=== PATIENT | male | born 1955 | race Caucasian/White ===

== ENCOUNTER 2023-08-29 20:36 | Inpatient (IN) ==
[2023-08-29 22:03] LABS: Basophils # (auto) 0.02 K/uL (0.00-0.20); Basophils % (auto) 0.5 %; Eosinophils # (auto) 0.02 K/uL (0.00-0.50); Eosinophils % (auto) 0.5 %; Hematocrit (blood only) 37.5 % (42.0-52.0); Immature Granulocytes # (auto) 0.01 K/uL (0.01-0.20); Immature Granulocytes % (auto) 0.3 %; Lymphocytes # (auto) 1.07 K/uL (1.20-3.40); Lymphocytes % (auto) 27.8 %; Mean Corpuscular Hgb Conc 34.7 g/dL (32.0-36.0); Mean Corpuscular Volume 89.3 fL (80.0-100.0); Mean Platelet Volume 10.9 fL (9.4-12.4); Monocytes # (auto) 0.56 K/uL (0.11-0.59); Monocytes % (auto) 14.5 %; Neutrophils # (auto) 2.17 K/uL (1.40-6.50); Neutrophils % (auto) 56.4 %; Platelet Count 182 K/uL (130-400); RDW Coefficient of Variation 12.9 % (11.5-14.5); RDW Standard Deviation 42.5 fL (36.4-46.3); White Blood Count 3.85 K/ul (4.8-10.8)
[2023-08-29 22:11] LABS: Acetaminophen < 3 ug/ml (10-30); Salicylate < 3.0 mg/dl (3.0-30)
[2023-08-29 22:12] LABS: Alanine Aminotransferase 15 U/L (7-52); Albumin Globulin Ratio 1.3 (0.9-2); Albumin Level 4.1 gm/dl (3.4-5.0); Alkaline Phosphatase 115 U/L (34-104); Anion Gap 8 (3-11); Aspartate Aminotransferase 31 U/L (13-39); BUN Creatinine Ratio 13.9 (10-20); Bilirubin,Total 1.7 mg/dl (0.2-1.0); Blood Urea Nitrogen 11 mg/dl (6-23); Calcium 9.3 mg/dl (8.6-10.3); Carbon Dioxide 29 mmol/L (21-32); Chloride 101 mmol/L (98-107); Est GFR (African American) 105.4 ml/min; Globulin 3.1 gm/dl (2.5-4.0); Glucose 86 mg/dl (70-99(Fasting)); Potassium 3.5 mmol/L (3.5-5.1); Sodium 138 mmol/L (136-145); Total Protein 7.2 gm/dl (6.0-8.3)
[2023-08-29 22:26] LABS: Thyroid Stimulating Hormone 1.487 uIu/ml (0.300-4.500)
[2023-08-30 00:06] LABS: Appearance Urine Cloudy (Clear); Bacteria Urine Automated None Seen (None Seen); Bilirubin Urine Negative (Negative); Blood Urine Negative (Negative); Color Urine Yellow; Glucose Urine UA Negative (Negative); Ketones Urine Trace (Negative); Leukocyte Esterase Urine Negative (Negative); Nitrite Urine Negative (Negative); Protein Urine 1+ (Negative); Specific Gravity Urine 1.015 (1.000-1.030); Urobilinogen Urine Negative (Negative); WBC Urine Automated 0-5 /hpf (0-5); pH Urine 7.5 (4.5-7.5)
--- NOTE | 2023-08-30 00:23 | Emergency Department Note ---
Impression & Plan Hallucination ED Provider Note Diagnosis: Hallucinations/delusions, failure to take care of himself CHIEF COMPLAINT: HPI: Patient 68-year-old male presenting for crisis evaluation. Patient reportedly has not been able to perform activities of daily living. Patient's been having hallucinations. Patient delusional. Patient has history of mental health illness. Patient had a 302 petition against him due to not acting his normal self and not being able to care for himself with the hallucinations and delusions. Patient reportedly at the home was found to have feces covering the bathroom throughout as well as the patient being covered and soiled in urine and stool. Patient had went to his reported methadone appointment recently and parked erratically in the middle of the parking lot left all of his doors and windows open and was not acting himself which made the staff more concerned about his wellbeing. PAST MEDICAL HISTORY: See Below PAST SURGICAL HISTORY: See Below SOCIAL HISTORY: See Below HOME MEDICATIONS: See Below ALLERGIES: See Below VITALS: See Below PHYSICAL EXAMINATION: GENERAL: Well appearing, well nourished, NAD, non-toxic. EYE EXAM: Normal conjunctiva. OROPHARYNX: Moist mucus membranes. Grossly normal dentition. NECK: Supple, LUNGS: Clear to auscultation. Normal chest wall mechanics. HEART: NSR ABDOMEN: Abdomen soft, non-tender, normo-active bowel sounds, no masses, no rebound or guarding BACK: No CVA TTP. SKIN: No rashes and no bruising. UPPER EXTREMITIES: Upper extremities are grossly normal LOWER EXTREMITIES: Grossly normal, no edema. NEURO EXAM: A&O x3,, normal speech, moves all 4 extremities PSYCH: Hallucinations, delusional MEDICAL DECISION MAKING: Reviewed external documents: History obtained from: Patient, ER Course: Patient 68-year-old male with history of mental health disorders presenting with hallucinations delusions and inability to care for himself at this time. I have held the patient's 302. Patient neurologically intact. Patient's EKG without signs of ischemia. Patient has no electrolyte abnormalities. Patient is pending CT scan of the head before bed search can be performed. Patient's case signed out to to the end of my shift. Labs (independently interpreted) are significant for: No electrolyte abnormalities Imaging results (independently interpreted): Chest x-ray clear EKG interpretation (independently interpreted): Sinus bradycardia no ST segment elevation or depression Medications given: [place] Consultants: Mental health family caseworker Triage Nursing notes reviewed and agree them. Vital Signs: reviewed and remarkable for: no significant abnormalities Past Med/Surg History Problem List (Updated 08/30/23 @ 01:11 by Vazquez Mast DO) Hallucination (Acute) Medical History Edema History of opioid abuse Over 30 years ago per patient. On methadone. Patient on methadone maintenance therapy Surgical History No pertinent past surgical history Social History Smoking Status: Former smoker Tobacco Type: Cigarettes Preferred Language: Amharic Feels Safe at Home: Yes Allergies Allergies Allergy/AdvReac Type Severity Reaction Status Date / Time No Known Allergies Allergy Verified 09/12/22 18:09 Home Meds Home Medications Medication Instructions Recorded Confirmed methadone 10 mg/mL oral concentrate 47 mg PO DAILY 09/12/22 08/29/23 clonazepam 0.5 mg tablet See Rx Instructions .Route .COMPLEX 11/12/22 08/29/23 sennosides 8.6 mg-docusate sodium 1 tab-cap PO AMHS 11/12/22 08/29/23 50 mg tablet Results & Data (ED) Vital Signs Vital Signs - 24 hr 08/29/23 20:56 08/29/23 22:04 08/29/23 23:17 Temperature 37.3 C Temperature Source Oral Pulse Rate 65 61 Pulse Rate [Radial] 60 Respiratory Rate 20 17 Respiratory Effort / Characteristics Non-Labored Spontaneous Respiratory Depth Normal Respiratory Pattern Regular Blood Pressure 141/84 H Blood Pressure [Left Arm] 151/84 H Blood Pressure Mean 103 Blood Pressure Mean [Left Arm] 106 Pulse Oximetry 98 98 Oxygen Delivery Method Room Air Room Air Sepsis Recent Fever Within 48 Hours No Sepsis New/Unexplained Change in Mental Status No Sepsis Action Taken by Nursing No Action Required Laboratory Data 08/29/23 21:04 08/29/23 21:04 Lab Results 08/29/23 08/29/23 Range/Units 21:04 23:45 WBC 3.85 L (4.8-10.8) K/ul RBC 4.20 L (4.70-6.10) M/uL Hgb 13.0 L (14.0-18.0) g/dl Hct 37.5 L (42.0-52.0) % MCV 89.3 (80.0-100.0) fL MCH 31.0 (25.0-34.0) pg MCHC 34.7 (32.0-36.0) g/dL RDW Std Deviation 42.5 (36.4-46.3) fL RDW Coeff of Kim 12.9 (11.5-14.5) % Plt Count 182 (130-400) K/uL MPV 10.9 (9.4-12.4) fL Immature Gran % (Auto) 0.3 % Neut % (Auto) 56.4 % Lymph % (Auto) 27.8 % [place] % (Auto) 14.5 % Eos % (Auto) 0.5 % Baso % (Auto) 0.5 % Neut # (Auto) 2.17 (1.40-6.50) K/uL Lymph # (Auto) 1.07 L (1.20-3.40) K/uL [place] # (Auto) 0.56 (0.11-0.59) K/uL Eos # (Auto) 0.02 (0.00-0.50) K/uL Baso # (Auto) 0.02 (0.00-0.20) K/uL Immature Gran # (Auto) 0.01 (0.01-0.20) K/uL Sodium 138 (136-145) mmol/L Potassium 3.5 (3.5-5.1) mmol/L Chloride 101 (98-107) mmol/L Carbon Dioxide 29 (21-32) mmol/L Anion Gap 8 (3-11) BUN 11 (6-23) mg/dl Creatinine 0.79 (0.6-1.4) mg/dl Est Cr Clr Drug Dosing Not Reportable Est GFR ( Amer) 105.4 ml/min Est GFR (Non-Af Amer) 91.0 ml/min BUN/Creatinine Ratio 13.9 (10-20) Glucose 86 (70-99(Fasting)) mg/dl Calcium 9.3 (8.6-10.3) mg/dl Total Bilirubin 1.7 H (0.2-1.0) mg/dl AST 31 (13-39) U/L ALT 15 (7-52) U/L Alkaline Phosphatase 115 H (34-104) U/L Total Protein 7.2 (6.0-8.3) gm/dl Albumin 4.1 (3.4-5.0) gm/dl Globulin 3.1 (2.5-4.0) gm/dl Albumin/Globulin Ratio 1.3 (0.9-2) TSH 1.487 (0.300-4.500) uIu/ml Urine Color Yellow Urine Appearance Cloudy A (Clear) Urine pH 7.5 (4.5-7.5) Ur Specific [place] 1.015 (1.000-1.030) Urine Protein 1+ H (Negative) Urine Glucose (UA) Negative (Negative) Urine Ketones Trace H (Negative) Urine Blood Negative (Negative) Urine Nitrite Negative (Negative) Urine Bilirubin Negative (Negative) Urine Urobilinogen Negative (Negative) Ur Leukocyte Esterase Negative (Negative) Urine WBC (Auto) 0-5 (0-5) /hpf Urine RBC (Auto) 3-5 H (0-2) /hpf U Hyaline Cast (Auto) 3-5 H (0-2) /lpf U Epithel Cells (Auto) 3-5 H (0-2) /hpf Urine Bacteria (Auto) None Seen (None Seen) Salicylates < 3.0 L (3.0-30) mg/dl Acetaminophen < 3 L (10-30) ug/ml Ethyl Alcohol mg/dL < 10.0 (<10.0) mg/dl Administered Medications Discontinued Medications Clonazepam (Clonazepam 1 Mg Tab) 1 mg PO ONCE ONE Stop: 08/30/23 00:49 Last Admin: 08/30/23 00:57 Dose: 1 mg Documented By: JT Discharge Plan Visit Data Chief Complaint: Back Injury/Pain Stated Complaint: Back Pain, 302 ED Provider: Vazquez Mast Discharge Problem: Hallucination Forms Stand Alone Forms: My [facility] Prescriptions Prescriptions: No Action clonazepam 0.5 mg tablet See Rx Instructions .ROUTE .COMPLEX Rx Instructions: take 1 tablet orally in the morning,noon and take 2 tablets before bedtime sennosides-docusate sodium 8.6-50 mg Tablet 1 tab-cap PO AMHS methadone 10 mg/mL Concentrate 47 mg PO DAILY Referrals Referrals: Elias Ohara MD [Primary Care Provider] -
[2023-08-30] MEDS: clonazePAM 1 MG TAB PO ONE (00:57)
--- NOTE | 2023-08-30 01:13 | CT Scan Report ---
Exam(s): CT HEAD Without Contrast EXAM: CT Head Without Intravenous Contrast CLINICAL HISTORY: Reason for exam: confusion. TECHNIQUE: Axial computed tomography images of the head/brain without intravenous contrast. Automated exposure control was utilized for the study. A dose lowering technique was utilized adhering to the principles of ALARA. COMPARISON: No relevant prior studies available. FINDINGS: No acute intracranial hemorrhage. No midline shift or mass effect. The territorial oneal-white matter differentiation is maintained throughout. Age-related cerebral volume loss. Periventricular and subcortical white matter hypoattenuation, consistent with chronic microangiopathy. The visualized orbits appear grossly unremarkable. The calvarium is intact. Opacified LEFT maxillary sinus. IMPRESSION: No acute intracranial hemorrhage, midline shift, or mass effect. Electronically signed by: Mega Valdivia MD 08/30/23 01:11 AM
[2023-08-30 01:15] LABS: Amphetamines+Metham, Urine Neg (Neg); Barbiturates, Urine Neg (Neg); Benzodiazepine, Urine Neg (Neg); Cocaine, Urine Neg (Neg); Fentanyl, Urine Neg (Neg); MDMA (Ecstacy), Urine Neg (Neg); Marijuana, Urine Neg (Neg); Methadone, Urine Pos (Neg); Opiate, Urine Neg (Neg); Phencyclidine, Urine Neg (Neg)
--- NOTE | 2023-08-30 02:17 | Emergency Department Note ---
ED Visit Note Date and Time: 08/30/2023 0135 Interval History: Sign out received from Dr. Mast who reviewed details of the encounter. Patient was pending bed search. Summary: patient resting comfortably overnight. Vitals remained stable. Blood pressure 133/71. Pulse rate 48. Respiratory rate 16. Temperature 37.3 Disposition: bed search will continue for Patricia psych placement. The case will be signed out to Dr. Ng at change of shift. Patient is on a 302 .
--- NOTE | 2023-08-30 07:24 | XRay Report ---
XR chest 1V portable HISTORY: 68 years-old Male Hallucinations acutely altered mental status COMPARISON: 05/06/2023 TECHNIQUE: AP view of the chest FINDINGS: Cardiomediastinal and hilar silhouettes are within normal limits. Medial lung apices are obscured by the patient's chin. No pneumothorax, pleural effusion, airspace consolidation or pulmonary edema. Spo ndylotic spurring of the spine. IMPRESSION: No acute process. ACT 112: Negative or not required by law. The above report was generated using voice recognition software. It may contain grammatical, syntax o r spelling errors. Electronically signed by: Josafat Coker M.D. 08/30/2023 7:23 AM
[2023-08-30] MEDS ORDERED: METHADONE HCL 5 MG TAB PO STA (07:33)
--- NOTE | 2023-08-30 08:13 | Emergency Department Note ---
ED Visit Note This patient was signed out to me at shift change by Dr. Velasquez. The patient had been previously medically cleared and she did order his daily methadone. The 302 had been previously signed off on him for inability to care for self. I went back and saw the patient is resting comfortably appears in no distress. Denies that he wants to hurt himself. He appears to be alert and orient x 3. I asked him about his confusion he says that that they thought he was confused earlier. Christal our psychiatric protective services case worker did reach out to the sister to get a little more information on him. The patient has remained stable. Placement proved difficult as psych facilities feel that he is most likely medical/dementia. This has been going on for a while he certainly cannot care for himself at present. I do think he needs a medical admission and psych and or neurologic evaluation. I discussed case with Dr. Loza who will see the patient in the ER for these measures. .
[2023-08-30] MEDS ORDERED: METHADONE ORAL SOLN 2 MG/ML PO STA (08:44)
[2023-08-30] MEDS ORDERED: METHADONE ORAL SOLN 2 MG/ML PO ONE (10:30)
[2023-08-30] MEDS: METHADONE ORAL SOLN 2 MG/ML PO ONE (10:48)
--- NOTE | 2023-08-30 12:47 | Electrocardiogram Report ---
Test Reason : Blood Pressure : / mmHG Vent. Rate : 059 BPM Atrial Rate : 059 BPM P-R Int : 138 ms QRS Dur : 096 ms QT Int : 448 ms P-R-T Axes : 051 022 044 degrees QTc Int : 443 ms Sinus bradycardia Otherwise normal ECG When compared with ECG of 06-MAY-2023 16:00, No significant change was found Confirmed by Johann Patino ([id number]) on 08/30/2023 12:47:37 PM Referred By: REFERRED SELF Confirmed By:Rangel Patino
--- OUTSIDE RECORDS SUMMARY | 2023-08-30 15:09 | External Medical Summary | Summary of Care ---
Author Name Unknown Organization [facility] Address [address] [place] [address] Phone [phone] Care Team Providers Care O And M Supervisor Name Role Phone Elias Ohara MD Primary Care Provider + Reason for Visit * Reason Onset Date Comments Medication Refill 07/31/2023 Encounter Details Date Type Department Care Team (Late st Contact Info) Description 07/31/2023 Telephone General Internal Medicine [facility] [address] [place] [address] Elias Ohara MD [address] [place] [address] Medication Refill Allergies Active Allergy Reactions Criticality Noted Date Comments Nystatin Rash 10/25/2022 documented as of this encounter (statuses as of 07/31/2023) Medications Medication Sig Dispensed Refills Start Date End Date Status Methadone HCl 10 MG Oral TabletIndications:Hi story of substance abuse (HCC) Take 1 Tablet by mouth every evening. For pain 60 Tablet 05/14/2022 Active Magnesium Hydroxide 400 MG/5ML Oral Suspension (Milk of Magnesia) Take by mouth daily as needed for Constipation. Active Movantik 12.5 MG Oral Tablet (Naloxegol Oxalate)Indications: Therapeutic opioid-induced constipation (OIC) Take 1 Tablet by mouth in the morning. 30 Tablet 5 01/02/2023 Active Ketoconazole 2 % External Shampoo (Nizoral)Indications :Seborrheic dermatitis of scalp Lather into the scalp three times per week in the shower or bath, then rinse off 120 mL 11 01/31/2023 Active Loratadine 10 MG Oral Tablet (Claritin)Indication s:Vertigo,Chronic frontal sinusitis Take 1 Tablet by mouth in the morning. 30 Tablet 5 02/07/2023 Active Additional Information Patient not taking.Reported on 07/04/2023 Omeprazole 20 MG Oral Capsule Delayed Release (PriLOSEC)Indication s:Gastroesophageal reflux disease without esophagitis Take 1 Capsule by mouth in the morning. 1 hour before the first meal of the day. 30 Capsule 5 03/14/2023 Active Additional Information Patient not taking.Reported on 07/04/2023 Sennosides-Docusate Sodium 8.6-50 MG Oral Tablet (Senokot-S)Indicatio ns:Constipation, unspecified constipation type IN THE MORINING AND AT BEDTIME 05/10/2023 Active Metamucil Smooth Texture 58.6 % Oral Powder (Psyllium)Indication s:Constipation due to opioid therapy One scoop in 8 ounces of water,-pt started 10/15/2022 05/10/2023 Active Triamcinolone Acetonide 0.1 % Mouth/Throat Paste (Kenalog In Orabase)Indications: Aphthous ulcer of mouth Apply a small amount to the mouth sores 2 to 4 times daily until healed; do not rinse afterwards and avoid eating or drinking for 30 minutes after application. Use up to one week only. 5 g 05/21/2023 Active Metoprolol Succinate ER 25 MG Oral Tablet Extended Release 24 Hour (Toprol XL)Indications:Palpi tations,SVT (supraventricular tachycardia) (HCC),New onset atrial flutter (HCC) Take 1 Tablet by mouth in the morning. 30 Tablet 5 06/20/2023 Active Apixaban 5 MG Oral Tablet (Eliquis)Indications :New onset atrial flutter (HCC) Take 1 Tablet by mouth in the morning and 1 Tablet before bedtime. 60 Tablet 11 06/20/2023 Active Fluticasone Propionate 50 MCG/ACT Nasal Suspension (Flonase)Indications :Post-nasal drip Administer 1 [place] into each nostril in the morning and 1 [place] before bedtime. 15.8 mL 4 06/27/2023 Active Linzess 290 MCG Oral Capsule (linaCLOtide) Take 1 Capsule by mouth daily before breakfast. 90 Capsule 3 07/04/2023 Active clonazePAM 0.5 MG Oral Tablet (KlonoPIN)Indication s:IRAIS (generalized anxiety disorder) Take 1 Tablet by mouth 2 times a day as needed for Anxiety. 40 Tablet 07/04/2023 Active DULoxetine HCl 20 MG Oral Capsule Delayed Release Particles (duloxetine)Indicati ons:Pharyngoesophage al dysphagia,Primary osteoarthritis of both knees Take 1 Capsule by mouth in the morning. Do not cut, crush or chew. 30 Capsule 5 07/30/2023 Active documented as of this encounter (statuses as of 07/31/2023) Active Problems Problem Noted Date Diagnosed Date Constipation due to opioid therapy 05/10/2023 Constipation 05/10/2023 Opioid dependence, uncomplicated 03/24/2023 History of substance abuse 03/24/2023 Aortic ectasia, abdominal 01/11/2023 Food insecurity 05/28/2022 Overview: Per [facility] Protocol HTN, goal below 130/80 05/14/2022 IRAIS (generalized anxiety disorder) 05/14/2022 History of hepatitis C 05/14/2022 Moderate depressive disorder 05/14/2022 Hyponatremia 05/14/2022 documented as of this encounter (statuses as of 07/31/2023) Social History Tobacco Use Types Packs/Day Years Used Date Smoking Tobacco: Former Cigarettes 0.3 50 0 07/20/1971 - 07/19/2021 Smokeless Tobacco: Never Alcohol Use Standard Drinks/Week Comments Not Currently 0 (1 standard drink = 0.6 oz pur e alcohol) PHQ-2 Answer Date Recorded PHQ Adult Total Score 5 06/14/2023 Hunger Vital Sign Answer Date Recorded Within the past 12 months, y ou worried that your food would run out before you got the money to buy more. Sometimes true Within the past 12 months, t he food you bought just didn't last and you didn't have money to get more. Sometimes true Sex and Gender Information Value Date Recorded Sex Assigned at Not on file Gender Identity Not on file Sexual Orientation Not on file Job Start Date Occupation Industry Not on file Not on file Not on file documented as of this encounter Miscellaneous Notes * Telephone Encounter - Fe He OSA - 07/31/2023 9:29 AM EDT error documented in this encounter Plan of Treatment Upcoming Encounters Date Type Department Care Team (Latest Contact Info) Description 4 3:00 PM EDT Office Visit General Internal Medicine [facility] [address] [facility] [place] [id number] Elias Ohara MD [address] [facility] [place] [address] 4 3:00 PM EDT Cardiac Studies Cardiac Studies, [facility] [address] [facility] [place] [address] 4 10:30 AM EDT Telemedicine Psychiatry, [facility] [address] [facility] [place] [address] Lisa Castañeda CRNP [address] [facility] [place] [id number] 4 10:30 AM EDT Office Visit Orthopaedics [facility] [address] [facility] [place] [address] Douglas Modi PA-C [address] [place] [address] [place] [address] 4 1:20 PM EDT Office Visit Otolaryngology [facility] [address] [facility] [place] [address] Scott Carney PA-C [address] [place] [address] 4 1:30 PM EDT Office Visit Cardiology, [facility] [address] [facility] [place] [address] Laura Varela CRNP [address] [place] [address] 4 11:15 AM EDT Hospital Encounter ENDO [facility], Endoscopy Room [facility] [address] [place] [address] Sara Sweet MD [address] [place] [address] 4 11:15 AM EDT - 4 11:45 AM EDT Surgery ENDO [facility], Endoscopy Room [facility] [address] [place] [phone] Sara Sweet MD [address] [place] [address] ESOPHAGOGASTRODUODENOSCOPY (EGD), FLEXIBLE, TRANSORAL, DIAGNOSTIC 4 1:15 PM EST Imaging Radiology [facility] [address] [place] [address] Scheduled Procedures Name Priority Associated Diagnoses Date/Ti me ESOPHAGOGASTRODUODENOSCOPY ( EGD), FLEXIBLE, TRANSORAL, DIAGNOSTIC Dysphagia, unspecified type 12/12/2023 11:15 AM EDT Health Maintenance Due Date Last Done Comments Albumin/Creatinine Ratio 05/08/1971 DTaP,Tdap,and Td Vaccines (1 - Tdap) 1972 Cologuard 1998 Colonoscopy 1998 Colorectal Cancer Screening 1998 Fecal Occult Blood Test 1998 Sigmoidoscopy 1998 Zoster Vaccines (1 of 2) 05/08/2003 Pneumococcal Vaccine: 65+ Years (1 of 1 - PCV) 2018 COVID-19 Vaccine ( - 2022-2 4 season) 2022 Influenza Vaccine (FLU shot) (Season Ended) 2023 GFR 12/26/2023 12/25/2022, 12/14/2022, 05/09/2022 Depression Monitoring 06/13/2024 06/14/2023 Lipid Panel 12/15/2027 12/14/2022 AAA Screening Completed 01/09/2023 GARDASIL-HPV IMMUNIZATION SERIES Aged Out No longer eligible b ased on patient's age to complete this topic Hepatitis B Aged Out No longer eligi ble based on patient's age to complete this topic MENINGOCOCCAL (MENACTRA/MENVEO) Aged Out No longer eligible b ased on patient's age to complete this topic documented as of this encounter Medical Devices Not on filedocumented as of this encounter Care Teams O And M Supervisor Relationship Specialty Start Date End Date Elias Ohara MD [address] [facility] [place] [address] PCP - General Internal Medicine 06/18/22 documented as of this encounter
--- OUTSIDE RECORDS SUMMARY | 2023-08-30 15:09 | External Medical Summary | Summary of Care ---
Author Name Unknown Organization [facility] Address [address] [place] [address] Phone [phone] Care Team Providers Care Investment Broker Name Role Phone Elias Ohara MD Primary Care Provider + Reason for Visit * Reason Onset Date Comments Medication Refill 07/31/2023 Encounter Details Date Type Department Care Team (Late st Contact Info) Description 07/31/2023 Refill General Internal Medicine [facility] [address] [place] [address] Perez Frazier, PhD [address] [place] [address] IRAIS (generalized anxiety disorder) Allergies Active Allergy Reactions Criticality Noted Date Comments Nystatin Rash 10/25/2022 documented as of this encounter (statuses as of 07/31/2023) Medications Medication Sig Dispensed Refills Start Date End Date Status Methadone HCl 10 MG Oral TabletIndications:H istory of substance abuse (HCC) Take 1 Tablet by mouth every evening. For pain 60 Tablet 05/14/2022 Active Magnesium Hydroxide 400 MG/5ML Oral Suspension (Milk of Magnesia) Take by mouth daily as needed for Constipation. Active Movantik 12.5 MG Oral Tablet (Naloxegol Oxalate)Indications :Therapeutic opioid-induced constipation (OIC) Take 1 Tablet by mouth in the morning. 30 Tablet 5 01/02/2023 Active Ketoconazole 2 % External Shampoo (Nizoral)Indication s:Seborrheic dermatitis of scalp Lather into the scalp three times per week in the shower or bath, then rinse off 120 mL 11 01/31/2023 Active Loratadine 10 MG Oral Tablet (Claritin)Indicatio ns:Vertigo,Chronic frontal sinusitis Take 1 Tablet by mouth in the morning. 30 Tablet 5 02/07/2023 Active Additional Information Patient not taking.Reported on 07/04/2023 Omeprazole 20 MG Oral Capsule Delayed Release (PriLOSEC)Indicatio ns:Gastroesophageal reflux disease without esophagitis Take 1 Capsule by mouth in the morning. 1 hour before the first meal of the day. 30 Capsule 5 03/14/2023 Active Additional Information Patient not taking.Reported on 07/04/2023 Sennosides-Docusate Sodium 8.6-50 MG Oral Tablet (Senokot-S)Indicati ons:Constipation, unspecified constipation type IN THE MORINING AND AT BEDTIME 05/10/2023 Active Metamucil Smooth Texture 58.6 % Oral Powder (Psyllium)Indicatio ns:Constipation due to opioid therapy One scoop in 8 ounces of water,-pt started 10/15/2022 05/10/2023 Active Triamcinolone Acetonide 0.1 % Mouth/Throat Paste (Kenalog In Orabase)Indications :Aphthous ulcer of mouth Apply a small amount to the mouth sores 2 to 4 times daily until healed; do not rinse afterwards and avoid eating or drinking for 30 minutes after application. Use up to one week only. 5 g 05/21/2023 Active Metoprolol Succinate ER 25 MG Oral Tablet Extended Release 24 Hour (Toprol XL)Indications:Palp itations,SVT (supraventricular tachycardia) (HCC),New onset atrial flutter (HCC) Take 1 Tablet by mouth in the morning. 30 Tablet 5 06/20/2023 Active Apixaban 5 MG Oral Tablet (Eliquis)Indication s:New onset atrial flutter (HCC) Take 1 Tablet by mouth in the morning and 1 Tablet before bedtime. 60 Tablet 11 06/20/2023 Active Fluticasone Propionate 50 MCG/ACT Nasal Suspension (Flonase)Indication s:Post-nasal drip Administer 1 [place] into each nostril in the morning and 1 [place] before bedtime. 15.8 mL 4 06/27/2023 Active Linzess 290 MCG Oral Capsule (linaCLOtide) Take 1 Capsule by mouth daily before breakfast. 90 Capsule 3 07/04/2023 Active DULoxetine HCl 20 MG Oral Capsule Delayed Release Particles (duloxetine)Indicat ions:Pharyngoesopha geal dysphagia,Primary osteoarthritis of both knees Take 1 Capsule by mouth in the morning. Do not cut, crush or chew. 30 Capsule 5 07/30/2023 Active clonazePAM 0.5 MG Oral Tablet (KlonoPIN)Indicatio ns:IRAIS (generalized anxiety disorder) Take 1 Tablet by mouth 2 times a day as needed for Anxiety. 40 Tablet 07/31/2023 Active clonazePAM 0.5 MG Oral Tablet (KlonoPIN)Indicatio ns:IRAIS (generalized anxiety disorder) Take 1 Tablet by mouth 2 times a day as needed for Anxiety. 40 Tablet 07/04/2023 Discontinu ed(Refill) documented as of this encounter (statuses as [...] encounter Miscellaneous Notes * Telephone Encounter - Hien Roth MD - 07/31/2023 1:43 PM EDT Signed Prescriptions: Disp Refills clonazePAM 0.5 MG Oral Tablet (KlonoPIN) 40 Tab*0 Sig: Take 1 Tablet by mouth 2 times a day as needed for Anxiety. Authorizing Provider: HIEN ROTH * Telephone Encounter - Fe He OSA - 07/31/2023 9:35 AM EDT Did you pend patient's preferred pharmacy and medication before forwarding?yes Pharmacy: [id number] Pending Prescriptions: Disp Refills clonazePAM 0.5 MG Oral Tablet (KlonoPIN) 40 Tab*0 Sig: Take 1 Tablet by mouth 2 times a day as needed for Anxiety. Last Visit: 05/10/2023 (in office), Visit date not found (telemedicine) Next Visit: 08/08/2023 If no future appointments scheduled, and last appointment is greater than a year ago, please schedule patient for a follow-up appointment Last date the medication was ordered: [id number] Is this request for a controlled substance?No Urine Drug Screen: Results for orders placed or performed in visit on 12/25/22 TOXICOLOGY, URINE SCREEN W/ CONFIRMATION Result Value Amphetamines Screen, U Negative Benzodiazepines Screen, U Negative Cannabinoids Screen, U Negative Cocaine Metabolite Screen, U Negative Fentanyl Screen, U Negative Hydrocodone Screen, U Negative Methadone Metabolite Screen, U Positive (A) Morphine/Codeine Screen, U Negative Oxycodone Screen, U Negative Narrative Cutoff Concentrations: Drug Level Amphetamines 500 ng/mL Benzodiazepines 100 ng/mL Cannabinoids 50 ng/mL Cocaine Metabolite 150 ng/mL Fentanyl 1 ng/mL Hydrocodone / Hydromorphone 300 ng/mL Methadone Metabolite 100 ng/mL Morphine / Codeine 300 ng/mL Oxycodone / Oxymorphone 100 ng/mL Screening results are presumptive and can only be used for medical purposes. Positive screening results are reflexed to confirmatory testing. Patient Phone Numbers Labs: Lab Results Component Value Date/Time CREAT 0.7 12/25/2022 01:57 PM CREAT 0.82 05/09/2022 12:00 AM POTASSIUM 4.6 12/25/2022 01:57 PM POTASSIUM 4.3 05/09/2022 12:00 AM TSH 2.05 12/25/2022 01:57 PM LDLCALC 90 12/14/2022 12:16 PM ALT 20 12/25/2022 01:57 PM HGBA1C 5.6 10/08/2022 04:36 PM documented in this encounter Plan of Treatment Upcoming Encounters Date Type Department Care Team (Latest Contact Info) Description 4 3:00 PM EDT Office Visit General Internal Medicine [facility] [address] [facility] [place] [address] Elias Ohara MD [address] [facility] [place] [address] 4 3:00 PM EDT Cardiac Studies Card[facility] Studies, [facility] [address] [facility] [place] [address] 4 10:30 AM EDT Telemedicine Psychiatry, [facility] [address] [facility] [place] [address] Lisa Castañeda CRNP [address] [facility] [place] [phone] 4 10:30 AM EDT Office Visit Orthopaedics [facility] [address] [place] [address] Douglas Modi PA-C [address] [place] [address] 4 1:20 PM EDT Office Visit Otolaryngology [facility] [address] [place] [address] Scott Carney PA-C [address] [place] [address] 4 1:30 PM EDT Office Visit Cardiology, [facility] [address] [place] [address] Laura Varela CRNP [address] [place] [address] 4 11:15 AM EDT Hospital Encounter ENDO OSSC, Endoscopy Room [facility] [address] [place] [phone] Sara Sweet MD [address] [place] [address] 4 11:15 AM EDT - 4 11:45 AM EDT Surgery ENDO OSSC, Endoscopy Room [facility] [address] [place] [phone] Sara Sweet MD [address] [place] [address] ESOPHAGOGASTRODUODENOSCOPY (EGD), FLEXIBLE, TRANSORAL, DIAGNOSTIC 4 1:15 PM EST Imaging Radiology [facility] [address] [place] [address] Scheduled Procedures Name Priority Associated Diagnoses Date/Ti [...] Not on filedocumented as of this encounter Visit Diagnoses Diagnosis IRAIS (generalized anxiety disorder) Generalized anxiety disorder Dysphagia, unspecified type documented in this encounter Care Teams Investment Broker Relationship Specialty Start Date End Date Elias Ohara MD [address] [place] [address] PCP - General Internal Medicine 06/18/22 documented as of this encounter
--- OUTSIDE RECORDS SUMMARY | 2023-08-30 15:09 | External Medical Summary | Summary of Care ---
Author Name Unknown Organization [facility] Address [address] [place] [address] Phone [phone] Care Team Providers Care Consultant Dietitian Name Role Phone Elias Ohara MD Primary Care Provider + Reason for Visit * Reason Onset Date Comments Medication Refill 08/20/2023 Encounter Details Date Type Department Care Team (Late st Contact Info) Description 08/20/2023 Refill [facility] [address], [place] [id number] Hien Roth MD [address], [place] [id number] IRAIS (generalized anxiety disorder) Allergies Active Allergy Reactions Criticality Noted Date Comments Nystatin Rash 10/25/2022 documented as of this encounter (statuses as of 08/20/2023) Medications Medication Sig Dispensed Refills Start Date [...] Nasal Suspension (Flonase)Indication s:Post-nasal drip Administer 1 [place] into each nostril in the morning and 1 [place] before bedtime. 15.8 mL 4 06/27/2023 Active [...] times a day as needed for Anxiety. 30 Tablet 08/20/2023 Active clonazePAM 0.5 MG Oral Tablet (KlonoPIN)Indicatio ns:IRAIS (generalized anxiety disorder) Take 1 Tablet by mouth 2 times a day as needed for Anxiety. 40 Tablet 07/31/2023 Discontinu ed(Refill) documented as of this encounter (statuses as of 08/20/2023) Active Problems Problem Noted Date Diagnosed Date Persistent atrial fibrillation 08/08/2023 Constipation due to opioid therapy 05/10/2023 Opioid dependence, uncomplicated 03/24/2023 History of substance abuse 03/24/2023 Aortic ectasia, abdominal 01/11/2023 Food insecurity 05/28/2022 Overview: Per [facility] Protocol HTN, goal below 130/80 05/14/2022 IRAIS (generalized anxiety disorder) 05/14/2022 History of hepatitis C 05/14/2022 Moderate depressive disorder 05/14/2022 Hyponatremia 05/14/2022 documented as of this encounter (statuses as of 08/20/2023) Resolved Problems Problem Noted Date Diagnosed Date Resolved Date Constipation 05/10/2023 08/08/2023 documented as of this encounter (statuses as of 08/20/2023) Social History Tobacco Use Types Packs/Day Years [...] have money to get more. Sometimes true Utilities Answer Date Recorded Do you have trouble paying y our heating, water, or electric bill? (Adult - for ages 18 years and over) Not on file 08/06/2023 Is your family able to pay t he heat, water, or electric bill? (Household - for ages 0-17 years) Not on file 08/06/2023 Does your family have access to good internet? (Household - for ages 0-17 years) Not on file 08/06/2023 Social Connections Answer Date Recorded How often do you feel lonely or isolated from those around you? (Adult - for ages 18 years and over) Not on file 08/06/2023 Sex and Gender Information Value Date Recorded Sex Assigned at Not on file Gender Identity Not on file Sexual Orientation Not on file Job Start Date Occupation Industry Not on file Not on file Not on file documented as of this encounter Miscellaneous Notes * Telephone Encounter - Marti Avery MD - 08/20/2023 5:10 PM EDTSigned Prescriptions: Disp Refills clonazePAM 0.5 MG Oral Tablet (KlonoPIN) 30 Tab*0 Sig: Take 1 Tablet by mouth 2 times a day as needed for Anxiety.Authorizing Provider: MARTI AVERY IE * Telephone Encounter - Marti Avery MD - 08/20/2023 5:09 PM EDT Per chart review, last note states intention to decrease next klonopin fill to #30. Will reduce to #30 and patient has follow-up 09/02 with primary provider to discuss this. * Telephone Encounter - Hien Roth MD - 08/20/2023 4:34 PM EDT Pending Prescriptions: Disp Refills clonazePAM 0.5 MG Oral Tablet (KlonoPIN) 40 Tab*0 Sig: Take 1 Tablet by mouth 2 times a day as needed for Anxiety. * Telephone Encounter - Fe He OSA - 08/20/2023 1:08 PM EDT Did you pend patient's preferred pharmacy and medication before forwarding?yes Pharmacy: [id number] Pending Prescriptions: Disp Refills clonazePAM 0.5 MG Oral Tablet (KlonoPIN) 40 Tab*0 Sig: Take 1 Tablet by mouth 2 times a day as needed for Anxiety. Last Visit: Visit date not found (in office), Visit date not found (telemedicine) Next Visit: Visit date not found If no future appointments scheduled, and last appointment is greater than a year ago, please schedule patient for a follow-up [id number] Last date the medication was ordered: Is this request for a controlled substance?No [...] Care Team (Latest Contact Info) Description 4 12:00 PM EDT Office Visit General Internal Medicine [facility] [address] [facility] [place] [address] Marti Meraz PA-C [address] [place] [address] 4 10:30 AM EDT Telemedicine Psychiatry, [facility] [address] [place] [address] Lisa Castañeda CRNP [address] [facility] [place] [phone] 4 11:00 AM EDT Therapy Psychology, [facility] [address] [place] [address] Perez Frazier, PhD [address] [facility] [place] [address] 4 11:00 AM EDT Office Visit Orthopaedics, [facility] [address] [place] [address] Douglas Modi PA-C [address] [place] [address] 4 1:20 PM EDT Office Visit Otolaryngology [facility] [address] [place] [address] Scott Carney PA-C [address] [place] [address] 4 11:15 AM EDT Hospital Encounter ENDO OSSC, Endoscopy Room [facility] [address] [place] [phone] Sara Sweet MD [address] [place] [address] 4 11:15 AM EDT - 4 11:45 AM EDT Surgery ENDO OSSC, Endoscopy Room [facility] [address] [place] [phone] Sara Sweet MD [address] [place] [address] ESOPHAGOGASTRODUODENOSCOPY (EGD), FLEXIBLE, TRANSORAL, DIAGNOSTIC 4 1:15 PM EST Imaging Radiology [facility] [address] [place] [address] Scheduled Procedures Name Priority Associated Diagnoses Date/Ti [...] 4 season) 2022 Influenza Vaccine (FLU shot) (#1) 2023 GFR 12/26/2023 12/25/2022, 12/14/2022, 05/09/2022 Depression Monitoring 06/13/2024 06/14/2023 Lipid Panel 12/15/2027 12/14/2022 AAA Screening Completed 01/09/2023 HPV (Gardasil) Vaccine Aged Out No lo nger eligible based on patient's age to complete this topic Hepatitis B Vaccine Aged Out No longe r eligible based on patient's age to complete this topic MENINGOCOCCAL (MENACTRA/MENVEO) Aged Out No longer eligible b ased on patient's age to complete this topic documented as of this encounter Medical Devices Not on filedocumented as of this encounter Visit Diagnoses Diagnosis IRAIS (generalized anxiety disorder) Generalized anxiety disorder Dysphagia, unspecified type documented in this encounter Care Teams Consultant Dietitian Relationship Specialty Start Date End Date Elias Ohara MD [address] [place] [facility] [place] [address] PCP - General Internal Medicine 06/18/22 documented as of this encounter
--- OUTSIDE RECORDS SUMMARY | 2023-08-30 15:09 | External Medical Summary | Summary of Care ---
Author Name Unknown Organization [facility] Address [address] [place] [address] Phone [phone] Care Team Providers Care Director Of Mechanical Engineering Name Role Phone Elias Ohara MD Primary Care Provider + Reason for Visit * Reason Onset Date Comments No Show 08/27/2023 [facility] No Show Auto mation Encounter Details Date Type Department Care Team (Late st Contact Info) Description 08/27/2023 Telephone General Internal Medicine [facility] [address] [place] [address] Marti Meraz PA-C [address] [place] [address] No Show ([place] No Show Automation) Allergies Active Allergy Reactions Criticality Noted Date Comments Nystatin Rash 10/25/2022 documented as of this encounter (statuses as of 08/27/2023) Medications Medication Sig Dispensed Refills Start Date [...] Nasal Suspension (Flonase)Indications :Post-nasal drip Administer 1 [place] into each nostril in the morning and 1 [place] before bedtime. 15.8 mL 4 06/27/2023 Active [...] 07/30/2023 Active clonazePAM 0.5 MG Oral Tablet (KlonoPIN)Indication s:IRAIS (generalized anxiety disorder) Take 1 Tablet by mouth 2 times a day as needed for Anxiety. 30 Tablet 08/20/2023 Active documented as of this encounter (statuses as of 08/27/2023) Active Problems Problem Noted Date Diagnosed Date [...] as of this encounter (statuses as of 08/27/2023) Resolved Problems Problem Noted Date Diagnosed Date Resolved Date Constipation 05/10/2023 08/08/2023 documented as of this encounter (statuses as of 08/27/2023) Social History Tobacco Use Types Packs/Day Years [...] encounter Miscellaneous Notes * Telephone Encounter - Wilda Cervantes Show - 08/27/2023 7:21 AM EDT Dear Dann Carlos, Looks like you missed an appointment with MARTI MERAZ on 08/21/2023 at 12:00 PM. If you haven't already rescheduled, you have a couple of options: Reschedule in [email or web address] Call us at [phone] Can't make a future appointment? Cancel and let someone else have your spot! It's easy to do via [facility] or by calling us. Thanks for trusting [facility] with your care. We hope to see you back in our office soon. Sincerely, MARTI MERAZ documented in this encounter Plan of Treatment Upcoming Encounters Date Type Department Care Team (Latest Contact Info) Description 4 10:30 AM EDT Telemedicine Psychiatry, [facility] [address] [address] Lisa Castañeda CRNP [address] [place] [address] [phone] 4 11:00 AM EDT Therapy Psychology, [facility] [address] [place] [address] [address] Perez Frazier, PhD [address] [facility] [place] [address] 4 11:00 AM EDT Office Visit Orthopaedics, [place], [place] [address] [place] [address] Douglas Modi PA-C [address] [place] [phone] 4 1:20 PM EDT Office Visit Otolaryngology [facility] [address] [place] [address] Scott Carney PA-C [address] [place] [address] 4 11:15 AM EDT Hospital Encounter ENDO OSSC, Endoscopy Room [facility] [address] [place] [phone] Sara Sweet MD [address] [place] [address] 4 11:15 AM EDT - 4 11:45 AM EDT Surgery ENDO O[facility], Endoscopy Room [facility] [address] [place] [phone] Sara Sweet MD [address] [place] [address] ESOPHAGOGASTRODUODENOSCOPY (EGD), FLEXIBLE, TRANSORAL, DIAGNOSTIC 4 1:15 PM EST Imaging Radiology [facility] [address] [place] [address] Scheduled Procedures Name Priority Associated Diagnoses Date/Ti [...] of 1 - PCV) 2018 COVID-19 Vaccine (1 - 2022-2 4 season) 2022 Influenza Vaccine [...] filedocumented as of this encounter Care Teams Director Of Mechanical Engineering Relationship Specialty Start Date End Date Elias Ohara MD [address] [place] [address] PCP - General Internal Medicine 06/18/22 documented as of this encounter
--- OUTSIDE RECORDS SUMMARY | 2023-08-30 15:09 | External Medical Summary | Summary of Care ---
Author Name Unknown Organization [facility] Address [address] [place] [address] Phone [phone] Care Team Providers Care Gear Generator Set Up Operator Name Role Phone Elias Ohara MD Primary Care Provider + Reason for Visit * Reason Onset Date Comments Medication Refill 07/29/2023 Encounter Details Date Type Department Care Team (Late st Contact Info) Description 07/29/2023 Refill [facility], [facility] [place] [address] [place] [address] Lisa Castañeda CRNP [address] [place] [address] Pharyngoesophageal dysphagia; Primary osteoarthritis of both knees; IRAIS (generalized anxiety disorder) Allergies Active Allergy Reactions Criticality Noted Date Comments Nystatin Rash 10/25/2022 documented as of this encounter (statuses as of 07/30/2023) Medications Medication Sig Dispensed Refills Start Date [...] Nasal Suspension (Flonase)Indication s:Post-nasal drip Administer 1 [place] into each nostril in the morning and 1 [place] before bedtime. 15.8 mL 4 06/27/2023 Active Linzess 290 MCG Oral Capsule (linaCLOtide) Take 1 Capsule by mouth daily before breakfast. 90 Capsule 3 07/04/2023 Active clonazePAM 0.5 MG Oral Tablet (KlonoPIN)Indicatio [...] or chew. 30 Capsule 5 07/30/2023 Active DULoxetine HCl 20 MG Oral Capsule Delayed Release Particles (duloxetine)Indicat ions:Pharyngoesopha geal dysphagia,Primary osteoarthritis of both knees Take 1 Capsule by mouth in the morning. Do not cut, crush or chew. 30 Capsule 5 03/14/2023 Discontinu ed(Refill) documented as of this encounter (statuses as of 07/30/2023) Active Problems Problem Noted Date Diagnosed Date [...] as of this encounter (statuses as of 07/30/2023) Social History Tobacco Use Types Packs/Day Years [...] encounter Miscellaneous Notes * Telephone Encounter - Elias Ohara MD - 07/30/2023 12:04 PM EDT Signed Prescriptions: Disp Refills DULoxetine HCl 20 MG Oral Capsule Delayed *30 Cap*5 Sig: Take 1 Capsule by mouth in the morning. Do not cut, crush or chew. Authorizing Provider: ELIAS OHARA * Telephone Encounter - Yuliya Moura LPN - 07/30/2023 11:56 AM EDTPending Prescriptions: Disp Refills DULoxetine HCl 20 MG Oral Capsule Delayed *30 Cap*5 Sig: Take 1 Capsule by mouth in the morning. Do not cut, crush or chew. * Telephone Encounter - Yuliya Moura LPN - 07/30/2023 11:56 AM EDT Removed clonazepam from request as it is managed by Psych. * Telephone Encounter - Margaret Clark, BLOSSOM - 07/29/2023 12:26 PM EDT Did you pend patient's preferred pharmacy and medication before forwarding?yes Pharmacy: [facility] [id number] Pending Prescriptions: Disp Refills DULoxetine HCl 20 MG Oral Capsule Delayed*30 Cap*5 Sig: Take 1 Capsule by mouth in the morning. Do not cut, crush or chew. clonazePAM 0.5 MG Oral Tablet (KlonoPIN) 40 Tab*0 Sig: Take 1 Tablet by mouth 2 times a day as needed for Anxiety. Last Visit: 07/09/2023 (in office), Visit date not found (telemedicine) Next Visit: 09/03/2023 If no future appointments scheduled, and last appointment is greater than a year ago, please schedule patient for a follow-up appointment Last date the medication was ordered: 07/04/23, 03/14/23 Is this request for a controlled substance?No [...] PM EDT Office Visit General Internal Medicine [facility] [address] [facility] [place] [address] Elias Ohara MD [address] [facility] [place] [address] 4 3:00 PM EDT Cardiac Studies Cardiac Studies, [facility] [place] [address] [facility] [place] [address] 4 10:30 AM EDT Telemedicine Psychiatry, [facility] [address] [facility] [place] [address] Lisa Castañeda CRNP [address] [facility] [place] [phone] 4 10:30 AM EDT Office Visit Orthopaedics [facility] [place] [address] [facility] [place] [address] Douglas Modi PA-C [address] [place] [address] [place] [address] 4 1:20 PM EDT Office Visit Otolaryngology [facility] [place] [address] [place] [address] Scott Carney PA-C [address] [place] [address] 4 1:30 PM EDT Office Visit Cardiology, [facility] [place] [address] [place], [place] [address] Laura Varela CRNP [address] [place] [address] 4 11:15 AM EDT Hospital Encounter ENDO [facility], Endoscopy Room [facility] [address] [place] [phone] Sara Sweet MD [address] [place] [address] 4 11:15 AM EDT - 4 11:45 AM EDT Surgery ENDO [facility], Endoscopy Room [facility] [address] [place] [phone] Sara Sweet MD [address] [place] [address] ESOPHAGOGASTRODUODENOSCOPY (EGD), FLEXIBLE, TRANSORAL, DIAGNOSTIC 4 1:15 PM EST Imaging Radiology [facility] [place] [address] [place] [address] Scheduled Procedures Name Priority Associated Diagnoses Date/Ti [...] as of this encounter Visit Diagnoses Diagnosis Pharyngoesophageal dysphagia Dysphagia, pharyngoesophageal phase Primary osteoarthritis of both knees Primary localized osteoarthrosis, lower leg IRAIS (generalized anxiety disorder) Generalized anxiety disorder Dysphagia, unspecified type documented in this encounter Care Teams Gear Generator Set Up Operator Relationship Specialty Start Date End Date Elias Ohara MD [address] [place] [address] PCP - General Internal Medicine 06/18/22 documented as of this encounter
--- OUTSIDE RECORDS SUMMARY | 2023-08-30 15:09 | External Medical Summary | Summary of Care ---
Author Name Unknown Organization [facility] Address [address] [place] [address] Phone [phone] Care Team Providers Care Dumpling Machine Operator Name Role Phone Elias Ohara MD Primary Care Provider + Reason for Visit * Reason Onset Date Comments Med Request 07/04/2023 Encounter Details Date Type Department Care Team (Late st Contact Info) Description 07/04/2023 Telephone Psychiatry, [facility] [address] [facility] [place] [address] Lisa Castañeda CRNP [address] [facility] [place] [address] Med Request Allergies Active Allergy Reactions Criticality Noted Date [...] Nasal Suspension (Flonase)Indication s:Post-nasal drip Administer 1 [place] into each nostril in the morning and 1 [place] before bedtime. 15.8 mL 4 06/27/2023 Active [...] crush or chew. 30 Capsule 5 03/14/2023 4 Discontinu ed(Refill) clonazePAM 0.5 MG Oral Tablet (KlonoPIN)Indicatio ns:IRAIS (generalized anxiety disorder) Take 1 Tablet by mouth 2 times a day as needed for Anxiety. 40 Tablet 06/04/2023 4 Discontinu ed(Refill) documented as of this encounter (statuses as of 07/31/2023) Active Problems Problem Noted Date Diagnosed Date Constipation due to opioid therapy 05/10/2023 Constipation 05/10/2023 Opioid dependence, uncomplicated 03/24/2023 History of substance abuse 03/24/2023 Aortic ectasia, abdominal 01/11/2023 Food insecurity 05/28/2022 Overview: Per [facility] Protocol HTN, goal below 130/80 [...] encounter Miscellaneous Notes * Telephone Encounter - Lisa Solis OSA - 07/31/2023 8:33 AM EDT Patient called in regards to checking on medication. He would like this filled mariella. Patient is scheduled for a follow up visit 09/03/23 * Telephone Encounter - Edgar Jaime MD - 07/04/2023 4:36 PM EDT I have reviewed the patients controlled substance dispensing history in the Prescription Drug Monitoring Program in compliance with the [facility] regulations before prescribing a controlled substance. * Telephone Encounter - Karmen Gonzalez LPN - 07/04/2023 3:55 PM EDT Did you pend patient's preferred pharmacy and medication before forwarding?yes Pharmacy: [facility] [id number] Pending Prescriptions: Disp Refills clonazePAM 0.5 MG Oral Tablet (KlonoPIN) 40 Tab*0 Sig: Take 1 Tablet by mouth 2 times a day as needed for Anxiety. Last Visit: 06/04/2023 (in office), Visit date not found (telemedicine) Next Visit: 07/09/2023 If no future appointments scheduled, and last appointment is greater than a year ago, please schedule patient for a follow-up appointment Last date the medication was ordered: 06/04/23 Is this request for a controlled substance?Yes, What was the last refill date 06/04/23 w/ quantity 40 and dosage 0.5 and Urine Drug Screen was completed Urine Drug Screen: Results for orders placed [...] 01:57 PM HGBA1C 5.6 10/08/2022 04:36 PM * Telephone Encounter - Edison Yates OSA - 07/04/2023 3:15 PM EDT Pt came to office and requested refill of his Rx for clonazePAM. Phone number verified with pt. Please contact pt. documented in this encounter Plan of Treatment Upcoming Encounters Date Type Department Care Team (Latest Contact Info) Description 3:00 PM EDT Office Visit [facility] Internal [facility] [place] [address] [facility] [place] [address] Elias Ohara MD [address] [facility] [place] [address] 4 3:00 PM EDT Cardiac Studies Cardiac Studies, [facility] [address] [place] [address] 4 10:30 AM EDT Telemedicine Psychiatry, [facility] [address] [facility] [place] [address] Lisa Castañeda CRNP [address] [facility] [place] [address] 4 10:30 AM EDT Office Visit Orthopaedics [facility] [address] [place] [address] Douglas Modi PA-C [address] [place] [address] [place] [address] 4 1:20 PM EDT Office Visit Otolaryngology [facility] [address] [place] [address] Scott Carney PA-C [address] [place] [address] 4 1:30 PM EDT Office Visit Cardiology, [facility] [address] [place] [address] Laura Varela CRNP [address] [place] [address] 4 11:15 AM EDT Hospital Encounter [facility], Endoscopy Room [facility] [address] [place] [phone] Sara Sweet MD [address] [place] [address] 4 11:15 AM EDT - 4 11:45 AM EDT Surgery [facility], Endoscopy [facility] [address] [place] [phone] Sara Sweet MD [address] [place] [address] ESOPHAGOGASTRODUODENOSCOPY (EGD), FLEXIBLE, TRANSORAL, DIAGNOSTIC 4 1:15 PM EST Imaging Radiology [facility] [address] [place] [address] Scheduled Procedures Name Priority Associated Diagnoses Date/Ti [...] type documented in this encounter Care Teams Dumpling Machine Operator Relationship Specialty Start Date End Date Elias Ohara MD [address] [facility] [place] [address] PCP - General Internal Medicine 06/18/22 documented as of this encounter
--- OUTSIDE RECORDS SUMMARY | 2023-08-30 15:09 | External Medical Summary | Summary of Care ---
Author Name Unknown Organization [facility] Address [address] [place] [address] Phone [phone] Care Team Providers Care Medical Collector Name Role Phone Elias Ohara MD Primary Care Provider + Reason for Visit * Reason Onset Date Comments Medication Refill 07/31/2023 Encounter Details Date Type Department Care Team (Late st Contact Info) Description 07/31/2023 Refill General Internal Medicine [facility] [address] [facility] [place] [address] Perez Frazier, PhD [address] [place] [address] IRAIS (generalized anxiety disorder) Allergies Active Allergy Reactions Criticality Noted Date Comments Nystatin Rash 10/25/2022 documented as of this encounter (statuses as of 08/02/2023) Medications Medication Sig Dispensed Refills Start Date [...] Nasal Suspension (Flonase)Indication s:Post-nasal drip Administer 1 [place] into each nostril in the morning and 1 [place] before bedtime. 15.8 mL 4 06/27/2023 Active [...] as of this encounter (statuses as of 08/02/2023) Active Problems Problem Noted Date Diagnosed Date [...] as of this encounter (statuses as of 08/02/2023) Social History Tobacco Use Types Packs/Day Years [...] encounter Miscellaneous Notes * Telephone Encounter - Naresh Vega, MED ASSIST - 08/02/2023 8:51 AM EDTSigned Prescriptions: Disp Refills clonazePAM 0.5 MG Oral Tablet (KlonoPIN) 40 Tab*0 Sig: Take 1 Tablet by mouth 2 times a day as needed for Anxiety.Authorizing Provider: HIEN ROTH---- * Telephone Encounter - Hien Roth MD [...] medication before forwarding?yes Pharmacy: [facility] [id number] Pending Prescriptions: Disp Refills clonazePAM 0.5 [...] appointment Last date the medication was ordered: [id number] Is this request for a controlled substance?No [...] PM EDT Office Visit General Internal Medicine [place] [address] [place] [address] Elias Ohara MD [address] [facility] [place] [address] 4 3:00 PM EDT Cardiac Studies Cardiac Studies, [facility] [address] [place] [address] 4 10:30 AM EDT Telemedicine Psychiatry, [facility] [address] [facility] [place] [address] Lisa Castañeda CRNP [address] [facility] [place] [address] 4 10:30 AM EDT Office Visit Orthopaedics [facility] [address] [place] [address] Douglas Modi PA-C [address] [place] [address] [place] [address] 4 1:20 PM EDT Office Visit Otolaryngology [facility] [address] [place] [address] Scott Carney PA-C [address] [place] [address] 4 1:30 PM EDT Office Visit Cardiology, [facility] [address] [facility] [place] [address] Laura Varela CRNP [address] [place] [address] 4 11:15 AM EDT Hospital Encounter [facility], Endoscopy [facility] [address] [place] [phone] Sara Sweet MD [address] [place] [address] 4 11:15 AM EDT - 4 11:45 AM EDT Surgery [facility], Endoscopy Room [facility] [address] [place] [phone] Sara Sweet MD [address] [place] [address] ESOPHAGOGASTRODUODENOSCOPY (EGD), FLEXIBLE, TRANSORAL, DIAGNOSTIC 4 1:15 PM EST Imaging Radiology [facility] [address] [place] [address] Scheduled Procedures Name Priority Associated Diagnoses Date/Ti [...] type documented in this encounter Care Teams Medical Collector Relationship Specialty Start Date End Date Elias Ohara MD [address] [place] [address] PCP - General Internal Medicine 06/18/22 documented as of this encounter
--- OUTSIDE RECORDS SUMMARY | 2023-08-30 15:10 | External Medical Summary | Summary of Care ---
Author Name Unknown Organization [facility] Address [address] [place] [address] Phone [phone] Care Team Providers Care Statistical Methods Professor Name Role Phone Elias Ohara MD Primary Care Provider + Reason for Visit * Reason Comments NEW PATIENT * Evaluate & Treat - Unlimited Visits (Within 30 days (routine)) - Authorized Specialty Diagnoses / Procedures Referred By Contralph t Referred To Contact Otolaryngology Diagnoses Oral lesion Elias Ohara MD [address] [place] [address] Referral ID Status Reason Start Date Expiration Date Visits Requested Visits Authorized [id number] Authorized Specialty Services Required 06/03/[phone] Encounter Details Date Type Department Care Team (Late st Contact Info) Description 06/27/2023 7:20 AM EDT Office Visit Otolaryngology [facility] [address] [place] [address] Scott Carney PA-C [address] [place] [phone] Dysphagia, unspecified type*; Post-nasal drip Allergies Active Allergy Reactions Criticality Noted Date Comments Nystatin Rash 10/25/2022 documented as of this encounter (statuses as of 06/27/2023) Medications Medication Sig Dispensed Refills Start Date End Date Status Methadone HCl 10 MG Oral TabletIndications:His tory of substance abuse (HCC) Take 1 Tablet by mouth every evening. For pain 60 Tablet 0 05/14/2022 Active Magnesium Hydroxide 400 MG/5ML Oral Suspension (Milk of Magnesia) Take by mouth daily as needed for Constipation. 0 Active Movantik 12.5 MG Oral Tablet (Naloxegol Oxalate)Indications:T herapeutic opioid-induced constipation (OIC) Take 1 Tablet by mouth in the morning. 30 Tablet 5 01/02/2023 Active Ketoconazole 2 % External Shampoo (Nizoral)Indications: Seborrheic dermatitis of scalp Lather into the scalp three times per week in the shower or bath, then rinse off 120 mL 11 01/31/2023 Active Loratadine 10 MG Oral Tablet (Claritin)Indications :Vertigo,Chronic frontal sinusitis Take 1 Tablet by mouth in the morning. 30 Tablet 5 02/07/2023 Active DULoxetine HCl 20 MG Oral Capsule Delayed Release Particles (duloxetine)Indicatio ns:Pharyngoesophageal dysphagia,Primary osteoarthritis of both knees Take 1 Capsule by mouth in the morning. Do not cut, crush or chew. 30 Capsule 5 03/14/2023 Active Omeprazole 20 MG Oral Capsule Delayed Release (PriLOSEC)Indications :Gastroesophageal reflux disease without esophagitis Take 1 Capsule by mouth in the morning. 1 hour before the first meal of the day. 30 Capsule 5 03/14/2023 Active Sennosides-Docusate Sodium 8.6-50 MG Oral Tablet (Senokot-S)Indication s:Constipation, unspecified constipation type IN THE MORINING AND AT BEDTIME 0 05/10/2023 Active Metamucil Smooth Texture 58.6 % Oral Powder (Psyllium)Indications :Constipation due to opioid therapy One scoop in 8 ounces of water,-pt started 10/15/2022 0 05/10/2023 Active Triamcinolone Acetonide 0.1 % Mouth/Throat Paste (Kenalog In [place])Indications:A phthous ulcer of mouth Apply a small amount to the mouth sores 2 to 4 times daily until healed; do not rinse afterwards and avoid eating or drinking for 30 minutes after application. Use up to one week only. 5 g 0 05/21/2023 Active clonazePAM 0.5 MG Oral Tablet (KlonoPIN)Indications :IRAIS (generalized anxiety disorder) Take 1 Tablet by mouth 2 times a day as needed for Anxiety. 40 Tablet 0 06/04/2023 Active Metoprolol Succinate ER 25 MG Oral Tablet Extended Release 24 Hour (Toprol XL)Indications:Palpit ations,SVT (supraventricular tachycardia) (HCC),New onset atrial flutter (HCC) Take 1 Tablet by mouth in the morning. 30 Tablet 5 06/20/2023 Active Apixaban 5 MG Oral Tablet (Eliquis)Indications: New onset atrial flutter (HCC) Take 1 Tablet by mouth in the morning and 1 Tablet before bedtime. 60 Tablet 11 06/20/2023 Active Fluticasone Propionate 50 MCG/ACT Nasal Suspension (Flonase)Indications: Post-nasal drip Administer 1 Peacham into each nostril in the morning and 1 Peacham before bedtime. 15.8 mL 4 06/27/2023 Active documented as of this encounter (statuses as of 06/27/2023) Active Problems Problem Noted Date Diagnosed Date [...] as of this encounter (statuses as of 06/27/2023) Social History Tobacco Use Types Packs/Day Years [...] on file documented as of this encounter Last Filed Vital Signs Vital Sign Reading Time Taken Comments Blood Pressure - - Pulse - - Temperature 36.4 C (97.6 F) 06/27/2023 7:38 AM ED T Respiratory Rate - - Oxygen Saturation - - Inhaled Oxygen Concentration - - Weight 77.1 kg (170 lb) 06/27/2023 7:38 AM EDT Height 162.6 cm (5' 4.02") 06/27/2023 7:38 AM ED T Body Mass Index 29.17 06/27/2023 7:38 AM EDT documented in this encounter Patient Instructions * Patient Instructions* Scott Carney PA-C - 06/27/2023 8:04 AM EDT Flonase twice a day as directed Continue with saline nasal spray, as well. Talk to GI about getting EGD PCP can also consider video swallow study in the future if you still have issues with swallowing. documented in this encounter Progress Notes * Scott Carney PA-C - 06/27/2023 7:20 AM EDT HISTORY OF PRESENT ILLNESS This 68 year old male is seen at the request of Elias Ohara MD for the initial evaluationof oral lesions. Patient is accompanied by self He had a few sores on his lower gums which have resolved. He used triamcinolone mouth paste-- he felt like this helped with his numbness feeling in his mouth. He reports he never actually had sores just had a white area. Does not bother him at all, no bleeding or drainage. He is working on getting dentist. He thinks numbness and discomfort in his jaw/mouth may have been from wearing his dentures again-- they were broken for years and attempted to glue them back together. At times feels some food gets stuck "behind my tobin's apple"-- mostly with bread products. No choking or aspiration. Does get a lot of post nasal drip. Does not get heartburn symptoms. Denies throat or neck pain, blood tinged mucous, unexplained weight loss or gain. He had CT neck w contrast 12/2022 which showed no acute abnormalities. Former smoker-- quit in 2021. He is on Eliquis for new onset a flutter-- just started last week. Problem List Patient Active Problem List Diagnosis Date Noted Constipation due to opioid therapy [K59.03, T40.2X5A] 05/10/2023 Constipation [K59.00] 05/10/2023 Opioid dependence, uncomplicated (HCC) [F11.20] 03/24/2023 History of substance abuse (HCC) [F19.11] 03/24/2023 Aortic ectasia, abdominal (HCC) [I77.811] 01/11/2023 Food insecurity [Z59.41] 05/28/2022 Per [facility] Protocol HTN, goal below 130/80 [I10] 05/14/2022 IRAIS (generalized anxiety disorder) [F41.1] 05/14/2022 History of hepatitis C [Z86.19] 05/14/2022 Moderate depressive disorder [F32.A] 05/14/2022 Hyponatremia [E87.1] 05/14/2022 Past Medical History: Diagnosis Date Anxiety Depression Hepatitis Hypertension Substance abuse (HCC) Past Surgical History: Procedure Laterality Date KNEE ARTHROSCOPY/SURGERY Left 1979 Current Outpatient Medications Medication Sig Dispense Refill Fluticasone Propionate 50 MCG/ACT Nasal Suspension (Flonase) Administer 1 Peacham into each nostril in the morning and 1 Peacham before bedtime. 15.8 mL 4 Methadone HCl 10 MG Oral Tablet Take 1 Tablet by mouth every evening. For pain 60 Tablet 0 Magnesium Hydroxide 400 MG/5ML Oral Suspension (Milk of Magnesia) Take by mouth daily as needed forConstipation. Movantik 12.5 MG Oral Tablet (Naloxegol Oxalate) Take 1 Tablet by mouth in the morning. 30 Tablet 5 Ketoconazole 2 % External Shampoo (Nizoral) Lather into the scalp three times per week in the shower or bath, then rinse off 120 mL 11 Loratadine 10 MG Oral Tablet (Claritin) Take 1 Tablet by mouth in the morning. 30 Tablet 5 DULoxetine HCl 20 MG Oral Capsule Delayed Release Particles (duloxetine) Take 1 Capsule by mouth inthe morning. Do not cut, crush or chew. 30 Capsule 5 Omeprazole 20 MG Oral Capsule Delayed Release (PriLOSEC) Take 1 Capsule by mouth in the morning. 1 hour before the first meal of the day. 30 Capsule 5 Sennosides-Docusate Sodium 8.6-50 MG Oral Tablet (Senokot-S) IN THE MORINING AND AT BEDTIME Metamucil Smooth Texture 58.6 % Oral Powder (Psyllium) One scoop in 8 ounces of water,-pt started 10/15/2022 Triamcinolone Acetonide 0.1 % Mouth/Throat Paste (Kenalog In [facility]) Apply a small amount to the mouth sores 2 to 4 times daily until healed; do not rinse afterwards and avoid eating or drinking for30 minutes after application. Use up to one week only. 5 g 0 clonazePAM 0.5 MG Oral Tablet (KlonoPIN) Take 1 Tablet by mouth 2 times a day as needed for Anxiety. 40 Tablet 0 Metoprolol Succinate ER 25 MG Oral Tablet Extended Release 24 Hour (Toprol XL) Take 1 Tablet by mouth in the morning. 30 Tablet 5 Apixaban 5 MG Oral Tablet (Eliquis) Take 1 Tablet by mouth in the morning and 1 Tablet before bedtime. 60 Tablet 11 No current facility-administered medications for this visit. Review of patient's allergies indicates: Allergen Reactions Nystatin Rash Family History Problem Relation Age of Onset Stroke Mother Heart attack Mother Heart attack Sister Social History Social History Tobacco Use Smoking status: Former Current packs/day: 0.00 Average packs/day: 0.3 packs/day for 50.0 years (16.5 ttl pk-yrs) Types: Cigarettes Start date: 07/20/1971 Quit date: 07/19/2021 Years since quittin.9 Smokeless tobacco: Never Substance Use Topics Alcohol use: Not Currently Vaping/E-Cigarette Use Vaping/E-Cigarette Use Former User Vaping/E-Cigarette Substances Vaping/E-Cigarette Devices I reviewed the updated past medical history, problem list, past surgical history, social history, family history, allergy and current medication list. Occupational History Work: ROS General: No recent weight loss/gain. No fatigue. Cardio: No palpitations, chest pain, no orthopnea, or dyspnea on exertion. Lung: No cough, wheezing, sputum or shortness of breath. Nerve: No numbness, weakness of extremities, diplopia, vertigo, mental status change Heme: No easy bruising, bleeding. No fever. No chills. No sweats. Neuro: No memory loss, no weakness, no numbness. Skin: No rash, itching or new/changing lesions. Eyes: No change in vision, redness of the eyes, or ocular pain. ROS otherwise negative unless stated in PMH or HPI. Temp 36.4 C (97.6 F) (Tympanic) | Ht 1.626 m (5' 4.02") | Wt 77.1 kg (170 lb) | BMI 29.17 kg/m | BSA 1.87 m PHYSICAL EXAMINATION: Gen: Patient is a chronically ill male and appears his stated age. He is alert, oriented, cooperative and in no acute distress. The patient is neither obese nor dysmorphic.. He is appropriately conversant and His voice is normal in character and quality. Face: No facial asymmetry. There was no erythema or edema noted. Facial movement was symmetric without weakness. No skin lesions were detected. Eyes: The pupils are equal round. No scleral icterus. Ears: The auricles are normally formed without lesions. The external auditory canals are patent andwithout lesion. Both tympanic membranes are intact and freely mobile without perforation, effusion or significant retraction pockets. Nose: The septum is non obstructing and the turbinates are without abnormality. No masses, polyps, mucopus, or other lesion are visualized. Oral Cavity: The mucosa is moist without lesion. The hard palate is intact. The soft palate is intact . The occlusion is stable. Tongue is of normal size with normal mobility. No evidence of lesion of lower gums. Oropharynx: The tonsils are unremarkable. There is no erythema and no exudate on either side. Salivary glands: No visible or palpable abnormalities of the parotid glands or submandibular glandsbilaterally Neck: Thyroid- no thyromegaly. No neck mass to palpation. Lymphatics: No visible or palpable abnormalities of the lymph nodes of the posterior triangle, anterior cervical chain, central neck or submandibular region. Cranial nerves: Cranial nerves II, III, IV, and were noted to be intact via extra-ocular muscle movement testing. Cranial nerve VII noted to be intact and symmetric by facial movement. Cranial nerve VIII was grossly normal (not tested with tuning forks).. Cranial nerves IX and X noted to be intact by gag reflex and palatal movement. Cranial nerve XII noted to be intact by active and symmetric tongue movement. CV/Heart: regular rate Lungs: No audible stridor No increased work of breathing Able to speak in full sentences Procedure: Due to patient's inability to cooperate with mirror exam or concern for structures otherwise not evaluated, fiberoptic examination of the larynx was performed. Nasopharynx was visualized and was without masses or lesions. Fiberoptic examination revealed no mass lesions. Vocal cord mobility was normal without paralysis or paresis. There was no significant edema or erythema of the larynx. No vocal cord masses were visualized. Exam was negative for post cricoid or pyriform sinuses lesions. The patient tolerated the procedure well. I performed the procedure. Findings: left base of tongue with local inflammation, no distinct lesion identified, no bleeding or drainage ASSESSMENT: 1. Dysphagia, unspecified type 2. Post-nasal drip - Fluticasone Propionate 50 MCG/ACT Nasal Suspension (Flonase); Administer 1 Peacham into each nostril in the morning and 1 Peacham before bedtime. Dispense: 15.8 mL; Refill: 4 Plan: -Start flonase in addition to his saline spray -Will recheck scope exam in 3 months to reassess area base of left tongue -Had CT neck in 12/2022 which was normal, will recheck if needed based on next scope exam -Recommend f/u with dentist for ongoing denture concern, I do not see any need for triamcinolone paste today-- pt asked for more paste -Recommend at his appnt with GI he discuss possible EGD to further evaluate his dysphagia -If dysphagia persists recommend PCP orders video swallow study Pt verbalized understanding and agrees with plan. Questions/Concerns addressed. Patient Goals for plan of care discussed in detail. Scott Carney PA-C [facility] Otolaryngology Head [facility] [place] 06/27/2023 9:52 AM documented in this encounter Nursing Notes * Lisa Valero LPN - 06/27/2023 7:32 AM EDT Pt presents today due to being numb under the left side of his jaw. Pt reports it started a few months ago, it went away for awhile and he figured it was from his dentures due to them being broken years ago and glued back together. The pain has since returned. Pt also states he has food get stuck in his throat often. Pt describes it has feeling as if food gets stuck behind his mccullough apples and hemainly has issues with bread. Pt was prescribed an antibiotic gel for his gums which helped but does not stay in his mouth long. documented in this encounter Plan of Treatment Upcoming Encounters Date Type Department Care Team (Late st Contact Info) Description 07/04/2023 10:00 AM EDT Office Visit Gastroenterology, [facility] [address] [facility] [place] [address] Ramiro Downey CRNP [address] [facility] [place] [address] 07/09/2023 1:30 PM EDT Office Visit Psychiatry, [facility] [address] [facility] [place] [address] Lisa Castañeda CRNP [address] [facility] [place] [phone] 08/08/2023 3:00 PM EDT Office Visit General Internal Medicine [facility] [address] [facility] [place] [address] Elias Ohara MD [address] [facility] [place] [address] 08/20/2023 3:00 PM EDT Cardiac Studies Cardiac Studies, [facility] [address] [facility] [place] [address] 09/26/2023 10:30 AM EDT Office Visit Orthopaedics [facility] [address] [facility] [place] [address] Douglas Modi PA-C [address] [place] [address] 09/30/2023 1:20 PM EDT Office Visit Otolaryngology [facility] [address] [facility] [place] [address] Scott Carney [facility]-C [facility] [place] [address] 10/07/2023 1:30 PM EDT Office Visit Cardiology, [facility] [address] [facility] [place] [address] Laura Varela CRNP 132 [place] [address] 01/23/2024 1:15 PM EST Imaging Radiology [facility] [address] [place] [address] Health Maintenance Due Date Last Done Comments [...] Ended) 2023 GFR 12/26/2023 12/25/2022, 12/14/2022, 05/09/2022 Lipid Panel 12/15/2027 12/14/2022 AAA Screening Completed [...] as of this encounter Visit Diagnoses Diagnosis Dysphagia, unspecified type- Primary Post-nasal drip Postnasal drip documented in this encounter Care Teams Statistical Methods Professor Relationship Specialty Start Date End Date Elias Ohara MD [address] [place], [place] [id number] PCP - General Internal Medicine 06/18/22 documented as of this encounter
--- OUTSIDE RECORDS SUMMARY | 2023-08-30 15:10 | External Medical Summary | Summary of Care ---
Author Name Unknown Organization [facility] Address [address] [place] [address] Phone [phone] Care Team Providers Care Director Of Knowledge Management Name Role Phone Elias Ohara MD Primary Care Provider + Reason for Visit * Reason Onset Date Comments Med Request 07/04/2023 Encounter Details Date Type Department Care Team (Late st Contact Info) Description 07/04/2023 Telephone Psychiatry, [place] [address] [place] [address] Lisa Castañeda CRNP [address] [place] [address] Med Request Allergies Active Allergy Reactions Criticality Noted Date Comments Nystatin Rash 10/25/2022 documented as of this encounter (statuses as of 07/04/2023) Medications Medication Sig Dispensed Refills Start Date [...] Additional Information Patient not taking.Reported on 07/04/2023 DULoxetine HCl 20 MG Oral Capsule Delayed Release Particles (duloxetine)Indicat ions:Pharyngoesopha geal dysphagia,Primary osteoarthritis of both knees Take 1 Capsule by mouth in the morning. Do not cut, crush or chew. 30 Capsule 5 03/14/2023 Active Additional Information Patient not taking.Reported on 07/04/2023 Omeprazole 20 MG Oral Capsule Delayed Release (PriLOSEC)Indicatio ns:Gastroesophageal reflux disease without esophagitis Take 1 Capsule by mouth in the morning. 1 hour before the first meal of the day. 30 Capsule 03/14/2023 Active Additional Information Patient not taking.Reported [...] week only. 5 g 0 05/21/2023 Active Metoprolol Succinate ER 25 MG Oral Tablet Extended Release 24 Hour (Toprol XL)Indications:Palp itations,SVT (supraventricular tachycardia) (HCC),New onset atrial flutter (HCC) Take 1 Tablet by mouth in the morning. 30 Tablet 06/20/2023 Active Apixaban 5 MG Oral Tablet (Eliquis)Indication s:New onset atrial flutter (HCC) Take 1 Tablet by mouth in the morning and 1 Tablet before bedtime. 60 Tablet 11 06/20/2023 Active Fluticasone Propionate 50 MCG/ACT Nasal Suspension (Flonase)Indication s:Post-nasal drip Administer 1 [place] into each nostril in the morning and 1 [place] before bedtime. 15.8 mL 4 06/27/2023 Active Linzess 290 MCG Oral Capsule (linaCLOtide) Take 1 Capsule by mouth daily before breakfast. 90 Capsule 3 07/04/2023 Active clonazePAM 0.5 MG Oral Tablet (KlonoPIN)Indicatio ns:IRAIS (generalized anxiety disorder) Take 1 Tablet by mouth 2 times a day as needed for Anxiety. 40 Tablet 0 07/04/2023 Active clonazePAM 0.5 MG Oral Tablet (KlonoPIN)Indicatio ns:IRAIS (generalized anxiety disorder) Take 1 Tablet by mouth 2 times a day as needed for Anxiety. 40 Tablet 0 06/04/2023 Discontinu ed(Refill) documented as of this encounter (statuses as of 07/04/2023) Active Problems Problem Noted Date Diagnosed Date Constipation due to opioid therapy 05/10/2023 Constipation 05/10/2023 Opioid dependence, uncomplicated 03/24/2023 History of substance abuse 03/24/2023 Aortic ectasia, abdominal 01/11/2023 Food insecurity 05/28/2022 Overview: Per [facility] Protocol HTN, goal below 130/80 05/14/2022 IRAIS (generalized anxiety disorder) 05/14/2022 History of hepatitis C 05/14/2022 Moderate depressive disorder 05/14/2022 Hyponatremia 05/14/2022 documented as of this encounter (statuses as of 07/04/2023) Social History Tobacco Use Types Packs/Day Years [...] encounter Miscellaneous Notes * Telephone Encounter - Edgar Jaime MD - 07/04/2023 4:36 PM EDT I have reviewed the patients controlled substance dispensing history in the Prescription Drug Monitoring Program in compliance with the [facility] regulations before prescribing a controlled substance. * Telephone Encounter - Karmen Gonzalez LPN - 07/04/2023 3:55 PM EDT Did you pend patient's preferred pharmacy and medication before forwarding?yes Pharmacy: [facility] [id number] Pending Prescriptions: Disp Refills clonazePAM 0.5 [...] Department Care Team (Latest Contact Info) Description 07/09/2023 1:30 PM EDT Office Visit Psychiatry, [facility] [address] [place] [address] Lisa Castañeda CRNP [address] [place] [phone] 08/08/2023 3:00 PM EDT Office Visit General Internal Medicine [place] [address] [place] [address] Elias Ohara MD [address] [facility] [place] [address] 08/20/2023 3:00 PM EDT Cardiac Studies Cardiac Studies, [facility] [address] [place] [address] 09/26/2023 10:30 AM EDT Office Visit Orthopaedics [facility] [address] [place] [address] Douglas Modi PA-C [address] [address] [place] [address] 09/30/2023 1:20 PM EDT Office Visit Otolaryngology [facility] [address] [place] [address] Scott Carney PA-C [address] [place] [address] 10/07/2023 1:30 PM EDT Office Visit Cardiology, [facility] [address] [place] [address] Laura Varela CRNP [address] [place] [address] 12/12/2023 11:15 AM EDT Hospital Encounter ENDO [facility], Endoscopy Room [facility] [address] [place] [phone] Sara Sweet MD [address] [place] [address] 12/12/2023 11:15 AM EDT - 12/12/2023 11:45 AM EDT Surgery ENDO [facility], Endoscopy Room [facility] [address] [place] [phone] Sara Sweet MD [address] [place] [address] ESOPHAGOGASTRODUODENOSCOPY (EGD), FLEXIBLE, TRANSORAL, DIAGNOSTIC 01/23/2024 1:15 PM EST Imaging Radiology [facility] [address] [place] [address] Scheduled Procedures Name Priority Associated Diagnoses Date/Ti [...] type documented in this encounter Care Teams Director Of Knowledge Management Relationship Specialty Start Date End Date Elias Ohara MD [address] [place] [address] PCP - General Internal Medicine 06/18/22 documented as of this encounter
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
--- OUTSIDE RECORDS SUMMARY | 2023-08-30 15:10 | External Medical Summary | Summary of Care ---
Author Name Unknown Organization [facility] Address [address] [place] [address] Phone [phone] Care Team Providers Care Wellness Trainer Name Role Phone Elias Ohara MD Primary Care Provider + Reason for Visit * Reason Onset Date Comments Med Request 06/03/2023 Encounter Details Date Type Department Care Team (Late st Contact Info) Description 06/03/2023 Telephone General Internal Medicine [facility] [address] [facility] [place] [address] Elias Ohara MD [address] [facility] [place] [address] Med Request Allergies Active Allergy Reactions Criticality [...] Oral Tablet Extended Release 24 Hour (Toprol XL)Indications:SVT (supraventricular tachycardia) (HCC),Palpitations Take 1 Tablet by mouth in the morning. 30 Tablet 5 02/28/2023 4 Discontinu ed(Refill) clonazePAM 0.5 MG Oral Tablet (KlonoPIN)Indicatio ns:IRAIS (generalized anxiety disorder) Take 1 Tablet by mouth 2 times a day as needed for Anxiety. 45 Tablet 05/02/2023 4 Discontinu ed(Refill) documented as of this [...] encounter Miscellaneous Notes * Telephone Encounter - Edison Yates OSA - 07/09/2023 10:19 AM EDT Pt already scheduled * Telephone Encounter - Rosalee Khan - 06/07/2023 1:37 PM EDT Please assist patient with scheduling an appointment. * Telephone Encounter - Vazquez Durbin OSA - 06/07/2023 12:19 PM EDT Patient calling in to check on the status of previous message. Patient Called after 48 hour timeframe and escalation e-mail was sent to clinic leadership. * Telephone Encounter - Elias Ohara MD - 06/03/2023 2:11 PM EDT Was last used 10/2022 for drug rash, should not be used for arthritis, needs ov to discuss * Addendum Note - Roya Ortiz RN - 06/03/2023 2:05 PM EDTAddended by: ROYA ORTIZ on: 06/03/2023 02:05 PM Modules accepted: Orders * Telephone Encounter - Roya Ortiz RN - 06/03/2023 1:58 PM EDT Images from the original note were not included. Called patient for additional information. He is asking for a refill of prednisone for "all over arthritis pain." Stated, "This worked great last time." Last prescribed 10/2022. He is following with Ortho and Psychiatry. Pharmacy is [facility] [employer] [address]. Rx pended, if appropriate. Provider to address: med Reason for Call: Med Request Contact: Telephone Call Contact Type: Follow-up Outcome: See above Face to face time spent with Patient (minutes): 0 Total Time including non face to face (minutes): 10 Roya Ortiz RN BSN REINALDO Primary Care Nurse Coordinator [facility] (Helping out) * Telephone Encounter - Arielle Diaz, sign poster - 06/03/2023 1:38 PM EDT Patient requesting refills for predniSONE 20 MG Oral Tablet (Deltasone). Upon chart review, medication is listed as discontinued, with discontinuation reason as "none". Please advise if you wish to continue this therapy for the patient. Thank you, Stevo Diaz, Heat Treater Family Mediator [facility] (Formerly Tele[facility]) 06/03/2023,1:38 PM documented in this encounter Plan of Treatment Upcoming Encounters Date Type Department Care Team (Latest Contact Info) Description 07/09/2023 1:30 PM EDT Office Visit Psychiatry, [facility] [address] [facility] [place] [address] Lisa Castañeda CRNP [address] [facility] [place] [phone] 08/08/2023 3:00 PM EDT Office Visit General Internal Medicine [facility] [address] [facility] [place] [address] Elias Ohara MD [address] [facility] [place] [address] 08/20/2023 3:00 PM EDT Cardiac Studies Cardiac Studies, [facility] [address] [facility] [place] [address] 09/26/2023 10:30 AM EDT Office Visit Orthopaedics [facility] [address] [place] [address] Douglas Modi PA-C [address] [place] [address] [place] [address] 09/30/2023 1:20 PM EDT Office Visit Otolaryngology [facility] [address] [place] [address] Scott Carney PA-C [address] [place] [address] 10/07/2023 1:30 PM EDT Office Visit Cardiology, [facility] [address] [address] Laura Varela CRNP [address] [place] [address] 12/12/2023 11:15 AM EDT Hospital Encounter ENDO [facility], Endoscopy Room [facility] [address] [place] [phone] Sara Sweet MD [address] [place] [address] 12/12/2023 11:15 AM EDT - 12/12/2023 11:45 AM EDT Surgery ENDO [facility], Endoscopy Room [facility] [address] [place] [phone] Sara Sweet MD [address] [place] [address] ESOPHAGOGASTRODUODENOSCOPY (EGD), FLEXIBLE, TRANSORAL, DIAGNOSTIC 01/23/2024 1:15 PM EST Imaging Radiology [facility] [address] [place] [address] Scheduled Procedures Name Priority Associated Diagnoses Date/Ti [...] filedocumented as of this encounter Care Teams Wellness Trainer Relationship Specialty Start Date End Date Elias Ohara MD [address] [place] [address] PCP - General Internal Medicine 06/18/22 documented as of this encounter
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
--- OUTSIDE RECORDS SUMMARY | 2023-08-30 15:10 | External Medical Summary | Summary of Care ---
Author Name Unknown Organization [facility] Address [address] [place] [address] Phone [phone] Care Team Providers Care Concierge Receptionist Name Role Phone Elias Ohara MD Primary Care Provider + Reason for Visit * Reason Onset Date Comments Health Maintenance 07/18/2023 Encounter Details Date Type Department Care Team (Late st Contact Info) Description 07/18/2023 Telephone General Internal Medicine [facility] [address] [place] [address] Elias Ohara MD [address] [place] [address] Health Maintenance Allergies Active Allergy Reactions Criticality Noted Date Comments Nystatin Rash 10/25/2022 documented as of this encounter (statuses as of 07/18/2023) Medications Medication Sig Dispensed Refills Start Date [...] Nasal Suspension (Flonase)Indications :Post-nasal drip Administer 1 [place] into each nostril in the morning and 1 [place] before bedtime. 15.8 mL 4 06/27/2023 Active Linzess 290 MCG Oral Capsule (linaCLOtide) Take 1 Capsule by mouth daily before breakfast. 90 Capsule 3 07/04/2023 Active clonazePAM 0.5 MG Oral Tablet (KlonoPIN)Indication s:IRAIS (generalized anxiety disorder) Take 1 Tablet by mouth 2 times a day as needed for Anxiety. 40 Tablet 07/04/2023 Active documented as of this encounter (statuses as of 07/18/2023) Active Problems Problem Noted Date Diagnosed Date [...] as of this encounter (statuses as of 07/18/2023) Social History Tobacco Use Types Packs/Day Years [...] encounter Miscellaneous Notes * Telephone Encounter - Carmen Bo LPN - 07/18/2023 3:28 PM EDT Care Gaps Comprehensive Care Outreach Last Office/Telemedicine Visit: 05/10/2023 (in office), Visit date not found (telemedicine) Next Office Visit: 08/08/2023 Hemoglobin AIC Results: Lab Results Component Value Date/Time HEMOGLOBIN A1C - MECHELLEER 5.6 10/08/2022 04:36 PM BP Readings from Last 1 Encounters: 07/04/23 135/68 Reviewed Health Maintenance below: Health Maintenance Topic Date Due Albumin/Creatinine Ratio Never done DTaP,Tdap,and Td Vaccines (1 - Tdap) Never done Colorectal Cancer Screening Never done Zoster Vaccines (1 of 2) Never done Pneumococcal Vaccine: 65+ Years (1 of 1 - PCV) Never done COVID-19 Vaccine (1 - season) Never done Colon 3 years ago in [place] just saw gastro urine Care Gap Outreach Action Taken: Left message documented in this encounter Plan of Treatment Upcoming Encounters Date Type Department Care Team (Latest Contact Info) Description 4 3:00 PM EDT Office Visit General Internal Medicine [facility] [place] [facility] [address] [place] [address] Elias Ohara MD [address] [place] [address] 4 3:00 PM EDT Cardiac Studies Cardiac Studies, [facility] [address] [facility] [place] [address] 4 10:30 AM EDT Telemedicine Psychiatry, [facility] [address] [place] [address] [address] Lisa Castañeda CRNP [address] [place] [phone] 4 10:30 AM EDT Office Visit Orthopaedics [facility] [address] [facility] [place] [address] Douglas Modi PA-C [address] [place] [address] 4 1:20 PM EDT Office Visit Otolaryngology [facility] [address] [place] [address] Scott Carney PA-C [address] [place] [address] 4 1:30 PM EDT Office Visit Cardiology, [facility] [address] [place] [address] Laura Varela CRNP [address] [place] [address] 4 11:15 AM EDT Hospital Encounter ENDO [facility], Endoscopy Room [facility] [address] [place] [phone] Sara Sweet MD [address] [place] [address] 4 11:15 AM EDT - 4 11:45 AM EDT Surgery ENDO [facility], Endoscopy Room [facility] [address] [place] [phone] Sara Sweet MD [address] [place] [address] ESOPHAGOGASTRODUODENOSCOPY (EGD), FLEXIBLE, TRANSORAL, DIAGNOSTIC 4 1:15 PM EST Imaging Radiology [facility] [address] [place] [address] Scheduled Procedures Name Priority Associated Diagnoses Date/Ti [...] filedocumented as of this encounter Care Teams Concierge Receptionist Relationship Specialty Start Date End Date Elias Ohara MD 200 [place] [address] PCP - General Internal Medicine 06/18/22 documented as of this encounter
--- OUTSIDE RECORDS SUMMARY | 2023-08-30 15:10 | External Medical Summary | Summary of Care ---
Author Name Unknown Organization [facility] Address [address] [place] [address] Phone [phone] Care Team Providers Care Glost Kiln Operator Name Role Phone Elias Ohara MD Primary Care Provider + Reason for Visit * Reason Onset Date Comments Advice 06/27/2023 Encounter Details Date Type Department Care Team (Late st Contact Info) Description 06/27/2023 Telephone Family Practice [facility] [address] [employer] [facility] [address] [facility] [address] [employer] [facility] [address] Advice Allergies Active Allergy Reactions Criticality Noted Date [...] Nasal Suspension (Flonase)Indications :Post-nasal drip Administer 1 [place] into each nostril in the morning and 1 [place] before bedtime. 15.8 mL 4 06/27/2023 Active [...] encounter Miscellaneous Notes * Telephone Encounter - Ina Campuzano CRNP - 07/04/2023 9:14 AM EDT ENT did not see a need for additional paste per their note He needs to follow up with a dentist * Telephone Encounter - Rajani Knapp LPN - 06/27/2023 9:52 AM EDT Pt stopped by front worker after ENT appointment today. Patient stated he was seen by Ina abouta month ago and given a prescription for Triamcinolone mouth paste. Patient was to use the paste for a week but states the tube was so small be was only able to get 2 days worth out of it. Patient is requesting a refill of the paste. Please advise if appropriate. No prescriptions requested or ordered in this encounter Last Visit: 05/21/2023 (in office), Visit date not found (telemedicine) Next Visit: Visit date not found Last date the medication was ordered: 05/21/23 Patient Active Problem List Diagnosis Code HTN, goal below 130/80 I10 IRAIS (generalized anxiety disorder) F41.1 History of hepatitis C Z86.19 Moderate depressive disorder F32.A Hyponatremia E87.1 Food insecurity Z59.41 Aortic ectasia, abdominal (HCC) I77.811 Opioid dependence, uncomplicated (HCC) F11.20 History of substance abuse (HCC) F19.11 Constipation due to opioid therapy K59.03, T40.2X5A Constipation K59.00 Labs: Lab Results Component Value Date/Time CREATININE - [facility] 0.7 12/25/2022 01:57 PM CREATININE-OUTSIDE LAB 0.82 05/09/2022 12:00 AM Lab Results Component Value Date/Time POTASSIUM - [facility] 4.6 12/25/2022 01:57 PM POTASSIUM-OUTSIDE LAB 4.3 05/09/2022 12:00 AM Lab Results Component Value Date/Time TSH - [facility] 2.05 12/25/2022 01:57 PM Lab Results Component Value Date/Time LDL CHOLESTEROL (CALCULATED) - [facility] 90 12/14/2022 12:16 PM Lab Results Component Value Date/Time ALT - [facility] 20 12/25/2022 01:57 PM Hemoglobin AIC Results: Lab Results Component Value Date/Time HEMOGLOBIN A1C - [facility] 5.6 10/08/2022 04:36 PM documented in this encounter Plan of Treatment Upcoming Encounters Date Type Department Care Team (Latest Contact Info) Description 07/09/2023 1:30 PM EDT Office Visit Psychiatry, [facility] [address] [facility] [place] [address] Lisa Castañeda CRNP [address] [facility] [place] [phone] 08/08/2023 3:00 PM EDT Office Visit General Internal Medicine [facility] [address] [facility] [place] [address] Elias Ohara MD [address] [facility] [place] [address] 08/20/2023 3:00 PM EDT Cardiac Studies Cardiac Studies, [facility] [address] [facility] [place] [address] 09/26/2023 10:30 AM EDT Office Visit Orthopaedics [facility] [address] [facility] [place] [address] Douglas Modi PA-C [address] [place] [address] 09/30/2023 1:20 PM EDT Office Visit Otolaryngology [facility] [address] [place] [address] Scott Carney PA-C [address] [place] [address] 10/07/2023 1:30 PM EDT Office Visit Cardiology, [facility] [address] [facility] [place] [address] Laura Varela CRNP [address] [place] [address] 12/12/2023 11:15 AM EDT Hospital Encounter [facility], Endoscopy Room [facility] [address] [place] [phone] Sara Sweet MD [address] [place] [address] 12/12/2023 11:15 AM EDT - 12/12/2023 11:45 AM EDT Surgery ENDO [facility], Endoscopy Room [facility] [address] [place] [phone] Sara Sweet MD [address] [place] [address] ESOPHAGOGASTRODUODENOSCOPY (EGD), FLEXIBLE, TRANSORAL, DIAGNOSTIC 01/23/2024 1:15 PM EST Imaging Radiology [facility] [address] [place] [address] Scheduled Procedures Name Priority Associated Diagnoses Date/Ti [...] filedocumented as of this encounter Care Teams Glost Kiln Operator Relationship Specialty Start Date End Date Elias Ohara MD [address] [place] [address] PCP - General Internal Medicine 06/18/22 documented as of this encounter
[2023-08-30] MEDS ORDERED: HALOPERIDOL LACTATE 5 MG/ML 1 ML VIAL IM PRN (18:36)
[2023-08-30] MEDS ORDERED: Patient's HEIGHT &/or WEIGHT Needed SCH (18:45)
--- NOTE | 2023-08-30 19:55 | History & Physical Report ---
Date of Service August 30, 2023 Assessment & Plan (1) Altered mental status: (2) Hypertension: (3) History of atrial fibrillation: (4) Opioid dependence: (5) Generalized anxiety disorder: (6) Depression: Plan: 68-year-old male with history of hypertension, atrial fibrillation on Eliquis, substance abuse, opiate dependence on methadone, hepatitis C, generalized anxiety disorder/depression, constipation Presenting with altered mental status. Altered mental status, likely secondary to Psychosis, with history of depression and generalized anxiety disorder, opioid dependence with methadone use Possible dementia with behavioral disturbance CT head: No acute process No signs of infection at this point Urine drug screen (+) methadone Currently under 302 petition Will consult psychiatry for evaluation Hold duloxetine and clonazepam for now until psych evaluation Haldol as needed ordered Continue methadone for now Will verify with PDMP tomorrow, unable to access PDMP today Will also consult neurology service Will need more history from patient's Sister Maribel [phone], awaiting callback Hypertension Atrial fibrillation Continue metoprolol XL 25 mg daily, Eliquis 5 mg twice daily Opioid dependence Chronic methadone use Hepatitis C history Bilateral knee pain Likely secondary to osteoarthritis Patient declining x-rays of the knees and right lower extremity Doppler study DVT prophylaxis Already on Eliquis Full code for now Disposition Admit to [facility] Will likely need inpatient psych care versus dementia unit Admission and Anticipated Discharge Date Admission Date: August 30, 2023 History of Present Illness Chief Complaint: Altered mental status Primary Care Provider: Elias Ohara MD 68-year-old male with history of hypertension, atrial fibrillation on Eliquis, substance abuse, opiate dependence on methadone, hepatitis C, generalized anxiety disorder/depression, constipation Presenting with altered mental status. History obtained from ER and epic records. Patient is a very poor historian. I called the patient's sisters but no answer, awaiting callback. Epic record shows that patient was seen on follow-up at the [facility] psychiatry clinic last June 2023. At that time, patient appeared oriented, acting appropriately and was diagnosed with generalized anxiety disorder, prescribed duloxetine and clonazepam. Today, patient was brought to the ER as patient was not acting right, unable to care for himself at home, found to be covered with feces, Having hallucinations and delusions. The other day, patient was apparently found outside the methadone clinic not acting appropriately, with his car windows and doors open.He has been placed under 302 petition. ER casework specialist has been working on getting patient to an inpatient psych facility but unsuccessful. Facilities feel that patient's presentation is secondary to a neurocognitive disorder such as dementia, and not a psychiatric disorder per se. Vital signs relatively stable overall, no leukocytosis, no electrolyte derangements, CT head no acute process, chest x-ray no pneumonia, urinalysis not indicative of UTI On my exam, patient is seen standing at the side of the bed, not oriented, but can say that he is in [place] with some prompting. States he has no family, siblings around. Cannot state the date. Patient also talking, Not making any sense, but seems to be easily redirected. He reports chronic bilateral knee pain. Allergies Allergy/AdvReac Type Severity Reaction Status Date / Time nystatin Allergy Intermediate Rash Verified 08/30/23 14:47 Home Medications Medication Instructions Recorded Confirmed Type methadone 10 mg/mL oral concentrate 47 mg PO DAILY 09/12/22 08/30/23 History clonazepam 0.5 mg tablet 0.5 mg PO BID 11/12/22 08/30/23 History sennosides 8.6 mg-docusate sodium 1 tab-cap PO AMHS 11/12/22 08/30/23 History 50 mg tablet apixaban 5 mg tablet (Eliquis) 5 mg PO DAILY 08/30/23 08/30/23 History clonazepam 0.5 mg tablet 0.5 mg PO BID PRN Anxiety 08/30/23 08/30/23 History duloxetine 20 mg capsule,delayed 20 mg PO DAILY 08/30/23 08/30/23 History release fluticasone propionate 50 1 spray intranasal DAILY 08/30/23 08/30/23 History mcg/actuation nasal spray,suspension ketoconazole 2 % shampoo 1 applic topical 3XWK 08/30/23 08/30/23 History linaclotide 290 mcg capsule 290 mcg PO DAILYBB 08/30/23 08/30/23 History (Linzess) metoprolol succinate 25 mg 25 mg PO DAILY 08/30/23 08/30/23 History tablet,extended release 24 hr Past Med/Surg History Problem List (Updated 08/30/23 @ 20:04 by Peter Loza MD) Depression Generalized anxiety disorder Opioid dependence History of atrial fibrillation Hypertension Altered mental status Hallucination (Acute) Medical History Edema History of opioid abuse Over 30 years ago per patient. On methadone. 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 Beliefs That Will Affect Care: None Current Living Situation: Alone Other Information That Helps Us Care for You: No Feels Safe at Home: Yes Safety Concerns: Feels Safe At This Time Assistive Devices: Denture - Upper and Denture - Lower Review of Systems Review of Systems: all noted and negative except for above Physical Exam Physical Exam: General- oriented x 0, not in distress, speaks in sentences with no effort or accessory muscle use calm, cooperative Head- atraumatic Eyes- PERRL, EOMI, anicteric ENT- oropharynx clear Neck- supple, no JVD, no adenopathy, no thyromegaly; carotids +2/2, no bruits appreciated Lungs- clear to auscultation bilaterally, no rales/wheezes Heart- normal rate, regular rhythm; no murmur, no gallop, no rub appreciated Abdomen- normal bowel sounds, nondistended, soft, nontender, no masses or hepatosplenomegaly Extremities- mild swelling BL knees, mild edema R lower leg, no pretibial edema, no calf tenderness; peripheral pulses intact Neuro- alert, oriented x 3; CN 2-12 grossly intact; motor 5/5 bilaterally;sensation 100% on all extremities; no other gross focal neurologic deficits Skin- warm & dry Results & Data Results & Data Vital Signs (Past 12 Hours) Vital Signs Temp Pulse Pulse Pulse Resp BP Pulse Ox 08/30/23 18:37 37.9 C H 94 H 18 132/82 94 08/30/23 17:55 78 16 148/89 H 96 08/30/23 16:49 37.2 C 102 H 18 158/89 H 98 07/12/24 15:00 107 H 18 161/89 H 97 08/30/23 14:10 89 08/30/23 10:31 57 L 08/30/23 09:00 57 L 16 133/74 97 O2 Del Method 08/30/23 18:37 Room Air 08/30/23 17:55 Room Air 08/30/23 16:49 Room Air 08/30/23 15:00 Room Air 08/30/23 14:10 08/30/23 10:31 08/30/23 09:00 Room Air all noted and reviewed including below Code Status & VTE Plan VTE Prophylaxis Plan VTE Prophylaxis will be ordered: Yes
[2023-08-30] MEDS ORDERED: LORazepam 1 MG/1 ML SYR ED Inj Use IV PRN (20:13)
[2023-08-30] MEDS ORDERED: LORazepam 0.5 MG in SYRINGE 0.25 ML IV PRN (20:20)
[2023-08-30] MEDS: DOCUSATE SODIUM/SENNA 50/8.6MG TAB PO SCH (21:42)
[2023-08-30] MEDS: APIXABAN 5 MG TABLET PO SCH (21:42)
[2023-08-31] MEDS: LINACLOTIDE 145 MCG CAPSULE PO SCH (06:04)
[2023-08-31 07:09] LABS: Basophils # (auto) 0.01 K/uL (0.00-0.20); Basophils % (auto) 0.2 %; Eosinophils # (auto) 0.01 K/uL (0.00-0.50); Eosinophils % (auto) 0.2 %; Hematocrit (blood only) 35.3 % (42.0-52.0); Hemoglobin 11.7 g/dl (14.0-18.0); Immature Granulocytes # (auto) 0.01 K/uL (0.01-0.20); Immature Granulocytes % (auto) 0.2 %; Lymphocytes # (auto) 1.03 K/uL (1.20-3.40); Lymphocytes % (auto) 21.1 %; Mean Corpuscular Hemoglobin 29.8 pg (25.0-34.0); Mean Corpuscular Hgb Conc 33.1 g/dL (32.0-36.0); Mean Corpuscular Volume 89.8 fL (80.0-100.0); Mean Platelet Volume 10.6 fL (9.4-12.4); Monocytes # (auto) 0.73 K/uL (0.11-0.59); Neutrophils # (auto) 3.09 K/uL (1.40-6.50); Neutrophils % (auto) 63.3 %; Platelet Count 147 K/uL (130-400); RDW Standard Deviation 43.1 fL (36.4-46.3); Red Blood Count 3.93 M/uL (4.70-6.10); White Blood Count 4.88 K/ul (4.8-10.8)
[2023-08-31 07:31] LABS: Albumin Globulin Ratio 1.2 (0.9-2); Albumin Level 3.6 gm/dl (3.4-5.0); BUN Creatinine Ratio 13.4 (10-20); Bilirubin,Total 1.7 mg/dl (0.2-1.0); Calcium 8.7 mg/dl (8.6-10.3); Creatinine Clr Calc Pharmacy 97.7 ml/min; Est GFR (African American) 112.8 ml/min; Est GFR (Non-African American) 97.4 ml/min; Globulin 2.9 gm/dl (2.5-4.0); Potassium 3.5 mmol/L (3.5-5.1); Total Protein 6.5 gm/dl (6.0-8.3)
[2023-08-31] MEDS: FLUTICASONE PROPIONATE NA SPR 16 GM BTL SCH (08:19)
[2023-08-31] MEDS: METOPROLOL SUCC 25MG EXT REL TAB PO SCH (08:20)
[2023-08-31] MEDS: METHADONE HCL 10 MG TAB PO SCH (10:48)
[2023-08-31] MEDS ORDERED: LORazepam 1 MG TAB PO ONE (11:50)
--- NOTE | 2023-08-31 12:19 | Neurology Consultation ---
Date of Consultation August 31, 2023 Assessment & Plan (1) Altered mental status: Confusion is likely related to dementia likely alcohol related Alzheimer's? with a possible element of medication misuse? Less likely to represent seizures. Plan MRI of the brain is ordered, if cannot be done the patient can have repeated CT of the head. for stroke prevention continue Eliquis. Elevated TSH was within normal. Check B12 and folate. Check thiamine levels. add namenda 5 mg once daily can be increased by 5 mg every week as tolerated to a target of maximum dose of 20 mg/day. Frequent reorientation. Psychiatry is following Telehealth Consultation Telehealth Information Telehealth Information: I performed this visit using a real-time telehealth connection between my location and the patients location ([facility]). After connecting through interactive tele-video, patient was identified by name and date of and/or wristband check.Patient (or authorized healthcare scheduling representative) was informed that this was a telemedicine visit and it was being conducted confidentially over secure lines. My office door was closed and no one else was present in the room with me.Patient (or authorized healthcare scheduling representative) provided consent to proceed with the visit, expressed an understanding of privacy and security of the telemedicine visit, and gave permission to have a hospital scheduling representative in the room in order to assist with the visit and to conduct portions of the visit, as needed. I informed the patient (or authorized healthcare scheduling representative) that I reviewed their record and presented the opportunity for them to ask any questions regarding the visit today. The patient agreed to participate. History of Present Illness Reason for Consultation: confusion Requesting Physician: Amirah Blake Attending Physician: Francis Macario DO History of Present Illness 68-year-old male patient with PMH of HTN, history of A-fib, on Eliquis 5 mg twice daily, history of opioid dependence currently on methadone, hepatitis C, osteoarthritis, anxiety and depression. Who presented to the hospital with al tered mental status. The patient was started on duloxetine and clonazepam in June 2023 noted to be acting inappropriately at the methadone clinic. The patient was brought to the hospital for being confused and unable to care for himself. He could not provide much history with suspected baseline dementia. Per the nursing the patient was agitated and confused yesterday taking his close help. His drug screen was positive for methadone. He appears to confabulate which suggest a chronic cognitive decline. He was able to move all 4 extremities, reported bilateral knee pains. Allergies Allergy/AdvReac Type Severity Reaction Status Date / Time nystatin Allergy Intermediate Rash Verified 08/30/23 14:47 Home Medications Medication Instructions Recorded Confirmed Type methadone 10 mg/mL oral concentrate 47 mg PO DAILY 09/12/22 08/30/23 History clonazepam 0.5 mg tablet 0.5 mg PO BID 11/12/22 08/30/23 History sennosides 8.6 mg-docusate sodium 1 tab-cap PO AMHS 11/12/22 08/30/23 History 50 mg tablet apixaban 5 mg tablet (Eliquis) 5 mg PO DAILY 08/30/23 08/30/23 History clonazepam 0.5 mg tablet 0.5 mg PO BID PRN Anxiety 08/30/23 08/30/23 History duloxetine 20 mg capsule,delayed 20 mg PO DAILY 08/30/23 08/30/23 History release fluticasone propionate 50 1 spray intranasal DAILY 08/30/23 08/30/23 History mcg/actuation nasal spray,suspension ketoconazole 2 % shampoo 1 applic topical 3XWK 08/30/23 08/30/23 History linaclotide 290 mcg capsule 290 mcg PO DAILYBB 08/30/23 08/30/23 History (Linzess) metoprolol succinate 25 mg 25 mg PO DAILY 08/30/23 08/30/23 History tablet,extended release 24 hr Patient History Medical History Edema History of opioid abuse Over 30 years ago per patient. On methadone. 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: No Beliefs That Will Affect Care: None Current Living Situation: Alone Other Information That Helps Us Care for You: No Feels Safe at Home: Yes Safety Concerns: Feels Safe At This Time Assistive Devices: Denture - Upper and Denture - Lower Review of Systems Cannot be obtained due to confusion Physical Exam General Constitutional: Appearance normally developed, thin Head and face: normocephalic and atraumatic Eyes: no ptosis, no anisocoria, and no dysconjugate gaze Respiratory: normal effort Cardiovascular: regular rhythm and regular rate Abdomen: non distended Skin: no rashes, lesions, or ulcers noted Psychiatric: calm normal mood, and normal affect NEUROLOGIC EXAMINATION: Mental Status:alert, oriented to self , with significantly impaired recall, short term memory, has a difficulty with focusing and naming , difficulty with calculations. Cranial Nerves: CN 2 - no visual defect on confrontation and pupils round, equal, reactive to light CN 3, 4, 6 - extra-ocular movements intact and no nystagmus CN 5 - facial sensation intact CN 7 - no facial asymmetry CN 8 - intact hearing CN 9, 10 - palate symmetric, normal gag CN 11 - good shoulder shrug CN 12 - tongue midline MOTOR: Strength was at least antigravity throughout, Pronator drift was absent and There were no abnormal movements SENSATION: intact and symmetric to pinprick, light touch, vibration and joint position GAIT:limited by knee pains COORDINATION: no ataxia with finger to nose testing and heel to roberts testing REFLEXES: cannot assess over telemedicine Results & Data Vital Signs (Past 12 Hours) Vital Signs Temp Pulse Resp BP Pulse Ox O2 Del Method 08/31/23 07:15 37.0 C 67 16 126/55 L 98 Room Air Laboratory Results Laboratory Results - last 24 hr 08/31/23 06:41 WBC 4.88 RBC 3.93 L Hgb 11.7 L Hct 35.3 L MCV 89.8 MCH 29.8 MCHC 33.1 RDW Std Deviation 43.1 RDW Coeff of Kim 13.0 Plt Count 147 MPV 10.6 Immature Gran % (Auto) 0.2 Neut % (Auto) 63.3 Lymph % (Auto) 21.1 Burt % (Auto) 15.0 Eos % (Auto) 0.2 Baso % (Auto) 0.2 Neut # (Auto) 3.09 Lymph # (Auto) 1.03 L Burt # (Auto) 0.73 H Eos # (Auto) 0.01 Baso # (Auto) 0.01 Immature Gran # (Auto) 0.01 Sodium 137 Potassium 3.5 Chloride 103 Carbon Dioxide 27 Anion Gap 7 BUN 9 Creatinine 0.67 Est Cr Clr Drug Dosing 97.7 Est GFR ( Amer) 112.8 Est GFR (Non-Af Amer) 97.4 BUN/Creatinine Ratio 13.4 Glucose 81 Calcium 8.7 Total Bilirubin 1.7 H AST 24 ALT 12 Alkaline Phosphatase 97 Total Protein 6.5 Albumin 3.6 Globulin 2.9 Albumin/Globulin Ratio 1.[address] head 08/29/2023: FINDINGS: No acute intracranial hemorrhage. No midline shift or mass effect. The territorial oneal-white matter differentiation is maintained throughout. Age-related cerebral volume loss. Periventricular and subcortical white matter hypoattenuation, consistent with chronic microangiopathy. The visualized orbits appear grossly unremarkable. The calvarium is intact. Opacified LEFT maxillary sinus. IMPRESSION: No acute intracranial hemorrhage, midline shift, or mass effect. CTA head and neck: April of 2023: IMPRESSION: 1. No occlusion, hemodynamically significant stenosis, or dissection in the major cervical arteries. 2. No occlusion, hemodynamically significant stenosis, aneurysm, dissection, or arteriovenous malformation in the major intracranial arteries.
--- NOTE | 2023-08-31 12:38 | Hospitalist Progress Note ---
Date of Service August 31, 2023 Assessment & Plan (1) Dementia, vascular with delirium: (2) Hypertension: (3) Paroxysmal atrial fibrillation: (4) Opioid dependence: (5) Generalized anxiety disorder: (6) Depression: Plan Patient presents with altered mental status and difficulty with words and forming sentences. Initial head imaging not suggestive of acute stroke or bleed. Patient also had a history of mental health issues, concern for possible acute psychosis versus acute delirium in the setting of dementia MRI of the brain Reviewed neurology consultation, abdoulaye Jones Psychiatry consultation pending Check B12, folate RPR done within the last year is negative/nonreactive Continue other medications as prescribed Admission and Anticipated Discharge Date Admission Date: August 30, 2023 Subjective Patient more cooperative today. Seems to understand he had issues with finding his words. Still somewhat confused Physical Exam Physical Exam: Constitutional: Alert HEENT: Mucous membranes moist. Lungs: Clear to auscultation, decreased, no wheezes rales or rhonchi CV: S1-S2, regular, systolic murmur Abdomen: Soft, nontender, nondistended Extremities: No significant edema Neuro: Seems to have occasional stuttering words, moves all 4 extremities, no focal weakness Psych: Cooperative at this time, behaviors impulsive Results & Data Results & Data Vital Signs (Past 12 Hours) Vital Signs Temp Pulse Resp BP Pulse Ox O2 Del Method 08/31/23 07:15 37.0 C 67 16 126/55 L 98 Room Air Diagnostic Findings Reviewed imaging, laboratory and diagnostic studies. Pertinent findings as below. CBC and BMP stable Reviewed CT head report
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
[2023-08-31 13:54] LABS: Folate (Folic Acid),Ser orPlas 13.76 ng/ml (>5.38)
[2023-08-31] MEDS: MEMANTINE HCL 5 MG TAB PO SCH (14:42)
[2023-08-31] MEDS: ACETAMINOPHEN 325 MG TAB PO PRN (17:41)
[2023-09-01 06:06] LABS: BUN Creatinine Ratio 14.3 (10-20); Calcium 8.8 mg/dl (8.6-10.3); Creatinine Clr Calc Pharmacy 103.9 ml/min; Est GFR (African American) 115.7 ml/min; Est GFR (Non-African American) 99.8 ml/min; Potassium 3.7 mmol/L (3.5-5.1)
--- NOTE | 2023-09-01 10:54 | Hospitalist Progress Note ---
Date of Service September 01, 2023 Assessment & Plan (1) Dementia, vascular with delirium: (2) Hypertension: (3) Paroxysmal atrial fibrillation: (4) Opioid dependence: (5) Generalized anxiety disorder: (6) Depression: Plan Patient with acute delirium suspected may be multifactorial possible with some vascular dementia, possibly due to medications, possibly due to mental health issues. Reviewed psychiatry consultation will follow-up in need to clarify if patient is going to behavioral health unit MRI of the brain ordered and pending for today Reviewed neurology consultation Patient seems to be quite anxious however attempt to avoid benzodiazepines if possible with his methadone chronic use. Will give a trial of BuSpar Continue therapies Admission and Anticipated Discharge Date Admission Date: August 30, 2023 Subjective Patient states he is feeling better today. His leg pain that he reported yesterday seems to be significantly improved. He feels as though he is able to form sentences much easier. States that he slept well overnight. Physical Exam Physical Exam: Constitutional: Alert HEENT: Mucous membranes moist. Lungs: Clear to auscultation, decreased, no wheezes rales or rhonchi CV: S1-S2, regular Abdomen: Soft, nontender, nondistended Extremities: No significant edema Neuro: No focal deficits Psych: Cooperative, normal mood Results & Data Results & Data Vital Signs (Past 12 Hours) Vital Signs Temp Pulse Resp BP Pulse Ox O2 Del Method 09/01/23 06:57 36.7 C 63 18 113/69 97 Room Air Diagnostic Findings Reviewed imaging, laboratory and diagnostic studies. Pertinent findings as below. Sodium 135 Pneumonia 12 B12 441 Folate 13.76 Personally reviewed EKG, normal sinus rhythm no acute ST-T wave changes
[2023-09-01] MEDS: busPIRone 5 MG TAB PO SCH (10:56)
[2023-09-01] MEDS: LORazepam 1 MG TAB PO ONE (12:10)
[2023-09-01] MEDS: SOD PHOSPHATE/SOD BIPHOSPHATE ENEMA 132 ML BTL PR PRN (14:56)
[2023-09-01] MEDS: LACTULOSE SYRUP 20 GM/30 ML UDC PO SCH (14:56)
[2023-09-01 16:27] LABS: Methadone, Ur Metabolite >10000 ng/mL (<100); Methadone, Ur Verification 2890 ng/mL (<100)
[2023-09-01] MEDS: LORazepam 1 MG TAB PO STA (16:43)
[2023-09-02] MEDS: OPTIRAY 320 100ml IV ONE (09:27)
--- NOTE | 2023-09-02 11:20 | CT Scan Report ---
CT head/brain wo/w con CLINICAL HISTORY: Confusion. COMPARISON STUDY: Head CT August 30, 2023. TECHNIQUE: Axial images of the head were obtained before and after intravenous administration of Opti ray 320. Automated exposure control was utilized for the study. A dose lowering technique was utiliz ed adhering to the principles of ALARA. FINDINGS: No acute intracranial hemorrhage, midline shift or mass effect is present. Ventricular syst em is unremarkable. Basal cisterns are patent. There are no extra axial collections. White matter hyp odensity suggests small vessel disease. The appearance of the brain is unchanged. There are no findin gs to suggest acute dural sinus thrombosis or acute territorial infarct. No intracranial mass or path ologic enhancement. Left maxillary sinus mucosal thickening remains unchanged. Left facial internal f ixation is again noted. Postoperative appearance is unchanged. IMPRESSION: 1. No acute intracranial findings. 2. No intracranial mass or pathologic enhancement. ACT 112: Negative or not required by law. Electronically signed by: Neil Samson M.D. 09/02/2023 11:19 AM
--- NOTE | 2023-09-02 12:28 | Electrocardiogram Report ---
Test Reason : Blood Pressure : / mmHG Vent. Rate : 068 BPM Atrial Rate : 068 BPM P-R Int : 140 ms QRS Dur : 088 ms QT Int : 404 ms P-R-T Axes : 039 073 046 degrees QTc Int : 429 ms Normal sinus rhythm Normal ECG When compared with ECG of 29-AUG-2023 21:51, No significant change was found Confirmed by Vinicio Fontenot ([id number]) on 09/02/2023 12:28:02 PM Referred By: REFERRED SELF Confirmed By:Vinicio Fontenot
[2023-09-02] MEDS: clonazePAM 0.5 MG TAB PO PRN (12:40)
--- NOTE | 2023-09-02 13:07 | Hospitalist Progress Note ---
Date of Service September 02, 2023 Assessment & Plan (1) Dementia, vascular with delirium: (2) Hypertension: (3) Paroxysmal atrial fibrillation: (4) Opioid dependence: (5) Generalized anxiety disorder: (6) Depression: (7) 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: Plan With recent history of patient potentially taking gabapentin suspect patient's acute delirium and altered mental status may have been due to combination of these medications with taking nonprescribed as far as I can tell Neurontin Repeat head CT to evaluate for changes since patient cannot tolerate MRI, no acute changes Patient is still extremely weak requiring 2 person assist, may need rehabilitation Case management and PT OT to make evaluations of possible placement Resume Klonopin, patient's anxiety becoming extremely uncontrolled. Continue regular bowel regimen Attempted to contact Sister veda oLvelace answer Admission and Anticipated Discharge Date Admission Date: August 30, 2023 Subjective Patient's mentation seems to be back to baseline. He did mention today that he was taking gabapentin. This is not on any of his med list. Suspect this may have caused the patient's altered mental status. Nursing reports that required 2 person assist to get up to wheelchair for repeat head CT today. Patient did not tolerate attempted MRI of the brain yesterday. Physical Exam Physical Exam: Constitutional: Alert HEENT: Mucous membranes moist. Lungs: Clear to auscultation, decreased, no wheezes rales or rhonchi CV: S1-S2, regular Abdomen: Soft, nontender, nondistended Extremities: No significant edema Neuro: No focal deficits, generalized weakness Psych: Cooperative, normal mood Results & Data Results & Data Vital Signs (Past 12 Hours) Vital Signs Temp Pulse Resp BP Pulse Ox O2 Del Method 09/02/23 06:50 36.5 C 66 16 127/73 96 Room Air Diagnostic Findings Reviewed imaging, laboratory and diagnostic studies. Pertinent findings as below. Repeat head CT shows no acute findings. No changes from initial head CT. Redemonstration of chronic microvascular disease Discontinued MRI due to patient's intolerance
--- NOTE | 2023-09-02 15:10 | Psychiatric Progress Note ---
Date of Service September 02, 2023 Impression / Recommendations Impression 68-year-old male history of opioid dependence on methadone, anxiety/depression, osteoarthritis, hepatitis C, chronic pain who presents to the hospital with altered mental status. Patient was found in the disoriented state at home, soiled self with urine and stool, and had concern for hallucinations and delusions. Admitted as 302 for safety concerns. Psychiatry consulted for evaluation. Patient is not considered to be a safety concern from a psychiatric perspective and does not warrant further involuntary hospitalization. No indication for bedside sitter for suicidal or self-harm concerns. He presents no evidence of a primary psychotic disorder and likely initial presentation was due to delirium. Does not warrant inpatient psychiatric hospitalization at this time. There is concern that excess methadone use is contributing to confusion, speech delays, slowed movement, and gait instability and would recommend dose reduction and explore other options for pain control. He presents constipation side effect likely from methadone and lack of movement and treated with excess MiraLAX use. Would likely benefit from home health care and assistive device. Can continue home Cymbalta; hold home clonazepam. Overall, I spent a total of 45 minutes with this case including review of chart records, nursing report, direct evaluation of the patient at bedside, counseling the patient, discussion with the psychiatric liaison during clinical rounds, and documentation in the electronic health record. (1) 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: (2) Opioid dependence: Interval History Identifying Information 68-year-old male history of opioid dependence on methadone, anxiety/depression, osteoarthritis, hepatitis C, chronic pain who presents to the hospital with altered mental status. Patient was found in the disoriented state at home, soiled self with urine and stool, and had concern for hallucinations and delusions. Admitted as 302 for safety concerns. Psychiatry consulted for evaluation. Chief Complaint "pain" Subjective Subjective Patient is alert and oriented to place, year, month, day, sisters. patient is seen moving slowly and has delayed speech. Reports that he lives alone and that his Sister [place] lives the closest to him. He confirms that he came in and was confused. He reports taking 3 capsules of MiraLAX daily for constipation and was prescribed by his doctor. He complains of difficulty ambulating and could benefit from a walker. He denies suicidal ideation. He denies a history of dementia diagnosis or strokes. Reports Cymbalta was given for "arthritis". Says a psychiatrist prescribed Klonopin; unable to clarify further. When asked about methadone dose he reports taking the current dose because it helps with pain. We briefly discussed reduction and possible contribution to his confusion and gait instability. No further concerns reported. Physical Exam Mental Examination Appearance: Disheveled Eye Contact: Maintains Eye Contact Motor Behavior: Slowed Speech: Soft and Delayed Mood: Calm Affect: Congruent Thought Process: [place] and Slowed Thinking Thought Content: Intact Hallucinations: None Insight: Poor Judgement: Poor Vital Signs (Past 24 Hours) Last Vital Signs Temp 36.6 C 09/02/23 13:54 Pulse 73 09/02/23 13:54 Resp 16 09/02/23 13:54 BP 126/66 09/02/23 13:54 Pulse Ox 94 09/02/23 13:54 O2 Del Method Room Air 09/02/23 13:54 Results & Data ([facility]) Laboratory Results Laboratory Results - last 24 hr 08/29/23 23:45 U Methadone Metabolites >47707 H Ur Methadone Confirm 2890 H Drug Screen Comment SEE NOTE Current Inpatient Medications Current Inpatient Medications: Current Inpatient Medications Acetaminophen (Acetaminophen 325 Mg Tab) 650 mg PO Q6H PRN PRN Reason: Pain & Pre PT Stop: 09/29/23 18:35 Last Admin: 09/01/23 12:55 Dose: 650 mg Apixaban (Apixaban 5 Mg Tablet) 5 mg PO BID [facility] Stop: 09/29/23 20:59 Last Admin: 09/02/23 08:14 Dose: 5 mg Buspirone HCl (Buspirone 5 Mg Tab) 5 mg PO TID [facility] Stop: 10/01/23 10:34 Last Admin: 09/02/23 08:14 Dose: 5 mg Clonazepam (Clonazepam 0.5 Mg Tab) 0.5 mg PO BID PRN PRN Reason: Anxiety/Agitation Stop: 10/02/23 12:24 Last Admin: 09/02/23 12:40 Dose: 0.5 mg Fluticasone Propionate (Fluticasone Propionate Na Spr 16 Gm Btl) 1 sprays NA DAILY [facility] Stop: 09/30/23 08:59 Last Admin: 09/02/23 08:13 Dose: 1 sprays Lactulose (Lactulose Syrup 20 Gm/30 Ml Udc) 20 gm PO DAILY [facility] Stop: 10/03/23 08:59 Linaclotide (Linaclotide 145 Mcg Capsule) 290 mcg PO DAILYBB [facility] Stop: 09/30/23 06:29 Last Admin: 09/02/23 05:31 Dose: 290 mcg Memantine (Memantine Hcl 5 Mg Tab) 5 mg PO QAM [facility] Stop: 09/30/23 12:34 Last Admin: 09/02/23 08:14 Dose: 5 mg Methadone HCl (Methadone Hcl 10 Mg Tab) 45 mg PO DAILY@1030 [facility] Stop: 09/14/23 10:29 Last Admin: 09/02/23 10:49 Dose: 45 mg Metoprolol Succinate (Metoprolol Succ 25mg Ext Rel Tab) 25 mg PO DAILY [facility] Stop: 09/30/23 08:59 Last Admin: 09/02/23 08:14 Dose: 25 mg Senna/Docusate Sodium (Docusate Sodium/Senna 50/8.6mg Tab) 1 tab PO AMHS [facility] Stop: 09/29/23 20:59 Last Admin: 09/02/23 08:13 Dose: 1 tab Sodium Biphosphate/Sodium Phosphate (Sod Phosphate/Sod Biphosphate Enema 132 Ml Btl) 132 ml MD DAILY PRN PRN Reason: Constipation Stop: 10/01/23 13:57 Last Admin: 09/01/23 14:56 Dose: 132 ml
[2023-09-03] MEDS: LACTULOSE SYRUP 20 GM/30 ML UDC PO SCH (08:21)
--- NOTE | 2023-09-03 14:24 | Hospitalist Progress Note ---
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 Now generally weak and requiring assistance. Communication with psychiatry, not a candidate for inpatient behavioral health unit. Reviewed recommendations concerning Cymbalta and Klonopin. Started BuSpar over the weekend which patient appears to be tolerating well may be able to be titrated up in a day or 2. Using Klonopin as needed Patient has been off one-to-one since yesterday Continue bowel regimen Continue therapies Pursue placement Admission and Anticipated Discharge Date Admission Date: August 30, 2023 Subjective patient still needing a fair amount of assistance. Physical Exam Physical Exam: Constitutional: Alert HEENT: Mucous membranes moist. Lungs: Clear to auscultation, decreased, no wheezes rales or rhonchi CV: S1-S2, regular Abdomen: Soft, nontender, nondistended Extremities: No significant edema Neuro: No focal deficits, generalized weakness Psych: Cooperative, slowed thought processes Results & Data Results & Data Vital Signs (Past 12 Hours) Vital Signs Temp Pulse Resp BP Pulse Ox O2 Del Method 09/03/23 07:04 36.5 C 55 L 16 144/73 H 97 Room Air
--- NOTE | 2023-09-04 17:15 | Hospitalist Progress Note ---
Date of Service September 04, 2023 Assessment & Plan (1) Dementia, vascular with delirium: Plan: 68-year-old male with history of hypertension, atrial fibrillation on Eliquis, substance abuse, opiate dependence on methadone, hepatitis C, generalized anxiety disorder/depression, constipation Presenting with altered mental status. 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 Now generally weak and requiring assistance. Communication with psychiatry, not a candidate for inpatient behavioral health unit. Reviewed recommendations concerning Cymbalta and Klonopin. Started BuSpar over the weekend which patient appears to be tolerating well may be able to be titrated up in a day or 2. Using Klonopin as needed Patient has been off one-to-one since yesterday Continue bowel regimen Continue therapies Pursue placement Admission and Anticipated Discharge Date Admission Date: August 30, 2023 Subjective - 09/04/2023 The patient was seen and examined in medical floor he remains pleasantly confused denies any significant symptoms he was strongly advised to ask for help with any activities Review of Systems Review of Systems: all systems reviewed and are unremarkable except as noted below Physical Exam Physical Exam: lying in bed without any acute distress Constitutional: + ill appearing and average body habitus Eyes: PERRL, conjunctivae normal, anicteric sclerae ENMT: external ear and nose normal, oropharynx normal Neck: trachea midline, no thyromegaly Respiratory: no respiratory distress Auscultation: lungs clear to auscultation bilaterally Cardiovascular: Rate/Rhythm: regular rate and regular rhythm Heart Sounds: normal S1 and normal S2; no murmur Extremities: no edema Gastrointestinal (Abdomen): Inspection/Auscultation: normal bowel sounds; abdomen not distended Percussion/Palpation: abdomen soft; abdomen nontender Musculoskeletal: no acute arthritis involving any of the joint Neurologic: normal touch/pain/proprioception and moves all extremities; no focal motor deficits Lymphatic: no cervical or axillary lymphadenopathy Results & Data Results & Data Vital Signs (Past 12 Hours) Vital Signs Temp Pulse Resp BP Pulse Ox O2 Del Method 09/04/23 14:34 36.4 C L 60 16 115/67 92 Room Air 09/04/23 07:22 116/73 Medications Administered Current Inpatient Medications Acetaminophen (Acetaminophen 325 Mg Tab) 650 mg PO Q6H PRN PRN Reason: Pain & Pre PT Stop: 09/29/23 18:35 Last Admin: 09/02/23 22:22 Dose: 650 mg Apixaban (Apixaban 5 Mg Tablet) 5 mg PO BID [facility] Stop: 09/29/23 20:59 Last Admin: 09/04/23 07:23 Dose: 5 mg Buspirone HCl (Buspirone 5 Mg Tab) 5 mg PO TID [facility] Stop: 10/01/23 10:34 Last Admin: 09/04/23 14:02 Dose: 5 mg Clonazepam (Clonazepam 0.5 Mg Tab) 0.5 mg PO BID PRN PRN Reason: Anxiety/Agitation Stop: 10/02/23 12:24 Last Admin: 09/04/23 11:44 Dose: 0.5 mg Fluticasone Propionate (Fluticasone Propionate Na Spr 16 Gm Btl) 1 sprays NA DAILY [facility] Stop: 09/30/23 08:59 Last Admin: 09/04/23 07:24 Dose: 1 sprays Lactulose (Lactulose Syrup 20 Gm/30 Ml Udc) 20 gm PO DAILY [facility] Stop: 10/03/23 08:59 Last Admin: 09/04/23 07:24 Dose: 20 gm Linaclotide (Linaclotide 145 Mcg Capsule) 290 mcg PO DAILYBB [facility] Stop: 09/30/23 06:29 Last Admin: 09/04/23 05:56 Dose: 290 mcg Memantine (Memantine Hcl 5 Mg Tab) 5 mg PO QAM [facility] Stop: 09/30/23 12:34 Last Admin: 09/04/23 07:23 Dose: 5 mg Methadone HCl (Methadone Hcl 10 Mg Tab) 45 mg PO DAILY@1030 [facility] Stop: 09/14/23 10:29 Last Admin: 09/04/23 09:33 Dose: 45 mg Metoprolol Succinate (Metoprolol Succ 25mg Ext Rel Tab) 25 mg PO DAILY [facility] Stop: 09/30/23 08:59 Last Admin: 09/04/23 07:23 Dose: 25 mg Senna/Docusate Sodium (Docusate Sodium/Senna 50/8.6mg Tab) 1 tab PO AMHS [facility] Stop: 09/29/23 20:59 Last Admin: 09/04/23 07:23 Dose: 1 tab Sodium Biphosphate/Sodium Phosphate (Sod Phosphate/Sod Biphosphate Enema 132 Ml Btl) [address] DAILY PRN PRN Reason: Constipation Stop: 10/01/23 13:57 Last Admin: 09/01/23 14:56 Dose: 132 ml
--- NOTE | 2023-09-05 17:27 | Hospitalist Progress Note ---
Date of Service September 05, 2023 Assessment & Plan (1) Dementia, vascular with delirium: Plan: 68-year-old male with history of hypertension, atrial fibrillation on Eliquis, substance abuse, opiate dependence on methadone, hepatitis C, generalized anxiety disorder/depression, constipation Presenting with altered mental status. 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 and is contributed by medication misuse remains stable with dementia but no acute delirium complains to have more anxiety and Klonopin has been restarted 0.5 mg twice daily as needed awaiting placement Will need more history from patient's Sister Maribel [phone], awaiting callback (2) Hypertension: Plan: blood pressure remains stable (3) Paroxysmal atrial fibrillation: Plan: rate is controlled has been on Eliquis (4) Opioid dependence: Plan: Continue Methadone (5) Generalized anxiety disorder: (6) Depression: (7) 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 Now generally weak and requiring assistance. Communication with psychiatry, not a candidate for inpatient behavioral health unit. Reviewed recommendations concerning Cymbalta and Klonopin. Started Bu Spar over the weekend which patient appears to be tolerating well may be able to be titrated up in a day or 2. Using Klonopin as needed Patient has been off one-to-one since yesterday Continue bowel regimen Continue therapies Pursue placement Admission and Anticipated Discharge Date Admission Date: August 30, 2023 Subjective - 09/04/2023 The patient was seen and examined in medical floor he remains pleasantly confused denies any significant symptoms he was strongly advised to ask for help with any activities 09/05/2023 The patient was seen and examined in medical floor He has been using clonazepam at home more than the recommended dose he was prescribed at home has been complaining of anxiety after stopping the clonazepam denies any other symptoms Review of Systems Review of Systems: all systems reviewed and are unremarkable except as noted below Physical Exam Physical Exam: lying in bed without any acute distress Constitutional: + ill appearing and average body habitus Eyes: PERRL, conjunctivae normal, anicteric sclerae ENMT: external ear and nose normal, oropharynx normal Neck: trachea midline, no thyromegaly Respiratory: no respiratory distress Auscultation: lungs clear to auscultation bilaterally Cardiovascular: Rate/Rhythm: regular rate and regular rhythm Heart Sounds: normal S1 and normal S2; no murmur Extremities: no edema Gastrointestinal (Abdomen): Inspection/Auscultation: normal bowel sounds; abdomen not distended Percussion/Palpation: abdomen soft; abdomen nontender Neurologic: normal touch/pain/proprioception and moves all extremities; no focal motor deficits Lymphatic: no cervical or axillary lymphadenopathy Results & Data Results & Data Vital Signs (Past 12 Hours) Vital Signs Temp Pulse Pulse Resp BP Pulse Ox O2 Del Method 09/05/23 15:43 36.4 C L 51 L 16 117/71 94 Room Air 09/05/23 08:23 62 09/05/23 07:34 36.4 C L 56 L 16 119/70 97 Room Air Medications Administered Current Inpatient Medications Acetaminophen (Acetaminophen 325 Mg Tab) 650 mg PO Q6H PRN PRN Reason: Pain & Pre PT Stop: 09/29/23 18:35 Last Admin: 09/05/23 10:22 Dose: 650 mg Apixaban (Apixaban 5 Mg Tablet) 5 mg PO BID [facility] Stop: 09/29/23 20:59 Last Admin: 09/05/23 08:18 Dose: 5 mg Buspirone HCl (Buspirone 5 Mg Tab) 5 mg PO TID [facility] Stop: 10/01/23 10:34 Last Admin: 09/05/23 14:07 Dose: 5 mg Clonazepam (Clonazepam 0.5 Mg Tab) 0.5 mg PO BID PRN PRN Reason: Anxiety/Agitation Stop: 10/02/23 12:24 Last Admin: 09/05/23 12:38 Dose: 0.5 mg Fluticasone Propionate (Fluticasone Propionate Na Spr 16 Gm Btl) 1 sprays NA DAILY [facility] Stop: 09/30/23 08:59 Last Admin: 09/05/23 08:18 Dose: 1 sprays Lactulose (Lactulose Syrup 20 Gm/30 Ml Udc) 20 gm PO DAILY [facility] Stop: 10/03/23 08:59 Last Admin: 09/05/23 08:18 Dose: 20 gm Linaclotide (Linaclotide 145 Mcg Capsule) 290 mcg PO DAILYBB [facility] Stop: 09/30/23 06:29 Last Admin: 09/05/23 04:30 Dose: 290 mcg Memantine (Memantine Hcl 5 Mg Tab) 5 mg PO QAM [facility] Stop: 09/30/23 12:34 Last Admin: 09/05/23 08:19 Dose: 5 mg Methadone HCl (Methadone Hcl 10 Mg Tab) 45 mg PO DAILY@1030 [facility] Stop: 09/14/23 10:29 Last Admin: 09/05/23 10:23 Dose: 45 mg Metoprolol Succinate (Metoprolol Succ 25mg Ext Rel Tab) 25 mg PO DAILY [facility] Stop: 09/30/23 08:59 Last Admin: 09/05/23 08:23 Dose: 25 mg Senna/Docusate Sodium (Docusate Sodium/Senna 50/8.6mg Tab) 1 tab PO AMHS [facility] Stop: 09/29/23 20:59 Last Admin: 09/05/23 08:19 Dose: 1 tab Sodium Biphosphate/Sodium Phosphate (Sod Phosphate/Sod Biphosphate Enema 132 Ml Btl) 132 ml [place] DAILY PRN PRN Reason: Constipation Stop: 10/01/23 13:57 Last Admin: 09/01/23 14:56 Dose: 132 ml
[2023-09-06] MEDS: PSYLLIUM or GUAR GUM FIBER 4GM PACKET PO SCH (15:12)
[2023-09-07] MEDS: DULoxetine HCL 20 MG CAP PO SCH (10:59)
[2023-09-07] MEDS: MAGNESIUM HYDROXIDE SUSP 30 ML UDC PO PRN (18:06)
--- NOTE | 2023-09-08 16:08 | Hospitalist Progress Note ---
Date of Service September 08, 2023 This is a delayed note for 09/07/2023 Assessment & Plan (1) Dementia, vascular with delirium: Plan: 68-year-old male with history of hypertension, atrial fibrillation on Eliquis, substance abuse, opiate dependence on methadone, hepatitis C, generalized anxiety disorder/depression, constipation Presenting with altered mental status. 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 and is contributed by medication misuse remains stable with dementia but no acute delirium complains to have more anxiety and Klonopin has been restarted 0.5 mg twice daily as needed awaiting placement No acute symptoms (2) Hypertension: Plan: blood pressure remains stable (3) Paroxysmal atrial fibrillation: Plan: rate is controlled has been on Eliquis (4) Opioid dependence: Plan: Continue Methadone (5) Generalized anxiety disorder: (6) Depression: Plan: Remains anxious (7) 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 Now generally weak and requiring assistance. Communication with psychiatry, not a candidate for inpatient behavioral health unit. Reviewed recommendations concerning Cymbalta and Klonopin. Started BuSpar over the weekend which patient appears to be tolerating well may be able to be titrated up in a day or 2. Using Klonopin as needed Patient has been off one-to-one since yesterday Continue bowel regimen Continue therapies Pursue placement Admission and Anticipated Discharge Date Admission Date: August 30, 2023 Subjective - 09/04/2023 The patient was seen and examined in medical floor he remains pleasantly confused denies any significant symptoms he was strongly advised to ask for help with any activities 09/05/2023 The patient was seen and examined in medical floor He has been using clonazepam at home more than the recommended dose he was prescribed at home has been complaining of anxiety after stopping the clonazepam denies any other symptoms 09/07/2023 The patient was seen and examined in medical floor He remains stable Complains to more anxiety and wants to have Klonopin as before as he was taking at home Review of Systems Review of Systems: all systems reviewed and are unremarkable except as noted below Physical Exam Physical Exam: lying in bed without any acute distress Constitutional: + ill appearing and average body habitus Eyes: PERRL, conjunctivae normal, anicteric sclerae ENMT: external ear and nose normal, oropharynx normal Neck: trachea midline, no thyromegaly Respiratory: no respiratory distress Auscultation: lungs clear to auscultation bilaterally Cardiovascular: Rate/Rhythm: regular rate and regular rhythm Heart Sounds: normal S1 and normal S2; no murmur Extremities: no edema Gastrointestinal (Abdomen): Inspection/Auscultation: normal bowel sounds; abdomen not distended Percussion/Palpation: abdomen soft; abdomen nontender Neurologic: normal touch/pain/proprioception and moves all extremities; no focal motor deficits Lymphatic: no cervical or axillary lymphadenopathy Results & Data Results & Data Vital Signs (Past 12 Hours) Vital Signs Temp Pulse Pulse Resp BP BP Pulse Ox 09/08/23 09:30 59 L 18 128/67 97 09/08/23 06:50 36.5 C 48 L 50 L 18 114/70 98 O2 Del Method 09/08/23 09:30 Room Air 09/08/23 06:50 Room Air Medications Administered Current Inpatient Medications Acetaminophen (Acetaminophen 325 Mg Tab) 650 mg PO Q6H PRN PRN Reason: Pain & Pre PT Stop: 09/29/23 18:35 Last Admin: 09/07/23 21:07 Dose: 650 mg Apixaban (Apixaban 5 Mg Tablet) 5 mg PO BID [facility] Stop: 09/29/23 20:59 Last Admin: 09/08/23 09:33 Dose: 5 mg Buspirone HCl (Buspirone 5 Mg Tab) 5 mg PO TID [facility] Stop: 10/01/23 10:34 Last Admin: 09/08/23 13:00 Dose: 5 mg Clonazepam (Clonazepam 0.5 Mg Tab) 0.5 mg PO BID PRN PRN Reason: Anxiety/Agitation Stop: 10/02/23 12:24 Last Admin: 09/08/23 13:13 Dose: 0.5 mg Duloxetine HCl (Duloxetine Hcl 20 Mg Cap) 20 mg PO DAILY [facility] Stop: 10/07/23 10:29 Last Admin: 09/08/23 09:33 Dose: 20 mg Fluticasone Propionate (Fluticasone Propionate Na Spr 16 Gm Btl) 1 sprays NA DAILY [facility] Stop: 09/30/23 08:59 Last Admin: 09/08/23 09:33 Dose: 1 sprays Lactulose (Lactulose Syrup 20 Gm/30 Ml Udc) 20 gm PO DAILY [facility] Stop: 10/03/23 08:59 Last Admin: 09/08/23 09:34 Dose: 20 gm Linaclotide (Linaclotide 145 Mcg Capsule) 290 mcg PO DAILYBB [facility] Stop: 09/30/23 06:29 Last Admin: 09/08/23 05:48 Dose: 290 mcg Magnesium Hydroxide (Magnesium Hydroxide Susp 30 Ml Udc) 30 ml PO Q12H PRN PRN Reason: Constipation Stop: 10/07/23 17:51 Last Admin: 09/08/23 13:12 Dose: 30 ml Memantine (Memantine Hcl 5 Mg Tab) 5 mg PO QAM [facility] Stop: 09/30/23 12:34 Last Admin: 09/08/23 09:33 Dose: 5 mg Methadone HCl (Methadone Hcl 10 Mg Tab) 45 mg PO DAILY@1030 [facility] Stop: 09/14/23 10:29 Last Admin: 09/08/23 10:30 Dose: 45 mg Metoprolol Succinate (Metoprolol Succ 25mg Ext Rel Tab) 25 mg PO DAILY [facility] Stop: 09/30/23 08:59 Last Admin: 09/08/23 09:34 Dose: Not Given Psyllium Hydrophilic Mucilloid (Psyllium Or Guar Gum Fiber 4gm Packet) 4 gm PO QAM [facility] Stop: 10/06/23 08:59 Last Admin: 09/08/23 09:34 Dose: 4 gm Senna/Docusate Sodium (Docusate Sodium/Senna 50/8.6mg Tab) 1 tab PO AMHS [facility] Stop: 09/29/23 20:59 Last Admin: 09/08/23 09:33 Dose: 1 tab Sodium Biphosphate/Sodium Phosphate (Sod Phosphate/Sod Biphosphate Enema 132 Ml Btl) 132 ml [place] DAILY PRN PRN Reason: Constipation Stop: 10/01/23 13:57 Last Admin: 09/01/23 14:56 Dose: 132 ml
--- NOTE | 2023-09-08 16:43 | Hospitalist Progress Note ---
Date of Service September 08, 2023 Assessment & Plan (1) Dementia, vascular with delirium: Plan: 68-year-old male with history of hypertension, atrial fibrillation on Eliquis, substance abuse, opiate dependence on methadone, hepatitis C, generalized anxiety disorder/depression, constipation Presenting with altered mental status. 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 and is contributed by medication misuse remains stable with dementia but no acute delirium complains to have more anxiety and Klonopin has been restarted 0.5 mg twice daily as needed awaiting placement No acute symptoms Was very anxious last night and required one-to-one sitter As well as having suicidal ideation Has been stable this morning and denies to have any suicidal ideation Wanted to have his Klonopin as before He will get a psychiatric evaluation tomorrow For now Klonopin will be ordered as 0.5 mg in the morning and 1 mg at night (2) Hypertension: Plan: blood pressure remains stable (3) Paroxysmal atrial fibrillation: Plan: rate is controlled has been on Eliquis (4) Opioid dependence: Plan: Continue Methadone (5) Generalized anxiety disorder: (6) Depression: Plan: Remains anxious (7) 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 Now generally weak and requiring assistance. Communication with psychiatry, not a candidate for inpatient behavioral health unit. Reviewed recommendations concerning Cymbalta and Klonopin. Started BuSpar over the weekend which patient appears to be tolerating well may be able to be titrated up in a day or 2. Using Klonopin as needed Patient has been off one-to-one since yesterday Continue bowel regimen Continue therapies Pursue placement Admission and Anticipated Discharge Date Admission Date: August 30, 2023 Subjective - 09/04/2023 The patient was seen and examined in medical floor he remains pleasantly confused denies any significant symptoms he was strongly advised to ask for help with any activities 09/05/2023 The patient was seen and examined in medical floor He has been using clonazepam at home more than the recommended dose he was prescribed at home has been complaining of anxiety after stopping the clonazepam denies any other symptoms 09/07/2023 The patient was seen and examined in medical floor He remains stable Complains to more anxiety and wants to have Klonopin as before as he was taking at home 09/08/2023 The patient was seen and examined in medical floor He has been very anxious and met remarks about suicidal ideation Later on it was confirmed that he was anxious and wanted to have his Klonopin as he was taking at home He made those comments in order to get the Klonopin Denies any other significant symptoms Review of Systems Review of Systems: all systems reviewed and are unremarkable except as noted below Physical Exam Physical Exam: lying in bed without any acute distress Constitutional: + ill appearing and average body habitus Eyes: PERRL, conjunctivae normal, anicteric sclerae ENMT: external ear and nose normal, oropharynx normal Neck: trachea midline, no thyromegaly Respiratory: no respiratory distress Auscultation: lungs clear to auscultation bilaterally Cardiovascular: Rate/Rhythm: regular rate and regular rhythm Heart Sounds: normal S1 and normal S2; no murmur Extremities: no edema Gastrointestinal (Abdomen): Inspection/Auscultation: normal bowel sounds; abdomen not distended Percussion/Palpation: abdomen soft; abdomen nontender Neurologic: normal touch/pain/proprioception and moves all extremities; no focal motor deficits Lymphatic: no cervical or axillary lymphadenopathy Results & Data Results & Data Vital Signs (Past 12 Hours) Vital Signs Temp Pulse Pulse Resp BP BP Pulse Ox 09/08/23 09:30 59 L 18 128/67 97 09/08/23 06:50 36.5 C 48 L 50 L 18 114/70 98 O2 Del Method 09/08/23 09:30 Room Air 09/08/23 06:50 Room Air Medications Administered Current Inpatient Medications Acetaminophen (Acetaminophen 325 Mg Tab) 650 mg PO Q6H PRN PRN Reason: Pain & Pre PT Stop: 09/29/23 18:35 Last Admin: 09/07/23 21:07 Dose: 650 mg Apixaban (Apixaban 5 Mg Tablet) 5 mg PO BID [facility] Stop: 09/29/23 20:59 Last Admin: 09/08/23 09:33 Dose: 5 mg Buspirone HCl (Buspirone 5 Mg Tab) 5 mg PO TID [facility] Stop: 10/01/23 10:34 Last Admin: 09/08/23 13:00 Dose: 5 mg Clonazepam (Clonazepam 0.5 Mg Tab) 0.5 mg PO DAILY [facility] Stop: 10/09/23 08:59 Clonazepam (Clonazepam 1 Mg Tab) 1 mg PO HS [facility] Stop: 10/08/23 20:59 Duloxetine HCl (Duloxetine Hcl 20 Mg Cap) 20 mg PO DAILY [facility] Stop: 10/07/23 10:29 Last Admin: 09/08/23 09:33 Dose: 20 mg Fluticasone Propionate (Fluticasone Propionate Na Spr 16 Gm Btl) 1 sprays NA DAILY [facility] Stop: 09/30/23 08:59 Last Admin: 09/08/23 09:33 Dose: 1 sprays Lactulose (Lactulose Syrup 20 Gm/30 Ml Udc) 20 gm PO DAILY [facility] Stop: 10/03/23 08:59 Last Admin: 09/08/23 09:34 Dose: 20 gm Linaclotide (Linaclotide 145 Mcg Capsule) 290 mcg PO DAILYBB [facility] Stop: 09/30/23 06:29 Last Admin: 09/08/23 05:48 Dose: 290 mcg Magnesium Hydroxide (Magnesium Hydroxide Susp 30 Ml Udc) 30 ml PO Q12H PRN PRN Reason: Constipation Stop: 10/07/23 17:51 Last Admin: 09/08/23 13:12 Dose: 30 ml Memantine (Memantine Hcl 5 Mg Tab) 5 mg PO QAM [facility] Stop: 09/30/23 12:34 Last Admin: 09/08/23 09:33 Dose: 5 mg Methadone HCl (Methadone Hcl 10 Mg Tab) 45 mg PO DAILY@1030 [facility] Stop: 09/14/23 10:29 Last Admin: 09/08/23 10:30 Dose: 45 mg Metoprolol Succinate (Metoprolol Succ 25mg Ext Rel Tab) 25 mg PO DAILY [facility] Stop: 09/30/23 08:59 Last Admin: 09/08/23 09:34 Dose: Not Given Psyllium Hydrophilic Mucilloid (Psyllium Or Guar Gum Fiber 4gm Packet) 4 gm PO QAM [facility] Stop: 10/06/23 08:59 Last Admin: 09/08/23 09:34 Dose: 4 gm Senna/Docusate Sodium (Docusate Sodium/Senna 50/8.6mg Tab) 1 tab PO AMHS [facility] Stop: 09/29/23 20:59 Last Admin: 09/08/23 09:33 Dose: 1 tab Sodium Biphosphate/Sodium Phosphate (Sod Phosphate/Sod Biphosphate Enema 132 Ml Btl) 132 ml [place] DAILY PRN PRN Reason: Constipation Stop: 10/01/23 13:57 Last Admin: 09/01/23 14:56 Dose: 132 ml
[2023-09-08] MEDS: clonazePAM 1 MG TAB PO SCH (20:54)
[2023-09-09] MEDS: clonazePAM 0.5 MG TAB PO SCH (09:36)
--- NOTE | 2023-09-09 12:11 | Electrocardiogram Report ---
Test Reason : Blood Pressure : / mmHG Vent. Rate : 060 BPM Atrial Rate : 060 BPM P-R Int : 152 ms QRS Dur : 082 ms QT Int : 416 ms P-R-T Axes : -02 042 011 degrees QTc Int : 416 ms Poor data quality, interpretation may be adversely affected Normal sinus rhythm Normal ECG When compared with ECG of 01-SEP-2023 10:36, Nonspecific T wave abnormality now evident in Inferior leads Confirmed by Ezio Alan ([id number]) on 09/09/2023 12:10:56 PM Referred By: REFERRED SELF Confirmed By:Ezio Alan
--- NOTE | 2023-09-09 16:56 | Hospitalist Progress Note ---
Date of Service September 09, 2023 Assessment & Plan (1) Dementia, vascular with delirium: Plan: 68-year-old male with history of hypertension, atrial fibrillation on Eliquis, substance abuse, opiate dependence on methadone, hepatitis C, generalized anxiety disorder/depression, constipation Presenting with altered mental status. 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 and is contributed by medication misuse remains stable with dementia but no acute delirium complains to have more anxiety and Klonopin has been restarted 0.5 mg twice daily as needed awaiting placement No acute symptoms Was very anxious last night and required one-to-one sitter As well as having suicidal ideation Has been stable this morning and denies to have any suicidal ideation Wanted to have his Klonopin as before He will get a psychiatric evaluation tomorrow For now Klonopin will be ordered as 0.5 mg in the morning and 1 mg at night Remains stable and denies any symptoms as of today Discussed with the psychiatrist and was advised to continue with his current home doses of Klonopin Awaiting placement (2) Hypertension: Plan: blood pressure remains stable (3) Paroxysmal atrial fibrillation: Plan: rate is controlled has been on Eliquis (4) Opioid dependence: Plan: Continue Methadone (5) Generalized anxiety disorder: (6) Depression: Plan: Remains anxious (7) 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 Now generally weak and requiring assistance. Communication with psychiatry, not a candidate for inpatient behavioral health unit. Reviewed recommendations concerning Cymbalta and Klonopin. Started BuSpar over the weekend which patient appears to be tolerating well may be able to be titrated up in a day or 2. Using Klonopin as needed Patient has been off one-to-one since yesterday Continue bowel regimen Continue therapies Pursue placement Admission and Anticipated Discharge Date Admission Date: August 30, 2023 Subjective - 09/04/2023 The patient was seen and examined in medical floor he remains pleasantly confused denies any significant symptoms he was strongly advised to ask for help with any activities 09/05/2023 The patient was seen and examined in medical floor He has been using clonazepam at home more than the recommended dose he was prescribed at home has been complaining of anxiety after stopping the clonazepam denies any other symptoms 09/07/2023 The patient was seen and examined in medical floor He remains stable Complains to more anxiety and wants to have Klonopin as before as he was taking at home 09/08/2023 The patient was seen and examined in medical floor He has been very anxious and met remarks about suicidal ideation Later on it was confirmed that he was anxious and wanted to have his Klonopin as he was taking at home He made those comments in order to get the Klonopin Denies any other significant symptoms 09/09/2023 The patient was seen and examined in medical floor He has been much better following administration of his home dose of Klonopin Denies any significant symptoms Bowels not moving even with current doses of laxatives Review of Systems Review of Systems: all systems reviewed and are unremarkable except as noted below Physical Exam Physical Exam: lying in bed without any acute distress Constitutional: + ill appearing and average body habitus Eyes: PERRL, conjunctivae normal, anicteric sclerae ENMT: external ear and nose normal, oropharynx normal Neck: trachea midline, no thyromegaly Respiratory: no respiratory distress Auscultation: lungs clear to auscultation bilaterally Cardiovascular: Rate/Rhythm: regular rate and regular rhythm Heart Sounds: normal S1 and normal S2; no murmur Extremities: no edema Gastrointestinal (Abdomen): Inspection/Auscultation: normal bowel sounds; abdomen not distended Percussion/Palpation: abdomen soft; abdomen nontender Neurologic: normal touch/pain/proprioception and moves all extremities; no focal motor deficits Lymphatic: no cervical or axillary lymphadenopathy Results & Data Results & Data Vital Signs (Past 12 Hours) Vital Signs Temp Pulse Resp BP Pulse Ox O2 Del Method 09/09/23 14:46 36.6 C 58 L 16 106/70 95 Room Air 09/09/23 07:12 36.8 C 48 L 16 128/70 98 Room Air Medications Administered Current Inpatient Medications Acetaminophen (Acetaminophen 325 Mg Tab) 650 mg PO Q6H PRN PRN Reason: Pain & Pre PT Stop: 09/29/23 18:35 Last Admin: 09/08/23 20:54 Dose: 650 mg Apixaban (Apixaban 5 Mg Tablet) 5 mg PO BID [facility] Stop: 09/29/23 20:59 Last Admin: 09/09/23 09:32 Dose: 5 mg Buspirone HCl (Buspirone 5 Mg Tab) 5 mg PO TID [facility] Stop: 10/01/23 10:34 Last Admin: 09/09/23 15:33 Dose: 5 mg Clonazepam (Clonazepam 0.5 Mg Tab) 0.5 mg PO DAILY [facility] Stop: 10/09/23 08:59 Last Admin: 09/09/23 09:36 Dose: 0.5 mg Clonazepam (Clonazepam 1 Mg Tab) 1 mg PO HS [facility] Stop: 10/08/23 20:59 Last Admin: 09/08/23 20:54 Dose: 1 mg Duloxetine HCl (Duloxetine Hcl 20 Mg Cap) 20 mg PO DAILY [facility] Stop: 10/07/23 10:29 Last Admin: 09/09/23 09:32 Dose: 20 mg Fluticasone Propionate (Fluticasone Propionate Na Spr 16 Gm Btl) 1 sprays NA DAILY [facility] Stop: 09/30/23 08:59 Last Admin: 09/09/23 09:33 Dose: 1 sprays Lactulose (Lactulose Syrup 20 Gm/30 Ml Udc) 20 gm PO DAILY [facility] Stop: 10/03/23 08:59 Last Admin: 09/09/23 09:31 Dose: 20 gm Linaclotide (Linaclotide 145 Mcg Capsule) 290 mcg PO DAILYBB [facility] Stop: 09/30/23 06:29 Last Admin: 09/09/23 05:57 Dose: 290 mcg Magnesium Hydroxide (Magnesium Hydroxide Susp 30 Ml Udc) 30 ml PO Q12H PRN PRN Reason: Constipation Stop: 10/07/23 17:51 Last Admin: 09/09/23 15:34 Dose: 30 ml Memantine (Memantine Hcl 5 Mg Tab) 5 mg PO QAM [facility] Stop: 09/30/23 12:34 Last Admin: 09/09/23 09:33 Dose: 5 mg Methadone HCl (Methadone Hcl 10 Mg Tab) 45 mg PO DAILY@1030 [facility] Stop: 09/14/23 10:29 Last Admin: 09/09/23 11:05 Dose: 45 mg Metoprolol Succinate (Metoprolol Succ 25mg Ext Rel Tab) 25 mg PO DAILY [facility] Stop: 09/30/23 08:59 Last Admin: 09/09/23 09:33 Dose: Not Given Psyllium Hydrophilic Mucilloid (Psyllium Or Guar Gum Fiber 4gm Packet) 4 gm PO QAM [facility] Stop: 10/06/23 08:59 Last Admin: 09/09/23 09:32 Dose: 4 gm Senna/Docusate Sodium (Docusate Sodium/Senna 50/8.6mg Tab) 1 tab PO AMHS [facility] Stop: 09/29/23 20:59 Last Admin: 09/09/23 09:32 Dose: 1 tab Sodium Biphosphate/Sodium Phosphate (Sod Phosphate/Sod Biphosphate Enema 132 Ml Btl) 132 ml [place] DAILY PRN PRN Reason: Constipation Stop: 10/01/23 13:57 Last Admin: 09/01/23 14:56 Dose: 132 ml
[2023-09-10] MEDS: SOD PHOSPHATE/SOD BIPHOSPHATE ENEMA 132 ML BTL PR ONE (12:40)
--- NOTE | 2023-09-10 14:46 | Hospitalist Progress Note ---
Date of Service September 10, 2023 Assessment & Plan (1) Dementia, vascular with delirium: Plan: 68-year-old male with history of hypertension, atrial fibrillation on Eliquis, substance abuse, opiate dependence on methadone, hepatitis C, generalized anxiety disorder/depression, constipation Presenting with altered mental status. 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 and is contributed by medication misuse remains stable with dementia but no acute delirium complains to have more anxiety and Klonopin has been restarted 0.5 mg twice daily as needed awaiting placement No acute symptoms Was very anxious last night and required one-to-one sitter As well as having suicidal ideation Has been stable this morning and denies to have any suicidal ideation Wanted to have his Klonopin as before He will get a psychiatric evaluation tomorrow For now Klonopin will be ordered as 0.5 mg in the morning and 1 mg at night Remains stable and denies any symptoms as of today Discussed with the psychiatrist and was advised to continue with his current home doses of Klonopin He has been stable medically and has had physical therapy with recommendation to go home Discussed with the patient and the sister, both are agreeable with the decision He will be discharged home this afternoon. 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 Now generally weak and requiring assistance. Communication with psychiatry, not a candidate for inpatient behavioral health unit. Reviewed recommendations concerning Cymbalta and Klonopin. Started BuSpar over the weekend which patient appears to be tolerating well may be able to be titrated up in a day or 2. Using Klonopin as needed Patient has been off one-to-one since yesterday Continue bowel regimen Continue therapies Pursue placement Admission and Anticipated Discharge Date Admission Date: August 30, 2023 Subjective - 09/04/2023 The patient was seen and examined in medical floor he remains pleasantly confused denies any significant symptoms he was strongly advised to ask for help with any activities 09/05/2023 The patient was seen and examined in medical floor He has been using clonazepam at home more than the recommended dose he was prescribed at home has been complaining of anxiety after stopping the clonazepam denies any other symptoms 09/07/2023 The patient was seen and examined in medical floor He remains stable Complains to more anxiety and wants to have Klonopin as before as he was taking at home 09/08/2023 The patient was seen and examined in medical floor He has been very anxious and met remarks about suicidal ideation Later on it was confirmed that he was anxious and wanted to have his Klonopin as he was taking at home He made those comments in order to get the Klonopin Denies any other significant symptoms 09/09/2023 The patient was seen and examined in medical floor He has been much better following administration of his home dose of Klonopin Denies any significant symptoms Bowels not moving even with current doses of laxatives 09/10/2023 The patient was seen and examined in medical floor He has been stable without any significant symptoms Has been complaining of constipation and wanted to have an enema He did very well with physical therapy and was advised that he could go home Review of Systems Review of Systems: all systems reviewed and are unremarkable except as noted below Physical Exam Physical Exam: lying in bed without any acute distress Constitutional: + ill appearing and average body habitus Eyes: PERRL, conjunctivae normal, anicteric sclerae ENMT: external ear and nose normal, oropharynx normal Neck: trachea midline, no thyromegaly Respiratory: no respiratory distress Auscultation: lungs clear to auscultation bilaterally Cardiovascular: Rate/Rhythm: regular rate and regular rhythm Heart Sounds: normal S1 and normal S2; no murmur Extremities: no edema Gastrointestinal (Abdomen): Inspection/Auscultation: normal bowel sounds; abdomen not distended Percussion/Palpation: abdomen soft; abdomen nontender Neurologic: normal touch/pain/proprioception and moves all extremities; no focal motor deficits Lymphatic: no cervical or axillary lymphadenopathy Results & Data Results & Data Vital Signs (Past 12 Hours) Vital Signs Temp Pulse Resp BP Pulse Ox O2 Del Method 09/10/23 07:28 36.4 C L 64 16 105/60 96 Room Air Medications Administered Current Inpatient Medications Acetaminophen (Acetaminophen 325 Mg Tab) 650 mg PO Q6H PRN PRN Reason: Pain & Pre PT Stop: 09/29/23 18:35 Last Admin: 09/10/23 05:48 Dose: 650 mg Apixaban (Apixaban 5 Mg Tablet) 5 mg PO BID [facility] Stop: 09/29/23 20:59 Last Admin: 09/10/23 08:34 Dose: 5 mg Buspirone HCl (Buspirone 5 Mg Tab) 5 mg PO TID [facility] Stop: 10/01/23 10:34 Last Admin: 09/10/23 08:34 Dose: 5 mg Clonazepam (Clonazepam 0.5 Mg Tab) 0.5 mg PO DAILY [facility] Stop: 10/09/23 08:59 Last Admin: 09/10/23 08:40 Dose: 0.5 mg Clonazepam (Clonazepam 1 Mg Tab) 1 mg PO HS [facility] Stop: 10/08/23 20:59 Last Admin: 09/09/23 21:06 Dose: 1 mg Duloxetine HCl (Duloxetine Hcl 20 Mg Cap) 20 mg PO DAILY [facility] Stop: 10/07/23 10:29 Last Admin: 09/10/23 08:34 Dose: 20 mg Fluticasone Propionate (Fluticasone Propionate Na Spr 16 Gm Btl) 1 sprays NA DAILY [facility] Stop: 09/30/23 08:59 Last Admin: 09/10/23 08:35 Dose: 1 sprays Lactulose (Lactulose Syrup 20 Gm/30 Ml Udc) 20 gm PO DAILY [facility] Stop: 10/03/23 08:59 Last Admin: 09/10/23 08:35 Dose: 20 gm Linaclotide (Linaclotide 145 Mcg Capsule) 290 mcg PO DAILYBB [facility] Stop: 09/30/23 06:29 Last Admin: 09/10/23 05:48 Dose: 290 mcg Magnesium Hydroxide (Magnesium Hydroxide Susp 30 Ml Udc) 30 ml PO Q12H PRN PRN Reason: Constipation Stop: 10/07/23 17:51 Last Admin: 09/09/23 15:34 Dose: 30 ml Memantine (Memantine Hcl 5 Mg Tab) 5 mg PO QAM [facility] Stop: 09/30/23 12:34 Last Admin: 09/10/23 08:34 Dose: 5 mg Methadone HCl (Methadone Hcl 10 Mg Tab) 45 mg PO DAILY@1030 [facility] Stop: 09/14/23 10:29 Last Admin: 09/10/23 11:02 Dose: 45 mg Metoprolol Succinate (Metoprolol Succ 25mg Ext Rel Tab) 25 mg PO DAILY [facility] Stop: 09/30/23 08:59 Last Admin: 09/10/23 08:34 Dose: 25 mg Psyllium Hydrophilic Mucilloid (Psyllium Or Guar Gum Fiber 4gm Packet) 4 gm PO QAM [facility] Stop: 10/06/23 08:59 Last Admin: 09/10/23 08:35 Dose: 4 gm Senna/Docusate Sodium (Docusate Sodium/Senna 50/8.6mg Tab) 1 tab PO AMHS [facility] Stop: 09/29/23 20:59 Last Admin: 09/10/23 08:34 Dose: 1 tab Sodium Biphosphate/Sodium Phosphate (Sod Phosphate/Sod Biphosphate Enema 132 Ml Btl) 132 ml [place] DAILY PRN PRN Reason: Constipation Stop: 10/01/23 13:57 Last Admin: 09/01/23 14:56 Dose: 132 ml
[2023-09-11] MEDS: SODIUM CHLORIDE 0.9% 1,000 ML IV ONE (16:09)
--- NOTE | 2023-09-11 18:00 | Hospitalist Progress Note ---
Date of Service September 11, 2023 Assessment & Plan (1) Dementia, vascular with delirium: Plan: 68-year-old male with history of hypertension, atrial fibrillation on Eliquis, substance abuse, opiate dependence on methadone, hepatitis C, generalized anxiety disorder/depression, constipation presented with altered mental status. Altered mental status, likely secondary to polypharmacy As per prior hospitalist Psychosis, with history of depression and generalized anxiety disorder, opioid dependence with methadone use Possible dementia with behavioral disturbance --CT Head: No acute intracranial findings. 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 and is contributed by medication misuse as per prior hospitalist Reorient frequently Continue current medications Case management to help with discharge planning (2) Hypertension: Plan: Blood pressure low Monitor Constipation Bowel regimen Enema as needed (3) Paroxysmal atrial fibrillation: Plan: Continue metoprolol, Eliquis Monitor (4) Opioid dependence: Plan: Continue Methadone (5) Generalized anxiety disorder: (6) Depression: Plan: Continue current medications (7) 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: Plan: No more delirium Plan DVT Px: Eliquis CODE STATUS Full code Admission and Anticipated Discharge Date Admission Date: August 30, 2023 Subjective Patient is seen and examined at bedside Reports constipation No other complaints today Review of Systems Review of Systems: All systems reviewed & are unremarkable except as noted in Subjective Physical Exam Physical Exam: Physical Exam: Vitals signs as noted above General Appearance: Thin, frail, no apparent distress Head: normocephalic, Atraumatic Eyes: normal inspection, EOMI Neck: supple, Trachea midline Respiratory/Chest: Normal breath sounds, CTA, No accessory muscle use Cardiovascular: S1, S2, No murmur Abdomen/GI:Soft, Non tender, Bowel sounds present Extremities/Musculoskeletal:normal inspection, no edema Neurologic/Psych:AAOX1, grossly no focal neurological deficits,+ dementia Skin: normal color, warm Results & Data Results & Data Vital Signs (Past 12 Hours) Vital Signs Temp Pulse Resp BP BP Pulse Ox O2 Del Method 09/11/23 16:04 100/65 09/11/23 15:22 36.7 C 62 16 93/61 L 92 Room Air 09/11/23 08:17 36.5 C 108 H 15 113/72 98 Room Air
[2023-09-11] MEDS: clonazePAM 0.5 MG TAB PO PRN (21:58)
[2023-09-12 06:59] LABS: Hematocrit (blood only) 33.8 % (42.0-52.0); Hemoglobin 11.1 g/dl (14.0-18.0); Mean Corpuscular Hemoglobin 29.8 pg (25.0-34.0); Mean Corpuscular Hgb Conc 32.8 g/dL (32.0-36.0); Mean Corpuscular Volume 90.6 fL (80.0-100.0); Mean Platelet Volume 10.3 fL (9.4-12.4); Platelet Count 198 K/uL (130-400); RDW Coefficient of Variation 13.2 % (11.5-14.5); RDW Standard Deviation 43.3 fL (36.4-46.3); Red Blood Count 3.73 M/uL (4.70-6.10); White Blood Count 4.06 K/ul (4.8-10.8)
[2023-09-12 07:33] LABS: BUN Creatinine Ratio 21.7 (10-20); Calcium 8.8 mg/dl (8.6-10.3); Creatinine Clr Calc Pharmacy 94.8 ml/min; Est GFR (African American) 111.5 ml/min; Est GFR (Non-African American) 96.2 ml/min; Potassium 4.1 mmol/L (3.5-5.1)
--- NOTE | 2023-09-12 18:07 | Hospitalist Progress Note ---
Date of Service September 12, 2023 Assessment & Plan (1) Dementia, vascular with delirium: Plan: 68-year-old male with history of hypertension, atrial fibrillation on Eliquis, substance abuse, opiate dependence on methadone, hepatitis C, generalized anxiety disorder/depression, constipation presented with altered mental status. Altered mental status, likely secondary to polypharmacy As per prior hospitalist Psychosis, with history of depression and generalized anxiety disorder, opioid dependence with methadone use Possible dementia with behavioral disturbance --CT Head: No acute intracranial findings. 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 and is contributed by medication misuse as per prior hospitalist Reorient frequently Continue current medications Case management to help with discharge planning Continue current management (2) Hypertension: Plan: Blood pressure low Monitor Constipation Bowel regimen Enema as needed Had BM after enema today (3) Paroxysmal atrial fibrillation: Plan: Continue metoprolol, Eliquis Monitor (4) Opioid dependence: Plan: Continue Methadone (5) Generalized anxiety disorder: (6) Depression: Plan: Continue current medications (7) 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: Plan: No more delirium Plan DVT Px: Eliquis CODE STATUS Full code Admission and Anticipated Discharge Date Admission Date: August 30, 2023 Subjective Patient is seen and examined at bedside Continues to report feeling constipated No other complaints Denies any nausea, vomiting, abdominal pain Review of Systems Review of Systems: All systems reviewed & are unremarkable except as noted in Subjective Physical Exam Physical Exam: Physical Exam: Vitals signs as noted above General Appearance: Thin, frail, no apparent distress Head: normocephalic, Atraumatic Eyes: normal inspection, EOMI Neck: supple, Trachea midline Respiratory/Chest: Normal breath sounds, CTA, No accessory muscle use Cardiovascular: S1, S2, No murmur Abdomen/GI:Soft, Non tender, Bowel sounds present Extremities/Musculoskeletal:normal inspection, no edema Neurologic/Psych:AAOX1, grossly no focal neurological deficits,+ dementia Skin: normal color, warm Results & Data Results & Data Vital Signs (Past 12 Hours) Vital Signs Temp Pulse Resp BP Pulse Ox O2 Del Method 09/12/23 15:18 36.6 C 90 16 120/74 99 Room Air 09/12/23 12:10 36.7 C 53 L 14 113/67 95 Room Air 09/12/23 08:57 54 L 09/12/23 08:00 Room Air 09/12/23 07:20 36.7 C 47 L 16 111/64 99 Room Air Laboratory Results Short CBC 09/12/23 Range/Units 06:37 WBC 4.06 L (4.8-10.8) K/ul Hgb 11.1 L (14.0-18.0) g/dl Hct 33.8 L (42.0-52.0) % Plt Count 198 (130-400) K/uL BMP 09/12/23 06:37 Sodium 140 Potassium 4.1 Chloride 103 Carbon Dioxide 34 H BUN 15 Creatinine 0.69 Glucose 85 Calcium 8.8
--- NOTE | 2023-09-13 12:01 | Hospitalist Progress Note ---
Date of Service September 13, 2023 Assessment & Plan (1) Dementia, vascular with delirium: Plan: 68-year-old male with history of hypertension, atrial fibrillation on Eliquis, substance abuse, opiate dependence on methadone, hepatitis C, generalized anxiety disorder/depression, constipation presented with altered mental status. Altered mental status, likely secondary to polypharmacy As per prior hospitalist Psychosis, with history of depression and generalized anxiety disorder, opioid dependence with methadone use Possible dementia with behavioral disturbance --CT Head: No acute intracranial findings. 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 and is contributed by medication misuse as per prior hospitalist Reorient frequently Mental status seem to be back to baseline Advised to follow-up with psychiatry on discharge Plan to be discharged home today (2) Hypertension: Plan: Blood pressure low Monitor Constipation Bowel regimen Enema as needed (3) Paroxysmal atrial fibrillation: Plan: Continue metoprolol, Eliquis Monitor (4) Opioid dependence: Plan: Continue Methadone (5) Generalized anxiety disorder: (6) Depression: Plan: Continue current medications (7) 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: Plan: No more delirium Plan DVT Px: Eliquis CODE STATUS Full code Disposition Home with home health Admission and Anticipated Discharge Date Admission Date: August 30, 2023 Subjective Patient is seen and examined at bedside States feeling well today No new complaints Constipation resolved Denies any nausea, vomiting, abdominal pain, chest pain, dyspnea Plan to be discharged home today Review of Systems Review of Systems: All systems reviewed & are unremarkable except as noted in Subjective Physical Exam Physical Exam: Physical Exam: Vitals signs as noted above General Appearance: Thin, frail, no apparent distress Head: normocephalic, Atraumatic Eyes: normal inspection, EOMI Neck: supple, Trachea midline Respiratory/Chest: Normal breath sounds, CTA, No accessory muscle use Cardiovascular: S1, S2, No murmur Abdomen/GI:Soft, Non tender, Bowel sounds present Extremities/Musculoskeletal:normal inspection, no edema Neurologic/Psych:AAOX1, grossly no focal neurological deficits,+ dementia Skin: normal color, warm Results & Data Results & Data Vital Signs (Past 12 Hours) Vital Signs Temp Pulse Pulse Resp BP Pulse Ox O2 Del Method 09/13/23 07:20 60 09/13/23 07:04 36.5 C 47 L 16 105/60 96 Room Air
--- NOTE | 2023-09-13 12:05 | Discharge Summary ---
Date of Service September 13, 2023 Admission HPI Per Admitting Provider 68-year-old male with history of hypertension, atrial fibrillation on Eliquis, substance abuse, opiate dependence on methadone, hepatitis C, generalized anxiety disorder/depression, constipation Presenting with altered mental status. History obtained from ER and epic records. Patient is a very poor historian. I called the patient's sisters but no answer, awaiting callback. Epic record shows that patient was seen on follow-up at the [facility] psychiatry clinic last June 2023. At that time, patient appeared oriented, acting appropriately and was diagnosed with generalized anxiety disorder, prescribed duloxetine and clonazepam. Today, patient was brought to the ER as patient was not acting right, unable to care for himself at home, found to be covered with feces, Having hallucinations and delusions. The other day, patient was apparently found outside the methadone clinic not acting appropriately, with his car windows and doors open.He has been placed under [id number] petition. ER case folder has been working on getting patient to an inpatient psych facility but unsuccessful. Facilities feel that patient's presentation is secondary to a neurocognitive disorder such as dementia, and not a psychiatric disorder per se. Vital signs relatively stable overall, no leukocytosis, no electrolyte derangements, CT head no acute process, chest x-ray no pneumonia, urinalysis not indicative of UTI On my exam, patient is seen standing at the side of the bed, not oriented, but can say that he is in [place] with some prompting. States he has no family, siblings around. Cannot state the date. Patient also talking, Not making any sense, but seems to be easily redirected. He reports chronic bilateral knee pain. Admission Exam Per Admitting Provider General- oriented x 0, not in distress, speaks in sentences with no effort or accessory muscle use calm, cooperative Head- atraumatic Eyes- PERRL, EOMI, anicteric ENT- oropharynx clear Neck- supple, no JVD, no adenopathy, no thyromegaly; carotids +2/2, no bruits appreciated Lungs- clear to auscultation bilaterally, no rales/wheezes Heart- normal rate, regular rhythm; no murmur, no gallop, no rub appreciated Abdomen- normal bowel sounds, nondistended, soft, nontender, no masses or hepatosplenomegaly Extremities- mild swelling BL knees, mild edema R lower leg, no pretibial edema, no calf tenderness; peripheral pulses intact Neuro- alert, oriented x 3; CN 2-12 grossly intact; motor 5/5 bilaterally;sensation 100% on all extremities; no other gross focal neurologic deficits Skin- warm & dry Principal Diagnosis Vascular dementia with delirium Possible polypharmacy Discharge Data Allergies Allergy/AdvReac Type Severity Reaction Status Date / Time nystatin Allergy Intermediate Rash Verified 08/30/23 14:47 Consultations 08/30/23 14:03 ED Decision to Admit Stat 08/30/23 14:58 Consult Neurology Routine Consult Psychiatry Routine Procedures Performed Laboratory Results WBC 4.06 K/ul (4.8-10.8) L 09/12/23 06:37 RBC 3.73 M/uL (4.70-6.10) L 09/12/23 06:37 Hgb 11.1 g/dl (14.0-18.0) L 09/12/23 06:37 Hct 33.8 % (42.0-52.0) L 09/12/23 06:37 MCV 90.6 fL (80.0-100.0) 09/12/23 06:37 MCH 29.8 pg (25.0-34.0) 09/12/23 06:37 MCHC 32.8 g/dL (32.0-36.0) 09/12/23 06:37 RDW Std Deviation 43.3 fL (36.4-46.3) 09/12/23 06:37 RDW Coeff of Kim 13.2 % (11.5-14.5) 09/12/23 06:37 Plt Count 198 K/uL (130-400) 09/12/23 06:37 MPV 10.3 fL (9.4-12.4) 09/12/23 06:37 Immature Gran % (Auto) 0.2 % 08/31/23 06:41 Neut % (Auto) 63.3 % 08/31/23 06:41 Lymph % (Auto) 21.1 % 08/31/23 06:41 Mills % (Auto) 15.0 % 08/31/23 06:41 Eos % (Auto) 0.2 % 08/31/23 06:41 Baso % (Auto) 0.2 % 08/31/23 06:41 Neut # (Auto) 3.09 K/uL (1.40-6.50) 08/31/23 06:41 Lymph # (Auto) 1.03 K/uL (1.20-3.40) L 08/31/23 06:41 Mills # (Auto) 0.73 K/uL (0.11-0.59) H 08/31/23 06:41 Eos # (Auto) 0.01 K/uL (0.00-0.50) 08/31/23 06:41 Baso # (Auto) 0.01 K/uL (0.00-0.20) 08/31/23 06:41 Immature Gran # (Auto) 0.01 K/uL (0.01-0.20) 08/31/23 06:41 Sodium 140 mmol/L (136-145) 09/12/23 06:37 Potassium 4.1 mmol/L (3.5-5.1) 09/12/23 06:37 Chloride 103 mmol/L (98-107) 09/12/23 06:37 Carbon Dioxide 34 mmol/L (21-32) H 09/12/23 06:37 Anion Gap 3 (3-11) 09/12/23 06:37 BUN 15 mg/dl (6-23) 09/12/23 06:37 Creatinine 0.69 mg/dl (0.6-1.4) 09/12/23 06:37 Est Cr Clr Drug Dosing 94.8 ml/min 09/12/23 06:37 Est GFR ( Amer) 111.5 ml/min 09/12/23 06:37 Est GFR (Non-Af Amer) 96.2 ml/min 09/12/23 06:37 BUN/Creatinine Ratio 21.7 (10-20) H 09/12/23 06:37 Glucose 85 mg/dl (70-99(Fasting)) 09/12/23 06:37 Calcium 8.8 mg/dl (8.6-10.3) 09/12/23 06:37 Total Bilirubin 1.7 mg/dl (0.2-1.0) H 08/31/23 06:41 AST 24 U/L (13-39) 08/31/23 06:41 ALT 12 U/L (7-52) 08/31/23 06:41 Alkaline Phosphatase 97 U/L (34-104) 08/31/23 06:41 Ammonia 12.0 umol/L (18-72) L 08/31/23 12:43 Troponin I High Sens 5.7 pg/ml (0-20) 09/01/23 10:49 Total Protein 6.5 gm/dl (6.0-8.3) 08/31/23 06:41 Albumin 3.6 gm/dl (3.4-5.0) 08/31/23 06:41 Globulin 2.9 gm/dl (2.5-4.0) 08/31/23 06:41 Albumin/Globulin Ratio 1.2 (0.9-2) 08/31/23 06:41 Vitamin B12 441 pg/ml (180-914) 08/31/23 12:43 Folate 13.76 ng/ml (>5.38) 08/31/23 12:43 TSH 1.487 uIu/ml (0.300-4.500) 08/29/23 21:04 Urine Color Yellow 08/29/23 23:45 Urine Appearance Cloudy (Clear) A 08/29/23 23:45 Urine pH 7.5 (4.5-7.5) 08/29/23 23:45 Ur Specific Oil Trough 1.015 (1.000-1.030) 08/29/23 23:45 Urine Protein 1+ (Negative) H 08/29/23 23:45 Urine Glucose (UA) Negative (Negative) 08/29/23 23:45 Urine Ketones Trace (Negative) H 08/29/23 23:45 Urine Blood Negative (Negative) 08/29/23 23:45 Urine Nitrite Negative (Negative) 08/29/23 23:45 Urine Bilirubin Negative (Negative) 08/29/23 23:45 Urine Urobilinogen Negative (Negative) 08/29/23 23:45 Ur Leukocyte Esterase Negative (Negative) 08/29/23 23:45 Urine WBC (Auto) 0-5 /hpf (0-5) 08/29/23 23:45 Urine RBC (Auto) 3-5 /hpf (0-2) H 08/29/23 23:45 U Hyaline Cast (Auto) 3-5 /lpf (0-2) H 08/29/23 23:45 U Epithel Cells (Auto) 3-5 /hpf (0-2) H 08/29/23 23:45 Urine Bacteria (Auto) None Seen (None Seen) 08/29/23 23:45 Salicylates < 3.0 mg/dl (3.0-30) L 08/29/23 21:04 Urine Opiates Screen Neg (Neg) 08/29/23 23:45 Ur Methadone, Qual Pos (Neg) H 08/29/23 23:45 U Methadone Metabolites >27247 ng/mL (<100) H 08/29/23 23:45 Ur Methadone Confirm 2890 ng/mL (<100) H 08/29/23 23:45 Urine Fentanyl Screen Neg (Neg) 08/29/23 23:45 Acetaminophen < 3 ug/ml (10-30) L 08/29/23 21:04 Urine Barbiturates Neg (Neg) 08/29/23 23:45 Ur Phencyclidine (PCP) Neg (Neg) 08/29/23 23:45 U Amphetamin/Meth Scrn Neg (Neg) 08/29/23 23:45 MDMA (Ecstasy) Screen Neg (Neg) 08/29/23 23:45 U Benzodiazepines Scrn Neg (Neg) 08/29/23 23:45 Ur Cocaine Metabolite Neg (Neg) 08/29/23 23:45 U Marijuana (THC) Screen Neg (Neg) 08/29/23 23:45 Drug Screen Comment SEE NOTE 08/29/23 23:45 Ethyl Alcohol mg/dL < 10.0 mg/dl (<10.0) 08/29/23 21:04 SARS-CoV-2, RNA, NAAT NEGATIVE (NEGATIVE) 08/30/23 01:00 Impressions Chest X-Ray 08/29/23 21:43 XR chest 1V portable HISTORY: 68 years-old Male Hallucinations acutely altered mental status COMPARISON: 05/06/2023 TECHNIQUE: AP view of the chest FINDINGS: Cardiomediastinal and hilar silhouettes are within normal limits. Medial lung apices are obscured by the patient's chin. No pneumothorax, pleural effusion, airspace consolidation or pulmonary edema. Spondylotic spurring of the spine. IMPRESSION: No acute process. ACT 112: Negative or not required by law. The above report was generated using voice recognition software. It may contain grammatical, syntax or spelling errors. Electronically signed by: Josafat Coker M.D. 08/30/2023 7:[address] 09/02/23 07:42 CT head/brain wo/w con CLINICAL HISTORY: Confusion. COMPARISON STUDY: Head CT August 30, 2023. TECHNIQUE: Axial images of the head were obtained before and after intravenous administration of Optiray 320. Automated exposure control was utilized for the study. A dose lowering technique was utilized adhering to the principles of ALARA. FINDINGS: No acute intracranial hemorrhage, midline shift or mass effect is present. Ventricular system is unremarkable. Basal cisterns are patent. There are no extra axial collections. White matter hypodensity suggests small vessel disease. The appearance of the brain is unchanged. There are no findings to suggest acute dural sinus thrombosis or acute territorial infarct. No intracranial mass or pathologic enhancement. Left maxillary sinus mucosal thickening remains unchanged. Left facial internal fixation is again noted. Postoperative appearance is unchanged. IMPRESSION: 1. No acute intracranial findings. 2. No intracranial mass or pathologic enhancement. ACT 112: Negative or not required by law. Electronically signed by: Neil Samson M.D. 09/02/2023 11:19 AM Ordered Studies 08/29/23 21:43 CT head/brain wo con Stat 09/02/23 07:42 CT head/brain wo/w con Routine Hospital Course (1) Dementia, vascular with delirium: 68-year-old male with history of hypertension, atrial fibrillation on Eliquis, substance abuse, opiate dependence on methadone, hepatitis C, generalized anxiet y disorder/depression, constipation presented with altered mental status. Altered mental status, likely secondary to polypharmacy As per prior hospitalist Psychosis, with history of depression and generalized anxiety disorder, opioid dependence with methadone use Possible dementia with behavioral disturbance --CT Head: No acute intracranial findings. 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 and is contributed by medication misuse as per prior hospitalist Reorient frequently Mental status seem to be back to baseline Advised to follow-up with psychiatry on discharge Plan to be discharged home today (2) Hypertension: Blood pressure low Monitor Constipation Bowel regimen Enema as needed (3) Paroxysmal atrial fibrillation: Continue metoprolol, Eliquis Monitor (4) Opioid dependence: Continue Methadone (5) Generalized anxiety disorder: (6) Depression: Continue current medications (7) 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: No more delirium Plan DVT Px: Eliquis CODE STATUS Full code Disposition Home with home health Total Time Total Time Spent Total Time Spent (In Minutes): 54 minutes Discharge Plan Discharge Items Patient Disposition: Home - Self-Care Reason For Visit: ALTERED MENTAL STATUS Discharge Diagnosis: Vascular dementia with delirium Possible polypharmacy Condition on Discharge: Fair Activity: Resume your previous activity Exercise/Sports: Gradually increase as tolerated Non-emergency contact: Primary Care Provider and Psychiatrist Call non-emergency contact if: you have any medication questions and your symptoms worsen Follow-up/Referrals: Elias Ohara MD [Primary Care Provider] - (Date & Time 09/16/2023 10:00 AM Provider Shakeel Fuentes DO [facility] General Internal Medicine [facility] ) Diet: Regular Diet Texture: Easy to Chew Addtl Attending Provider Instructions: Follow-up with your primary care physician Dr. Ohara on 09/16/2023 10:00 AM Follow-up with your psychiatrist in 1 to 2 weeks as advised Please take precautions to avoid falls Seek immediate medical attention if your symptoms reoccur or worsen Please take all medications as instructed on discharge list below. Please call if you have any questions or problems. You can reach a [facility] hospitalist on duty at [facility] 24 hours a day by calling [phone] Pending Studies at Discharge: No Stand-Alone Forms: My [facility], Smoking Cessation Medications and DC Order Prescriptions: New magnesium hydroxide [Milk of Magnesia] 400 mg/5 mL Suspension 30 ml PO Q12H PRN (Reason: constipation) Qty: 355 0RF buspirone 5 mg Tablet 5 mg PO TID Qty: 45 0RF clonazepam 0.5 mg Tablet 0.5 mg PO DAILY Qty: 15 0RF clonazepam 1 mg Tablet 1 mg PO HS Qty: 15 0RF Continued sennosides-docusate sodium 8.6-50 mg Tablet 1 tab-cap PO [facility] methadone 10 mg/mL Concentrate 47 mg PO DAILY metoprolol succinate 25 mg tablet extended release 24 hr 25 mg PO DAILY fluticasone propionate 50 mcg/actuation spray,suspension 1 spray INTRANASAL DAILY duloxetine 20 mg capsule,delayed release(DR/EC) 20 mg PO DAILY Linzess 290 mcg capsule 290 mcg PO DAILYBB Eliquis 5 mg tablet 5 mg PO DAILY ketoconazole 2 % shampoo 1 applic TOPICAL [id number] Discontinued clonazepam 0.5 mg tablet 0.5 mg PO BID Rx Instructions: PER ELVIA LARA HX. clonazepam 0.5 mg tablet 0.5 mg PO BID PRN (Reason: Anxiety) Discharge Orders: Discharge Order (Routine); Ordered 09/13/23 Ordered By: Vince Betancourt Admission Data Admit Date/Time: 08/30/23 14:58 Attending Provider: Vince Betancourt Admit Provider: Peter Loza Primary Care Provider: Elias Ohara Other Providers: Mary Osborn; Justin Bowman; Mary Mcmanus; Dustin Mackenzie; Janes Paez; Juan Pablo Tristan; Huey Lucio; Ursula Horowitz; Kiran De Souza; Domingo Perez; Gurpreet Calderon; Mason Grace; Kady dEwards; Jose CarrollSan [place]; Huey Chacon; Sowmya Sabillon; Dustin Reyes; Dann Carlton Jr; Dolores Rivas; Radha Romero; Manny Gilliam; Peter Loza; [place],[facility]; Uma Kaur at [place]; Francis Macario; [place]
== END 2023-09-13 16:13 | disposition home or self-care (01) | DRG 918 ==
LOC: ED 20:36 → 3W 08-30 14:58 → SUATTDRO 08-30 14:58 → 3W 08-30 18:19

== ENCOUNTER 2024-12-30 15:37 | Observation (INO) ==
[2024-12-30] MEDS: HYDROmorphone INJ 0.5 MG/0.5 ML SYR IV STA (16:39)
[2024-12-30 17:02] LABS: Hematocrit (blood only) 35.8 % (42.0-52.0); Hemoglobin 12.3 g/dL (14.0-18.0); Immature Granulocytes # (auto) 0.02 K/uL (0.01-0.20); Immature Granulocytes % (auto) 0.2 %; Mean Corpuscular Hemoglobin 28.7 pg (25.0-34.0); Mean Corpuscular Volume 83.4 fL (80.0-100.0); Platelet Count 353 K/uL (130-400); RDW Standard Deviation 42.9 fL (36.4-46.3); Red Blood Count 4.29 M/uL (4.70-6.10); White Blood Count 10.23 K/ul (4.8-10.8)
[2024-12-30 17:17] LABS: Anion Gap 8.0 (3-11); Blood Urea Nitrogen 17.0 mg/dl (6-23); Calcium 9.4 mg/dl (8.6-10.3); Carbon Dioxide 29.0 mmol/L (21-32); Chloride 102.0 mmol/L (98-107); Creatinine Clr Calc Pharmacy 105.8 ml/min; Glucose 121.0 mg/dl (70-99(Fasting)); Potassium 3.8 mmol/L (3.5-5.1); Sodium 139.0 mmol/L (136-145)
[2024-12-30 17:28] LABS: INR 1.1 (0.9-1.1); Partial Thromboplastin Time 39 Seconds (21-31); Prothrombin Time 11.9 Seconds (9.0-12.0)
--- NOTE | 2024-12-30 19:12 | History & Physical Report ---
Date of Service December 30, 2024 Assessment & Plan (1) Intractable pain: Plan 69-year-old male PMHx HTN, A-fib on Eliquis, IRAIS, depression, dementia, Parkinson's disease presenting for R hip pain after leaving AMA from [facility] rehab the day of arrival. His workup reveals mild anemia 12.3/35.8, and increased BUN/creatinine ratio 27.4. Pelvis x-ray reveals R hip replacement. Admission for intractable pain. #Intractable R hip pain Recent R hip surgery secondary to fracture, was at [facility] rehab left AMA the day of arrival. Was unable to walk independently once at home, now complaining of severe and intractable pain. - CBC no leukocytosis/leukopenia, H&H 12.3/35.8; CMP BUN/creatinine ratio 27.4, glucose 121 - Pelvis x-ray R hip replacement - Fall precautions - Lidocaine patch - Zofran prn N/V - Acetaminophen IV prn fever/mild-moderate pain, Ketorolac prn more severe pain, deferred opioids at time of admission given prior opioid dependence history - adjust if medically necessary - PT/OT consulted - appreciate assistance #Indigestion Ongoing x 10 days per patient, belching often. No chest discomfort at present. Do not suspect cardiac in nature. - Troponin 8.0 - EKG sinus bradycardia @ 58 bpm, otherwise WNL - Protonix BID - Zofran prn N/V #PD- Carbidopa levodopa - continue #PAF- EKG pending; Metoprolol, Eliquis (was on hold for surgery, has not restarted per patient, patient unsure if he was told when it was okay to restart) - continue metoprolol, Eliquis scheduled for restart on 12/31 #Opioid dependence- Requesting methadone, Klonopin, and oxycodone in multiple occasions. Was on methadone, last dose ~ 10 days [facility] per patient, has been unable to obtain - Spoke with pharmacist who was able to reach the patient's methadone clinic to confirm that the patient's last dose was given 12/15 and he was on an every 2 day schedule for the medication. However, since he has been without this medication for ~ 10 days, would require decreased dose to titrate back to his usual dosing. Not used to treat acute pain. Clinic and provider to be available ~ 0545 to discuss dosing schedule for the patient, not concern for withdrawal at this time of admission. Discussed with the patient that on will not be provided evening of admission including dosing schedule needing to be adjusted. Patient made aware of this on multiple occasions. - [facility], @ [phone] #Psych- Hydroxyzine - continue Dispo: Obs, med/sx VTE Prophylaxis: On Eliquis This document was dictated utilizing Connecture. Please excuse any grammatical errors that may be secondary to use of this software. Admission and Anticipated Discharge Date Admission Date: 12/30/2024 History of Present Illness Chief Complaint: Hip pain Primary Care Provider: Ursula Nunez DO 69-year-old male PMHx HTN, A-fib on Eliquis, IRAIS, depression, dementia, Parkinson's disease presenting for R hip pain after leaving AMA from [facility] rehab the day of arrival. Approximately 10 days [facility], patient was admitted to [facility] for R hip surgery after a fall with subsequent fracture. States that he was then discharged and sent to [facility] rehab, stating that "they are animals that will not let me go near the door" and that is why he is at the hospital today. Patient states he has been unsatisfied with his care at the rehab so he decided to leave on day of arrival. He got to his apartment and the automobile and property underwriter thought that the patient was having a difficult time ambulating by himself, encouraging him to be seen at the hospital. He states that his pain is manageable when he is not ambulating, but whenever he has to walk it shoots up to a 9 out of 10 on the pain scale. He is not have any numbness or tingling. States that he has not been eating well, specifically saying that he has not ate in 7 to 10 days. States that his ingestion is "so bad" and that it started 10 days ago. Also not sleeping. States that he has been without his methadone for approximately 10 days because the hospital that he was that told him "no hospital was going to give him methadone." He was then sent to rehab facility and again was not provided with the medication. He is without chest pain, SOB, palpitations, N/V, diarrhea/constipation, LUTS, URI symptoms, fever chills, syncope, or falls. ED evaluation reveals CBC without leukocytosis or leukopenia, H&H 12.3/35.8; PT/INR WNL, APTT 39, CMP BUN/creatinine ratio 27.4, glucose 121; pelvis XR s/p replacement.; Provided with hydromorphone 0.5 mg IV in ED. Please see Dr. Alvarez's attestation for adjustments/additions to treatment plan. Allergies Allergy/AdvReac Type Severity Reaction Status Date / Time nystatin Allergy Intermediate Rash Verified 12/30/24 19:20 Home Medications Medication Instructions Recorded Confirmed Type apixaban 5 mg tablet (Eliquis) 5 mg PO BID 08/30/23 12/30/24 History metoprolol succinate 25 mg 25 mg PO DAILY #2 tabs 06/21/24 12/30/24 Rx tablet,extended release 24 hr hydroxyzine HCl 25 mg tablet 25 mg PO HS 08/05/24 12/30/24 History methadone 10 mg/mL oral concentrate 81 mg PO DAILY 08/05/24 12/30/24 History carbidopa 25 mg-levodopa 100 mg 2 tab PO QID 12/30/24 12/30/24 History tablet Past Med/Surg History Problem List (Updated 01/02/25 @ 10:55 by Johann Gray MD) Intractable pain (Acute) Chronic venous insufficiency (Chronic) Venous stasis ulcer of right lower extremity (Acute) Parkinsons disease 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 On methadone. Patient on methadone maintenance therapy Edema Surgical History No pertinent past surgical history Social History Smoking Status: Current every day smoker Tobacco Type: Cigarettes Cigarettes Per Day: 2 cigarettes a week; Second Hand Exposure: No; Do You Dip or Chew Tobacco: No; Tobacco Cessation Education Requested by Patient: No Hx Alcohol Use: No Hx Substance Use: No Preferred Language: Maltese Communication Ability: Effective Porcelain Technician Required: No Beliefs That Will Affect Care: None Current Living Situation: Alone Other Information That Helps Us Care for You: No Feels Safe at Home: Yes Safety Concerns: Feels Safe At This Time Diet: regular caffeine: Yes Assistive Devices: Lift Chair and Walker Review of Systems Review of Systems: All systems reviewed & are unremarkable except as noted in Subjective Physical Exam Physical Exam: General: No acute distress Skin: Warm and dry; dry skin throughout face Head: Normocephalic, atraumatic Eyes: PERRL, conjunctivae clear, sclera non-icteric ENT: External ear and ear canal without swelling; nose atraumatic; dentures removed, tongue normal appearance, pharynx normal Neck: Supple, no LAD Cardio: RRR, no M/G/R, S1 and S2 normal Resp: No respiratory distress, Lungs CTA in all lobes bilaterally, no wheezes, rales, or rhonchi Abdomen: Soft, symmetric, nontender; No masses or hepatosplenomegaly; Bowel sounds normoactive MSK: No deformities; pulses palpable and equal; no edema; ROM WNL specifically to RLE, surgical area healing well. Neuro: Awake, alert; Sensation intact bilaterally; CN grossly intact Psych: Appropriate mood and affect; good judgement and insight. Results & Data Results & Data Vital Signs (Past 12 Hours) Vital Signs Pulse Pulse Resp BP BP Pulse Ox O2 Del Method 12/30/24 16:40 76 12/30/24 16:00 73 20 135/79 97 Room Air 12/30/24 15:57 85 20 135/79 Laboratory Results 12/30/24 16:40 WBC 10.23 RBC 4.29 L Hgb 12.3 L Hct 35.8 L MCV 83.4 MCH 28.7 MCHC 34.4 RDW Std Deviation 42.9 RDW Coeff of Kim 14.2 Plt Count 353 MPV 10.1 Immature Gran % (Auto) 0.2 Neut % (Auto) 73.3 Lymph % (Auto) 15.6 [place] % (Auto) 10.3 Eos % (Auto) 0.2 Baso % (Auto) 0.4 Neut # (Auto) 7.50 H Lymph # (Auto) 1.60 [place] # (Auto) 1.05 H Eos # (Auto) 0.02 Baso # (Auto) 0.04 Immature Gran # (Auto) 0.02 PT 11.9 INR 1.1 APTT 39 H PTT Ratio 1.4 Sodium 139 Potassium 3.8 Chloride 102 Carbon Dioxide 29 Anion Gap 8 BUN 17 Creatinine 0.62 Est Cr Clr Drug Dosing 105.8 eGFR 102.19 BUN/Creatinine Ratio 27.4 H Glucose 121 H Calcium 9.4 Diagnostic Findings Pelvis X-Ray 12/30/24 17:07 One view of the pelvis is submitted for review. Findings: No fracture is seen. There is a right hip bipolar hemiarthroplasty. There is mild left hip osteoarthritis. There is degenerative disc disease and osteoarthritis of the visualized lumbar spine. No other osseous abnormality is identified. There are surgical skin edin laterally Impression: Right hip replacement Electronically signed by Brayden Viveros 12-30-2024 7:16 PM Medications Administered Hydromorphone 0.5 mg IV ECG Additional Comments: Sinus bradycardia 58 bpm, W[place] 142, QRS 80, QT/QTc 436/428, PRT 34/47/44 Code Status & VTE Plan Code Status Full Supervising Physician Co-Signing Physician Notes Attending addendum: I have physically seen this patient, have supervised the CHANDA's activities, and agree with the H&P unless as otherwise noted. Assessment and Plan: The patient is a 69-year-old male with past medical history including hypertension, atrial fibrillation on Eliquis, CAD, depression, dementia, and Parkinson's disease. Who presents to the emergency department with complaint of right hip pain after leaving AMA from [facility] earlier in the day. Pelvis x- ray reveals right hip replacement in alignment. Laboratory workup was normal. Patient is being admitted to the [facility] with intractable hip pain. Intractable right hip pain/history of right hip replacement secondary to fracture- Left [facility] rehab AMA earlier in the day today. He was unable to walk independently at home. He presents to the ED for assessment due to intractable pain and ambulatory dysfunction. Pelvis x-ray and case right hip replacement in alignment Fall precautions Lidoderm patch Zofran 4 mg IV every 6 hours as needed Acetaminophen 1 g IV every 8 hours as needed for mild pain or fever Toradol 15 mg IV every 6 hours as needed for moderate pain Avoiding opioids due to history of prior opioid dependency Consult PT/OT Indigestion/GERD- Patient complained of belching ongoing over the past 10 days Not cardiac Pantoprazole 40 mg IV twice daily Zofran 4 mg IV every 6 hours as needed Simethicone as needed May be secondary to Parkinson's Parkinson's- Continue carbidopa/levodopa Paroxysmal atrial fibrillation- Continue metoprolol Eliquis scheduled for restart 12/31 postsurgery Opioid dependence- As discussed, avoidance of narcotics while in hospital. PG Care Time/CCT Total # of Minutes Spent Total Time Spent with Patient: Total time spent is greater than 50% in coordination of care (as documented) at patient's floor/unit and/or counseling patient: Coding Level of Care Code 44968 INT INP/OBS CARE 75MIN Diagnoses Intractable pain R52
--- NOTE | 2024-12-30 19:17 | XRay Report ---
One view of the pelvis is submitted for review. Findings: No fracture is seen. There is a right hip bipolar hemiarthroplasty. There is mild left hip osteoarthritis. There is degenerative disc disease and osteoarthritis of the visualized lumbar spine. No other osseous abnormality is identified. There are surgical skin edin laterally Impression: Right hip replacement Electronically signed by Brayden Viveros 12-30-2024 7:16 PM
[2024-12-30] MEDS ORDERED: HYDROmorphone INJ 0.5 MG/0.5 ML SYR IV PRN (19:45)
[2024-12-30] MEDS ORDERED: IBUPROFEN 600 MG TAB PO PRN (19:45)
[2024-12-30] MEDS ORDERED: ACETAMINOPHEN 500 MG TAB PO PRN (19:45)
[2024-12-30] MEDS ORDERED: KETOROLAC TROMETHAMINE 15 MG/ML VIAL IV PRN (19:55)
[2024-12-30] MEDS: LIDOCAINE 5% 1 PATCH TD STA (21:30)
[2024-12-30] MEDS: ACETAMINOPHEN 1,000 MG/100 ML VIAL IV PRN (21:34)
[2024-12-30] MEDS: ONDANSETRON INJ 2 MG/ML 2 ML VIAL IV PRN (23:21)
[2024-12-30] MEDS: CARBIDOPA/LEVODOPA 25/100MG TAB PO SCH (23:21)
[2024-12-30] MEDS: MELATONIN 3 MG TAB PO PRN (23:47)
--- NOTE | 2024-12-31 01:09 | Emergency Department Note ---
History of Present Illness General Chief complaint: Hip Pain Stated complaint: Pain Time Seen by Provider: 12/30/24 16:14 History of Present Illness Provider complaint: Pain Maximum Pain Intensity: 9 69-year-old male presents emergency department for pain. Patient reporting right hip pain. Patient reports that he fell on Saturday and was taken to [facility] against his will. He states he had surgery for a broken hip there and states he was sent to [facility]. Patient states [facility] is a "terrible place". He states he got to many arguments with people there and left AMA today. He took a bus to this facility. He reports pain in his hip where the surgery was done and is demanding methadone. Home Medications Medication Instructions Recorded Confirmed Type apixaban 5 mg tablet (Eliquis) 5 mg PO BID 08/30/23 12/30/24 History metoprolol succinate 25 mg 25 mg PO DAILY #2 tabs 06/21/24 12/30/24 Rx tablet,extended release 24 hr hydroxyzine HCl 25 mg tablet 25 mg PO HS 08/05/24 12/30/24 History methadone 10 mg/mL oral concentrate 81 mg PO DAILY 08/05/24 12/30/24 History carbidopa 25 mg-levodopa 100 mg 2 tab PO QID 12/30/24 12/30/24 History tablet Allergies Allergy/AdvReac Type Severity Reaction Status Date / Time nystatin Allergy Intermediate Rash Verified 12/30/24 19:20 Past Med/Surg History Problem List (Updated 12/31/24 @ 01:12 by Gurpreet Vargas MD) Intractable pain (Acute) Chronic venous insufficiency (Chronic) Venous stasis ulcer of right lower extremity (Acute) Parkinsons disease 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 On methadone. Patient on methadone maintenance therapy Edema Surgical History No pertinent past surgical history Social History Smoking Status: Unknown if ever smoked Tobacco Type: Cigarettes Cigarettes Per Day: 2 cigarettes a week; Hx Alcohol Use: No Hx Substance Use: Yes Last Used Substance Other:: 30 years ago Substance Use Type Other:: Unable to answer Preferred Language: Faroese Communication Ability: Effective Unit Controller Required: No Beliefs That Will Affect Care: None Current Living Situation: Alone Feels Safe at Home: Yes Diet: regular caffeine: Yes Assistive Devices: None Physical Exam Vital Signs Vital Signs - 24 hr 12/30/24 15:57 12/30/24 16:00 12/30/24 16:40 Pulse Rate 85 76 Pulse Rate [Apical] 73 Respiratory Rate 20 20 Blood Pressure 135/79 Blood Pressure [Right Arm] 135/79 Blood Pressure Mean 97 Blood Pressure Mean [Right Arm] 97 Pulse Oximetry 97 Oxygen Delivery Method Room Air Sepsis Recent Fever Within 48 Hours No Sepsis New/Unexplained Change in Mental Status No Sepsis Action Taken by Nursing No Action Required 12/30/24 18:00 Pulse Rate Pulse Rate [Apical] 69 Respiratory Rate 20 Blood Pressure Blood Pressure [Right Arm] 163/78 H Blood Pressure Mean Blood Pressure Mean [Right Arm] 106 Pulse Oximetry 97 Oxygen Delivery Method Room Air Sepsis Recent Fever Within 48 Hours Sepsis New/Unexplained Change in Mental Status Sepsis Action Taken by Nursing Physical Exam HENT: Exam performed. - Head: Normocephalic and atraumatic. EYES: Conjunctivae and EOM are normal. Right eye exhibits no discharge. Left eye exhibits no discharge. No scleral icterus. NECK: Normal range of motion. Neck supple. No JVD present. CV: Normal rate, regular rhythm, normal heart sounds and intact distal pulses. There is no peripheral edema. Palpable radial pulses bue. PULM/CHEST: Effort normal and breath sounds normal. No respiratory distress. No stridor. no wheezes. no rales. ABD: The abdomen is soft. There is no tenderness. MUSC: Pelvis stable. Wound VAC over the patient's right hip. Course Course 161: The patient was evaluated in room B6. A complete history and physical exam was performed Cardiac monitoring: An order was placed for continuous cardiac monitoring. The monitor shows a rate of 90 with sinus rhythm interpreted by me 1820: Vital signs stable. Labs are unremarkable. Hardware is intact. Patient will be admitted for placement as he left AMA from heart side today. Administered Medications Carbidopa/Levodopa (Carbidopa/Levodopa 25/100mg Tab) 2 tab PO QID COLEMAN Stop: 01/29/25 22:23 Last Admin: 12/30/24 23:21 Dose: 2 tab Documented By: psc Hydroxyzine HCl (Hydroxyzine Hcl 25 Mg Tab) 25 mg PO HS COLEMAN Stop: 01/29/25 22:23 Last Admin: 12/30/24 23:22 Dose: 25 mg Documented By: psc Acetaminophen (Ofirmev) 1,000 mg in 100 mls @ 400 mls/hr IV Q8H PRN PRN Reason: fever/pain Stop: 01/02/25 19:54 Last Infusion: 12/30/24 22:40 Dose: Infused Documented By: psc Admin: 12/30/24 21:34 Dose: 400 mls/hr Documented By: amg Melatonin (Melatonin 3 Mg Tab) 3 mg PO HS PRN PRN Reason: Insomnia Stop: 01/29/25 22:23 Last Admin: 12/30/24 23:47 Dose: 3 mg Documented By: psc Ondansetron HCl (Ondansetron Inj 2 Mg/Ml 2 Ml Vial) 4 mg IV Q6H PRN PRN Reason: Nausea Stop: 01/29/25 22:23 Last Admin: 12/30/24 23:21 Dose: 4 mg Documented By: psc Discontinued Medications Hydromorphone HCl (Hydromorphone Inj 0.5 Mg/0.5 Ml Syr) 0.5 mg IV NOW STA Stop: 12/30/24 16:19 Last Admin: 12/30/24 16:39 Dose: 0.5 mg Documented By: amg Lidocaine (Lidocaine 5% 1 Patch) 1 patch TD NOW STA Stop: 12/30/24 19:45 Last Admin: 12/30/24 21:30 Dose: Not Given Documented By: amg Oxycodone HCl (Oxycodone Hcl Ir 5 Mg Tab (Immediate Release)) 5 mg PO ONE PRN PRN Reason: Severe 9-10/10 pain Last Admin: 12/30/24 23:21 Dose: 5 mg Documented By: psc Pantoprazole Sodium (Pantoprazole 40 Mg Tab) 40 mg PO ONE STA Stop: 12/30/24 22:05 Last Admin: 12/30/24 23:22 Dose: 40 mg Documented By: psc Medical Decision Making Laboratory Data Attestation: I reviewed the patient's lab results. 12/30/24 16:40 12/30/24 16:40 Lab Results 12/30/24 Range/Units 16:40 WBC 10.23 (4.8-10.8) K/ul RBC 4.29 L (4.70-6.10) M/uL Hgb 12.3 L (14.0-18.0) g/dL Hct 35.8 L (42.0-52.0) % MCV 83.4 (80.0-100.0) fL MCH 28.7 (25.0-34.0) pg MCHC 34.4 (32.0-36.0) g/dL RDW Std Deviation 42.9 (36.4-46.3) fL RDW Coeff of Kim 14.2 (11.5-14.5) % Plt Count 353 (130-400) K/uL MPV 10.1 (9.4-12.4) fL Immature Gran % (Auto) 0.2 % Neut % (Auto) 73.3 % Lymph % (Auto) 15.6 % [place] % (Auto) 10.3 % Eos % (Auto) 0.2 % Baso % (Auto) 0.4 % Neut # (Auto) 7.50 H (1.40-6.50) K/uL Lymph # (Auto) 1.60 (1.20-3.40) K/uL [place] # (Auto) 1.05 H (0.11-0.59) K/uL Eos # (Auto) 0.02 (0.00-0.50) K/uL Baso # (Auto) 0.04 (0.00-0.20) K/uL Immature Gran # (Auto) 0.02 (0.01-0.20) K/uL PT 11.9 (9.0-12.0) Seconds INR 1.1 (0.9-1.1) APTT 39 H (21-31) Seconds PTT Ratio 1.4 Sodium 139 (136-145) mmol/L Potassium 3.8 (3.5-5.1) mmol/L Chloride 102 (98-107) mmol/L Carbon Dioxide 29 (21-32) mmol/L Anion Gap 8 (3-11) BUN 17 (6-23) mg/dl Creatinine 0.62 (0.6-1.4) mg/dl Est Cr Clr Drug Dosing 105.8 ml/min eGFR 102.19 BUN/Creatinine Ratio 27.4 H (10-20) Glucose 121 H (70-99(Fasting)) mg/dl Calcium 9.4 (8.6-10.3) mg/dl Troponin I High Sens 8.0 (0-20) pg/ml Imaging Data Attestation: I personally reviewed and interpreted this imaging study as follows: My Impression: Pelvis x-ray: Orthopedic hardware is intact no acute fracture or dislocation Radiologist's Impression: Pelvis X-Ray 12/30/24 17:07 One view of the pelvis is submitted for review. Findings: No fracture is seen. There is a right hip bipolar hemiarthroplasty. There is mild left hip osteoarthritis. There is degenerative disc disease and osteoarthritis of the visualized lumbar spine. No other osseous abnormality is identified. There are surgical skin edin laterally Impression: Right hip replacement Electronically signed by Brayden Viveros 12-30-2024 7:16 PM [facility] Narrative 1614: The patient was evaluated in room B6. A complete history and physical exam was performed Cardiac monitoring: An order was placed for continuous cardiac monitoring. The monitor shows a rate of 90 with sinus rhythm interpreted by me 1820: Vital signs stable. Labs are unremarkable. Hardware is intact. Patient will be admitted for placement as he left AMA from heart side today. Impression & Plan Intractable pain Discharge Plan Visit Data Chief Complaint: Hip Pain Stated Complaint: Pain ED Provider: Gurpreet Vargas Discharge Problem: Intractable pain Patient Disposition: Admitted As Inpatient Condition: Fair
[2024-12-31] MEDS: APIXABAN 5 MG TABLET PO SCH (08:42)
[2024-12-31] MEDS: METOPROLOL SUCC 25MG EXT REL TAB PO SCH (08:43)
[2024-12-31] MEDS: METHADONE HCL 10 MG TAB PO SCH (08:45)
[2024-12-31] MEDS: ACETAMINOPHEN 1,000 MG/100 ML VIAL IV SCH (08:46)
[2024-12-31] MEDS: REMOVE LIDODERM PATCH SCH (09:59)
[2024-12-31 10:28] LABS: Anion Gap 7.0 (3-11); Blood Urea Nitrogen 18.0 mg/dl (6-23); Calcium 8.7 mg/dl (8.6-10.3); Carbon Dioxide 26.0 mmol/L (21-32); Chloride 104.0 mmol/L (98-107); Creatinine Clr Calc Pharmacy 96.6 ml/min; Glucose 120.0 mg/dl (70-99(Fasting)); Potassium 4.1 mmol/L (3.5-5.1); Sodium 137.0 mmol/L (136-145)
--- NOTE | 2024-12-31 13:49 | Hospitalist Progress Note ---
Date of Service December 31, 2024 Assessment & Plan (1) Intractable pain: (2) Opioid dependence: (3) Patient on methadone maintenance therapy: Plan 69-year-old male PMHx HTN, A-fib on Eliquis, IRAIS, depression, dementia, Parkinson's disease presenting for R hip pain after leaving AMA from [facility] rehab the day of arrival. His workup reveals mild anemia 12.3/35.8, and increased BUN/creatinine ratio 27.4. Pelvis x-ray reveals R hip replacement. Admission for intractable pain. #Intractable R hip pain Recent R hip surgery secondary to fracture, was at [facility] rehab left AMA the day of arrival. Was unable to walk independently once at home, now complaining of severe and intractable pain. - admission labs: CBC no leukocytosis/leukopenia, H&H 12.3/35.8; CMP BUN/creatinine ratio 27.4, glucose 121. Pelvis x-ray R hip replacement. - electrolytes wnl this morning. - reports pain is 7/10, however does have history of chronic pain - Fall precautions - Lidocaine patch - Zofran prn N/V - Acetaminophen IV prn fever/mild-moderate pain, Ketorolac prn more severe pain. - PT/OT consulted - appreciate assistance #Indigestion - on admission, troponin 8.0. EKG sinus bradycardia @ 58 bpm, otherwise WNL - Protonix 40mg po BID - Zofran prn N/V #PD- Carbidopa levodopa - continue #PAF -continue Metoprolol - eliquis resumed at 5mg po bid (was previously on hold for surgery) #Opioid dependence - Requesting methadone, Klonopin, and oxycodone in multiple occasions. Was on methadone, last dose ~ 10 days [facility] per patient, has been unable to obtain. Discussed with Dr. Whitt from [facility] this morning regarding patient's methadone dosing. Reports last dose patient received from the clinic was on 12/17. Since methadone was stopped while at outside hospital without taper, he recommends reinducing patient on methadone 10mg tid. If needed, can increase to 5-10mg every 1-2 days. Recommends holding other pain medication at this point, however not used to treat acute pain. - [facility], @ [phone] #Psych- Hydroxyzine - continue Dispo: Obs, med/sx VTE Prophylaxis: On Eliquis Admission and Anticipated Discharge Date Admission Date: December 30, 2024 Supervising Physician Co-Signing Physician Notes ATTESTATION I also saw the patient and confirmed yusuf portions of the history and exam. I agree with the impression and plan in the resident documentation, and as summarized below. Discussion with patient's outpatient methadone clinic and records confirmed and recommendations implemented. IMPRESSION & PLAN Right hip pain S/P replacement Opioid dependence PAF Methadone resumed PT consult for potential placement Resume Eliquis Monitor CBC Additional per resident documentation Subjective Patient seen and examined at bedside this morning. Received report from nurse this AM saying patient was making jokes about hurting himself, however on my exam this morning, patient denies SI/HI, therefore should not be need for 1:1 at this time. Patient alert and awake, states his pain is about a 7/10. Denies numbness/tingling/weakness. Review of Systems Review of Systems: as per hpi Physical Exam Constitutional: WD/WN, vitals as above Respiratory: normal respiratory effort, lungs clear to auscultation Cardiovascular: RRR, no murmur, no edema Gastrointestinal (Abdomen): normal bowel sounds, soft, nontender, no hepatosplenomegaly Musculoskeletal: Extremities: extremities normal to inspection Neurologic: no focal neurologic deficits Psychiatric: A+Ox3, euthymic affect Results & Data Results & Data Vital Signs (Past 12 Hours) Vital Signs Temp Pulse Resp BP Pulse Ox O2 Del Method 12/31/24 08:53 37 C 81 18 124/75 98 Room Air 12/31/24 07:34 36.9 C 73 16 107/68 99 Room Air Resident Activity Tracking Resident Involvement: Resident Care Provided Care Provided: Adult Hospital Medicine
[2024-12-31] MEDS: ACETAMINOPHEN 500 MG TAB PO SCH (15:02)
--- NOTE | 2025-01-01 09:30 | Electrocardiogram Report ---
Test Reason : Blood Pressure : */* mmHG Vent. Rate : 76 BPM Atrial Rate : 76 BPM P-R Int : 138 ms QRS Dur : 82 ms QT Int : 384 ms P-R-T Axes : 35 44 30 degrees QTcB Int : 432 ms Sinus rhythm with Premature atrial complexes with Aberrant conduction Otherwise normal ECG When compared with ECG of 17-Jan-2024 19:24, Aberrant conduction is now Present Confirmed by Ezio Alan ([id number]) on 01/01/2025 9:30:01 AM Referred By: REFERRED SELF Confirmed By: Ezio Alan
--- NOTE | 2025-01-01 09:38 | Electrocardiogram Report ---
Test Reason : Blood Pressure : */* mmHG Vent. Rate : 58 BPM Atrial Rate : 58 BPM P-R Int : 142 ms QRS Dur : 80 ms QT Int : 436 ms P-R-T Axes : 34 47 44 degrees QTcB Int : 428 ms Sinus bradycardia Otherwise normal ECG When compared with ECG of 30-Dec-2024 15:49, (unconfirmed) Aberrant conduction is no longer Present Confirmed by Ezio lAan ([id number]) on 01/01/2025 9:38:23 AM Referred By: REFERRED SELF Confirmed By: Ezio Alan
[2025-01-01] MEDS: ALUMINUM/MAGNESIUM SUSP 30 ML UDC PO STA (11:21)
--- NOTE | 2025-01-01 13:49 | Hospitalist Progress Note ---
Date of Service January 01, 2025 Assessment & Plan (1) Intractable pain: (2) Opioid dependence: (3) Patient on methadone maintenance therapy: Plan 69-year-old male PMHx HTN, A-fib on Eliquis, IRAIS, depression, dementia, Parkinson's disease presenting for R hip pain after leaving AMA from [facility] rehab the day of arrival. His workup reveals mild anemia 12.3/35.8, and increased BUN/creatinine ratio 27.4. Pelvis x-ray reveals R hip replacement. Admission for intractable pain. #Intractable R hip pain Recent R hip surgery secondary to fracture, was at [facility] rehab left AMA the day of arrival. Was unable to walk independently once at home, now complaining of severe and intractable pain. - admission labs: CBC no leukocytosis/leukopenia, H&H 12.3/35.8; CMP BUN/creatinine ratio 27.4, glucose 121. Pelvis x-ray R hip replacement. - continues to report generalized pain, both in the setting of recent hip replacement and hx of chronic pain. Pain control regimen limited at this time as we are reinitiating patient's methadone, per instruction from methadone clinic provider. - PT/OT evaluating patient, recommend outpatient rehab to make for safe home discharge after. - Fall precautions - Lidocaine patch - Zofran prn N/V - Acetaminophen IV prn fever/mild-moderate pain, Ketorolac prn more severe pain #Indigestion - on admission, troponin 8.0. EKG sinus bradycardia @ 58 bpm, otherwise WNL. - did have episode of chest heaviness this morning that occurred after eating breakfast. EKG at bedside showing atrial flutter, however rate was controlled. Patient experiencing no other symptoms. Repeat troponin 5.0. On exam pain is reproducible on palpation of the chest wall. - Protonix 40mg po BID - Zofran prn N/V #PD- Carbidopa levodopa - continue #PAF -continue Metoprolol - eliquis resumed at 5mg po bid (was previously on hold for surgery) #Opioid dependence - Requesting methadone, Klonopin, and oxycodone in multiple occasions on day of admission. Was on methadone, last dose ~ 10 days [employer]OL [employer]US[employer] per patient, has been unable to obtain. Discussed with Dr. Whitt from [facility] this morning regarding patient's methadone dosing. Reports last dose patient received from the clinic was on 12/17. Since methadone was stopped while at outside hospital without taper, he recommends reinitiating patient on methadone 10mg tid. If needed, can increase to 5-10mg every 1-2 days. Recommends holding other pain medication at this point, however not used to treat acute pain. - currently on methadone 10mg tid, however repeatedly asking for increased dose. Per patient, he is on 80mg at home. Increased methadone to 15mg po tid. Will continue to consult methadone clinic for further dosing recommendations - [facility], @ [phone] #Psych- Hydroxyzine - continue Dispo: med/sx VTE Prophylaxis: On Eliquis Admission and Anticipated Discharge Date Admission Date: January 01, 2025 Supervising Physician Co-Signing Physician Notes ATTESTATION I also saw the patient and confirmed yusuf portions of the history and exam. I agree with the impression and plan in the resident documentation, and as summarized below. Patient with episode of chest pain this morning. EKG without changes; rate controlled atrial flutter. Upon exam, pain seem to be reproducible with palpation of the left upper sternal border. Also has a history of esophageal reflux and pain initially started shortly after eating breakfast and laying down. IMPRESSION & PLAN Right hip pain S/P replacement Opioid dependence PAF Parkinsons GERD Methadone increased per recommendations of outpatient pain management PT consult for potential placement; will need insurance authorization GI cocktail; continue Protonix twice daily Continue Eliquis Monitor CBC Additional per resident documentation Subjective Patient seen and examined at bedside this morning. Reports having chest heaviness and "like someone kicked me in the chest." Symptoms started about 10 minutes after eating his breakfast. Denies SOB, headache, dizziness. EKG performed at bedside showing atrial flutter, however rate was controlled in 70s. Trop repeated at 5.0. Denies N/V/D, abdominal pain. Alert, awake, no acute distress. Review of Systems Review of Systems: as per hpi Physical Exam Constitutional: WD/WN, vitals as above Respiratory: normal respiratory effort, lungs clear to auscultation Cardiovascular: regular rate, irregular rhythm. Reproducible pain on palpation of the chest wall. No murmur, gallop, or rub. S1 and S2 normal Gastrointestinal (Abdomen): normal bowel sounds, soft, nontender, no hepatosplenomegaly Musculoskeletal: Extremities: extremities normal to inspection Psychiatric: A+Ox3, euthymic affect Results & Data Results & Data Vital Signs (Past 12 Hours) Vital Signs Temp Pulse Resp BP Pulse Ox O2 Del Method 01/01/25 09:05 36.6 C 70 16 130/71 99 Room Air 01/01/25 07:20 36.6 C 68 15 131/69 99 Room Air
[2025-01-01] MEDS: METHADONE HCL 5 MG TAB PO STA (14:33)
[2025-01-01] MEDS: METHADONE HCL 5 MG TAB PO ONE (14:57)
[2025-01-01] MEDS: METHADONE HCL 5 MG TAB PO SCH (20:05)
--- NOTE | 2025-01-02 08:20 | Electrocardiogram Report ---
Test Reason : Blood Pressure : */* mmHG Vent. Rate : 71 BPM Atrial Rate : 277 BPM P-R Int : * ms QRS Dur : 82 ms QT Int : 366 ms P-R-T Axes : 60 69 15 degrees QTcB Int : 397 ms Poor data quality, interpretation may be adversely affected Sinus rhythm T-wave inversion in Inferior leads Abnormal ECG When compared with ECG of 30-Dec-2024 20:15, Nonspecific T wave abnormality now evident in Inferior leads Confirmed by Ezio Alan ([id number]) on 01/02/2025 8:20:26 AM Referred By: REFERRED SELF Confirmed By: Ezio Alan
[2025-01-02 08:22] LABS: Anion Gap 4.0 (3-11); Blood Urea Nitrogen 17.0 mg/dl (6-23); Calcium 9.1 mg/dl (8.6-10.3); Carbon Dioxide 31.0 mmol/L (21-32); Chloride 103.0 mmol/L (98-107); Creatinine Clr Calc Pharmacy 105.2 ml/min; Glucose 105.0 mg/dl (70-99(Fasting)); Magnesium 2.0 mg/dl (1.7-2.4); Potassium 4.3 mmol/L (3.5-5.1); Sodium 138.0 mmol/L (136-145)
--- NOTE | 2025-01-02 11:26 | Hospitalist Progress Note ---
Date of Service January 02, 2025 Assessment & Plan (1) Intractable pain: (2) Opioid dependence: (3) Patient on methadone maintenance therapy: Plan 69-year-old male PMHx HTN, A-fib on Eliquis, IRAIS, depression, dementia, Parkinson's disease presenting for R hip pain after leaving AMA from [facility] rehab the day of arrival. His workup reveals mild anemia 12.3/35.8, and increased BUN/creatinine ratio 27.4. Pelvis x-ray reveals R hip replacement. Admission for intractable pain. #Intractable R hip pain Recent R hip surgery secondary to fracture, was at [facility] rehab left AMA the day of arrival. Was unable to walk independently once at home, now complaining of severe and intractable pain. - admission labs: CBC no leukocytosis/leukopenia, H&H 12.3/35.8; CMP BUN/creatinine ratio 27.4, glucose 121. Pelvis x-ray R hip replacement. - continues to report generalized pain, both in the setting of recent hip replacement and hx of chronic pain. - pain regimen - tylenol 1000 mg po q8h - toradol 15mg IV q6h prn - methadone 15mg po tid - can increase dose by 5-10mg every 1-2 days if requiring increased doses - per methadone clinic provider - PT/OT following, appreciate recommendations. Likely d/c to inpatient rehab for right hip replacement rehab. Working with case management on discharge planning due to difficult discharge bc of concerns of elopement and methadone dosing. - Fall precautions - Lidocaine patch - Zofran prn N/V #Indigestion - on admission, troponin 8.0. EKG sinus bradycardia @ 58 bpm, otherwise WNL. Repeat troponin 5.0 yesterday due to chest heaviness. Suspected sx due to indigestion and GI cocktail was given w/ symptom improvement - electrolytes this AM wnl. Patient still having some chest discomfort, however still reproducible and nonradiating. There is less concern for cardiac etiology at this time as he remains hemodynamically stable. - Protonix 40mg po BID - Zofran prn N/V #PD - continue carbidopa/levodopa 25/100mg po qid #PAF - continue metoprolol succinate 25 po daily - eliquis 5mg po bid #Opioid dependence - Has history of opioid dependence and currently under management at [facility]. Was requesting methadone, Klonopin, and oxycodone in multiple occasions on day of admission. I spoke with his provider at the methadone clinic regarding patient's methadone dosing. Reports last dose patient received from the clinic was on 12/17. 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 Since methadone was stopped while at outside hospital without taper, he recommends reinitiating patient on methadone 10mg tid. If needed, can increase to 5-10mg every 1-2 days. Recommends holding other pain medication at this point, however not used to treat acute pain. - currently on methadone 10mg tid, however repeatedly asking for increased dose. Per patient, he is on 80mg at home. Increased methadone to 15mg po tid. Will continue to consult methadone clinic for further dosing recommendations - current regimen: - methadone 15mg po tid - can increase dose by 5-10mg every 1-2 days if requiring higher dose for maintenance therapy - [facility], @ [phone] #Psych- Hydroxyzine - continue Dispo: med/sx VTE Prophylaxis: On Eliquis Admission and Anticipated Discharge Date Admission Date: January 01, 2025 Supervising Physician Co-Signing Physician Notes Attending attestation Pt seen and examined in concert with Dr. Arnett. In agreement with the documented findings as noted in the resident documentation with any exceptions or additions as noted here. Pain adequately controlled on present regimen and resting in chair at bedside. VS as noted. On examination, S1/S2 nl RRR no MCG. CTAB. Abd NT/ND BS+ve Right hip pain s/p replacement in the setting of opioid dependence - continue methodone with gradual induction to previous dose. Paroxysmal atrial fibrillation - continue apixaban Else see resident documentation as noted. Subjective Patient seen and examined at bedside this morning. Alert, awake, no acute distress. Feeling well this morning. Denies chest pain, N/V/D, shortness of breath. Review of Systems Review of Systems: as per hpi Physical Exam Physical Exam: General: No acute distress Skin: warm and dry Head: Normocephalic, atraumatic Cardio: regular rate, irregular rhythm. Reproducible pain on palpation of the chest wall. No murmur, gallop, or rub. S1 and S2 normal Resp: No respiratory distress, Lungs CTA in all lobes bilaterally, no wheezes, rales, or rhonchi Abdomen: Soft, symmetric, nontender; No masses or hepatosplenomegaly; Bowel sounds normoactive MSK: No deformities; pulses palpable and equal; no edema; ROM WNL specifically to RLE, surgical area healing well. There is a venous stasis ulcer on the posterior R lower extremity. RLE neurovascularly intact. No pain or tenderness to palpation. Neuro: Awake, alert; no focal neurologic deficits Psych: Appropriate mood and affect Results & Data Results & Data Vital Signs (Past 12 Hours) Vital Signs Temp Pulse Resp BP Pulse Ox O2 Del Method 01/02/25 07:42 36.7 C 80 20 106/67 93 Room Air
[2025-01-03] MEDS: SOD PHOSPHATE/SOD BIPHOSPHATE ENEMA 132 ML BTL PR STA (00:31)
--- NOTE | 2025-01-03 09:36 | Hospitalist Progress Note ---
Date of Service January 03, 2025 Assessment & Plan (1) Intractable pain: (2) Opioid dependence: (3) Patient on methadone maintenance therapy: Plan 69-year-old male PMHx HTN, A-fib on Eliquis, IRAIS, depression, dementia, Parkinson's disease presenting for R hip pain after leaving AMA from [facility] rehab the day of arrival. His workup reveals mild anemia 12.3/35.8, and increased BUN/creatinine ratio 27.4. Pelvis x-ray reveals R hip replacement. Admission for intractable pain. #Intractable R hip pain Recent R hip surgery secondary to fracture, was at [facility] rehab left AMA the day of arrival. Was unable to walk independently once at home, now complaining of severe and intractable pain. - admission labs: CBC no leukocytosis/leukopenia, H&H 12.3/35.8; CMP BUN/creatinine ratio 27.4, glucose 121. Pelvis x-ray R hip replacement. - continues to report generalized pain, both in the setting of recent hip replacement and hx of chronic pain. - pain regimen - tylenol 1000 mg po q8h - toradol 15mg IV q6h prn - methadone 20mg po tid - increased from 15mg po tid, as patient seems to be having increased dose requirements. Was previously on methadone 80mg daily outpatient; Dose titrated per clinic provider instructions of increasing dose by 5-10mg every 1-2 days if requiring increased doses - PT/OT following, appreciate recommendations. Likely d/c to inpatient rehab for right hip replacement rehab. Working with case management on discharge planning due to difficult discharge bc of concerns of elopement and methadone dosing. - Fall precautions - Lidocaine patch - Zofran prn N/V #Indigestion - on admission, troponin 8.0. EKG sinus bradycardia @ 58 bpm, otherwise WNL. Did have episode of chest heaviness 01/01, repeat troponin 5.0 at that time. Suspected sx due to indigestion and GI cocktail was given w/ symptom improvement. Patient is w/o chest pain, SOB, headache/dizziness on exam this morning. Patient remains hemodynamically stable. - electrolytes this AM wnl - Protonix 40mg po BID - Zofran prn N/V #PD - continue carbidopa/levodopa 25/100mg po qid #PAF - continue metoprolol succinate 25 po daily - eliquis 5mg po bid #Opioid dependence - Has history of opioid dependence and currently under management at [facility]. Was requesting methadone, Klonopin, and oxycodone in multiple occasions on day of admission. I spoke with his provider at the methadone clinic regarding patient's methadone dosing. Reports last dose patient received from the clinic was on 12/17. 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 Since methadone was stopped while at outside hospital without taper, he recommends reinitiating patient on methadone 10mg tid. If needed, can increase to 5-10mg every 1-2 days. Recommends holding other pain medication at this point, however not used to treat acute pain. - currently on methadone 10mg tid, however repeatedly asking for increased dose. Per patient, he is on 80mg at home. Increased methadone to 15mg po tid. Will continue to consult methadone clinic for further dosing recommendations - current regimen: - methadone 20mg po tid (increased from 15mg po tid as above) - can increase dose by 5-10mg every 1-2 days if requiring higher dose for maintenance therapy - patient seemingly requiring increased dose of methadone due to - [facility], @ [phone] #Psych- Hydroxyzine - continue Dispo: med/sx ; pending discharge to short-term rehab, requiring P2P due to barriers regarding discharge including concern of elopement and methadone monitoring VTE Prophylaxis: On Eliquis Admission and Anticipated Discharge Date Admission Date: January 01, 2025 Supervising Physician Co-Signing Physician Notes Attending attestation Pt seen and examined in concert with Dr. Arnett. In agreement with the documented findings as noted in the resident documentation with any exceptions or additions as noted here. Pain adequately controlled on present regimen and resting in chair at bedside but with difficulty with activity. VS as noted. On examination, S1/S2 nl RRR no MCG. CTAB. Abd NT/ND BS+ve Right hip pain s/p replacement in the setting of opioid dependence - increase methadone to 20mg TID and monitor, with gradual re-induction ongoing q1-2 days. Paroxysmal atrial fibrillation - continue apixaban Else see resident documentation as noted. Subjective Patient seen and examined at bedside this morning. Alert, awake, no acute distress. Reports having "arthritis pain" this morning which has been making it difficult for him to ambulate. Did work with PT yesterday which causes some discomfort and felt winded after. Also states feeling like he did not get his methadone yesterday. Per APR, patient received all 3 doses. Denies chest pain, N/V/D, shortness of breath. Review of Systems Review of Systems: as per hpi Physical Exam Physical Exam: General: No acute distress Skin: warm and dry, chronic venous insufficiency of LE which dry, crackled skin ; well-demarcated venous stasis ulcer on the posterior R lower extremity. RLE neurovascularly intact otherwise. No pain or tenderness to palpation Head: Normocephalic, atraumatic Cardio: regular rate rhythm. No murmur, gallop, or rub. S1 and S2 normal Resp: No respiratory distress, speaking full complete sentences, no increased work of breath. Abdomen: non-distended, normal to appearance MSK: No deformities; pulses palpable and equal; no edema; ROM WNL specifically to RLE, surgical area healing well. . Neuro: Awake, alert; no focal neurologic deficits Psych: Appropriate mood and affect Results & Data Results & Data Vital Signs (Past 12 Hours) Vital Signs Temp Pulse Resp BP BP Pulse Ox O2 Del Method 01/03/25 07:13 36.7 C 69 16 96/63 L 96 Room Air 01/02/25 23:00 36.6 C 79 18 100/71 94 Room Air (2) Opioid dependence Substance use status: uncomplicated Qualified Code(s): F11.20 - Opioid dependence, uncomplicated
[2025-01-03] MEDS: METHADONE HCL 10 MG TAB PO SCH (13:56)
[2025-01-03] MEDS: SOD PHOSPHATE/SOD BIPHOSPHATE ENEMA 132 ML BTL PR ONE (14:35)
[2025-01-03 16:04] LABS: Anion Gap 8.0 (3-11); Blood Urea Nitrogen 30.0 mg/dl (6-23); Calcium 8.6 mg/dl (8.6-10.3); Carbon Dioxide 26.0 mmol/L (21-32); Chloride 103.0 mmol/L (98-107); Creatinine Clr Calc Pharmacy 68.5 ml/min; Glucose 125.0 mg/dl (70-99(Fasting)); Magnesium 1.8 mg/dl (1.7-2.4); Potassium 3.9 mmol/L (3.5-5.1); Sodium 137.0 mmol/L (136-145)
[2025-01-03] MEDS: COUGH DROP (SUGAR FREE) LOZ 24 LOZ/1 BOX BUCCAL ONE (21:08)
[2025-01-04 07:07] VITALS: RESP 16; TEMP 97.9; O2SAT 96
[2025-01-04] MEDS ORDERED: METHADONE HCL 10 MG TAB PO ONE (13:17)
--- NOTE | 2025-01-04 13:48 | Discharge Summary ---
Date of Service January 04, 2025 Admission HPI Per Admitting Provider 69-year-old male PMHx HTN, A-fib on Eliquis, IRAIS, depression, dementia, Parkinson's disease presenting for R hip pain after leaving AMA from [facility] rehab the day of arrival. 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 States that he was then discharged and sent to [facility] rehab, stating that "they are animals that will not let me go near the door" and that is why he is at the hospital today. Patient states he has been unsatisfied with his care at the rehab so he decided to leave on day of arrival. He got to his apartment and the property management assistant thought that the patient was having a difficult time ambulating by himself, encouraging him to be seen at the hospital. He states that his pain is manageable when he is not ambulating, but whenever he has to walk it shoots up to a 9 out of 10 on the pain scale. He is not have any numbness or tingling. States that he has not been eating well, specifically saying that he has not ate in 7 to 10 days. States that his ingestion is "so bad" and that it started 10 days ago. Also not sleeping. States that he has been without his methadone for approximately 10 days because the hospital that he was that told him "no hospital was going to give him methadone." He was then sent to rehab facility and again was not provided with the medication. He is without chest pain, SOB, palpitations, N/V, diarrhea/constipation, LUTS, URI symptoms, fever chills, syncope, or falls. ED evaluation reveals CBC without leukocytosis or leukopenia, H&H 12.3/35.8; PT/INR WNL, APTT 39, CMP BUN/creatinine ratio 27.4, glucose 121; pelvis XR s/p replacement.; Provided with hydromorphone 0.5 mg IV in ED. Please see Dr. Alvarez's attestation for adjustments/additions to treatment plan. Admission Exam Per Admitting Provider General: No acute distress Skin: warm and dry, chronic venous insufficiency of LE which dry, crackled skin ; well-demarcated venous stasis ulcer on the posterior R lower extremity. RLE neurovascularly intact otherwise. No pain or tenderness to palpation Head: Normocephalic, atraumatic Cardio: regular rate rhythm. No murmur, gallop, or rub. S1 and S2 normal Resp: No respiratory distress, speaking full complete sentences, no increased work of breath. Abdomen: non-distended, normal to appearance MSK: No deformities; pulses palpable and equal; no edema; ROM WNL specifically to RLE, surgical area healing well. . Neuro: Awake, alert; no focal neurologic deficits Psych: Appropriate mood and affect Principal Diagnosis intractable pain Discharge Exam General: No acute distress Skin: warm and dry, chronic venous insufficiency of LE which dry, crackled skin ; well-demarcated venous stasis ulcer on the posterior R lower extremity. RLE neurovascularly intact otherwise. No pain or tenderness to palpation Head: Normocephalic, atraumatic Cardio: regular rate rhythm. No murmur, gallop, or rub. S1 and S2 normal Resp: No respiratory distress, speaking full complete sentences, no increased work of breathing Abdomen: non-distended, normal to appearance MSK: No deformities; pulses palpable and equal; no edema; ROM WNL specifically to RLE, surgical area healing well, incision C/D/I Neuro: Awake, alert; no focal neurologic deficits Psych: Appropriate mood and affect Constitutional WD/WN, vitals as above Respiratory normal respiratory effort, lungs clear to auscultation Cardiovascular RRR, no murmur, no edema Gastrointestinal (Abdomen) normal bowel sounds, soft, nontender, no hepatosplenomegaly Musculoskeletal Extremities: extremities normal to inspection Psychiatric A+Ox3, euthymic affect Discharge Data Allergies Allergy/AdvReac Type Severity Reaction Status Date / Time nystatin Allergy Intermediate Rash Verified 12/30/24 19:20 Consultations 12/30/24 18:22 ED Decision to Admit Stat Hospital Course (1) Intractable pain: (2) Opioid dependence: (3) Patient on methadone maintenance therapy: Plan 69-year-old male PMHx HTN, A-fib on Eliquis, IRAIS, depression, dementia, Parkinson's disease presenting for R hip pain after leaving AMA from [facility] rehab the day of arrival. His workup reveals mild anemia 12.3/35.8, and increased BUN/creatinine ratio 27.4. Pelvis x-ray reveals R hip replacement. Admission for intractable pain. #Intractable R hip pain Recent R hip surgery secondary to fracture, was at [facility] rehab left AMA the day of arrival. Was unable to walk independently once at home, now complaining of severe and intractable pain. - admission labs: CBC no leukocytosis/leukopenia, H&H 12.3/35.8; CMP BUN/creatinine ratio 27.4, glucose 121. Pelvis x-ray R hip replacement. - feeling well this morning on exam. Did work w/ PT who recommends short-term rehab, however after discussion with patient, he refuses short-term rehab. Patient states he would - pain regimen - tylenol 1000 mg po q8h - toradol 15mg IV q6h prn - methadone 20mg po tid - increased from 15mg po tid, as patient seems to be having increased dose requirements. Was previously on methadone 80mg daily outpatient; Dose titrated per clinic provider instructions of increasing dose by 5-10mg every 1-2 days if requiring increased doses - PT/OT following, appreciate recommendations. Patient would like to go home and is refusing short-term rehab. Risks discussed with patient and he expresses understanding. Working with case management on discharge, approved by his apartment CM to return home. #Indigestion - on admission, troponin 8.0. EKG sinus bradycardia @ 58 bpm, otherwise WNL. Did have episode of chest heaviness 01/01, repeat troponin 5.0 at that time. Suspected sx due to indigestion and GI cocktail was given w/ symptom improvement. Patient is w/o chest pain, SOB, headache/dizziness on exam this morning. Patient remains hemodynamically stable. - electrolytes this AM wnl #PD - continue carbidopa/levodopa 25/100mg po qid #PAF - continue metoprolol succinate 25 po daily - eliquis 5mg po bid #Opioid dependence - Has history of opioid dependence and currently under management at [facility]. Was requesting methadone, Klonopin, and oxycodone in multiple occasions on day of admission. I spoke with his provider at the methadone clinic regarding patient's methadone dosing. Reports last dose patient received from the clinic was on 12/17. 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 Since methadone was stopped while at outside hospital without taper, he recommends reinitiating patient on methadone 10mg tid. If needed, can increase to 5-10mg every 1-2 days. Recommends holding other pain medication at this point, however not used to treat acute pain. - currently on methadone 10mg tid, however repeatedly asking for increased dose. Per patient, he is on 80mg at home. - current regimen: - methadone 20mg po tid (increased from 15mg po tid as above) - can increase dose by 5-10mg every 1-2 days if requiring higher dose for maintenance therapy - patient to have close follow-up with methadone clinic on discharge. - [facility], @ [phone] #Psych- Hydroxyzine - continue Dispo: med/sx ; pending discharge to short-term rehab, requiring P2P due to barriers regarding discharge including concern of elopement and methadone monitoring VTE Prophylaxis: On Eliquis Total Time Total Time Spent Total Time Spent (In Minutes): <30 Discharge Plan Discharge Items Patient Disposition: Home - Self-Care Reason For Visit: INTRACTABLE R HIP PAIN Discharge Diagnosis: intractable pain s/p right hip replacement after fracture Condition on Discharge: Fair Activity: Resume your previous activity Non-emergency contact: Primary Care Provider and Surgeon Call non-emergency contact if: you have any medication questions, your symptoms worsen and you have a fever Follow-up/Referrals: Ursula Nunez DO [Primary Care Provider] - Diet: Regular Addtl Attending Provider Instructions: You were admitted to [facility] for treatment of intractable pain after your right hip replacement that was completed at outside hospital. You were evaluated by physical therapy during admission. Your pain was managed with Tylenol and Toradol. Your methadone was initiated during this admission at a total of 60mg daily. Please follow-up with your PCP within 1-2 weeks from discharge. Please also follow-up with Dr. Whitt with [facility] for management of your methadone dosing within 1-2 days from discharge. No other medication changes were made during your admission. Please return to care if you develop severe or worsening pain, high fever, shortness of breath/chest pain. Pending Studies at Discharge: No Stand-Alone Forms: My [facility], Smoking Cessation Medications and DC Order Prescriptions: Continued metoprolol succinate 25 mg tablet extended release 24 hr 25 mg PO DAILY Qty: 2 0RF Rx Instructions: PREFERS IMMEDIATE RELEASE DUE TO CO-PAY AMOUNT hydroxyzine HCl 25 mg tablet 25 mg PO HS methadone 10 mg/mL concentrate 81 mg PO DAILY Rx Instructions: PATIENT HAS BEEN WITHOUT METHADONE FOR 10 DAYS OF 12/30/2024 Eliquis 5 mg tablet 5 mg PO BID carbidopa-levodopa 25-100 mg tablet 2 tab PO QID Discharge Orders: Discharge Order (Routine); Ordered 01/04/25 Ordered By: Indy Braga Admission Data Admit Date/Time: 01/01/25 11:14 Attending Provider: Jose Long Admit Provider: Keenan Alvarez Primary Care Provider: Ursula Nunez Other Providers: Keenan Alvarez; [facility]; Gage,Gage Other Interventions: Discharge Summary Assessment (RN) Last Done: 01/04/25 16:50 Supervising Physician Co-Signing Physician Notes I personally examined the patient and verified all yusuf points of history and exam, discussed case, and agree with decision making with Dr Arnett feeling better and would like to go home. Feels like he is walking around well enough that this is realistic. We also discussed safety, and given that he fell and had of hip fracture at home, he is quite keenly aware of the risks, and still feels that he will be okay at home. I also had an extensively long phone call with his methadone clinic coordinating his care after discharge. Right hip pain s/p fracture and surgery in the setting of opioid dependence - was on 60 mg of methadone here the last few days, after having been completely cut off for about 10 days between his outside hospital stay and brief stop at SNF. His methadone clinic will see him tomorrow for his dosing tomorrow, he is aware of this, and expresses no concern about his ability to get to the clinic. Paroxysmal atrial fibrillation - Rate controlled, anticoagulated Else see resident documentation as noted.
[2025-01-04] MEDS: METHADONE HCL 10 MG TAB PO ONE (16:36)
[2025-01-04 16:52] VITALS: BP 131/83; PULSE 66
== END 2025-01-04 17:44 | disposition home or self-care (01) | DRG 556 ==
LOC: ED 15:37 → 3N 15:37 → SUATTDRO 19:28 → 3N 22:30 → SUATTDRO 01-01 11:14 → 3N 01-02 20:37

== ENCOUNTER 2025-01-06 11:20 | Inpatient (IN) ==
--- NOTE | 2025-01-06 12:37 | XRay Report ---
XR chest 1V portable CLINICAL HISTORY: weakness COMPARISON STUDY: 01/17/2024 FINDINGS: Heart size and pulmonary vasculature are normal. No effusion or consolidation. No pneumotho rax. There are severe degenerative changes at the shoulders. IMPRESSION: No acute findings. ACT 112: Negative or not required by law. Electronically signed by: Dustin Sol M.D. 01/06/2025 12:36 PM
[2025-01-06 13:00] LABS: Hematocrit (blood only) 25.2 % (42.0-52.0); Hemoglobin 8.5 g/dL (14.0-18.0); Immature Granulocytes # (auto) 0.02 K/uL (0.01-0.20); Immature Granulocytes % (auto) 0.3 %; Mean Corpuscular Hemoglobin 28.9 pg (25.0-34.0); Mean Corpuscular Volume 85.7 fL (80.0-100.0); Platelet Count 286 K/uL (130-400); RDW Standard Deviation 44.7 fL (36.4-46.3); Red Blood Count 2.94 M/uL (4.70-6.10); White Blood Count 5.96 K/ul (4.8-10.8)
[2025-01-06 13:21] LABS: Alanine Aminotransferase 16.0 U/L (7-52); Albumin Globulin Ratio 1.2 (0.9-2); Albumin Level 3.8 gm/dl (3.4-5.0); Alkaline Phosphatase 86.0 U/L (34-104); Anion Gap 9.0 (3-11); Bilirubin,Total 0.8 mg/dl (0.2-1.0); Blood Urea Nitrogen 22.0 mg/dl (6-23); Calcium 9.1 mg/dl (8.6-10.3); Carbon Dioxide 28.0 mmol/L (21-32); Chloride 102.0 mmol/L (98-107); Creatinine Clr Calc Pharmacy 109.9 ml/min; Globulin 3.1 gm/dl (2.5-4.0); Glucose 119.0 mg/dl (70-99(Fasting)); Magnesium 1.9 mg/dl (1.7-2.4); Potassium 3.6 mmol/L (3.5-5.1); Sodium 139.0 mmol/L (136-145); Total Protein 6.9 gm/dl (6.0-8.3)
[2025-01-06 13:32] LABS: Thyroid Stimulating Hormone 1.432 uIu/ml (0.300-4.500)
[2025-01-06 13:57] LABS: Appearance Urine Clear (Clear); Bacteria Urine Automated None Seen (None Seen); Cast Urine Automated 0-2 /lpf (0-2); Epithelial Cell Urine Auto 0-2 /hpf (0-2); Glucose Urine UA Negative (Negative); RBC Urine Automated 0-2 /hpf (0-2); WBC Urine Automated 0-5 /hpf (0-5)
[2025-01-06] MEDS: OPTIRAY 320 125ml IV ONE (14:01)
--- NOTE | 2025-01-06 14:27 | Emergency Department Note ---
History of Present Illness General Chief complaint: Weakness Stated complaint: Weakness Time Seen by Provider: 01/06/25 11:57 Source: patient Mode of arrival: EMS Limitations: physical limitation History of Present Illness Patient is a 69-year-old male with history of hypertension, A-fib on Eliquis, IRAIS, depression, dementia, Parkinson's disease who presents from his methadone clinic clinic after he was having trouble ambulating. It was also reported that he was seeing things that were not there.. Patient is not clear why he is here at the hospital today. He states he has been doing well on his walker. Recently he was admitted for a fracture to his right hip and refused rehab at that time. He denies any new fall or injury today. Denies any fevers, chills, headache, nausea, vomiting, chest pain, shortness of breath or abdominal pain. Home Medications Medication Instructions Recorded Confirmed Type apixaban 5 mg tablet (Eliquis) 5 mg PO BID 08/30/23 01/06/25 History metoprolol succinate 25 mg 25 mg PO DAILY #2 tabs 06/21/24 01/06/25 Rx tablet,extended release 24 hr hydroxyzine HCl 25 mg tablet 25 mg PO HS 08/05/24 01/06/25 History methadone 10 mg/mL oral concentrate 81 mg PO DAILY 08/05/24 01/06/25 History carbidopa 25 mg-levodopa 100 mg 2 tab PO QID 12/30/24 01/06/25 History tablet Allergies Allergy/AdvReac Type Severity Reaction Status Date / Time nystatin Allergy Intermediate Rash Verified 12/30/24 19:20 Past Med/Surg History Problem List (Updated 01/06/25 @ 15:25 by Perez Lu MD) Acute on chronic anemia (Acute) Closed hip fracture requiring operative repair (Acute) Patient on methadone maintenance therapy Physical debility Normocytic normochromic anemia Chronic venous insufficiency (Chronic) Venous stasis ulcer of right lower extremity (Acute) Parkinsons disease Paroxysmal atrial fibrillation (Chronic) Depression Generalized anxiety disorder Hypertension Medical History (Updated 01/06/25 @ 15:25 by Perez Lu MD) Hallucination History of opioid abuse Over 30 years ago per patient. On methadone. Edema Surgical History No pertinent past surgical history Social History Smoking Status: Former smoker Tobacco Type: Cigarettes Cigarettes Per Day: 2 cigarettes a week; Second Hand Exposure: No; Do You Dip or Chew Tobacco: No; Hx Alcohol Use: No Hx Substance Use: No Preferred Language: Latvian Communication Ability: Effective Cell Repairer Required: No Beliefs That Will Affect Care: None Current Living Situation: Alone Feels Safe at Home: Yes Diet: regular caffeine: Yes Assistive Devices: Lift Chair and Walker Review of Systems Review of systems negative outside of positive findings mentioned in HPI. Physical Exam Vital Signs Vital Signs - 24 hr 01/06/25 11:33 01/06/25 11:34 01/06/25 14:15 Temperature 36.6 C Temperature Source Oral Pulse Rate 96 H 100 H 98 H Pulse Rate from SpO2 Sensor 98 H Respiratory Rate 21 18 12 Blood Pressure 172/111 H 160/108 H 141/78 H Blood Pressure Mean 131 125 99 Pulse Oximetry 97 95 96 Oxygen Delivery Method Room Air Room Air Room Air Sepsis Recent Fever Within 48 Hours No Sepsis New/Unexplained Change in Mental Status N/A Sepsis Action Taken by Nursing No Action Required 01/06/25 14:46 Temperature Temperature Source Pulse Rate 87 Pulse Rate from SpO2 Sensor Respiratory Rate Blood Pressure Blood Pressure Mean Pulse Oximetry Oxygen Delivery Method Sepsis Recent Fever Within 48 Hours Sepsis New/Unexplained Change in Mental Status Sepsis Action Taken by Nursing See below. Constitutional WD/WN, vitals as above Eyes PERRL, conjunctivae normal, anicteric sclerae Neck trachea midline, no thyromegaly Respiratory normal respiratory effort, lungs clear to auscultation Cardiovascular RRR, no murmur, no edema Gastrointestinal (Abdomen) normal bowel sounds, soft, nontender, no hepatosplenomegaly Neurologic CN's II-XI intact bilaterally Speech / Cognition: normal speech Motor/Sensory: + tremor Gait: + shuffling gait and + wide-based gait Course Administered Medications Discontinued Medications Famotidine (Famotidine 40 Mg Tablet) 40 mg PO NOW ONE Stop: 01/06/25 14:38 Last Admin: 01/06/25 14:54 Dose: 40 mg Documented By: JOSE Hydroxyzine HCl (Hydroxyzine Hcl 25 Mg Tab) 25 mg PO NOW STA Stop: 01/06/25 14:38 Last Admin: 01/06/25 14:54 Dose: 25 mg Documented By: JOSE Ioversol (Optiray 320 125ml) 112 ml IV ONCE ONE Stop: 01/06/25 14:02 Last Admin: 01/06/25 14:01 Dose: 112 ml Documented By: ESDRAS Medical Decision Making Differential Diagnosis DDx includes but is not limited to: subacute hip fx, acute on chronic anemia Medical Records Attestation: I reviewed the patient's medical records. Home Medications Current Medication List: was personally reviewed by me Laboratory Data Attestation: I reviewed the patient's lab results. 01/06/25 12:45 01/06/25 12:45 Lab Results 01/06/25 01/06/25 01/06/25 Range/Units 12:42 12:45 13:40 WBC 5.96 (4.8-10.8) K/ul RBC 2.94 L (4.70-6.10) M/uL Hgb 8.5 L (14.0-18.0) g/dL Hct 25.2 L (42.0-52.0) % MCV 85.7 (80.0-100.0) fL MCH 28.9 (25.0-34.0) pg MCHC 33.7 (32.0-36.0) g/dL RDW Std Deviation 44.7 (36.4-46.3) fL RDW Coeff of Kim 14.5 (11.5-14.5) % Plt Count 286 (130-400) K/uL MPV 10.1 (9.4-12.4) fL Immature Gran % (Auto) 0.3 % Neut % (Auto) 71.1 % Lymph % (Auto) 16.9 % [place] % (Auto) 11.2 % Eos % (Auto) 0.2 % Baso % (Auto) 0.3 % Neut # (Auto) 4.23 (1.40-6.50) K/uL Lymph # (Auto) 1.01 L (1.20-3.40) K/uL [place] # (Auto) 0.67 H (0.11-0.59) K/uL Eos # (Auto) 0.01 (0.00-0.50) K/uL Baso # (Auto) 0.02 (0.00-0.20) K/uL Immature Gran # (Auto) 0.02 (0.01-0.20) K/uL Sodium 139 (136-145) mmol/L Potassium 3.6 (3.5-5.1) mmol/L Chloride 102 (98-107) mmol/L Carbon Dioxide 28 (21-32) mmol/L Anion Gap 9 (3-11) BUN 22 (6-23) mg/dl Creatinine 0.63 (0.6-1.4) mg/dl Est Cr Clr Drug Dosing 109.9 ml/min eGFR 101.69 BUN/Creatinine Ratio 34.9 H (10-20) Glucose 119 H (70-99(Fasting)) mg/dl POC Glucose 125 H (70-99) mg/dl Lactate 1.2 (0.4-2.0) mmol/L Calcium 9.1 (8.6-10.3) mg/dl Magnesium 1.9 (1.7-2.4) mg/dl Total Bilirubin 0.8 (0.2-1.0) mg/dl AST 25 (13-39) U/L ALT 16 (7-52) U/L Alkaline Phosphatase 86 (34-104) U/L Troponin I High Sens 8.6 (0-20) pg/ml Total Protein 6.9 (6.0-8.3) gm/dl Albumin 3.8 (3.4-5.0) gm/dl Globulin 3.1 (2.5-4.0) gm/dl Albumin/Globulin Ratio 1.2 (0.9-2) TSH 1.432 (0.300-4.500) uIu/ml Urine Color Yellow Urine Appearance Clear (Clear) Urine pH 6.0 (4.5-7.5) Ur Specific [place] 1.028 (1.000-1.030) Urine Protein Trace H (Negative) Urine Glucose (UA) Negative (Negative) Urine Ketones Trace H (Negative) Urine Blood Negative (Negative) Urine Nitrite Negative (Negative) Urine Bilirubin Negative (Negative) Urine Urobilinogen Negative (Negative) Ur Leukocyte Esterase Negative (Negative) Urine WBC (Auto) 0-5 (0-5) /hpf Urine RBC (Auto) 0-2 (0-2) /hpf U Hyaline Cast (Auto) 0-2 (0-2) /lpf U Epithel Cells (Auto) 0-2 (0-2) /hpf Urine Bacteria (Auto) None Seen (None Seen) Urine Comment Urine Opiates Screen Neg (Neg) Ur Methadone, Qual Pos H (Neg) Urine Fentanyl Screen Neg (Neg) Urine Barbiturates Neg (Neg) Ur Phencyclidine (PCP) Neg (Neg) U Amphetamin/Meth Scrn Neg (Neg) MDMA (Ecstasy) Screen Neg (Neg) U Benzodiazepines Scrn Neg (Neg) Ur Cocaine Metabolite Neg (Neg) U Marijuana (THC) Screen Neg (Neg) Ethyl Alcohol mg/dL < 10.0 (<10.0) mg/dl Imaging Data Radiologist's Impression: Chest X-Ray 01/06/25 12:28 XR chest 1V portable CLINICAL HISTORY: weakness COMPARISON STUDY: 01/17/2024 FINDINGS: Heart size and pulmonary vasculature are normal. No effusion or consolidation. No pneumothorax. There are severe degenerative changes at the shoulders. IMPRESSION: No acute findings. ACT 112: Negative or not required by law. Electronically signed by: Dustin Sol M.D. 01/06/2025 12:[address] 01/06/25 12:28 CT head/brain wo con CLINICAL HISTORY: 69 years-old Male with AMS. Acutely altered mental status TECHNIQUE: Multiple axial CT images of the head were obtained without contrast. A dose lowering technique was utilized adhering to the principles of ALARA. COMPARISON: Head CT 01/01/2024 FINDINGS: Motion degraded exam. No acute intracranial hemorrhage, midline shift, intracranial mass, hydrocephalus, territorial ischemia or abnormal extra-axial collection. Involutional changes with chronic microvascular ischemic disease. The calvarium is intact. Postoperative changes of the left maxilla with stable chronic appearance of the left maxillary sinus. Mastoid air cells are clear. IMPRESSION: No acute intracranial abnormality. ACT 112: Negative or not required by law. The above report was generated using voice recognition software. It may contain grammatical, syntax or spelling errors. Electronically signed by: Josafat Coker M.D. 01/06/2025 2:29 PM Abdomen/Pelvis CTA 01/06/25 13:22 CT ANGIOGRAPHY OF THE ABDOMEN AND PELVIS CLINICAL HISTORY: GI bleed. COMPARISON STUDY: CT of the abdomen and pelvis January 17, 2024. Pelvis radiograph December 30, 2024. TECHNIQUE: Helical axial images of the abdomen and pelvis were obtained during arterial phase following intravenous injection of 112 cc of Optiray 320 IV. Sagittal and coronal reformats were viewed as well as maximal intensity projections on an independent 3-D workstation. A dose lowering technique was utilized adhering to the principles of ALARA. FINDINGS: This exam is mildly compromised by motion artifact. The caliber of the abdominal aorta is normal. There is moderate aortoiliac atherosclerotic plaque. No significant stenosis within the branch vessels is identified. The celiac axis, superior mesenteric artery, inferior mesenteric artery and renal arteries are patent. There is no aneurysm or dissection within the abdomen or pelvis. No intraluminal contrast within the bowel is identified to suggest active GI bleed by CT. There is a moderate amount of stool within the colon. No evidence for a bowel obstruction. No pneumatosis, free air or portal venous gas is present. Arterial phase images of the liver, spleen, adrenal glands, kidneys and pancreas are unremarkable. There is no biliary or pancreatic ductal dilatation. No hydronephrosis. Images of the pelvis are degraded by streak artifact from a right hip arthroplasty. Extensive multilevel degenerative changes within the lumbar spine are noted with disc space narrowing, endplate osteophytosis, facet arthrosis and vacuum disc phenomenon. Skin edin from right hip arthroplasty is incidentally noted. IMPRESSION: 1. No CT evidence for active GI bleed. Exam mildly compromised by artifact, as described above. 2. No bowel obstruction. No bowel wall thickening. Moderate amount of stool within the colon. 3. Moderate aortoiliac atherosclerotic plaque. Patent vessels. No aneurysm or dissection. ACT 112: Negative or not required by law. Electronically signed by: Neil Samson M.D. 01/06/2025 2:26 PM [facility] Narrative Patient is a 69-year-old male who presents here today for acute on chronic right sided hip pain. Recently had a surgical repair of a right hip fracture and left rehab facility AMA. He was having difficulty ambulating both at home and his methadone clinic today. He is able to ambulate here with a walker however he is very unsteady on his feet and needs frequent assistance. No new trauma or injury reported. Patient denies to me any visual hallucinations as were reported by EMS. He is AO x 3 here today. Lab work was ordered and reviewed. Hemoglobin noted to be 8.5 down from 12.3. No reported GI bleeding. Hemoccult negative. CTA abdomen pelvis negative for acute bleed. CT head was ordered as well and reviewed. Nonconcerning. Will admit for PT evaluation and rehab placement as well as further workup of acute on chronic anemia. Patient accepted to hospitalist service today. Impression & Plan Closed hip fracture requiring operative repair, Acute on chronic anemia Discharge Plan Visit Data Chief Complaint: Weakness Stated Complaint: Weakness ED Provider: Perez Lu Discharge Problem: Closed hip fracture requiring operative repair, Acute on chronic anemia Patient Disposition: Admitted As Inpatient Condition: Good Forms Stand Alone Forms: My [facility] [employer] Prescriptions Prescriptions: No Action metoprolol succinate 25 mg tablet extended release 24 hr 25 mg PO DAILY Qty: 2 0RF Rx Instructions: PREFERS IMMEDIATE RELEASE DUE TO CO-PAY AMOUNT hydroxyzine HCl 25 mg tablet 25 mg PO HS methadone 10 mg/mL concentrate 81 mg PO DAILY Patient Comments: 01/06- unable to verify. Rx Instructions: PATIENT HAS BEEN WITHOUT METHADONE FOR 10 DAYS OF 12/30/2024 Eliquis 5 mg tablet 5 mg PO BID carbidopa-levodopa 25-100 mg tablet 2 tab PO QID Referrals Referrals: Ursula Nunez DO [Primary Care Provider] -
--- NOTE | 2025-01-06 14:27 | CT Scan Report ---
CT ANGIOGRAPHY OF THE ABDOMEN AND PELVIS CLINICAL HISTORY: GI bleed. COMPARISON STUDY: CT of the abdomen and pelvis January 17, 2024. Pelvis radiograph December 30. TECHNIQUE: Helical axial images of the abdomen and pelvis were obtained during arterial phase followi ng intravenous injection of 112 cc of Optiray 320 IV. Sagittal and coronal reformats were viewed as w ell as maximal intensity projections on an independent 3-D workstation. A dose lowering technique was utilized adhering to the principles of ALARA. FINDINGS: This exam is mildly compromised by motion artifact. The caliber of the abdominal aorta is n ormal. There is moderate aortoiliac atherosclerotic plaque. No significant stenosis within the branch vessels is identified. The celiac axis, superior mesenteric artery, inferior mesenteric artery and r enal arteries are patent. There is no aneurysm or dissection within the abdomen or pelvis. No intralu florencio contrast within the bowel is identified to suggest active GI bleed by CT. There is a moderate a mount of stool within the colon. No evidence for a bowel obstruction. No pneumatosis, free air or por temi venous gas is present. Arterial phase images of the liver, spleen, adrenal glands, kidneys and pa ncreas are unremarkable. There is no biliary or pancreatic ductal dilatation. No hydronephrosis. Imag es of the pelvis are degraded by streak artifact from a right hip arthroplasty. Extensive multilevel degenerative changes within the lumbar spine are noted with disc space narrowing, endplate osteophyto sis, facet arthrosis and vacuum disc phenomenon. Skin edin from right hip arthroplasty is incident ally noted. IMPRESSION: 1. No CT evidence for active GI bleed. Exam mildly compromised by artifact, as described above. 2. No bowel obstruction. No bowel wall thickening. Moderate amount of stool within the colon. 3. Moderate aortoiliac atherosclerotic plaque. Patent vessels. No aneurysm or dissection. ACT 112: Negative or not required by law. Electronically signed by: Neil Samson M.D. 01/06/2025 2:26 PM
--- NOTE | 2025-01-06 14:30 | CT Scan Report ---
CT head/brain wo con CLINICAL HISTORY: 69 years-old Male with AMS. Acutely altered mental status TECHNIQUE: Multiple axial CT images of the head were obtained without contrast. A dose lowering tech nique was utilized adhering to the principles of ALARA. COMPARISON: Head CT 01/01/2024 FINDINGS: Motion degraded exam. No acute intracranial hemorrhage, midline shift, intracranial mass, hydrocephal us, territorial ischemia or abnormal extra-axial collection. Involutional changes with chronic microv ascular ischemic disease. The calvarium is intact. Postoperative changes of the left maxilla with stable chronic appearance of the left maxillary sinus. Mastoid air cells are clear. IMPRESSION: No acute intracranial abnormality. ACT 112: Negative or not required by law. The above report was generated using voice recognition software. It may contain grammatical, syntax o r spelling errors. Electronically signed by: Josafat Coker M.D. 01/06/2025 2:29 PM
[2025-01-06 14:32] LABS: Amphetamines+Metham, Urine Neg (Neg); MDMA (Ecstacy), Urine Neg (Neg); Marijuana, Urine Neg (Neg)
[2025-01-06] MEDS: FAMOTIDINE 40 MG TABLET PO ONE (14:54)
--- NOTE | 2025-01-06 14:54 | History & Physical Report ---
Date of Service January 06, 2025 Assessment & Plan (1) Normocytic normochromic anemia: (2) Physical debility: (3) Paroxysmal atrial fibrillation: (4) Patient on methadone maintenance therapy: (5) History of opioid abuse: Plan In summary this is a 69-year-old male who presents with progressive weakness and fatigue from recent hospitalizations, unable to care for himself at home #Physical debility / Recent right hip fracture s/p operative fixation Recurrent emergency department presentations due to inability to care for themselves at home; Agreeable at this time for placement if PT/OT recommends -PT/OT consulted #Normocytic normochromic anemia Hemoglobin of 8.5 with normocytic MCV, MCHC, and RDW; baseline values are normal; only pertinent positive finding on review of system is the patient's relative fatigue, there is no evidence of a source of blood loss; assessment thus far is most consistent with potentially an iron deficiency anemia, though further assessment is ordered for below to guide additional assessment; may also be fictitious given the large decrease compared to his most recent prior assessment and lack of evidence for source of blood loss Pending reticulocyte count and repeat CBC without differential on 01/07 #Established on methadone maintenance therapy // opioid use disorder in sustained remission on methadone therapy Seen at their methadone clinic on the day of presentation; continue during current hospitalization - Continue established methadone therapy 80 mg p.o. daily History of Present Illness Chief Complaint: Progressive weakness Primary Care Provider: Ursula Nunez DO Mr. Carlos is a 69-year-old male whose active medical conditions include essential hypertension, paroxysmal atrial fibrillation, Parkinson's disease, opioid use disorder in sustained remission with methadone assisted therapy among other chronic medical conditions who presented to the [facility] on 01/06 due to progressive fatigue and weakness. The patient was recently hospitalized at this facility for similar complaints in association with right leg pain after a recent right hip fracture repair performed at an outside hospital. The patient had a ground-level fall sustained at home resulting in a right f emoral fracture requiring surgical intervention at outside hospital; at that time he was discharged to a alf facility. On the same day of arrival he left that facility against medical advice. The patient subsequently presented to this hospital facility for progressive pain and difficulty with ambulation; at the time of discharge he was again recommended to be discharged to a alf facility which he declined and returned home. The patient now returns, 48 hours later, with similar complaints and no new findings in review of systems. [facility], understanding his progressive physical debility and inability to safely care for himself at home. The patient denies any new or progressive pain related to his recent surgery. They deny any alteration in bowel movements, hematochezia, melanotic stool, abdominal pain, chest pain, palpitations. They were last at their methadone clinic on the day of presentation, 01/06. Allergies Allergy/AdvReac Type Severity Reaction Status Date / Time nystatin Allergy Intermediate Rash Verified 12/30/24 19:20 Home Medications Medication Instructions Recorded Confirmed Type apixaban 5 mg tablet (Eliquis) 5 mg PO BID 08/30/23 01/06/25 History metoprolol succinate 25 mg 25 mg PO DAILY #2 tabs 06/21/24 01/06/25 Rx tablet,extended release 24 hr hydroxyzine HCl 25 mg tablet 25 mg PO HS 08/05/24 01/06/25 History methadone 10 mg/mL oral concentrate 81 mg PO DAILY 08/05/24 01/06/25 History carbidopa 25 mg-levodopa 100 mg 2 tab PO QID 12/30/24 01/06/25 History tablet Past Med/Surg History Problem List Patient on methadone maintenance therapy Physical debility Normocytic normochromic anemia Chronic venous insufficiency (Chronic) Venous stasis ulcer of right lower extremity (Acute) Parkinsons disease Paroxysmal atrial fibrillation (Chronic) Depression Generalized anxiety disorder Hypertension Medical History Closed hip fracture requiring operative repair Hallucination History of opioid abuse Over 30 years ago per patient. On methadone. Edema Social History (Updated 01/06/25 @ 16:41 by Klaus Mckinley DO) Smoking Status: Former smoker Tobacco Type: Cigarettes Cigarettes Per Day: 2 cigarettes a week; Second Hand Exposure: No; Do You Dip or Chew Tobacco: No; Hx Alcohol Use: No Hx Substance Use: Yes Prescribed Medications: Former Misuse of Rx Meds and Opiates Last Used Substance Other:: 30 years ago Substance Use Type Other:: Unable to answer Preferred Language: [place] Leonean Communication Ability: Effective Lottery Sales Clerk Required: No Beliefs That Will Affect Care: None Current Living Situation: Alone Feels Safe at Home: Yes Diet: regular caffeine: Yes Assistive Devices: Lift Chair and Walker Review of Systems Review of Systems: Review of constitutional, cardiovascular, pulmonary, gastrointestinal, genitourinary, musculoskeletal, neurologic systems was unremarkable except for pertinent positive and negative findings discussed above Physical Exam Physical Exam: General: Adult male in no acute distress Vital Signs: Reviewed HEENT: Moist mucous membranes Pulmonary: Symmetric chest wall excursion without restriction; clear to auscultation bilaterally Cardiovascular: Regular rate and rhythm with occasional ectopic beats without murmurs, rubs, or gallops; S1 and S2 normal; right radial pulse 2+; no notable lower extremity edema Gastrointestinal: Soft, nontender; normal frequency and pitch bowel sounds throughout Neurologic: Cranial nerves II through XII grossly intact; no discernible focal weakness no paresthesia Skin: Right femoral fracture surgical site appears well Results & Data Results & Data Vital Signs (Past 12 Hours) Vital Signs Temp Pulse Resp BP Pulse Ox O2 Del Method 01/06/25 14:46 87 01/06/25 14:15 98 H 12 141/78 H 96 Room Air 01/06/25 11:34 36.6 C 100 H 18 160/108 H 95 Room Air 01/06/25 11:33 96 H 21 172/111 H 97 Room Air PG Care Time/CCT Total # of Minutes Spent Total Time Spent with Patient: Total time spent is greater than 50% in coordination of care (as documented) at patient's floor/unit and/or counseling patient: Coding Level of Care Code 59213 INT INP/OBS CARE 2/55MIN Diagnoses Normocytic normochromic anemia D64.9 Physical debility R53.81 Paroxysmal atrial fibrillation I48.0 Patient on methadone maintenance therapy F11.20 History of opioid abuse F11.11
[2025-01-06] MEDS: CARBIDOPA/LEVODOPA 25/100MG TAB PO SCH (18:46)
[2025-01-06] MEDS: APIXABAN 5 MG TABLET PO SCH (21:18)
--- NOTE | 2025-01-06 21:54 | Electrocardiogram Report ---
Test Reason : Blood Pressure : */* mmHG Vent. Rate : 87 BPM Atrial Rate : 87 BPM P-R Int : 152 ms QRS Dur : 88 ms QT Int : 344 ms P-R-T Axes : 16 23 22 degrees QTcB Int : 413 ms Normal sinus rhythm Normal ECG When compared with ECG of 01-Jan-2025 09:02, No significant change Confirmed by Chapin Stone ([id number]) on 01/06/2025 9:54:21 PM Referred By: Confirmed By: Chapin Stone
[2025-01-07 07:21] LABS: Hematocrit (blood only) 22.5 % (42.0-52.0); Hemoglobin 7.6 g/dL (14.0-18.0); Mean Corpuscular Hemoglobin 29.7 pg (25.0-34.0); Mean Corpuscular Volume 87.9 fL (80.0-100.0); Platelet Count 220 K/uL (130-400); RDW Standard Deviation 47.9 fL (36.4-46.3); Red Blood Count 2.56 M/uL (4.70-6.10); Reticulocytes # 0.060 10^6/uL (0.020-0.100); White Blood Count 3.76 K/ul (4.8-10.8)
--- NOTE | 2025-01-07 07:51 | Hospitalist Progress Note ---
Date of Service January 07, 2025 Assessment & Plan (1) Normocytic normochromic anemia: (2) Physical debility: (3) Paroxysmal atrial fibrillation: (4) Patient on methadone maintenance therapy: (5) History of opioid abuse: Plan In summary this is a 69-year-old male who presents with progressive weakness and fatigue from recent hospitalizations, unable to care for himself at home #Physical debility / Recent right hip fracture s/p operative fixation Recurrent emergency department presentations due to inability to care for themselves at home; Agreeable at this time for placement if PT/OT recommends -PT/OT consulted #Normocytic normochromic anemia At admission hemoglobin measure of 8.5 with normocytic MCV, MCHC, and RDW; baseline values are normal; hemoglobin down trend to 7.6; only pertinent positive finding on review of system is the patient's relative fatigue, there is no evidence of a source of blood loss; reticulocyte count elevated with absolute measure of 0.06 Peripheral smear ordered, concerning for substrate deficiency - Iron panel, Vitamin B12 pending #Established on methadone maintenance therapy // opioid use disorder in sustained remission on methadone therapy Seen at their methadone clinic on the day of presentation; continue during current hospitalization - Continue established methadone therapy 80 mg p.o. daily Admission and Anticipated Discharge Date Admission Date: January 06, 2025 Subjective Mr. Carlos is a 69-year-old male whose active medical conditions include essential hypertension, paroxysmal atrial fibrillation, Parkinson's disease, opioid use disorder in sustained remission with methadone assisted therapy among other chronic medical conditions who presented to the [facility] on 01/06 due to progressive fatigue and weakness. The patient was recently hospitalized at this facility for similar complaints in association with right leg pain after a recent right hip fracture repair performed at an outside hospital. No acute overnight events Review of Systems Review of Systems: Review of constitutional, cardiovascular, pulmonary, gastrointestinal, genitourinary, musculoskeletal, neurologic systems was unremarkable except for pertinent positive and negative findings discussed above Physical Exam Physical Exam: General: Adult male in no acute distress Vital Signs: Reviewed HEENT: Moist mucous membranes Pulmonary: Symmetric chest wall excursion without restriction; clear to auscultation bilaterally Cardiovascular: Regular rate and rhythm with occasional ectopic beats without murmurs, rubs, or gallops; S1 and S2 normal; right radial pulse 2+; no notable lower extremity edema Gastrointestinal: Soft, nontender; normal frequency and pitch bowel sounds throughout Neurologic: Cranial nerves II through XII grossly intact; no discernible focal weakness no paresthesia; occasional low frequency, low amplitude tremor of the upper extremities Skin: Right femoral fracture surgical site appears well Results & Data Results & Data Vital Signs (Past 12 Hours) Vital Signs Temp Pulse Pulse Pulse Resp BP BP 01/07/25 07:17 36.8 C 69 18 117/68 01/06/25 22:30 36.4 C L 77 20 130/70 01/06/25 22:05 36.4 C L 77 20 130/70 01/06/25 20:00 79 18 129/66 Pulse Ox O2 Del Method 01/07/25 07:17 96 Room Air 01/06/25 22:30 97 Room Air 01/06/25 22:05 97 Room Air 01/06/25 20:00 Laboratory Results Hemoglobin downtrend to 7.6; remains normocytic and normochromic; Reticulocyte index 0.06; peripheral smear concerning for substrate deficiency PG Care Time/CCT Total # of Minutes Spent Total Time Spent with Patient: Total time spent is greater than 50% in coordination of care (as documented) at patient's floor/unit and/or counseling patient: Coding Level of Care Code 58272 SUB INP/OBS CARE 235MIN Diagnoses Normocytic normochromic anemia D64.9 Physical debility R53.81 Paroxysmal atrial fibrillation I48.0 Patient on methadone maintenance therapy F11.20 History of opioid abuse F11.11
[2025-01-07] MEDS: METOPROLOL SUCC 25MG EXT REL TAB PO SCH (07:53)
[2025-01-07 08:43] LABS: Immature Granulocytes # (auto) 0.01 K/uL (0.01-0.20); Immature Granulocytes % (auto) 0.3 %
[2025-01-07] MEDS: METHADONE ORAL SOLN 2 MG/ML PO SCH (08:49)
[2025-01-07] MEDS: PATIENT'S OWN CONTROLLED MED 1 PO SCH (08:50)
[2025-01-07] MEDS ORDERED: METHADONE ORAL SOLN 2 MG/ML PO SCH ×2 (09:00)
[2025-01-07 09:05] LABS: Polychromasia 1+
[2025-01-07 11:39] LABS: Iron 23 mcg/dl (35-175); Total Iron Binding Cap Calc 248 mcg/dl (250-450); Transferrin 177 mg/dl (200-360); Transferrin (FE) Percent Satur 9 % (20-50)
[2025-01-07 12:17] LABS: Folate (Folic Acid),Ser orPlas 14.61 ng/ml (>5.38); Vitamin B12 460.0 pg/ml (180-914)
[2025-01-07] MEDS: IRON SUCROSE 200 MG in SODIUM CHLORIDE 0.9% 100 ML IV SCH (13:08)
[2025-01-07] MEDS: HALOPERIDOL LACTATE 5 MG/ML 1 ML VIAL IM STA (15:51)
--- NOTE | 2025-01-07 15:57 | Communication Note ---
Date of Service: January 07, 2025 Contacted by nursing staff due to patient agitation and aggressive behavior. Upon arrival to the room the patient was surrounded by security guards with nursing staff in the periphery, with the patient standing at bedside appearing agitated and upset. Compared to earlier evaluation on 01/07, the patient appears acutely confused and disoriented. He was unable to answer any direct questions, including place. He was oriented to self, but otherwise was not oriented or was unwilling to participate in assessment. He was able to stand independently out of bed, but unable to ambulate any significant distance. At this time, the patient is unable to make independent medical decisions given his acute confusion likely consequential of acute hospital acquired hyperactive delirium. Unfortunately, the patient was unable to be reoriented without pharmacologic intervention as he posed a threat to further self injury due to his confusion. Haloperidol 5 mg IM one time was administered. The patient will be transferred to a private room when available; hopefully with fewer disturbances, maintenance of day and night wake cycles, and a sense of more independence, additional pharmacologic measures can be avoided.
[2025-01-08 05:53] LABS: Hematocrit (blood only) 27.0 % (42.0-52.0); Hemoglobin 8.9 g/dL (14.0-18.0)
--- NOTE | 2025-01-08 07:42 | Hospitalist Progress Note ---
Date of Service January 08, 2025 Assessment & Plan (1) Normocytic normochromic anemia: (2) Physical debility: (3) Paroxysmal atrial fibrillation: (4) Patient on methadone maintenance therapy: (5) History of opioid abuse: Plan In summary this is a 69-year-old male who presents with progressive weakness and fatigue from recent hospitalizations, unable to care for himself at home #Physical debility / Recent right hip fracture s/p operative fixation Recurrent emergency department presentations due to inability to care for themselves at home; pending referrals and insurance authorization -PT/OT consulted #Normocytic normochromic anemia At admission hemoglobin measure of 8.5 with normocytic MCV, MCHC, and RDW; baseline values are normal; trend 7.6, 8.4; likely consequence of iron deficiency given assessment thus far - Continue Venofer 200 mg IV daily for 2 doses #Hospital acquired hyperactive delirium // Sundowning In the late afternoon on 01/07 the patient was acutely confused, unable to answ er orientation questions appropriately, and aggressive with staff; suspect this was consequence of recent recurrent hospitalizations, adjustements to methadone and psychiatric medication doses, and shared room resulting in acute hyperactive delirium; the patient has been much improved after transfer to a private room; continue with minimizing patient disturbances, keeping lights on, window blind o pen, and door open during daylight hours and drawing curtains, closing door, and turning off monitors at night time to facilitate normal circadian rhythm #Established on methadone maintenance therapy // opioid use disorder in sustained remission on methadone therapy Seen at their methadone clinic on the day of presentation; continue during current hospitalization; discussed patient's care with Samantha, his protective services case worker, to confirm dosing and adherence; there should not be additional titration of the patient's methadone during their acute hospitalization unless absolutely medically necessary; they have remained stable on their maintenance therapy for quite some time, and at this time weaning or adjustment of MAT Therapy is not advisable given their acute status - Continue established methadone therapy 60 mg p.o. daily The remainder the patient's chronic medical conditions are stable and do not require adjustment to their outpatient regimen at this time The patient is medically stable for discharge once placement is determined Admission and Anticipated Discharge Date Admission Date: January 07, 2025 Subjective Mr. Carlos is a 69-year-old male whose active medical conditions include essential hypertension, paroxysmal atrial fibrillation, Parkinson's disease, opioid use disorder in sustained remission with methadone assisted therapy among other chronic medical conditions who presented to the [facility] on 01/06 due to progressive fatigue and weakness. The patient was recently hospitalized at this facility for similar complaints in association with right leg pain after a recent right hip fracture repair performed at an outside hospital. No acute overnight events; patient is more relaxed and conversational this morning compared to the events in the afternoon of 01/07 Review of Systems Review of Systems: Review of constitutional, cardiovascular, pulmonary, gastrointestinal, genitourinary, musculoskeletal, neurologic systems was unremarkable except for pertinent positive and negative findings discussed above Physical Exam Physical Exam: General: Adult male in no acute distress Vital Signs: Reviewed HEENT: Moist mucous membranes Pulmonary: Symmetric chest wall excursion without restriction; clear to au scultation bilaterally Cardiovascular: Regular rate and rhythm with occasional ectopic beats without murmurs, rubs, or gallops; S1 and S2 normal; right radial pulse 2+; no notable lower extremity edema Gastrointestinal: Soft, nontender Neurologic: Cranial nerves II through XII grossly intact; no discernible focal weakness no paresthesia; occasional low frequency, low amplitude tremor of the upper extremities Psychiatric: Alert, oriented to self, place, but not time Skin: Right femoral fracture surgical site appears well Results & Data Results & Data Vital Signs (Past 12 Hours) Vital Signs Temp Pulse Resp BP BP Pulse Ox O2 Del Method 01/08/25 07:02 36.6 C 67 16 120/66 95 Room Air 01/07/25 23:40 36.7 C 71 18 110/56 L 93 Room Air 01/07/25 20:30 Room Air PG Care Time/CCT Total # of Minutes Spent Total Time Spent with Patient: Total time spent is greater than 50% in coordination of care (as documented) at patient's floor/unit and/or counseling patient: Coding Level of Care Code 71488 SUB INP/OBS CARE 2/35MIN Diagnoses Normocytic normochromic anemia D64.9 Physical debility R53.81 Paroxysmal atrial fibrillation I48.0 Patient on methadone maintenance therapy F11.20 History of opioid abuse F11.11
--- NOTE | 2025-01-09 07:39 | Hospitalist Progress Note ---
Date of Service January 09, 2025 Assessment & Plan (1) Normocytic normochromic anemia: (2) Physical debility: (3) Paroxysmal atrial fibrillation: (4) Patient on methadone maintenance therapy: (5) History of opioid abuse: Plan In summary this is a 69-year-old male who presents with progressive weakness and fatigue from recent hospitalizations, unable to care for himself at home #Physical debility / Recent right hip fracture s/p operative fixation Recurrent emergency department presentations due to inability to care for themselves at home; pending referrals and insurance authorization -PT/OT consulted #Normocytic normochromic anemia At admission hemoglobin measure of 8.5 with normocytic MCV, MCHC, and RDW; baseline values are normal; trend 7.6, 8.4; likely consequence of iron deficiency given assessment thus far - Completed Venofer 200 mg IV daily for 2 doses - Start FeSO4 325 mg p.o. on // - Start Miralax 17 g p.o. daily to prevent iatrogenic constipation #Hospital acquired hyperactive delirium // Sundowning In the late afternoon on 01/07 the patient was acutely confused, unable to answer orientation questions appropriately, and aggressive with staff; suspect this was consequence of recent recurrent hospitalizations, adjustements to methadone and psychiatric medication doses, and shared room resulting in acute hyperactive delirium; the patient has been much improved after transfer to a private room; continue with minimizing patient disturbances, keeping lights on, window blind open, and door open during daylight hours and drawing curtains, closing door, and turning off monitors at night time to facilitate normal circadian rhythm - Much improved with private room and reduced disturbance, no need for pharmacologic intervention since late afternoon 01/07 #Established on methadone maintenance therapy // opioid use disorder in sustained remission on methadone therapy Seen at their methadone clinic on the day of presentation; continue during curr ent hospitalization; discussed patient's care with Samantha, his onsite case manager, to confirm dosing and adherence; there should not be additional titration of the patient's methadone during their acute hospitalization unless absolutely medically necessary; they have remained stable on their maintenance therapy for quite some time, and at this time weaning or adjustment of MAT Therapy is not advisable given their acute status - Continue established methadone therapy 60 mg p.o. daily The remainder the patient's chronic medical conditions are stable and do not require adjustment to their outpatient regimen at this time The patient is medically stable for discharge once placement is determined Admission and Anticipated Discharge Date Admission Date: January 07, 2025 Subjective Mr. Carlos is a 69-year-old male whose active medical conditions include essential hypertension, paroxysmal atrial fibrillation, Parkinson's disease, opioid use disorder in sustained remission with methadone assisted therapy among other chronic medical conditions who presented to the [facility] on 01/06 due to progressive fatigue and weakness. The patient was recently hospitalized at this facility for similar complaints in association with right leg pain after a recent right hip fracture repair performed at an outside hospital. No acute overnight events Review of Systems Review of Systems: Review of constitutional, cardiovascular, pulmonary, gastrointestinal, genitourinary, musculoskeletal, neurologic systems was unremarkable except for pertinent positive and negative findings discussed above Physical Exam Physical Exam: General: Adult male in no acute distress Vital Signs: Reviewed HEENT: Moist mucous membranes Pulmonary: Symmetric chest wall excursion without restriction; clear to auscultation bilaterally Cardiovascular: Regular rate and rhythm with occasional ectopic beats without murmurs, rubs, or gallops; S1 and S2 normal; right radial pulse 2+; no notable lower extremity edema Gastrointestinal: Soft, nontender Neurologic: Cranial nerves II through XII grossly intact; no discernible focal weakness no paresthesia; occasional low frequency, low amplitude tremor of the upper extremities Psychiatric: Alert, oriented to self, place, but not time Skin: Right femoral fracture surgical site appears well Results & Data Results & Data Vital Signs (Past 12 Hours) Vital Signs Temp Pulse Resp BP BP Pulse Ox O2 Del Method 01/09/25 07:00 36.7 C 63 20 110/67 98 Room Air 01/08/25 23:27 36.5 C 62 16 105/65 93 Room Air 01/08/25 21:05 Room Air PG Care Time/CCT Total # of Minutes Spent Total Time Spent with Patient: Total time spent is greater than 50% in coordination of care (as documented) at patient's floor/unit and/or counseling patient: Coding Level of Care Code 07014 SUB INP/OBS CARE 2/35MIN Diagnoses Normocytic normochromic anemia D64.9 Physical debility R53.81 Paroxysmal atrial fibrillation I48.0 Patient on methadone maintenance therapy F11.20 History of opioid abuse F11.11
[2025-01-09] MEDS: POLYETHYLENE (MIRALAX) 17 GM PACK PO SCH (08:31)
--- NOTE | 2025-01-10 07:27 | Hospitalist Progress Note ---
Date of Service January 10, 2025 Assessment & Plan (1) Normocytic normochromic anemia: (2) Physical debility: (3) Paroxysmal atrial fibrillation: (4) Patient on methadone maintenance therapy: (5) History of opioid abuse: Plan In summary this is a 69-year-old male who presents with progressive weakness and fatigue from recent hospitalizations, unable to care for himself at home #Physical debility / Recent right hip fracture s/p operative fixation Recurrent emergency department presentations due to inability to care for themselves at home; pending referrals and insurance authorization -PT/OT consulted #Normocytic normochromic anemia At admission hemoglobin measure of 8.5 with normocytic MCV, MCHC, and RDW; baseline values are normal; trend 7.6, 8.4; likely consequence of iron deficiency given assessment thus far - Completed Venofer 200 mg IV daily for 2 doses - Continue FeSO4 325 mg p.o. on // - Continue Miralax 17 g p.o. daily to prevent iatrogenic constipation - Administer Fleets enema once #Hospital acquired hyperactive delirium // Sundown[employer] In the late afternoon on 01/07 the patient was acutely confused, unable to answer orientation questions appropriately, and aggressive with staff; suspect this was consequence of recent recurrent hospitalizations, adjustements to methadone and psychiatric medication doses, and shared room resulting in acute hyperactive delirium; the patient has been much improved after transfer to a private room; continue with minimizing patient disturbances, keeping lights on, window blind open, and door open during daylight hours and drawing curtains, closing door, and turning off monitors at night time to facilitate normal circadian rhythm - Much improved with private room and reduced disturbance, no need for pharmacologic intervention since late afternoon 01/07 #Established on methadone maintenance therapy // opioid use disorder in sustained remission on methadone therapy Seen at their methadone clinic on the day of presentation; continue during current hospitalization; discussed patient's care with Samantha, his case finishing machine adjuster, to confirm dosing and adherence; there should not be additional titration of the patient's methadone during their acute hospitalization unless absolutely medically necessary; they have remained stable on their maintenance therapy for quite some time, and at this time weaning or adjustment of MAT Therapy is not advisable given their acute status - Continue established methadone therapy 60 mg p.o. daily The remainder the patient's chronic medical conditions are stable and do not re quire adjustment to their outpatient regimen at this time The patient is medically stable for discharge once placement is determined Admission and Anticipated Discharge Date Admission Date: January 07, 2025 Subjective Mr. Carlos is a 69-year-old male whose active medical conditions include essential hypertension, paroxysmal atrial fibrillation, Parkinson's disease, opioid use disorder in sustained remission with methadone assisted therapy among other chronic medical conditions who presented to the [facility] on 01/06 due to progressive fatigue and weakness. The patient was recently hospitalized at this facility for similar complaints in association with right leg pain after a recent right hip fracture repair performed at an outside hospital. No acute overnight events; notes difficulty with bowel movement for past 48 hours, requesting an enema; begrudgingly understands the need for SNF placement, remains agreeable Review of Systems Review of Systems: Review of constitutional, cardiovascular, pulmonary, gastrointestinal, genitourinary, musculoskeletal, neurologic systems was unremarkable except for pertinent positive and negative findings discussed above Physical Exam Physical Exam: General: Adult male in no acute distress Vital Signs: Reviewed HEENT: Moist mucous membranes Pulmonary: Symmetric chest wall excursion without restriction; clear to auscultation bilaterally Cardiovascular: Regular rate and rhythm with occasional ectopic beats without murmurs, rubs, or gallops; S1 and S2 normal; right radial pulse 2+; no notable lower extremity edema Gastrointestinal: Soft, nontender Neurologic: Cranial nerves II through XII grossly intact; no discernible focal weakness no paresthesia; occasional low frequency, low amplitude tremor of the upper extremities Psychiatric: Alert, oriented to self, place, but not time Skin: Right femoral fracture surgical site appears well Results & Data Results & Data Vital Signs (Past 12 Hours) Vital Signs Temp Pulse Resp BP BP Pulse Ox O2 Del Method 01/10/25 07:00 36.7 C 61 16 116/68 95 Room Air 01/09/25 22:19 36.7 C 57 L 16 138/84 97 Room Air 01/09/25 20:40 Room Air PG Care Time/CCT Total # of Minutes Spent Total Time Spent with Patient: Total time spent is greater than 50% in coordination of care (as documented) at patient's floor/unit and/or counseling patient: Coding Level of Care Code 86739 SUB INP/OBS CARE 2/35MIN Diagnoses Normocytic normochromic anemia D64.9 Physical debility R53.81 Paroxysmal atrial fibrillation I48.0 Patient on methadone maintenance therapy F11.20 History of opioid abuse F11.11
[2025-01-10] MEDS: LORazepam 0.5 MG TAB PO PRN (08:25)
[2025-01-10 08:37] LABS: Hematocrit (blood only) 28.7 % (42.0-52.0); Hemoglobin 9.4 g/dL (14.0-18.0)
[2025-01-10 08:53] LABS: Albumin Level 3.7 gm/dl (3.4-5.0); Anion Gap 5.0 (3-11); Blood Urea Nitrogen 6.0 mg/dl (6-23); Calcium 8.9 mg/dl (8.6-10.3); Carbon Dioxide 33.0 mmol/L (21-32); Chloride 101.0 mmol/L (98-107); Creatinine Clr Calc Pharmacy 117.3 ml/min; Glucose 85.0 mg/dl (70-99(Fasting)); Potassium 3.9 mmol/L (3.5-5.1); Sodium 139.0 mmol/L (136-145)
[2025-01-10] MEDS: SOD PHOSPHATE/SOD BIPHOSPHATE ENEMA 132 ML BTL PR STA (09:24)
--- NOTE | 2025-01-11 08:09 | Hospitalist Progress Note ---
Date of Service January 11, 2025 Assessment & Plan (1) Normocytic normochromic anemia: (2) Physical debility: (3) Paroxysmal atrial fibrillation: (4) Patient on methadone maintenance therapy: (5) History of opioid abuse: Plan In summary this is a 69-year-old male who presents with progressive weakness and fatigue from recent hospitalizations, unable to care for himself at home #Physical debility / Recent right hip fracture s/p operative fixation Recurrent emergency department presentations due to inability to care for themselves at home; pending referrals and insurance authorization -PT/OT consulted #Normocytic normochromic anemia At admission hemoglobin measure of 8.5 with normocytic MCV, MCHC, and RDW; baseline values are normal; trend 7.6, 8.4; likely consequence of iron deficiency given assessment thus far - Completed Venofer 200 mg IV daily for 2 doses - Continue FeSO4 325 mg p.o. on // - Continue Miralax 17 g p.o. daily to prevent iatrogenic constipation #Hospital acquired hyperactive delirium // [place]owning In the late afternoon on 01/07 the patient was acutely confused, unable to answer orientation questions appropriately, and aggressive with staff; suspect this was consequence of recent recurrent hospitalizations, adjustements to methadone and psychiatric medication doses, and shared room resulting in acute hyperactive delirium; the patient has been much improved after transfer to a private room; continue with minimizing patient disturbances, keeping lights on, window blind open, and door open during daylight hours and drawing curtains, closing door, and turning off monitors at night time to facilitate normal circadian rhythm - Much improved with private room and reduced disturbance, no need for pharmacologic intervention since late afternoon 01/07 #Established on methadone maintenance therapy // opioid use disorder in sustained remission on methadone therapy Seen at their methadone clinic on the day of presentation; continue during current hospitalization; discussed patient's care with Samantha, his showcase maker, to confirm dosing and adherence; there should not be additional titration of the patient's methadone during their acute hospitalization unless absolutely medically necessary; they have remained stable on their maintenance therapy for quite some time, and at this time weaning or adjustment of MAT Therapy is not advisable given their acute status - Continue established methadone therapy 60 mg p.o. daily The remainder the patient's chronic medical conditions are stable and do not require adjustment to their outpatient regimen at this time The patient is medically stable for discharge once placement is determined Admission and Anticipated Discharge Date Admission Date: January 07, 2025 Subjective Mr. Carlos is a 69-year-old male whose active medical conditions include essential hypertension, paroxysmal atrial fibrillation, Parkinson's disease, opioid use disorder in sustained remission with methadone assisted therapy among other chronic medical conditions who presented to the [facility] on 01/06 due to progressive fatigue and weakness. The patient was recently hospitalized at this facility for similar complaints in association with right leg pain after a recent right hip fracture repair performed at an outside hospital. No acute overnight events; begrudgingly understands the need for SNF placement, remains agreeable Review of Systems Review of Systems: Review of constitutional, cardiovascular, pulmonary, gastrointestinal, genitourinary, musculoskeletal, neurologic systems was unremarkable except for pertinent positive and negative findings discussed above Physical Exam Physical Exam: General: Adult male in no acute distress Vital Signs: Reviewed HEENT: Moist mucous membranes Pulmonary: Symmetric chest wall excursion without restriction; clear to au scultation bilaterally Cardiovascular: Regular rate and rhythm with occasional ectopic beats without murmurs, rubs, or gallops; S1 and S2 normal; right radial pulse 2+; no notable lower extremity edema Gastrointestinal: Soft, nontender Neurologic: Cranial nerves II through XII grossly intact; no discernible focal weakness no paresthesia; occasional low frequency, low amplitude tremor of the upper extremities Psychiatric: Alert, oriented to self, place, but not time Skin: Right femoral fracture surgical site appears well Results & Data Results & Data Vital Signs (Past 12 Hours) Vital Signs Temp Pulse Resp BP BP Pulse Ox O2 Del Method 01/11/25 07:28 36.6 C 68 18 121/78 93 Room Air 01/10/25 21:11 36.5 C 65 18 130/66 96 Room Air 01/10/25 20:35 Room Air PG Care Time/CCT Total # of Minutes Spent Total Time Spent with Patient: Total time spent is greater than 50% in coordination of care (as documented) at patient's floor/unit and/or counseling patient: Coding Level of Care Code 77772 SUB INP/OBS CARE 2/35MIN Diagnoses Normocytic normochromic anemia D64.9 Physical debility R53.81 Paroxysmal atrial fibrillation I48.0 Patient on methadone maintenance therapy F11.20 History of opioid abuse F11.11
[2025-01-11] MEDS: FERROUS SULFATE 325 MG TAB PO SCH (09:17)
[2025-01-11] MEDS: ACETAMINOPHEN 325 MG TAB PO PRN (20:13)
[2025-01-12 06:10] LABS: Hematocrit (blood only) 28.1 % (42.0-52.0); Hemoglobin 9.1 g/dL (14.0-18.0)
[2025-01-12 06:28] LABS: Albumin Level 3.2 gm/dl (3.4-5.0); Anion Gap 5.0 (3-11); Blood Urea Nitrogen 8.0 mg/dl (6-23); Calcium 8.6 mg/dl (8.6-10.3); Carbon Dioxide 32.0 mmol/L (21-32); Chloride 102.0 mmol/L (98-107); Creatinine Clr Calc Pharmacy 140.8 ml/min; Glucose 85.0 mg/dl (70-99(Fasting)); Potassium 4.0 mmol/L (3.5-5.1); Sodium 139.0 mmol/L (136-145)
--- NOTE | 2025-01-12 11:53 | Hospitalist Progress Note ---
Date of Service January 12, 2025 Assessment & Plan (1) Normocytic normochromic anemia: (2) Physical debility: (3) Paroxysmal atrial fibrillation: (4) Patient on methadone maintenance therapy: (5) History of opioid abuse: Plan 69-year-old male who presents with progressive weakness and fatigue from recent hospitalizations, unable to care for himself at home. He is s/p right hip replacement with approximation of 12/26/[address] Hemphill. #Physical debility / Recent right hip fracture s/p operative fixation Recurrent emergency department presentations due to inability to care for themselves at home; pending referrals and insurance authorization -PT/OT consulted with rec not to return home -confirm date of right hip replacement and secure records in anticipation of removal of right hip edin, sister Maribel states ##Constipation -has received IV Venofer and is on oral Fe supplementation -Dulcolax suppository AR now -increase Miralax 17gm daily dosing to BID X3d, then decrease to daily dosing #Normocytic normochromic anemia At admission hemoglobin measure of 8.5 with normocytic MCV, MCHC, and RDW; baseline values are normal; trends 7.6, 8.9, 9.4, 9.1 -Completed Venofer 200 mg IV daily for 2 doses -Continue FeSO4 325 mg p.o. on -trend H/H every other day until d/c #Hospital acquired hyperactive delirium // Sundowning In the late afternoon on 01/07 the patient was acutely confused, unable to answer orientation questions appropriately, and aggressive with staff; suspect this was consequence of recent recurrent hospitalizations, adjustements to methadone and psychiatric medication doses, and shared room resulting in acute hyperactive delirium; the patient has been much improved after transfer to a private room; continue with minimizing patient disturbances, keeping lights on, window blind open, and door open during daylight hours and drawing curtains, closing door, and turning off monitors at night time to facilitate normal circadian rhythm -patient has no re-occurrence of hyperactive delirium symptoms or agitation/combative behavior with nighttime hours -verbally expressing anxiety to nursing this am and received prn oral Ativan with therapeutic response #Established on methadone maintenance therapy // opioid use disorder in sustained remission on methadone therapy Seen at their methadone clinic on the day of presentation; continue during current hospitalization; discussed patient's care with Samantha, his behavioral health case manager, to confirm dosing and adherence; there should not be additional titration of the patient's methadone during their acute hospitalization unless absolutely medically necessary; they have remained stable on their maintenance therapy for quite some time, and at this time weaning or adjustment of MAT therapy is not advisable given their acute status -Continue established methadone therapy 60 mg p.o. daily DVT prophylaxis: On Eliquis Diet: Low fat, easy to chew Disposition: Medically stable for discharge pending acceptance at [facility] in [place] or [facility] in [place] Admission and Anticipated Discharge Date Admission Date: January 07, 2025 Subjective Patient reports having difficulty with moving bowels. Passing gas. Reports hasn't had BM in 4 days and consistency of stool is hard. No abdominal pain. Eating and drinking well. Inquiring about right hip surgery edin present. Had right hip surgery with Dr. Hemphill with his approximation of 12/26/24. Reports he went to rehab and left AMA on his day of arrival. States he feels slightly anxious this am. Medicated with oral Ativan per nursing. Review of Systems Gastrointestinal: +constipation Physical Exam Physical Exam: GENERAL APPEARANCE: A&O. Sitting comfortably in chair. NAD. SKIN: Normal color without rashes or lesions. Normal turgor. HEENT: Head AT/NC. Buccal mucosa is moist and pink. NECK: No jugular venous distention. No thyroid enlargement. There is no lymphadenopathy. HEART: RRR without m/g/r LUNGS: Normal inspiratory effort. CTA without w/r/r ABDOMEN: No guarding or rigidity. Normoactive BS in all four quadrants. Abdomen soft and NT. MSK: No bony gross/deformities throughout. ROM intact. EXTREMITIES: No edema, No peripheral cyanosis. Right anterior hip with edin present and well approximated, well healed surgical incision present. Neuro: CN 2-12 grossly intact. No focal neuro deficits PSYCHIATRIC: Normal affect. Eye contact is good. Speech is normal rate and content. Responses are appropriate. Results & Data Results & Data Vital Signs (Past 12 Hours) Vital Signs Temp Pulse Resp BP Pulse Ox O2 Del Method 01/12/25 09:01 80 105/64 01/12/25 08:21 36.9 C 70 14 123/75 95 Room Air Laboratory Results Labs reviewed: H/H, BMP, Phos PG Care Time/CCT Total # of Minutes Spent Total Time Spent with Patient: Total time spent is greater than 50% in coordination of care (as documented) at patient's floor/unit and/or counseling patient: Coding Level of Care Code 26294 SUB INP/OBS CARE 2/35MIN Diagnoses Normocytic normochromic anemia D64.9 Physical debility R53.81 Paroxysmal atrial fibrillation I48.0 Patient on methadone maintenance therapy F11.20 History of opioid abuse F11.11
[2025-01-12] MEDS ORDERED: Nursing to Pharmacy Communication SCH (14:00)
[2025-01-12] MEDS: POLYETHYLENE (MIRALAX) 17 GM PACK PO SCH (20:07)
--- NOTE | 2025-01-13 09:08 | Hospitalist Progress Note ---
Date of Service January 13, 2025 Assessment & Plan (1) Normocytic normochromic anemia: (2) Physical debility: (3) Paroxysmal atrial fibrillation: (4) Patient on methadone maintenance therapy: (5) History of opioid abuse: Plan 69-year-old male who presents with progressive weakness and fatigue from recent hospitalizations, unable to care for himself at home. He is s/p right hip replacement with approximation of 12/26/[address] Hemphill. #Physical debility / Recent right hip fracture s/p operative fixation Recurrent emergency department presentations due to inability to care for themselves at home; pending referrals and insurance authorization -PT/OT consulted with rec not to return home -still need to secure records from [facility] to confirm date of surgery in anticipation of staple removal, right anterior hip incision well-approximated an d well healed ##Constipation -has received IV Venofer and is on oral Fe supplementation -last BM 01/10/25, Dulcolax suppository ND without elimination -Miralax BID, education provided to patient regarding mechanism of Miralax and agreeable to dosing as he previously refused this am #Normocytic normochromic anemia At admission hemoglobin measure of 8.5 with normocytic MCV, MCHC, and RDW; baseline values are normal; trends 7.6, 8.9, 9.4, 9.1 -Completed Venofer 200 mg IV daily for 2 doses -Continue FeSO4 325 mg p.o. on / -trend H/H every other day until d/c #Hospital acquired hyperactive delirium // Sundowning In the late afternoon on 01/07 the patient was acutely confused, unable to answer orientation questions appropriately, and aggressive with staff; suspect this was consequence of recent recurrent hospitalizations, adjustements to methadone and psychiatric medication doses, and shared room resulting in acute hyperactive delirium; the patient has been much improved after transfer to a private room; continue with minimizing patient disturbances, keeping lights on, window blind open, and door open during daylight hours and drawing curtains, closing door, and turning off monitors at night time to facilitate normal circadian rhythm -patient has no re-occurrence of hyperactive delirium symptoms or agit ation/combative behavior with nighttime hours -verbally expressing anxiety to nursing this am and received prn oral Ativan with therapeutic response #Established on methadone maintenance therapy // opioid use disorder in sustained remission on methadone therapy Seen at their methadone clinic on the day of presentation; continue during current hospitalization; patient's care discussed with Samantha, his mattress spring encaser, to confirm dosing and adherence; there should not be additional titration of the patient's methadone during his acute hospitalization unless absolutely medically necessary; they have remained stable on their maintenance therapy for quite some time, and at this time weaning or adjustment of MAT therapy is not advisable given his acute status -Continue established methadone therapy 60 mg p.o. daily DVT prophylaxis: On Eliquis Diet: Low fat, easy to chew Disposition: Medically stable for discharge pending acceptance at [facility] in [place] or [facility] in [place] due to patient being on Methadone maintenance Admission and Anticipated Discharge Date Admission Date: January 07, 2025 Subjective Patient sitting up eating lunch. Reports he hasn't moved bowels in a few days. States he doesn't want to take Miralax because of the petroleum in it. No acute complaints. Review of Systems Review of Systems: All systems reviewed & are unremarkable except as noted in Subjective Physical Exam Physical Exam: GENERAL APPEARANCE: A&O. Sitting comfortably in chair. NAD. SKIN: Normal color without rashes or lesions. Normal turgor. HEENT: Head AT/NC. Buccal mucosa is moist and pink. NECK: No jugular venous distention. No thyroid enlargement. There is no lymphadenopathy. HEART: RRR without m/g/r LUNGS: Normal inspiratory effort. CTA without w/r/r ABDOMEN: No guarding or rigidity. Normoactive BS in all four quadrants. Abdomen soft and NT. MSK: No bony gross/deformities throughout. ROM intact. EXTREMITIES: No edema, No peripheral cyanosis. Right anterior hip with edin present and well approximated, well healed surgical incision present. Neuro: CN 2-12 grossly intact. No focal neuro deficits. PSYCHIATRIC: Normal affect. Eye contact is good. Speech is normal rate and content. Responses are appropriate. Results & Data Results & Data Vital Signs (Past 12 Hours) Vital Signs Temp Pulse Resp BP BP Pulse Ox O2 Del Method 01/13/25 09:05 71 102/67 01/13/25 07:25 36.6 C 59 L 16 95/59 L 94 Room Air 01/12/25 23:38 36.6 C 56 L 16 123/64 93 Room Air Laboratory Results No labs reviewed PG Care Time/CCT Total # of Minutes Spent Total Time Spent with Patient: Total time spent is greater than 50% in coordination of care (as documented) at patient's floor/unit and/or counseling patient: Coding Level of Care Code 62151 SUB INP/OBS CARE 2/35MIN Diagnoses Normocytic normochromic anemia D64.9 Physical debility R53.81 Paroxysmal atrial fibrillation I48.0 Patient on methadone maintenance therapy F11.20 History of opioid abuse F11.11
[2025-01-14 06:53] LABS: Hematocrit (blood only) 30.7 % (42.0-52.0); Hemoglobin 10.0 g/dL (14.0-18.0)
[2025-01-14 07:13] LABS: Anion Gap 6.0 (3-11); Blood Urea Nitrogen 9.0 mg/dl (6-23); Calcium 8.9 mg/dl (8.6-10.3); Carbon Dioxide 32.0 mmol/L (21-32); Chloride 101.0 mmol/L (98-107); Creatinine Clr Calc Pharmacy 105.6 ml/min; Glucose 81.0 mg/dl (70-99(Fasting)); Potassium 4.3 mmol/L (3.5-5.1); Sodium 139.0 mmol/L (136-145)
--- NOTE | 2025-01-14 13:57 | Hospitalist Progress Note ---
Date of Service January 14, 2025 Assessment & Plan (1) Normocytic normochromic anemia: (2) Physical debility: (3) Paroxysmal atrial fibrillation: (4) Patient on methadone maintenance therapy: (5) History of opioid abuse: Plan 69-year-old male who presents with progressive weakness and fatigue from recent hospitalizations, unable to care for himself at home. He is s/p right hip replacement with approximation of 12/26/[address] Hemphill. #Physical debility / Recent right hip fracture s/p operative fixation Recurrent emergency department presentations due to inability to care for themselves at home; pending referrals and insurance authorization -PT/OT consulted with rec not to return home -confirmation of right PINO on 12/[address] Hemphill at [facility], 18 edin removed per nursing on 01/14, right anterior hip incision with slight erythema, no drainage, dehiscence-->well healed ##Constipation -has received IV Venofer and is on oral Fe supplementation -last BM 01/10/25, Dulcolax suppository LA without elimination -Miralax BID, education provided to patient regarding mechanism of Miralax and agreeable to dosing as he previously refused this am #Normocytic normochromic anemia At admission hemoglobin measure of 8.5 with normocytic MCV, MCHC, and RDW; baseline values are normal; trends 7.6, 8.9, 9.4, 9.1 -Completed Venofer 200 mg IV daily for 2 doses -Continue FeSO4 325 mg p.o. on // -H/H 10.0/30.7 #Hospital acquired hyperactive delirium // Sundowning In the late afternoon on 01/07 the patient was acutely confused, unable to answer orientation questions appropriately, and aggressive with staff; suspect this was consequence of recent recurrent hospitalizations, adjustements to methadone and psychiatric medication doses, and shared room resulting in acute hyperactive delirium; the patient has been much improved after transfer to a private room; continue with minimizing patient disturbances, keeping lights on, window blind open, and door open during daylight hours and drawing curtains, closing door, and turning off monitors at night time to facilitate normal circadian rhythm -patient has no re-occurrence of hyperactive delirium symptoms or agitation/combative behavior with nighttime hours -verbally expressing anxiety to nursing this am and received prn oral Ativan with therapeutic response #Established on methadone maintenance therapy // opioid use disorder in sustained remission on methadone therapy Seen at their methadone clinic on the day of presentation; continue during current hospitalization; patient's care discussed with Samantha, his gearcase assembler, to confirm dosing and adherence; there should not be additional titration of the patient's methadone during his acute hospitalization unless absolutely medically necessary; they have remained stable on their maintenance therapy for quite some time, and at this time weaning or adjustment of MAT therapy is not advisable given his acute status -Continue established methadone therapy 60 mg p.o. daily DVT prophylaxis: On Eliquis Diet: Low fat, easy to chew Disposition: Medically stable for discharge with recommendation for STR, patient verbalizing he would like to be discharged with HH, unable to arrange with holiday, will re-evaluate on 01/15 Admission and Anticipated Discharge Date Admission Date: January 07, 2025 Supervising Physician Co-Signing Physician Notes Attending Attestation - Chart reviewed, care plan d/w MAX Engle. I agree w/ the yusuf components of her documentation. Jayesh Whipple MD Subjective Sitting up this am. Has no acute complaints. Has been agreeable to taking Miralax BID-last moved bowels 01/10. Passing gas. Appetite good. Aware plan of care for transfer to acute rehab. Patient believes he can be tra nsferred home with home health. He has not had formal rehabilitation from his right hip replacement surgery with Dr. Hemphill at [facility] on 12/18/24. Cove removed from right hip on 01/13/25 per nursing as confirmation of surgery was on 12/18/24. Review of Systems Review of Systems: All systems reviewed & are unremarkable except as noted in Subjective Physical Exam Physical Exam: GENERAL APPEARANCE: A&O. Sitting comfortably in chair. NAD. SKIN: Normal color without rashes or lesions. Normal turgor. HEENT: Head AT/NC. Buccal mucosa is moist and pink. NECK: No jugular venous distention. No thyroid enlargement. There is no lymphadenopathy. HEART: RRR without m/g/r LUNGS: Normal inspiratory effort. CTA without w/r/r ABDOMEN: No guarding or rigidity. Normoactive BS in all four quadrants. Abdomen soft and NT. MSK: No bony gross/deformities throughout. ROM intact. EXTREMITIES: No edema, No peripheral cyanosis. Right anterior hip with well- approximated, well-healed incision Neuro: CN 2-12 grossly intact. No focal neuro deficits. PSYCHIATRIC: Normal affect. Eye contact is good. Speech is normal rate and content. Responses are appropriate. Results & Data Results & Data Vital Signs (Past 12 Hours) Vital Signs Temp Pulse Resp BP Pulse Ox O2 Del Method 01/14/25 07:07 36.6 C 61 18 128/69 94 Room Air Laboratory Results Labs reviewed: H/H, BMP PG Care Time/CCT Total # of Minutes Spent Total Time Spent with Patient: Total time spent is greater than 50% in coordination of care (as documented) at patient's floor/unit and/or counseling patient: Coding Level of Care Code 69596 SUB INP/OBS CARE 2/35MIN Diagnoses Normocytic normochromic anemia D64.9 Physical debility R53.81 Paroxysmal atrial fibrillation I48.0 Patient on methadone maintenance therapy F11.20 History of opioid abuse F11.11
[2025-01-14 22:53] LABS: Appearance Urine Clear (Clear); Bacteria Urine Automated None Seen (None Seen); Cast Urine Automated 0-2 /lpf (0-2); Epithelial Cell Urine Auto 0-2 /hpf (0-2); Glucose Urine UA Negative (Negative); RBC Urine Automated 0-2 /hpf (0-2); WBC Urine Automated 0-5 /hpf (0-5)
--- NOTE | 2025-01-14 22:53 | Communication Note ---
Date of Service: January 14, 2025 Notified by RN of patient becoming confused and agitated, and getting slightly combative leading to use of 2-point restraints. Shortly after, RN messaged again to notify me patient possibly having a seizure that lasted a few seconds and was not associated to other symptoms such as loss of sphincter control and no tongue biting , after which he was staring up to the ceiling and not responding when called, but did respond to nociceptive stimuli. Arrived at bedside to assess further. Patient staring up to ceiling and not responding when called, did pull away and vocalized with sternal rub. VS at the time showing BP of 143/72, HR of 74, O2 of 96% at room air, and no fever. Patient not able to follow commands to conduct a good neurologic assessment. Around 5-10 minutes after my initial assessment, patient became more aware and began to yell at RN and say that "these students are trying to kill me". Suspect initial confusion and aggression is related to delirium, and pupillary dilation with slow response may be related to recent use of Ativan. However, given report of possible seizure after "full body shakes" noted by nurse and appearing obtunded afterwards, did order a head to CT as well as CBC, CMP, Magnesium, Lactate, and a VBG. Head CT negative and labs only remarkable for lactate of 2.5. Started LR at maintenance rate, after which patient's agitation decreased and he was more calm. Repeat lactate after fluid initiation improved to 1.2. Continue to monitor. Resident Activity Tracking Resident Involvement: Resident Care Provided Care Provided: Adult [facility]
[2025-01-14 23:09] LABS: Base Excess VBG 9.0 mEq/L; HCO3 VBG 36 mmol/L; Oxygen Saturation VBG < 60.0 %; PCO2 VBG 58 mmHg (38-50); PO2 VBG 21 mmHg; pH VBG 7.40 (7.36-7.41)
[2025-01-14 23:09] LABS: Hematocrit (blood only) 32.5 % (42.0-52.0); Hemoglobin 10.5 g/dL (14.0-18.0); Immature Granulocytes # (auto) 0.01 K/uL (0.01-0.20); Immature Granulocytes % (auto) 0.2 %; Mean Corpuscular Hemoglobin 29.2 pg (25.0-34.0); Mean Corpuscular Volume 90.5 fL (80.0-100.0); Platelet Count 268 K/uL (130-400); RDW Standard Deviation 55.0 fL (36.4-46.3); Red Blood Count 3.59 M/uL (4.70-6.10); White Blood Count 5.38 K/ul (4.8-10.8)
[2025-01-14 23:36] LABS: Alanine Aminotransferase < 3 U/L (7-52); Albumin Globulin Ratio 1.0 (0.9-2); Albumin Level 3.6 gm/dl (3.4-5.0); Alkaline Phosphatase 107 U/L (34-104); Anion Gap 8 (3-11); Bilirubin,Total 0.5 mg/dl (0.2-1.0); Blood Urea Nitrogen 15 mg/dl (6-23); Calcium 9.3 mg/dl (8.6-10.3); Carbon Dioxide 30 mmol/L (21-32); Chloride 101 mmol/L (98-107); Creatinine Clr Calc Pharmacy 65.3 ml/min; Globulin 3.5 gm/dl (2.5-4.0); Glucose 115 mg/dl (70-99(Fasting)); Magnesium 1.9 mg/dl (1.7-2.4); Potassium 4.5 mmol/L (3.5-5.1); Sodium 139 mmol/L (136-145); Total Protein 7.1 gm/dl (6.0-8.3)
[2025-01-14] MEDS: LACTATED RINGER'S 1,000 ML IV SCH (23:42)
--- NOTE | 2025-01-15 03:32 | CT Scan Report ---
Exam(s): CT HEAD Without Contrast EXAM: CT Head Without Intravenous Contrast CLINICAL HISTORY: Reason for exam: AMS, ?seizure. TECHNIQUE: Axial computed tomography images of the head/brain without intravenous contrast. CTDI is 38 mGy and DLP is 702 mGy-cm. Automated exposure control was utilized for the study. A dose lowering technique was utilized adhering to the principles of ALARA. COMPARISON: Prior head CT from January 06, 2025. FINDINGS: This study is limited secondary to motion artifact. Brain: Unremarkable. No hemorrhage. Mild nonspecific white matter changes. No edema. Ventricles: Mild ventriculomegaly. Bones/joints: Unremarkable. No acute fracture. Soft tissues: Unremarkable. Sinuses: Chronic left maxillary sinusitis with mucoperiosteal thickening. No acute sinusitis. Mastoid air cells: Unremarkable as visualized. No mastoid effusion. IMPRESSION: No evidence of acute intracranial pathology. Electronically signed by: Lisa Edwards MD 01/15/25 03:31 AM
--- NOTE | 2025-01-15 08:38 | Hospitalist Progress Note ---
Date of Service January 15, 2025 Assessment & Plan (1) Normocytic normochromic anemia: (2) Physical debility: (3) Paroxysmal atrial fibrillation: (4) Patient on methadone maintenance therapy: (5) History of opioid abuse: (6) Toxic encephalopathy: Plan 69-year-old male who presents with progressive weakness and fatigue from recent hospitalizations, unable to care for himself at home. He is s/p right hip replacement with approximation of 12/26/[address] Hemphill. #Physical debility / Recent right hip fracture s/p operative fixation Recurrent emergency department presentations due to inability to care for themselves at home; pending referrals and insurance authorization -PT/OT consulted with rec not to return home -confirmation of right PINO on 12/[address]ph[address] at [facility], 18 edin removed per nursing on 01/14, right anterior hip incision with slight erythema, no drainage, dehiscence-->well healed #Normocytic normochromic anemia At admission hemoglobin measure of 8.5 with normocytic MCV, MCHC, and RDW; baseline values are normal; trends 7.6, 8.9, 9.4, 9.1 -Completed Venofer 200 mg IV daily for 2 doses -Continue FeSO4 325 mg p.o. on / -H/H baseline #Hospital acquired hyperactive delirium // Sundowning In the late afternoon on 01/07 the patient was acutely confused, unable to answer orientation questions appropriately, and aggressive with staff; suspect this was consequence of recent recurrent hospitalizations, adjustements to methadone and psychiatric medication doses, and shared room resulting in acute hyperactive delirium; the patient has been much improved after transfer to a private room; continue with minimizing patient disturbances, keeping lights on, window blind open, and door open during daylight hours and drawing curtains, closing door, and turning off monitors at night time to facilitate normal circadian rhythm -with agitation last evening requiring soft limb restraints -CT head with no acute findings, labs with elevated lactate and corrected with IV hydration -suspect hypoactive delirium and recent Ativan use-->Ativan discontinued, correspondence with Dr. Gilliam regarding antipsychotic with less dopamine blockade in setting of patient on Sinemet with Parkinsons with suggestion of quetiapine -low dose Seroquel at for agitation #Established on methadone maintenance therapy // opioid use disorder in sustained remission on methadone therapy Seen at their methadone clinic on the day of presentation; continue during current hospitalization; patient's care discussed with Samantha, his case resolution specialist, to confirm dosing and adherence; there should not be additional titration of the patient's methadone during his acute hospitalization unless absolutely medically necessary; they have remained stable on their maintenance therapy for quite some time, and at this time weaning or adjustment of MAT therapy is not advisable given his acute status -Continue established methadone therapy 60 mg p.o. daily DVT prophylaxis: On Eliquis Diet: Low fat, easy to chew Disposition: Medically stable for discharge with recommendation for STR, awaiting bed placement for rehab-->challenges with acceptance d/t Methadone prescription Admission and Anticipated Discharge Date Admission Date: January 07, 2025 Supervising Physician Co-Signing Physician Notes Attending Attestation - Chart reviewed, care plan d/w MAX Engle. I agree w/ the yusuf components of her documentation with the following addition -- toxic encephalopathy - 2nd to ativan dc ativan would make low dose seroquel available to him at for severe agitation previous EKG with normal QTc Jayesh Whipple MD Subjective Patient with agitation/confusion/combativeness last evening around 2200. Had soft limb restraints placed. Was c/o dysuria to nursing staff with request for UA. Reportedly had fixed gaze with pupil dilation/sluggish pupil response. Had head CT, labs with noted elevated lactate, UA with no concerns for infection. Received IV hydration. Patient regrouped and became calm/cooperative post CT imaging of head. Per nursing patient slower to respond this am with sluggish pupillary response. He is following commands with no focal neuro deficits. He is without agitation this am. Insightful to episode that occurred last evening. Review of Systems Review of Systems: All systems reviewed & are unremarkable except as noted in Subjective Physical Exam 2 Physical Exam: GENERAL APPEARANCE: A&O. Sitting comfortably in chair. NAD. SKIN: Normal color without rashes or lesions. Normal turgor. HEENT: Head AT/NC. Buccal mucosa is moist and pink. NECK: No jugular venous distention. No thyroid enlargement. There is no lymphadenopathy. HEART: RRR without m/g/r LUNGS: Normal inspiratory effort. CTA without w/r/r ABDOMEN: No guarding or rigidity. Normoactive BS in all four quadrants. Abdomen soft and NT. MSK: No bony gross/deformities throughout. ROM intact. EXTREMITIES: No edema, No peripheral cyanosis. Right anterior hip with well- approximated, well-healed incision Neuro: CN 2-12 grossly intact. No focal neuro deficits. PSYCHIATRIC: Normal affect. Eye contact is good. Speech is normal rate and content. Responses are appropriate. Results & Data Results & Data Vital Signs (Past 12 Hours) Vital Signs Temp Pulse Resp BP BP Pulse Ox O2 Del Method 01/15/25 07:00 36.2 C L 67 16 121/69 95 Room Air 01/14/25 22:42 36.8 C 74 20 143/72 H 96 Room Air 01/14/25 22:33 77 18 137/67 98 Room Air Laboratory Results Labs reviewed: CBC, lactate, BMP, VBGs PG Care Time/CCT Total # of Minutes Spent Total Time Spent with Patient: Total time spent is greater than 50% in coordination of care (as documented) at patient's floor/unit and/or counseling patient: Coding Level of Care Code 54515 SUB INP/OBS CARE 2/35MIN Diagnoses Normocytic normochromic anemia D64.9 Physical debility R53.81 Paroxysmal atrial fibrillation I48.0 Patient on methadone maintenance therapy F11.20 History of opioid abuse F11.11 Toxic encephalopathy G92.9
[2025-01-15] MEDS ORDERED: EUCERIN CR 120 GM JAR EXT PRN (09:10)
[2025-01-15] MEDS: MELATONIN 3 MG TAB PO PRN (20:09)
[2025-01-15] MEDS: DOCUSATE SODIUM/SENNA 50/8.6MG TAB PO SCH (23:10)
--- NOTE | 2025-01-16 14:36 | Hospitalist Progress Note ---
Date of Service January 16, 2025 Assessment & Plan (1) Normocytic normochromic anemia: (2) Physical debility: (3) Paroxysmal atrial fibrillation: (4) Patient on methadone maintenance therapy: (5) History of opioid abuse: Plan 69-year-old male who presents with progressive weakness and fatigue from recent hospitalizations, unable to care for himself at home. He is s/p right hip replacement with approximation of 12/26/[address] Hemphill. #Physical debility / Recent right hip fracture s/p operative fixation Recurrent emergency department presentations due to inability to care for themselves at home; pending referrals and insurance authorization -PT/OT consulted with rec not to return home -confirmation of right PINO on 12/[address] Hemphill at [facility], 18 edin removed per nursing on 01/14, right anterior hip incision with slight erythema, no drainage, dehiscence-->well healed #Normocytic normochromic anemia At admission hemoglobin measure of 8.5 with normocytic MCV, MCHC, and RDW; baseline values are normal; trends 7.6, 8.9, 9.4, 9.1 -Completed Venofer 200 mg IV daily for 2 doses -Continue FeSO4 325 mg p.o. on // -H/H baseline #Hospital acquired hyperactive delirium // Sundowning In the late afternoon on 01/07 the patient was acutely confused, unable to answer orientation questions appropriately, and aggressive with staff; suspect this was consequence of recent recurrent hospitalizations, adjustements to methadone and psychiatric medication doses, and shared room resulting in acute hyperactive delirium; the patient has been much improved after transfer to a private room; continue with minimizing patient disturbances, keeping lights on, window blind open, and door open during daylight hours and drawing curtains, closing door, and turning off monitors at night time to facilitate normal circadian rhythm -with agitation evening of 01/14 requiring soft limb restraints -CT head with no acute findings, labs with elevated lactate and corrected with IV hydration -suspect hypoactive delirium and recent Ativan use-->Ativan discontinued, correspondence with Dr. Gilliam regarding antipsychotic with less dopamine blockade in setting of patient on Sinemet with Parkinsons with suggestion of quetiapine -low dose Seroquel at for agitation #Established on methadone maintenance therapy // opioid use disorder in sustained remission on methadone therapy Seen at their methadone clinic on the day of presentation; continue during current hospitalization; patient's care discussed with Samantha, his community case manager, to confirm dosing and adherence; there should not be additional titration of the patient's methadone during his acute hospitalization unless absolutely medically necessary; they have remained stable on their maintenance therapy for quite some time, and at this time weaning or adjustment of MAT therapy is not advisable given his acute status -Continue established methadone therapy 60 mg p.o. daily DVT prophylaxis: On Eliquis Diet: Low fat, easy to chew Disposition: Medically stable for discharge with recommendation for STR, awaiting bed placement for rehab-->challenges with acceptance d/t Methadone pre scription Admission and Anticipated Discharge Date Admission Date: January 07, 2025 Subjective Patient calm and cooperative this am. He is eating and drinking well. He has no complaints today. Took Seroquel last night and tolerated. Review of Systems Review of Systems: All systems reviewed & are unremarkable except as noted in Subjective Physical Exam Physical Exam: GENERAL APPEARANCE: A&O. Sitting comfortably in chair. NAD. SKIN: Normal color without rashes or lesions. Normal turgor. HEENT: Head AT/NC. Buccal mucosa is moist and pink. NECK: No jugular venous distention. No thyroid enlargement. There is no lymphadenopathy. HEART: RRR without m/g/r LUNGS: Normal inspiratory effort. CTA without w/r/r ABDOMEN: No guarding or rigidity. Normoactive BS in all four quadrants. Abdomen soft and NT. MSK: No bony gross/deformities throughout. ROM intact. EXTREMITIES: No edema, No peripheral cyanosis. Right anterior hip with well- approximated, well-healed incision. Neuro: CN 2-12 grossly intact. No focal neuro deficits. PSYCHIATRIC: Normal affect. Eye contact is good. Speech is normal rate and content. Responses are appropriate. Results & Data Results & Data Vital Signs (Past 12 Hours) Vital Signs Temp Pulse Resp BP BP Pulse Ox O2 Del Method 01/16/25 14:31 36.7 C 60 16 105/65 97 Room Air 01/16/25 08:33 59 L 96/60 L 01/16/25 06:55 36.4 C L 53 L 16 112/65 97 Room Air Laboratory Results No labs reviewed PG Care Time/CCT Total # of Minutes Spent Total Time Spent with Patient: Total time spent is greater than 50% in coordination of care (as documented) at patient's floor/unit and/or counseling patient: Coding Level of Care Code 72929 SUB INP/OBS CARE MIN Diagnoses Normocytic normochromic anemia D64.9 Physical debility R53.81 Paroxysmal atrial fibrillation I48.0 Patient on methadone maintenance therapy F11.20 History of opioid abuse F11.11
[2025-01-17 08:59] LABS: Hematocrit (blood only) 33.8 % (42.0-52.0); Hemoglobin 10.9 g/dL (14.0-18.0); Mean Corpuscular Hemoglobin 29.5 pg (25.0-34.0); Mean Corpuscular Volume 91.4 fL (80.0-100.0); Platelet Count 225 K/uL (130-400); RDW Standard Deviation 56.7 fL (36.4-46.3); Red Blood Count 3.70 M/uL (4.70-6.10); White Blood Count 3.49 K/ul (4.8-10.8)
[2025-01-17] MEDS: SOD PHOSPHATE/SOD BIPHOSPHATE ENEMA 132 ML BTL PR PRN (09:15)
[2025-01-17 09:16] LABS: Anion Gap 6.0 (3-11); Blood Urea Nitrogen 10.0 mg/dl (6-23); Calcium 8.9 mg/dl (8.6-10.3); Carbon Dioxide 32.0 mmol/L (21-32); Chloride 100.0 mmol/L (98-107); Creatinine Clr Calc Pharmacy 96.0 ml/min; Glucose 107.0 mg/dl (70-99(Fasting)); Potassium 4.1 mmol/L (3.5-5.1); Sodium 138.0 mmol/L (136-145)
--- NOTE | 2025-01-17 13:44 | Hospitalist Progress Note ---
Date of Service January 17, 2025 Assessment & Plan (1) Normocytic normochromic anemia: (2) Physical debility: (3) Paroxysmal atrial fibrillation: (4) Patient on methadone maintenance therapy: (5) History of opioid abuse: (6) Toxic encephalopathy: Plan 69-year-old male who presents with progressive weakness and fatigue from recent hospitalizations, unable to care for himself at home. He is s/p right hip replacement with approximation of 12/26/[address] Hemphill. ##Reported blood in stool -hemodynamically stable -NORA without hemorrhoids, fissure or signs of mercedes bleeding -H/H WNL -collect FOBT stool -CT angio of abd/pelvis in emergency department on 01/06/25 with no evidence for active GI bleed -case discussed with Dr. Grey with recommendation for outpatient elective colonoscopy on d/c if stable #Physical debility / Recent right hip fracture s/p operative fixation Recurrent emergency department presentations due to inability to care for themselves at home; pending referrals and insurance authorization -PT/OT consulted with rec not to return home -confirmation of right IPNO on 12/[address] Hemphill at [facility], 18 edin removed per nursing on 01/14, right anterior hip incision with slight erythema, no drainage, dehiscence-->well healed #Normocytic normochromic anemia At admission hemoglobin measure of 8.5 with normocytic MCV, MCHC, and RDW; baseline values are normal; trends 7.6, 8.9, 9.4, 9.1 -Completed Venofer 200 mg IV daily for 2 doses -Continue FeSO4 325 mg p.o. on / -H/H baseline #Hospital acquired hyperactive delirium // Sundowning In the late afternoon on 01/07 the patient was acutely confused, unable to answer orientation questions appropriately, and aggressive with staff; suspect this was consequence of recent recurrent hospitalizations, adjustments to methadone and psychiatric medication doses, and shared room resulting in acute hyperactive delirium; the patient has been much improved after transfer to a private room; continue with minimizing patient disturbances, keeping lights on, window blind open, and door open during daylight hours and drawing curtains, closing door, and turning off monitors at night time to facilitate normal circadian rhythm -with agitation last evening requiring soft limb restraints -CT head with no acute findings, labs with elevated lactate and corrected with IV hydration -suspect hypoactive delirium and recent Ativan use-->Ativan discontinued, correspondence with Dr. Gilliam regarding antipsychotic with less dopamine blockade in setting of patient on Sinemet with Parkinsons with suggestion of quetiapine -low dose Seroquel at hs for agitation #Established on methadone maintenance therapy // opioid use disorder in sust ained remission on methadone therapy Seen at their methadone clinic on the day of presentation; continue during current hospitalization; patient's care discussed with Samantha, his case man ager, to confirm dosing and adherence; there should not be additional titration of the patient's methadone during his acute hospitalization unless absolutely medically necessary; they have remained stable on their maintenance therapy for quite some time, and at this time weaning or adjustment of MAT therapy is not advisable given his acute status -Continue established methadone therapy 60 mg p.o. daily DVT prophylaxis: On Eliquis Diet: Low fat, easy to chew Disposition: Medically stable for discharge with recommendation for STR, awaiting bed placement for rehab-->challenges with acceptance d/t Methadone prescription Admission and Anticipated Discharge Date Admission Date: January 07, 2025 Subjective Awake, alert and oriented this am. Per nursing, patient strained to have large BM this am and there was noted small amount of bright, red blood in stool when visualized. Reports he has had blood in his stool in the past and was unable to have a colonoscopy as his prep was not adequate. He denies dizziness, lightheadedness, hematemesis. Denies abdominal pain. Nursing denies melena appearance of stool. No clots, stool not coated in blood. Eating and drinking well. Slept well with Seroquel last evening. Still inquiring about taking Ativan. Review of Systems Review of Systems: All systems reviewed & are unremarkable except as noted in Subjective Physical Exam Physical Exam: GENERAL APPEARANCE: A&O. NAD. SKIN: Normal color without rashes or lesions. Normal turgor. HEENT: Head AT/NC. Buccal mucosa is moist and pink. NECK: No jugular venous distention. No thyroid enlargement. There is no lymphadenopathy. HEART: RRR without m/g/r. LUNGS: Normal inspiratory effort. CTA without w/r/r ABDOMEN: No guarding or rigidity. Normoactive BS in all four quadrants. Abdomen soft and NT. Rectal: NORA performed with patient consent in left lateral decubitis position. No external hemorrhoids, fissures or skin tags. Anal tone normal. No masses, tenderness or nodularity in rectal vault. No blood or stool obtained for Hemoccult. MSK: No bony gross/deformities throughout. ROM intact. EXTREMITIES: No edema, No peripheral cyanosis. Right anterior hip with well- approximated, well-healed incision. Neuro: CN 2-12 grossly intact. No focal neuro deficits. PSYCHIATRIC: Normal affect. Eye contact is good. Speech is normal rate and content. Responses are appropriate. Results & Data Results & Data Vital Signs (Past 12 Hours) Vital Signs Temp Pulse Resp BP Pulse Ox O2 Del Method 01/17/25 08:57 69 111/67 01/17/25 07:09 36.5 C 53 L 16 111/67 98 Room Air 01/17/25 02:00 36.4 C L 54 L 18 98/60 L 93 Room Air Laboratory Results Lab reviewed: CBC, BMP PG Care Time/CCT Total # of Minutes Spent Total Time Spent with Patient: Total time spent is greater than 50% in coordination of care (as documented) at patient's floor/unit and/or counseling patient: Coding Level of Care Code 55507 SUB INP/OBS CARE 2/35MIN Diagnoses Normocytic normochromic anemia D64.9 Physical debility R53.81 Paroxysmal atrial fibrillation I48.0 Patient on methadone maintenance therapy F11.20 History of opioid abuse F11.11 Toxic encephalopathy G92.9
--- NOTE | 2025-01-18 10:26 | Hospitalist Progress Note ---
Date of Service January 18, 2025 Assessment & Plan (1) Normocytic normochromic anemia: (2) Physical debility: (3) Paroxysmal atrial fibrillation: (4) Patient on methadone maintenance therapy: (5) History of opioid abuse: (6) Toxic encephalopathy: Plan 69-year-old male who presents with progressive weakness and fatigue from recent hospitalizations, unable to care for himself at home. He is s/p right hip replacement with approximation of 12/26/[address] Hemphill. ##Reported blood in stool -hemodynamically stable -NORA without hemorrhoids, fissure or signs of mercedes bleeding -H/H WNL -collect FOBT stool -CT angio of abd/pelvis in emergency department on 01/06/25 with no evidence for active GI bleed -case discussed with Dr. Grey with recommendation for outpatient elective colonoscopy on d/c if stable #Physical debility / Recent right hip fracture s/p operative fixation Recurrent emergency department presentations due to inability to care for themselves at home; pending referrals and insurance authorization -PT/OT consulted with rec not to return home -confirmation of right PINO on 12/[address] Hemphill at [facility], 18 edin removed per nursing on 01/14, right anterior hip incision with slight erythema, no drainage, dehiscence-->well healed #Normocytic normochromic anemia At admission hemoglobin measure of 8.5 with normocytic MCV, MCHC, and RDW; baseline values are normal; trends 7.6, 8.9, 9.4, 9.1 -Completed Venofer 200 mg IV daily for 2 doses -Continue FeSO4 325 mg p.o. on / -H/H baseline #Hospital acquired hyperactive delirium // Sundowning In the late afternoon on 01/07 the patient was acutely confused, unable to answer orientation questions appropriately, and aggressive with staff; suspect this was consequence of recent recurrent hospitalizations, adjustments to methadone and psychiatric medication doses, and shared room resulting in acute hyperactive delirium; the patient has been much improved after transfer to a private room; continue with minimizing patient disturbances, keeping lights on, window blind open, and door open during daylight hours and drawing curtains, closing door, and turning off monitors at night time to facilitate normal circadian rhythm -with agitation last evening requiring soft limb restraints -CT head with no acute findings, labs with elevated lactate and corrected with IV hydration -suspect hypoactive delirium and recent Ativan use-->Ativan discontinued, correspondence with Dr. Gilliam regarding antipsychotic with less dopamine bloc sergey in setting of patient on Sinemet with Parkinsons with suggestion of quetiapine -low dose Seroquel at hs for agitation. #Established on methadone maintenance therapy // opioid use disorder in sustained remission on methadone therapy Seen at their methadone clinic on the day of presentation; continue during current hospitalization; patient's care discussed with Samantha, his field nurse case manager, to confirm dosing and adherence; there should not be additional titration of the patient's methadone during his acute hospitalization unless absolutely medically necessary; they have remained stable on their maintenance therapy for quite some time, and at this time weaning or adjustment of MAT therapy is not advisable given his acute status -Continue established methadone therapy 60 mg p.o. daily DVT prophylaxis: On Eliquis Diet: Low fat, easy to chew Disposition: Medically stable for discharge with recommendation for STR, awaiting bed placement for rehab-->challenges with acceptance d/t Methadone prescription Admission and Anticipated Discharge Date Admission Date: January 07, 2025 Subjective Sitting up in a chair comfortable in good spirits. Overall feels a little "cloudy" otherwise no symptoms or complaints. Has been having anxiety for past few weeks requesting hydroxyzine be resumed Denies any further blood in the stool Review of Systems Review of Systems: Negative except as in HPI Gastrointestinal: +constipation Physical Exam Physical Exam: GENERAL APPEARANCE: A&O. NAD. SKIN: Normal color without rashes or lesions. Normal turgor. HEENT: Head AT/NC. Buccal mucosa is moist and pink. NECK: No jugular venous distention. No thyroid enlargement. There is no lymphadenopathy. HEART: RRR without m/g/r. LUNGS: Normal inspiratory effort. CTA without w/r/r ABDOMEN: No guarding or rigidity. Normoactive BS in all four quadrants. Abdomen soft and NT. Rectal: NORA performed with patient consent in left lateral decubitis position. No external hemorrhoids, fissures or skin tags. Anal tone normal. No masses, tenderness or nodularity in rectal vault. No blood or stool obtained for Hemoccult. MSK: No bony gross/deformities throughout. ROM intact. EXTREMITIES: No edema, No peripheral cyanosis. Right anterior hip with well- approximated, well-healed incision. Neuro: CN 2-12 grossly intact. No focal neuro deficits. PSYCHIATRIC: Normal affect. Eye contact is good. Speech is normal rate and content. Responses are appropriate. Results & Data Results & Data Vital Signs (Past 12 Hours) Vital Signs Temp Pulse Resp BP BP Pulse Ox O2 Del Method 01/18/25 08:00 59 L 14 97 Room Air 01/18/25 07:11 36.5 C 53 L 16 123/72 94 Room Air 01/18/25 00:10 51 L 105/64 01/17/25 22:58 36.4 C L 54 L 18 91/57 L 100 Room Air PG Care Time/CCT Total # of Minutes Spent Total Time Spent with Patient: Total time spent is greater than 50% in coordination of care (as documented) at patient's floor/unit and/or counseling patient: Coding Level of Care Code 48023 SUB INP/OBS CARE 2/35MIN Diagnoses Normocytic normochromic anemia D64.9 Physical debility R53.81 Paroxysmal atrial fibrillation I48.0 Patient on methadone maintenance therapy F11.20 History of opioid abuse F11.11 Toxic encephalopathy G92.9
[2025-01-18 12:13] LABS: Hematocrit (blood only) 34.0 % (42.0-52.0); Hemoglobin 10.9 g/dL (14.0-18.0); Immature Granulocytes # (auto) 0.01 K/uL (0.01-0.20); Immature Granulocytes % (auto) 0.2 %; Mean Corpuscular Hemoglobin 29.3 pg (25.0-34.0); Mean Corpuscular Volume 91.4 fL (80.0-100.0); Platelet Count 216 K/uL (130-400); RDW Standard Deviation 56.8 fL (36.4-46.3); Red Blood Count 3.72 M/uL (4.70-6.10); White Blood Count 4.54 K/ul (4.8-10.8)
[2025-01-18 12:29] LABS: Anion Gap 4.0 (3-11); Blood Urea Nitrogen 12.0 mg/dl (6-23); Calcium 9.0 mg/dl (8.6-10.3); Carbon Dioxide 34.0 mmol/L (21-32); Chloride 100.0 mmol/L (98-107); Creatinine Clr Calc Pharmacy 94.5 ml/min; Glucose 95.0 mg/dl (70-99(Fasting)); Potassium 4.3 mmol/L (3.5-5.1); Sodium 138.0 mmol/L (136-145)
[2025-01-19] MEDS: ONDANSETRON INJ 2 MG/ML 2 ML VIAL IV PRN (06:58)
--- NOTE | 2025-01-19 10:25 | Hospitalist Progress Note ---
Date of Service January 19, 2025 Assessment & Plan (1) Normocytic normochromic anemia: (2) Physical debility: (3) Paroxysmal atrial fibrillation: (4) Patient on methadone maintenance therapy: (5) History of opioid abuse: (6) Toxic encephalopathy: Plan 69-year-old male who presents with progressive weakness and fatigue from recent hospitalizations, unable to care for himself at home. He is s/p right hip replacement with approximation of 12/26/[address] Hemphill. ##Reported blood in stool -hemodynamically stable -NORA without hemorrhoids, fissure or signs of mercedes bleeding -H/H WNL -collect FOBT stool -CT angio of abd/pelvis in emergency department on 01/06/25 with no evidence for active GI bleed -case discussed with Dr. Grey with recommendation for outpatient elective colonoscopy on d/c if stable #Physical debility / Recent right hip fracture s/p operative fixation Recurrent emergency department presentations due to inability to care for themselves at home; pending referrals and insurance authorization -PT/OT consulted with rec not to return home -confirmation of right PINO on 12/[address] Hemphill at [facility], 18 edin removed per nursing on 01/14, right anterior hip incision with slight erythema, no drainage, dehiscence-->well healed #Normocytic normochromic anemia At admission hemoglobin measure of 8.5 with normocytic MCV, MCHC, and RDW; baseline values are normal; trends 7.6, 8.9, 9.4, 9.1 -Completed Venofer 200 mg IV daily for 2 doses -Continue FeSO4 325 mg p.o. on / -H/H baseline #Hospital acquired hyperactive delirium // Sundowning In the late afternoon on 01/07 the patient was acutely confused, unable to answer orientation questions appropriately, and aggressive with staff; suspect this was consequence of recent recurrent hospitalizations, adjustments to methadone and psychiatric medication doses, and shared room resulting in acute hyperactive delirium; the patient has been much improved after transfer to a private room; continue with minimizing patient disturbances, keeping lights on, window blind open, and door open during daylight hours and drawing curtains, closing door, and turning off monitors at night time to facilitate normal circadian rhythm -with agitation last evening requiring soft limb restraints -CT head with no acute findings, labs with elevated lactate and corrected with IV hydration -suspect hypoactive delirium and recent Ativan use-->Ativan discontinued, correspondence with Dr. Gilliam regarding antipsychotic with less dopamine bloc sergey in setting of patient on Sinemet with Parkinsons with suggestion of quetiapine -low dose Seroquel at hs for agitation. #Established on methadone maintenance therapy // opioid use disorder in sustained remission on methadone therapy Seen at their methadone clinic on the day of presentation; continue during current hospitalization; patient's care discussed with Samantha, his manager of case management, to confirm dosing and adherence; there should not be additional titration of the patient's methadone during his acute hospitalization unless absolutely medically necessary; they have remained stable on their maintenance therapy for quite some time, and at this time weaning or adjustment of MAT therapy is not advisable given his acute status -Continue established methadone therapy 60 mg p.o. daily DVT prophylaxis: On Eliquis Diet: Low fat, easy to chew Disposition: Medically stable for discharge with recommendation for STR, awaiting bed placement for rehab-->challenges with acceptance d/t Methadone prescription Admission and Anticipated Discharge Date Admission Date: January 07, 2025 Subjective Doing well less anxiety today. No other symptoms sitting up in a chair in good spirits. Discussed with rug measurer of Systems Review of Systems: Negative except as in HPI Physical Exam Physical Exam: GENERAL APPEARANCE: A&O. NAD. SKIN: Normal color without rashes or lesions. Normal turgor. HEENT: Head AT/NC. Buccal mucosa is moist and pink. NECK: No jugular venous distention. No thyroid enlargement. There is no lymphadenopathy. HEART: RRR without m/g/r. LUNGS: Normal inspiratory effort. CTA without w/r/r ABDOMEN: No guarding or rigidity. Normoactive BS in all four quadrants. Abdomen soft and NT. Rectal: NORA performed with patient consent in left lateral decubitis position. No external hemorrhoids, fissures or skin tags. Anal tone normal. No masses, tenderness or nodularity in rectal vault. No blood or stool obtained for Hemoccult. MSK: No bony gross/deformities throughout. ROM intact. EXTREMITIES: No edema, No peripheral cyanosis. Right anterior hip with well- approximated, well-healed incision. Neuro: CN 2-12 grossly intact. No focal neuro deficits. PSYCHIATRIC: Normal affect. Eye contact is good. Speech is normal rate and content. Responses are appropriate. Results & Data Results & Data Vital Signs (Past 12 Hours) Vital Signs Temp Pulse Resp BP Pulse Ox O2 Del Method 01/19/25 08:00 Room Air 01/19/25 07:16 36.6 C 64 16 113/73 94 Room Air 01/18/25 23:43 36.7 C 92 H 16 130/61 97 Room Air PG Care Time/CCT Total # of Minutes Spent Total Time Spent with Patient: Total time spent is greater than 50% in coordination of care (as documented) at patient's floor/unit and/or counseling patient: Coding Level of Care Code 63857 SUB INP/OBS CARE 2/35MIN Diagnoses Normocytic normochromic anemia D64.9 Physical debility R53.81 Paroxysmal atrial fibrillation I48.0 Patient on methadone maintenance therapy F11.20 History of opioid abuse F11.11 Toxic encephalopathy G92.9
[2025-01-19 16:56] LABS: Methadone, Ur Metabolite >20000 ng/mL (<100); Methadone, Ur Verification >20000 ng/mL (<100)
--- NOTE | 2025-01-20 11:54 | Hospitalist Progress Note ---
Date of Service January 20, 2025 Assessment & Plan (1) Normocytic normochromic anemia: (2) Physical debility: (3) Paroxysmal atrial fibrillation: (4) Patient on methadone maintenance therapy: (5) History of opioid abuse: (6) Toxic encephalopathy: Plan 69-year-old male who presents with progressive weakness and fatigue from recent hospitalizations, unable to care for himself at home. He is s/p right hip replacement with approximation of 12/26/[address] Hemphill. ##Reported blood in stool -hemodynamically stable -NROA without hemorrhoids, fissure or signs of mercedes bleeding -H/H WNL -collect FOBT stool -CT angio of abd/pelvis in emergency department on 01/06/25 with no evidence for active GI bleed -case discussed with Dr. Grey with recommendation for outpatient elective colonoscopy on d/c if stable #Physical debility / Recent right hip fracture s/p operative fixation Recurrent emergency department presentations due to inability to care for themselves at home; pending referrals and insurance authorization -PT/OT consulted with rec not to return home -confirmation of right PINO on 12/[address] Hemphill at [facility], 18 edin removed per nursing on 01/14, right anterior hip incision with slight erythema, no drainage, dehiscence-->well healed #Normocytic normochromic anemia At admission hemoglobin measure of 8.5 with normocytic MCV, MCHC, and RDW; baseline values are normal; trends 7.6, 8.9, 9.4, 9.1 -Completed Venofer 200 mg IV daily for 2 doses -Continue FeSO4 325 mg p.o. on / -H/H baseline #Hospital acquired hyperactive delirium // Sundowning In the late afternoon on 01/07 the patient was acutely confused, unable to answer orientation questions appropriately, and aggressive with staff; suspect this was consequence of recent recurrent hospitalizations, adjustments to methadone and psychiatric medication doses, and shared room resulting in acute hyperactive delirium; the patient has been much improved after transfer to a private room; continue with minimizing patient disturbances, keeping lights on, window blind open, and door open during daylight hours and drawing curtains, closing door, and turning off monitors at night time to facilitate normal circadian rhythm -with agitation last evening requiring soft limb restraints -CT head with no acute findings, labs with elevated lactate and corrected with IV hydration -suspect hypoactive delirium and recent Ativan use-->Ativan discontinued, correspondence with Dr. Gilliam regarding antipsychotic with less dopamine bloc sergey in setting of patient on Sinemet with Parkinsons with suggestion of quetiapine -low dose Seroquel at hs for agitation. #Established on methadone maintenance therapy // opioid use disorder in sustained remission on methadone therapy Seen at their methadone clinic on the day of presentation; continue during current hospitalization; patient's care discussed with Samantha, his case consultant, to confirm dosing and adherence; there should not be additional titration of the patient's methadone during his acute hospitalization unless absolutely medically necessary; they have remained stable on their maintenance therapy for quite some time, and at this time weaning or adjustment of MAT therapy is not advisable given his acute status -Continue established methadone therapy 60 mg p.o. daily DVT prophylaxis: On Eliquis Diet: Low fat, easy to chew Disposition: Medically stable for discharge with recommendation for STR, awaiting bed placement for rehab-->challenges with acceptance d/t Methadone prescription Admission and Anticipated Discharge Date Admission Date: January 07, 2025 Subjective unchanged no symptoms Review of Systems Review of Systems: Negative except as in HPI Gastrointestinal: +constipation Physical Exam Physical Exam: GENERAL APPEARANCE: A&O. NAD. SKIN: Normal color without rashes or lesions. Normal turgor. HEENT: Head AT/NC. Buccal mucosa is moist and pink. NECK: No jugular venous distention. No thyroid enlargement. There is no lymphadenopathy. HEART: RRR without m/g/r. LUNGS: Normal inspiratory effort. CTA without w/r/r ABDOMEN: No guarding or rigidity. Normoactive BS in all four quadrants. Abdomen soft and NT. Rectal: NORA performed with patient consent in left lateral decubitis position. No external hemorrhoids, fissures or skin tags. Anal tone normal. No masses, tenderness or nodularity in rectal vault. No blood or stool obtained for Hemoccult. MSK: No bony gross/deformities throughout. ROM intact. EXTREMITIES: No edema, No peripheral cyanosis. Right anterior hip with well- approximated, well-healed incision. Neuro: CN 2-12 grossly intact. No focal neuro deficits. PSYCHIATRIC: Normal affect. Eye contact is good. Speech is normal rate and content. Responses are appropriate. Results & Data Results & Data Vital Signs (Past 12 Hours) Vital Signs Temp Pulse Resp BP Pulse Ox O2 Del Method 01/20/25 07:18 36.8 C 52 L 16 114/73 94 Room Air PG Care Time/CCT Total # of Minutes Spent Total Time Spent with Patient: Total time spent is greater than 50% in coordination of care (as documented) at patient's floor/unit and/or counseling patient: Coding Level of Care Code 17538 SUB INP/OBS CARE 2/35MIN Diagnoses Normocytic normochromic anemia D64.9 Physical debility R53.81 Paroxysmal atrial fibrillation I48.0 Patient on methadone maintenance therapy F11.20 History of opioid abuse F11.11 Toxic encephalopathy G92.9
--- NOTE | 2025-01-21 11:05 | Hospitalist Progress Note ---
Date of Service January 21, 2025 Assessment & Plan (1) Normocytic normochromic anemia: (2) Physical debility: (3) Paroxysmal atrial fibrillation: (4) Patient on methadone maintenance therapy: (5) History of opioid abuse: (6) Toxic encephalopathy: Plan 69-year-old male who presents with progressive weakness and fatigue from recent hospitalizations, unable to care for himself at home. He is s/p right hip replacement with approximation of 12/26/[address] Hemphill. ##Reported blood in stool -hemodynamically stable -NORA without hemorrhoids, fissure or signs of mercedes bleeding -H/H WNL -collect FOBT stool -CT angio of abd/pelvis in emergency department on 01/06/25 with no evidence for active GI bleed -case discussed with Dr. Grey with recommendation for outpatient elective colonoscopy on d/c if stable #Physical debility / Recent right hip fracture s/p operative fixation Recurrent emergency department presentations due to inability to care for themselves at home; pending referrals and insurance authorization -PT/OT consulted with rec not to return home -confirmation of right PINO on 12/[address] Hemphill at [facility], 18 edin removed per nursing on 01/14, right anterior hip incision with slight erythema, no drainage, dehiscence-->well healed #Normocytic normochromic anemia At admission hemoglobin measure of 8.5 with normocytic MCV, MCHC, and RDW; baseline values are normal; trends 7.6, 8.9, 9.4, 9.1 -Completed Venofer 200 mg IV daily for 2 doses -Continue FeSO4 325 mg p.o. on / -H/H baseline #Hospital acquired hyperactive delirium // [place]owning In the late afternoon on 01/07 the patient was acutely confused, unable to answer orientation questions appropriately, and aggressive with staff; suspect this was consequence of recent recurrent hospitalizations, adjustments to methadone and psychiatric medication doses, and shared room resulting in acute hyperactive delirium; the patient has been much improved after transfer to a private room; continue with minimizing patient disturbances, keeping lights on, window blind open, and door open during daylight hours and drawing curtains, closing door, and turning off monitors at night time to facilitate normal circadian rhythm -with agitation last evening requiring soft limb restraints -CT head with no acute findings, labs with elevated lactate and corrected with IV hydration -suspect hypoactive delirium and recent Ativan use-->Ativan discontinued, correspondence with Dr. Gilliam regarding antipsychotic with less dopamine bloc sergey in setting of patient on Sinemet with Parkinsons with suggestion of quetiapine -low dose Seroquel at hs for agitation. #Established on methadone maintenance therapy // opioid use disorder in sustained remission on methadone therapy Seen at their methadone clinic on the day of presentation; continue during current hospitalization; patient's care discussed with Samantha, his registered nurse hh case manager, to confirm dosing and adherence; there should not be additional titration of the patient's methadone during his acute hospitalization unless absolutely medically necessary; they have remained stable on their maintenance therapy for quite some time, and at this time weaning or adjustment of MAT therapy is not advisable given his acute status -Continue established methadone therapy 60 mg p.o. daily DVT prophylaxis: On Eliquis Diet: Low fat, easy to chew Disposition: Medically stable for discharge with recommendation for STR, awaiting bed placement for rehab-->challenges with acceptance d/t Methadone prescription Admission and Anticipated Discharge Date Admission Date: January 07, 2025 Subjective Sitting up in chair seems to be doing well comfortable no pain or other symptoms. Discussed with RN methadone needs to be reinstated as fell off Review of Systems Review of Systems: Negative except as in HPI Gastrointestinal: +constipation Physical Exam Physical Exam: GENERAL APPEARANCE: A&O. NAD. SKIN: Normal color without rashes or lesions. Normal turgor. HEENT: Head AT/NC. Buccal mucosa is moist and pink. NECK: No jugular venous distention. No thyroid enlargement. There is no lymphadenopathy. HEART: RRR without m/g/r. LUNGS: Normal inspiratory effort. CTA without w/r/r ABDOMEN: No guarding or rigidity. Normoactive BS in all four quadrants. Abdomen soft and NT. Rectal: NORA performed with patient consent in left lateral decubitis position. No external hemorrhoids, fissures or skin tags. Anal tone normal. No masses, tenderness or nodularity in rectal vault. No blood or stool obtained for Hemoccult. MSK: No bony gross/deformities throughout. ROM intact. EXTREMITIES: No edema, No peripheral cyanosis. Right anterior hip with well- approximated, well-healed incision. Neuro: CN 2-12 grossly intact. No focal neuro deficits. PSYCHIATRIC: Normal affect. Eye contact is good. Speech is normal rate and content. Responses are appropriate. Results & Data Results & Data Vital Signs (Past 12 Hours) Vital Signs Temp Pulse BP Pulse Ox O2 Del Method 01/21/25 08:50 Room Air 01/21/25 07:44 36.7 C 53 L 113/69 93 Room Air PG Care Time/CCT Total # of Minutes Spent Total Time Spent with Patient: Total time spent is greater than 50% in coordination of care (as documented) at patient's floor/unit and/or counseling patient: Coding Level of Care Code 20733 SUB INP/OBS CARE 2/35MIN Diagnoses Normocytic normochromic anemia D64.9 Physical debility R53.81 Paroxysmal atrial fibrillation I48.0 Patient on methadone maintenance therapy F11.20 History of opioid abuse F11.11 Toxic encephalopathy G92.9
[2025-01-22] MEDS ORDERED: METHADONE ORAL SOLN 2 MG/ML PO SCH (09:00)
--- NOTE | 2025-01-22 11:35 | Hospitalist Progress Note ---
Date of Service January 22, 2025 Assessment & Plan (1) Normocytic normochromic anemia: (2) Physical debility: (3) Paroxysmal atrial fibrillation: (4) Patient on methadone maintenance therapy: (5) History of opioid abuse: (6) Toxic encephalopathy: Plan 69-year-old male who presents with progressive weakness and fatigue from recent hospitalizations, unable to care for himself at home. He is s/p right hip replacement with approximation of 12/26/[address] Hemphill. ##Reported blood in stool -hemodynamically stable -NORA without hemorrhoids, fissure or signs of mercedes bleeding -H/H WNL -collect FOBT stool -CT angio of abd/pelvis in emergency department on 01/06/25 with no evidence for active GI bleed -case discussed with Dr. Grey with recommendation for outpatient elective colonoscopy on d/c if stable #Physical debility / Recent right hip fracture s/p operative fixation Recurrent emergency department presentations due to inability to care for themselves at home; pending referrals and insurance authorization -PT/OT consulted with rec not to return home -confirmation of right PINO on 12/[address] Hemphill at [facility], 18 edin removed per nursing on 01/14, right anterior hip incision with slight erythema, no drainage, dehiscence-->well healed #Normocytic normochromic anemia At admission hemoglobin measure of 8.5 with normocytic MCV, MCHC, and RDW; baseline values are normal; trends 7.6, 8.9, 9.4, 9.1 -Completed Venofer 200 mg IV daily for 2 doses -Continue FeSO4 325 mg p.o. on / -H/H baseline #Hospital acquired hyperactive delirium // [place]owning In the late afternoon on 01/07 the patient was acutely confused, unable to answer orientation questions appropriately, and aggressive with staff; suspect this was consequence of recent recurrent hospitalizations, adjustments to methadone and psychiatric medication doses, and shared room resulting in acute hyperactive delirium; the patient has been much improved after transfer to a private room; continue with minimizing patient disturbances, keeping lights on, window blind open, and door open during daylight hours and drawing curtains, closing door, and turning off monitors at night time to facilitate normal circadian rhythm -with agitation last evening requiring soft limb restraints -CT head with no acute findings, labs with elevated lactate and corrected with IV hydration -suspect hypoactive delirium and recent Ativan use-->Ativan discontinued, correspondence with Dr. Gilliam regarding antipsychotic with less dopamine bloc sergey in setting of patient on Sinemet with Parkinsons with suggestion of quetiapine -low dose Seroquel at hs for agitation. #Established on methadone maintenance therapy // opioid use disorder in sustained remission on methadone therapy Seen at their methadone clinic on the day of presentation; continue during current hospitalization; patient's care discussed with Samantha, his caseworker intake, to confirm dosing and adherence; there should not be additional titration of the patient's methadone during his acute hospitalization unless absolutely medically necessary; they have remained stable on their maintenance therapy for quite some time, and at this time weaning or adjustment of MAT therapy is not advisable given his acute status -Continue established methadone therapy 60 mg p.o. daily DVT prophylaxis: On Eliquis Diet: Low fat, easy to chew Disposition: Medically stable for discharge with recommendation for STR, awaiting bed placement for rehab-->challenges with acceptance d/t Methadone prescription Admission and Anticipated Discharge Date Admission Date: January 07, 2025 Subjective Unchanged no symptoms sitting up in chair. RN at bedside Review of Systems Review of Systems: Negative except as in HPI Gastrointestinal: +constipation Physical Exam Physical Exam: GENERAL APPEARANCE: A&O. NAD. SKIN: Normal color without rashes or lesions. Normal turgor. HEENT: Head AT/NC. Buccal mucosa is moist and pink. NECK: No jugular venous distention. No thyroid enlargement. There is no lymphadenopathy. HEART: RRR without m/g/r. LUNGS: Normal inspiratory effort. CTA without w/r/r ABDOMEN: No guarding or rigidity. Normoactive BS in all four quadrants. Abdomen soft and NT. Rectal: NORA performed with patient consent in left lateral decubitis position. No external hemorrhoids, fissures or skin tags. Anal tone normal. No masses, tenderness or nodularity in rectal vault. No blood or stool obtained for Hemoccult. MSK: No bony gross/deformities throughout. ROM intact. EXTREMITIES: No edema, No peripheral cyanosis. Right anterior hip with well- approximated, well-healed incision. Neuro: CN 2-12 grossly intact. No focal neuro deficits. PSYCHIATRIC: Normal affect. Eye contact is good. Speech is normal rate and content. Responses are appropriate. Results & Data Results & Data Vital Signs (Past 12 Hours) Vital Signs Temp Pulse Resp BP Pulse Ox O2 Del Method 01/22/25 07:12 36.2 C L 59 L 16 116/66 96 Room Air 01/22/25 01:10 36.4 C L 55 L 16 127/73 97 Room Air PG Care Time/CCT Total # of Minutes Spent Total Time Spent with Patient: Total time spent is greater than 50% in coordination of care (as documented) at patient's floor/unit and/or counseling patient: Coding Level of Care Code 18056 SUB INP/OBS CARE 2/35MIN Diagnoses Normocytic normochromic anemia D64.9 Physical debility R53.81 Paroxysmal atrial fibrillation I48.0 Patient on methadone maintenance therapy F11.20 History of opioid abuse F11.11 Toxic encephalopathy G92.9
--- NOTE | 2025-01-23 11:10 | Hospitalist Progress Note ---
Date of Service January 23, 2025 Assessment & Plan (1) Normocytic normochromic anemia: (2) Physical debility: (3) Paroxysmal atrial fibrillation: (4) Patient on methadone maintenance therapy: (5) History of opioid abuse: (6) Toxic encephalopathy: Plan 69-year-old male who presents with progressive weakness and fatigue from recent hospitalizations, unable to care for himself at home. He is s/p right hip replacement with approximation of 12/26/[address] Hemphill. ##Reported blood in stool -hemodynamically stable -NORA without hemorrhoids, fissure or signs of mercedes bleeding -H/H WNL -collect FOBT stool -CT angio of abd/pelvis in emergency department on 01/06/25 with no evidence for active GI bleed -case discussed with Dr. Grey with recommendation for outpatient elective colonoscopy on d/c if stable #Physical debility / Recent right hip fracture s/p operative fixation Recurrent emergency department presentations due to inability to care for themselves at home; pending referrals and insurance authorization -PT/OT consulted with rec not to return home -confirmation of right PINO on 12/[address] Hemphill at [facility], 18 edin removed per nursing on 01/14, right anterior hip incision with slight erythema, no drainage, dehiscence-->well healed #Normocytic normochromic anemia At admission hemoglobin measure of 8.5 with normocytic MCV, MCHC, and RDW; baseline values are normal; trends 7.6, 8.9, 9.4, 9.1 -Completed Venofer 200 mg IV daily for 2 doses -Continue FeSO4 325 mg p.o. on / -H/H baseline #Hospital acquired hyperactive delirium // [place]ing In the late afternoon on 01/07 the patient was acutely confused, unable to answer orientation questions appropriately, and aggressive with staff; suspect this was consequence of recent recurrent hospitalizations, adjustments to methadone and psychiatric medication doses, and shared room resulting in acute hyperactive delirium; the patient has been much improved after transfer to a private room; continue with minimizing patient disturbances, keeping lights on, window blind open, and door open during daylight hours and drawing curtains, closing door, and turning off monitors at night time to facilitate normal circadian rhythm -with agitation last evening requiring soft limb restraints -CT head with no acute findings, labs with elevated lactate and corrected with IV hydration -suspect hypoactive delirium and recent Ativan use-->Ativan discontinued, correspondence with Dr. Gilliam regarding antipsychotic with less dopamine bloc sergey in setting of patient on Sinemet with Parkinsons with suggestion of quetiapine -low dose Seroquel at hs for agitation. #Established on methadone maintenance therapy // opioid use disorder in sustained remission on methadone therapy Seen at their methadone clinic on the day of presentation; continue during current hospitalization; patient's care discussed with Samantha, his case checker, to confirm dosing and adherence; there should not be additional titration of the patient's methadone during his acute hospitalization unless absolutely medically necessary; they have remained stable on their maintenance therapy for quite some time, and at this time weaning or adjustment of MAT therapy is not advisable given his acute status -Continue established methadone therapy 60 mg p.o. daily DVT prophylaxis: On Eliquis Diet: Low fat, easy to chew Disposition: Medically stable for discharge with recommendation for STR, awaiting bed placement for rehab-->challenges with acceptance d/t Methadone prescription Admission and Anticipated Discharge Date Admission Date: January 07, 2025 Subjective Unchanged no symptoms sitting up in Care on the phone Review of Systems Review of Systems: Negative except as in HPI Gastrointestinal: +constipation Physical Exam Physical Exam: GENERAL APPEARANCE: A&O. NAD. SKIN: Normal color without rashes or lesions. Normal turgor. HEENT: Head AT/NC. Buccal mucosa is moist and pink. NECK: No jugular venous distention. No thyroid enlargement. There is no lymphadenopathy. HEART: RRR without m/g/r. LUNGS: Normal inspiratory effort. CTA without w/r/r ABDOMEN: No guarding or rigidity. Normoactive BS in all four quadrants. Abdomen soft and NT. Rectal: NORA performed with patient consent in left lateral decubitis position. No external hemorrhoids, fissures or skin tags. Anal tone normal. No masses, tenderness or nodularity in rectal vault. No blood or stool obtained for Hemoccult. MSK: No bony gross/deformities throughout. ROM intact. EXTREMITIES: No edema, No peripheral cyanosis. Right anterior hip with well- approximated, well-healed incision. Neuro: CN 2-12 grossly intact. No focal neuro deficits. PSYCHIATRIC: Normal affect. Eye contact is good. Speech is normal rate and content. Responses are appropriate. Results & Data Results & Data Vital Signs (Past 12 Hours) Vital Signs Temp Pulse Resp BP Pulse Ox O2 Del Method 01/23/25 07:15 36.5 C 63 18 120/70 96 Room Air PG Care Time/CCT Total # of Minutes Spent Total Time Spent with Patient: Total time spent is greater than 50% in coordination of care (as documented) at patient's floor/unit and/or counseling patient: Coding Level of Care Code 00242 SUB INP/OBS CARE 2/35MIN Diagnoses Normocytic normochromic anemia D64.9 Physical debility R53.81 Paroxysmal atrial fibrillation I48.0 Patient on methadone maintenance therapy F11.20 History of opioid abuse F11.11 Toxic encephalopathy G92.9
--- NOTE | 2025-01-24 11:10 | Hospitalist Progress Note ---
Date of Service January 24, 2025 Assessment & Plan (1) Normocytic normochromic anemia: (2) Physical debility: (3) Paroxysmal atrial fibrillation: (4) Patient on methadone maintenance therapy: (5) History of opioid abuse: (6) Toxic encephalopathy: Plan 69-year-old male who presents with progressive weakness and fatigue from recent hospitalizations, unable to care for himself at home. He is s/p right hip replacement with approximation of 12/26/[address] Hemphill. ##Reported blood in stool -hemodynamically stable -NORA without hemorrhoids, fissure or signs of mercedes bleeding -H/H WNL -collect FOBT stool -CT angio of abd/pelvis in emergency department on 01/06/25 with no evidence for active GI bleed -case discussed with Dr. Grey with recommendation for outpatient elective colonoscopy on d/c if stable #Physical debility / Recent right hip fracture s/p operative fixation Recurrent emergency department presentations due to inability to care for themselves at home; pending referrals and insurance authorization -PT/OT consulted with rec not to return home -confirmation of right PINO on 12/[address] Hemphill at [facility], 18 edin removed per nursing on 01/14, right anterior hip incision with slight erythema, no drainage, dehiscence-->well healed #Normocytic normochromic anemia At admission hemoglobin measure of 8.5 with normocytic MCV, MCHC, and RDW; baseline values are normal; trends 7.6, 8.9, 9.4, 9.1 -Completed Venofer 200 mg IV daily for 2 doses -Continue FeSO4 325 mg p.o. on / -H/H baseline #Hospital acquired hyperactive delirium // Sundowning In the late afternoon on 01/07 the patient was acutely confused, unable to answer orientation questions appropriately, and aggressive with staff; suspect this was consequence of recent recurrent hospitalizations, adjustments to methadone and psychiatric medication doses, and shared room resulting in acute hyperactive delirium; the patient has been much improved after transfer to a private room; continue with minimizing patient disturbances, keeping lights on, window blind open, and door open during daylight hours and drawing curtains, closing door, and turning off monitors at night time to facilitate normal circadian rhythm -with agitation last evening requiring soft limb restraints -CT head with no acute findings, labs with elevated lactate and corrected with IV hydration -suspect hypoactive delirium and recent Ativan use-->Ativan discontinued, correspondence with Dr. Gilliam regarding antipsychotic with less dopamine bloc sergey in setting of patient on Sinemet with Parkinsons with suggestion of quetiapine -low dose Seroquel at hs for agitation. #Established on methadone maintenance therapy // opioid use disorder in sustained remission on methadone therapy Seen at their methadone clinic on the day of presentation; continue during current hospitalization; patient's care discussed with Samantha, his rn case manager, to confirm dosing and adherence; there should not be additional titration of the patient's methadone during his acute hospitalization unless absolutely medically necessary; they have remained stable on their maintenance therapy for quite some time, and at this time weaning or adjustment of MAT therapy is not advisable given his acute status -Continue established methadone therapy 60 mg p.o. daily DVT prophylaxis: On Eliquis Diet: Low fat, easy to chew Disposition: Medically stable for discharge with recommendation for STR, awaiting bed placement for rehab-->challenges with acceptance d/t Methadone prescription Admission and Anticipated Discharge Date Admission Date: January 07, 2025 Subjective Sitting up in chair eating breakfast denies any pain or other symptoms. Asking every day when he will be discharged we Discussed the challenges for case management to find a facility considering he is on methadone Review of Systems Review of Systems: Negative except as in HPI Gastrointestinal: +constipation Physical Exam Physical Exam: GENERAL APPEARANCE: A&O. NAD. SKIN: Normal color without rashes or lesions. Normal turgor. HEENT: Head AT/NC. Buccal mucosa is moist and pink. NECK: No jugular venous distention. No thyroid enlargement. There is no lymphadenopathy. HEART: RRR without m/g/r. LUNGS: Normal inspiratory effort. CTA without w/r/r ABDOMEN: No guarding or rigidity. Normoactive BS in all four quadrants. Abdomen soft and NT. Rectal: NORA performed with patient consent in left lateral decubitis position. No external hemorrhoids, fissures or skin tags. Anal tone normal. No masses, tenderness or nodularity in rectal vault. No blood or stool obtained for Hemoccult. MSK: No bony gross/deformities throughout. ROM intact. EXTREMITIES: No edema, No peripheral cyanosis. Right anterior hip with well- approximated, well-healed incision. Neuro: CN 2-12 grossly intact. No focal neuro deficits. PSYCHIATRIC: Normal affect. Eye contact is good. Speech is normal rate and content. Responses are appropriate. Results & Data Results & Data Vital Signs (Past 12 Hours) Vital Signs Temp Pulse Resp BP Pulse Ox O2 Del Method 01/24/25 07:28 36.7 C 55 L 16 112/65 96 Room Air 01/23/25 22:35 36.9 C 51 L 16 111/61 100 Room Air PG Care Time/CCT Total # of Minutes Spent Total Time Spent with Patient: Total time spent is greater than 50% in coordination of care (as documented) at patient's floor/unit and/or counseling patient: Coding Level of Care Code 24715 SUB INP/OBS CARE 2/35MIN Diagnoses Normocytic normochromic anemia D64.9 Physical debility R53.81 Paroxysmal atrial fibrillation I48.0 Patient on methadone maintenance therapy F11.20 History of opioid abuse F11.11 Toxic encephalopathy G92.9
--- NOTE | 2025-01-25 09:05 | Hospitalist Progress Note ---
Date of Service January 25, 2025 Assessment & Plan (1) Normocytic normochromic anemia: (2) Physical debility: (3) Paroxysmal atrial fibrillation: (4) Patient on methadone maintenance therapy: (5) History of opioid abuse: (6) Toxic encephalopathy: Plan 69-year-old male who presents with progressive weakness and fatigue from recent hospitalizations, unable to care for himself at home. He is s/p right hip replacement with approximation of 12/26/[address] Hemphill. #Physical debility / Recent right hip fracture s/p operative fixation Recurrent emergency department presentations due to inability to care for themselves at home; pending referrals and insurance authorization -PT/OT consulted with rec not to return home -confirmation of right PINO on 12/[address] Hemphill at [facility], 18 edin removed per nursing on 01/14, right anterior hip incision with slight erythema, no drainage, dehiscence-->well healed #Normocytic normochromic anemia At admission hemoglobin measure of 8.5 with normocytic MCV, MCHC, and RDW; b aseline values are normal; trends 7.6, 8.9, 9.4, 9.1 -Completed Venofer 200 mg IV daily for 2 doses -Continue FeSO4 325 mg p.o. on // -H/H baseline #Hospital acquired hyperactive delirium // Sundowning In the late afternoon on 01/07 the patient was acutely confused, unable to answer orientation questions appropriately, and aggressive with staff; suspect this was consequence of recent recurrent hospitalizations, adjustments to methadone and psychiatric medication doses, and shared room resulting in acute hyperactive delirium; the patient has been much improved after transfer to a private room; continue with minimizing patient disturbances, keeping lights on, window blind open, and door open during daylight hours and drawing curtains, closing door, and turning off monitors at night time to facilitate normal circadian rhythm -suspect hypoactive delirium and with Ativan use-->Ativan discontinued, correspondence with Dr. Gilliam regarding antipsychotic with less dopamine blockade in setting of patient on Sinemet with Parkinsons with suggestion of quetiapine -low dose Seroquel at hs prn for agitation. -hydroxyzine prn for anxiety #Established on methadone maintenance therapy // opioid use disorder in sustained remission on methadone therapy Seen at their methadone clinic on the day of presentation; continue during current hospitalization; patient's care discussed with Samantha, his family caseworker, to confirm dosing and adherence; there should not be additional titration of the patient's methadone during his acute hospitalization unless absolutely medically necessary; he has remained stable on his maintenance therapy for quite some time, and at this time weaning or adjustment of MAT ther apy is not advisable given his acute status -Continue established methadone therapy 60 mg p.o. daily DVT prophylaxis: On Eliquis Diet: Low fat, easy to chew Disposition: Medically stable for discharge with recommendation for STR, awaiting bed placement for rehab-->challenges with acceptance d/t Methadone prescription Admission and Anticipated Discharge Date Admission Date: January 07, 2025 Subjective Sitting up in chair this am. Has no acute complaints. Discussed with patient challenges of being discharged on Methadone maintenance to a prison facility/rehab. States he has attempted weaning off Methadone before and did not tolerate the process. Wanting to stay on Methadone at this time. Moving bowels/no issues with appetite. Review of Systems Review of Systems: All systems reviewed & are unremarkable except as noted in Subjective Physical Exam Physical Exam: GENERAL APPEARANCE: A&O. NAD. SKIN: Normal color without rashes or lesions. Normal turgor. HEENT: Head AT/NC. Buccal mucosa is moist and pink. NECK: No jugular venous distention. No thyroid enlargement. There is no lymphadenopathy. HEART: RRR without m/g/r. LUNGS: Normal inspiratory effort. CTA without w/r/r ABDOMEN: No guarding or rigidity. Normoactive BS in all four quadrants. Abdomen soft and NT. MSK: No bony gross/deformities throughout. ROM intact. EXTREMITIES: No edema, No peripheral cyanosis. Right anterior hip with well- approximated, well-healed incision. Neuro: CN 2-12 grossly intact. No focal neuro deficits. PSYCHIATRIC: Normal affect. Eye contact is good. Speech is normal rate and content. Responses are appropriate. Results & Data Results & Data Vital Signs (Past 12 Hours) Vital Signs Temp Pulse Pulse Resp BP BP Pulse Ox 01/25/25 08:01 36.6 C 61 17 116/62 99 01/24/25 21:26 113/76 01/24/25 21:20 01/24/25 21:18 36.5 C 52 L 16 98 O2 Del Method 01/25/25 08:01 Room Air 01/24/25 21:26 01/24/25 21:20 Room Air 01/24/25 21:18 Room Air Laboratory Results No labs reviewed PG Care Time/CCT Total # of Minutes Spent Total Time Spent with Patient: Total time spent is greater than 50% in coordination of care (as documented) at patient's floor/unit and/or counseling patient: Coding Level of Care Code 63126 SUB INP/OBS CARE 2/35MIN Diagnoses Normocytic normochromic anemia D64.9 Physical debility R53.81 Paroxysmal atrial fibrillation I48.0 Patient on methadone maintenance therapy F11.20 History of opioid abuse F11.11 Toxic encephalopathy G92.9
--- NOTE | 2025-01-26 12:38 | Hospitalist Progress Note ---
Date of Service January 26, 2025 Assessment & Plan (1) Normocytic normochromic anemia: (2) Physical debility: (3) Paroxysmal atrial fibrillation: (4) Patient on methadone maintenance therapy: (5) History of opioid abuse: (6) Toxic encephalopathy: Plan 69-year-old male who presents with progressive weakness and fatigue from recent hospitalizations, unable to care for himself at home. He is s/p right hip replacement with approximation of 12/26/[address] Hemphill. #Physical debility / Recent right hip fracture s/p operative fixation Recurrent emergency department presentations due to inability to care for themselves at home; pending referrals and insurance authorization -PT/OT consulted with rec not to return home -confirmation of right PINO on 12/[address] Hemphill at [facility], 18 edin removed per nursing on 01/14, right anterior hip incision with slight erythema, no drainage, dehiscence-->well healed #Normocytic normochromic anemia At admission hemoglobin measure of 8.5 with normocytic MCV, MCHC, and RDW; b aseline values are normal; trends 7.6, 8.9, 9.4, 9.1 -Completed Venofer 200 mg IV daily for 2 doses -Continue FeSO4 325 mg p.o. on // -H/H baseline -CBC in am #Hospital acquired hyperactive delirium // Sundowning//toxic encephalopathy In the late afternoon on 01/07 the patient was acutely confused, unable to answer orientation questions appropriately, and aggressive with staff; suspect this was consequence of recent recurrent hospitalizations, adjustments to methadone and psychiatric medication doses, and shared room resulting in acute hyperactive delirium; the patient has been much improved after transfer to a private room; continue with minimizing patient disturbances, keeping lights on, window blind open, and door open during daylight hours and drawing curtains, closing door, and turning off monitors at night time to facilitate normal circadian rhythm -suspect hypoactive delirium and with Ativan use-->Ativan discontinued, correspondence with Dr. Gilliam regarding antipsychotic with less dopamine blockade in setting of patient on Sinemet with Parkinsons with suggestion of quetiapine -low dose Seroquel at hs prn for agitation. -hydroxyzine prn for anxiety #Established on methadone maintenance therapy // opioid use disorder in sustained remission on methadone therapy Seen at their methadone clinic on the day of presentation; continue during current hospitalization; patient's care discussed with Samantha, his correctional case manager, to confirm dosing and adherence; there should not be additional titration of the patient's methadone during his acute hospitalization unless absolutely medically necessary; he has remained stable on his maintenance therapy for quite some time, and at this time weaning or adjustment of MAT therapy is not advisable given his acute status -Continue established methadone therapy 60 mg p.o. daily DVT prophylaxis: On Eliquis for hx of atrial fibrillation Diet: Regular diet Disposition: Medically stable for discharge with recommendation for STR, awaiting bed placement for rehab-->challenges with acceptance d/t Methadone prescription, spoke with VALORIE and there has been new correspondence with [facility] with possibility for patient acceptance Admission and Anticipated Discharge Date Admission Date: January 07, 2025 Subjective No complaints this am. Walked 250 feet with PT yesterday. Appetite good-changed diet to regular diet at request of patient. Review of Systems Review of Systems: All systems reviewed & are unremarkable except as noted in Subjective Physical Exam Physical Exam: GENERAL APPEARANCE: A&O. NAD. SKIN: Normal color without rashes or lesions. Normal turgor. HEENT: Head AT/NC. Buccal mucosa is moist and pink. NECK: No jugular venous distention. No thyroid enlargement. There is no lymphadenopathy. HEART: RRR without m/g/r. LUNGS: Normal inspiratory effort. CTA without w/r/r ABDOMEN: No guarding or rigidity. Normoactive BS in all four quadrants. Abdomen soft and NT. MSK: No bony gross/deformities throughout. ROM intact. EXTREMITIES: No edema, No peripheral cyanosis. Right anterior hip with well- approximated, well-healed incision. Neuro: CN 2-12 grossly intact. No focal neuro deficits. PSYCHIATRIC: Normal affect. Eye contact is good. Speech is normal rate and content. Responses are appropriate. Results & Data Results & Data Vital Signs (Past 12 Hours) Vital Signs Temp Pulse Resp BP Pulse Ox O2 Del Method 01/26/25 07:23 36.5 C 46 L 16 109/58 L 96 Room Air Laboratory Results No labs reviewed PG Care Time/CCT Total # of Minutes Spent Total Time Spent with Patient: Total time spent is greater than 50% in coordination of care (as documented) at patient's floor/unit and/or counseling patient: Coding Level of Care Code 19888 SUB INP/OBS CARE 35MIN Diagnoses Normocytic normochromic anemia D64.9 Physical debility R53.81 Paroxysmal atrial fibrillation I48.0 Patient on methadone maintenance therapy F11.20 History of opioid abuse F11.11 Toxic encephalopathy G92.9
[2025-01-27 11:58] LABS: Hematocrit (blood only) 32.8 % (42.0-52.0); Hemoglobin 11.0 g/dL (14.0-18.0); Mean Corpuscular Hemoglobin 30.3 pg (25.0-34.0); Mean Corpuscular Volume 90.4 fL (80.0-100.0); Platelet Count 193 K/uL (130-400); RDW Standard Deviation 53.4 fL (36.4-46.3); Red Blood Count 3.63 M/uL (4.70-6.10); White Blood Count 4.54 K/ul (4.8-10.8)
[2025-01-27 12:12] LABS: Anion Gap 7.0 (3-11); Blood Urea Nitrogen 17.0 mg/dl (6-23); Calcium 9.1 mg/dl (8.6-10.3); Carbon Dioxide 27.0 mmol/L (21-32); Chloride 101.0 mmol/L (98-107); Creatinine Clr Calc Pharmacy 100.5 ml/min; Glucose 108.0 mg/dl (70-99(Fasting)); Potassium 4.3 mmol/L (3.5-5.1); Sodium 135.0 mmol/L (136-145)
--- NOTE | 2025-01-27 12:37 | Psychiatric Consultation ---
Date of Consultation January 27, 2025 Impression / Recommendations Impression Diagnostically mini-cog and categorical fluency results are consistent with cognitive impairment and his recent decisions show impaired judgement vs poor insight into his limitations with new hip fracture and resultant weakness. However, despite this he is fully oriented at time of assessment and based on the aid to capacity evaluation does seem to have decision making capacity to accept or decline physical therapy/skilled rehab. With that said, the primary hospital team is typically best suited to determine this given they better know what the risks/benefits are, what are feasible alternatives and they can follow a patient over time in case cognitive impairments or confusion change. Therefore ultimately would defer to hospitalist. Assessment of Decision-Making Capacity Criterion (X=present) Patient Task YES Communicates a choice Patient is able to clearly indicate preferred treatment option in a clear and consistent manner YES Understands information provided Patient understands their condition and treatment options Somewhat Appreciates consequences Patient shows appropriately nuanced appreciation for the risks & benefits associated with available treatment options, including no treatment Yes Manipulates relevant information Patient able to rationally weigh risks & benefits, as well as offer reasons for their decision It is important to note that a patient's decision can be unwise as long as a rational process was used to arrive at it. Decision making capacity determinations are decision and time specific. This patient has capacity with respect to this particular decision-making task at this time. They are able to articulate reasons for their decision but he does show signs of cognitive impairment that may interfere with his ability to meaningfully understand information and appreciate the risks of refusing treatment if confusion worsens in the future. The patient's decision making capacity could change in the future given that their mental status and various other factors can certainly fluctuate over time. Overall, I spent a total of 60 minutes with this case including review of chart records, review of labwork, direct evaluation of the patient at bedside, counseling the patient, discussion of the patient with the hospitalist provider, discussion with the psychiatric liason during clinical rounds and documentation in the electronic health record. (1) Encounter for assessment of decision-making capacity: (2) Parkinsons disease: (3) Physical debility: Plan -Consider suboxone trial if methadone becomes major barrier to skilled rehab facility placement -His [facility] addiction medicine provider could likely give input about appropriate suboxone target dose and would encouragement involvement of their practice since he has been with them consistently over recent years for his methadone Psych History Identifying Data Dann Carlos is a 69 yo man whose active medical conditions include essential hypertension, paroxysmal atrial fibrillation, Parkinson's disease, opioid use disorder in sustained remission with methadone assisted therapy among other chronic medical conditions who presented to the [facility] on 01/[facility] due to progressive fatigue and weakness. Psychiatry consulted for medical decision making capacity. Chief Complaint "I fell and broke my hip". History of Present Illness Enoc was admitted after discharging home after he declined subacute rehab and could not function independently. This was following a recent admission from 12/30/2024 - 01/04/2025 when he presented after leaving [facility] for skilled rehab following a hip fracture in early December 2024. Today he is fully oriented. he could not complete MOCA due to not having his glasses, scored 1/5 on the mini-cog and named only 5 animals on categorical fluency. Using the Aid to Capacite Evaluation he was able to discuss his current medical condition, proposed treatment of "physical therapy", he did not known of any alternative treatments, states he could refuse treatment but "they might not pay the bill if I go against medical advice", states benefits of having the proposed treatment of physical therapy "not losing more weight", can state consequences of refusing the treatment "it could get worse but I'm working out as much as I can", and no evidence his decisions are impacted by depression nor psychosis. States hopefulness noting "yeah-I want to live a few more years". 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 He reports not using opioids for more than 30 years and currently receives 80 milligrams of methadone daily from [facility], requiring daily visits without take-home privileges. He denies alcohol use, stating he never drinks and doesn't like it, and denies marijuana use. He reports having DUIs but states these were not related to substance use. A significant barrier to inpatient physical rehabilitation is that facilities reportedly cannot provide methadone. He has never tried Suboxone but expresses willingness to consider it if it would allow him to access inpatient physical rehabilitation, though he states this would be dependent on him finding that the suboxone gives similar effect to methadone. Allergies Allergy/AdvReac Type Severity Reaction Status Date / Time nystatin Allergy Intermediate Rash Verified 12/30/24 19:20 Home Medications Medication Instructions Recorded Confirmed Type apixaban 5 mg tablet (Eliquis) 5 mg PO BID 08/30/23 01/06/25 History metoprolol succinate 25 mg 25 mg PO DAILY #2 tabs 06/21/24 01/06/25 Rx tablet,extended release 24 hr hydroxyzine HCl 25 mg tablet 25 mg PO HS 08/05/24 01/06/25 History methadone 10 mg/mL oral concentrate 81 mg PO DAILY 08/05/24 01/06/25 History carbidopa 25 mg-levodopa 100 mg 2 tab PO QID 12/30/24 01/06/25 History tablet melatonin 3 mg tablet 3 mg PO HS PRN sleep 30 days #30 01/19/25 Rx tabs quetiapine 25 mg tablet 12.5 mg (1/2 x 25 mg) PO HS PRN 01/19/25 Rx withdrawal symptoms/agitation/anxiety 30 days #30 tabs sennosides 8.6 mg-docusate sodium 1 tab PO BID 30 days #60 tabs 01/19/25 Rx 50 mg tablet (Senokot-S) Patient History Medical History Closed hip fracture requiring operative repair Hallucination History of opioid abuse Over 30 years ago per patient. On methadone. Edema Social History (Updated 01/06/25 @ 16:41 by Klaus Mckinley DO) Smoking Status: Never smoker Tobacco Type: Cigarettes Cigarettes Per Day: 2 cigarettes a week; Second Hand Exposure: No; Do You Dip or Chew Tobacco: No; Hx Alcohol Use: No Hx Substance Use: No Preferred Language: Spanish Communication Ability: Effective Manager Medical Required: No Beliefs That Will Affect Care: None Current Living Situation: Family Other Information That Helps Us Care for You: No Feels Safe at Home: Yes Safety Concerns: Feels Safe At This Time Diet: regular caffeine: Yes Assistive Devices: Walker Physical Exam Vital Signs (Past 24 Hours): Last Vital Signs Temp 36.6 C 01/27/25 11:51 Pulse 59 L 01/27/25 11:51 Resp 16 01/27/25 11:51 BP 122/68 01/27/25 11:51 Pulse Ox 96 01/27/25 11:51 O2 Del Method Room Air 01/27/25 11:51 Results & Data (PSY) Medications Administered Acetaminophen (Acetaminophen 325 Mg Tab) 650 mg PO Q4H PRN PRN Reason: Pain or Fever Stop: 02/09/25 20:50 Last Admin: 01/27/25 09:43 Dose: 650 mg Documented By: bowen Admin: 01/25/25 13:26 Dose: 650 mg Documented By: Admin: 01/22/25 14:32 Dose: 650 mg Documented By: Admin: 01/22/25 04:57 Dose: 650 mg Documented By: Admin: 01/18/25 11:18 Dose: 650 mg Documented By: Admin: 01/17/25 15:22 Dose: 650 mg Documented By: KOSTAS(2) Admin: 01/16/25 20:58 Dose: 650 mg Documented By: Admin: 01/15/25 20:09 Dose: 650 mg Documented By: Admin: 01/11/25 20:13 Dose: 650 mg Documented By: LESLIE Apixaban (Apixaban 5 Mg Tablet) 5 mg PO BID COLEMAN Stop: 02/05/25 20:59 Last Admin: 01/27/25 09:41 Dose: 5 mg Documented By: bowen Admin: 01/26/25 23:33 Dose: 5 mg Documented By: Admin: 01/26/25 11:32 Dose: 5 mg Documented By: katie Admin: 01/25/25 20:19 Dose: 5 mg Documented By: Admin: 01/25/25 07:54 Dose: 5 mg Documented By: Admin: 01/24/25 21:17 Dose: 5 mg Documented By: Admin: 01/24/25 07:53 Dose: 5 mg Documented By: Admin: 01/23/25 19:52 Dose: 5 mg Documented By: Admin: 01/23/25 07:54 Dose: 5 mg Documented By: Admin: 01/22/25 22:22 Dose: 5 mg Documented By: Admin: 01/22/25 08:49 Dose: 5 mg Documented By: Admin: 01/21/25 20:00 Dose: 5 mg Documented By: aris Admin: 01/21/25 08:48 Dose: 5 mg Documented By: Admin: 01/20/25 20:51 Dose: 5 mg Documented By: Admin: 01/20/25 07:32 Dose: 5 mg Documented By: Admin: 01/19/25 20:15 Dose: 5 mg Documented By: Admin: 01/19/25 07:57 Dose: 5 mg Documented By: Admin: 01/18/25 23:06 Dose: 5 mg Documented By: [id number] Admin: 01/18/25 08:01 Dose: 5 mg Documented By: Admin: 01/17/25 19:55 Dose: 5 mg Documented By: Admin: 01/17/25 09:22 Dose: 5 mg Documented By: KOSTAS(2) Admin: 01/16/25 20:52 Dose: 5 mg Documented By: Admin: 01/16/25 08:35 Dose: 5 mg Documented By: KOSTAS(2) Admin: 01/15/25 20:09 Dose: 5 mg Documented By: Admin: 01/15/25 08:40 Dose: 5 mg Documented By: Admin: 01/14/25 19:47 Dose: 5 mg Documented By: Admin: 01/14/25 09:03 Dose: 5 mg Documented By: Admin: 01/13/25 20:28 Dose: 5 mg Documented By: Admin: 01/13/25 09:09 Dose: 5 mg Documented By: Admin: 01/12/25 20:06 Dose: 5 mg Documented By: Admin: 01/12/25 09:07 Dose: 5 mg Documented By: KOSTAS(2) Admin: 01/11/25 20:09 Dose: 5 mg Documented By: Admin: 01/11/25 08:48 Dose: 5 mg Documented By: KOSTAS(2) Admin: 01/10/25 20:34 Dose: 5 mg Documented By: bna Admin: 01/10/25 08:23 Dose: 5 mg Documented By: Admin: 01/09/25 22:04 Dose: 5 mg Documented By: psc Admin: 01/07/25 07:53 Dose: 5 mg Documented By: cak Admin: 01/06/25 21:18 Dose: 5 mg Documented By: LCD Carbidopa/Levodopa (Carbidopa/Levodopa 25/100mg Tab) 2 tab PO QID COLEMAN Stop: 02/05/25 17:43 Last Admin: 01/27/25 09:40 Dose: 1 tab Documented By: bowen Admin: 01/26/25 23:33 Dose: 2 tab Documented By: Admin: 01/26/25 18:36 Dose: 2 tab Documented By: katie Admin: 01/26/25 14:25 Dose: 2 tab Documented By: katie Admin: 01/26/25 11:32 Dose: 2 tab Documented By: katie Admin: 01/25/25 20:19 Dose: 2 tab Documented By: Admin: 01/25/25 16:31 Dose: 2 tab Documented By: Admin: 01/25/25 12:39 Dose: 2 tab Documented By: Admin: 01/25/25 07:54 Dose: 2 tab Documented By: Admin: 01/24/25 21:17 Dose: 2 tab Documented By: Admin: 01/24/25 16:11 Dose: 2 tab Documented By: Admin: 01/24/25 12:57 Dose: 2 tab Documented By: Admin: 01/24/25 07:53 Dose: 2 tab Documented By: Admin: 01/23/25 19:52 Dose: 2 tab Documented By: Admin: 01/23/25 16:33 Dose: 2 tab Documented By: Admin: 01/23/25 12:18 Dose: 2 tab Documented By: Admin: 01/23/25 07:54 Dose: 2 tab Documented By: Admin: 01/22/25 20:59 Dose: 2 tab Documented By: Admin: 01/22/25 17:36 Dose: 2 tab Documented By: Admin: 01/22/25 12:15 Dose: 2 tab Documented By: Admin: 01/22/25 08:49 Dose: 2 tab Documented By: Admin: 01/21/25 20:00 Dose: 2 tab Documented By: aris Admin: 01/21/25 17:18 Dose: 2 tab Documented By: Admin: 01/21/25 13:16 Dose: 2 tab Documented By: Admin: 01/21/25 08:48 Dose: 2 tab Documented By: Admin: 01/20/25 20:51 Dose: 2 tab Documented By: Admin: 01/20/25 17:37 Dose: 2 tab Documented By: Admin: 01/20/25 13:39 Dose: 2 tab Documented By: Admin: 01/20/25 07:32 Dose: 2 tab Documented By: Admin: 01/19/25 20:15 Dose: 2 tab Documented By: Admin: 01/19/25 17:33 Dose: 2 tab Documented By: Admin: 01/19/25 13:09 Dose: 2 tab Documented By: Admin: 01/19/25 07:57 Dose: 2 tab Documented By: Admin: 01/18/25 23:06 Dose: 2 tab Documented By: [id number] Admin: 01/18/25 16:58 Dose: 2 tab Documented By: Admin: 01/18/25 13:19 Dose: 2 tab Documented By: Admin: 01/18/25 08:01 Dose: 2 tab Documented By: Admin: 01/17/25 19:56 Dose: 2 tab Documented By: Admin: 01/17/25 17:23 Dose: 2 tab Documented By: KOSTAS(2) Admin: 01/17/25 12:10 Dose: 2 tab Documented By: KOSTAS(2) Admin: 01/17/25 09:22 Dose: 2 tab Documented By: KOSTAS(2) Admin: 01/16/25 20:52 Dose: 2 tab Documented By: Admin: 01/16/25 16:35 Dose: 2 tab Documented By: KOSTAS(2) Admin: 01/16/25 12:21 Dose: 2 tab Documented By: CSC(2) Admin: 01/16/25 08:36 Dose: 2 tab Documented By: KOSTAS(2) Admin: 01/15/25 20:09 Dose: 2 tab Documented By: Admin: 01/15/25 17:02 Dose: 2 tab Documented By: Admin: 01/15/25 13:33 Dose: 2 tab Documented By: keanu Co-signed By: MARGARET Admin: 01/15/25 08:41 Dose: 2 tab Documented By: Admin: 01/14/25 19:47 Dose: 2 tab Documented By: Admin: 01/14/25 16:59 Dose: 2 tab Documented By: Admin: 01/14/25 12:55 Dose: 2 tab Documented By: Admin: 01/14/25 09:03 Dose: 2 tab Documented By: Admin: 01/13/25 20:28 Dose: 2 tab Documented By: Admin: 01/13/25 17:08 Dose: 2 tab Documented By: Admin: 01/13/25 12:53 Dose: 2 tab Documented By: Admin: 01/13/25 09:09 Dose: 2 tab Documented By: Admin: 01/12/25 20:06 Dose: 2 tab Documented By: Admin: 01/12/25 16:33 Dose: 2 tab Documented By: KOSTAS(2) Admin: 01/12/25 12:16 Dose: 2 tab Documented By: KOSTAS(2) Admin: 01/12/25 09:06 Dose: 2 tab Documented By: KOSTAS(2) Admin: 01/11/25 20:09 Dose: 2 tab Documented By: Admin: 01/11/25 16:37 Dose: 2 tab Documented By: KOSTAS(2) Admin: 01/11/25 13:00 Dose: 2 tab Documented By: KOSTAS(2) Admin: 01/11/25 08:49 Dose: 2 tab Documented By: KOSTAS(2) Admin: 01/10/25 20:34 Dose: 2 tab Documented By: bna Admin: 01/10/25 16:49 Dose: 2 tab Documented By: Admin: 01/10/25 12:30 Dose: 2 tab Documented By: Admin: 01/10/25 08:23 Dose: 2 tab Documented By: Admin: 01/09/25 22:04 Dose: 2 tab Documented By: psc Admin: 01/09/25 17:42 Dose: 2 tab Documented By: Admin: 01/09/25 13:26 Dose: 2 tab Documented By: Admin: 01/09/25 08:29 Dose: 2 tab Documented By: Admin: 01/08/25 20:04 Dose: 2 tab Documented By: psc Admin: 01/08/25 18:24 Dose: 2 tab Documented By: pse Admin: 01/08/25 14:08 Dose: 2 tab Documented By: pse Admin: 01/08/25 08:35 Dose: 2 tab Documented By: pse Admin: 01/07/25 21:24 Dose: 2 tab Documented By: psc Admin: 01/07/25 16:54 Dose: 2 tab Documented By: cak Admin: 01/07/25 13:15 Dose: 2 tab Documented By: cak Admin: 01/07/25 07:53 Dose: 2 tab Documented By: nya Admin: 01/06/25 21:18 Dose: 2 tab Documented By: Admin: 01/06/25 18:46 Dose: 2 tab Documented By: LAURA Ferrous Sulfate (Ferrous Sulfate 325 Mg Tab) 325 mg PO [id number] COLEMAN Stop: 02/10/25 09:59 Last Admin: 01/25/25 07:54 Dose: 325 mg Documented By: Admin: 01/22/25 10:15 Dose: 325 mg Documented By: Admin: 01/20/25 10:45 Dose: 325 mg Documented By: Admin: 01/18/25 10:16 Dose: 325 mg Documented By: Admin: 01/15/25 09:50 Dose: 325 mg Documented By: Admin: 01/13/25 12:53 Dose: 325 mg Documented By: Admin: 01/11/25 09:17 Dose: 325 mg Documented By: KOSTAS(2) Hydroxyzine HCl (Hydroxyzine Hcl 10 Mg Tab) 10 mg PO QID PRN PRN Reason: Anxiety/Agitation Stop: 02/17/25 10:25 Last Admin: 01/26/25 23:33 Dose: 10 mg Documented By: Admin: 01/18/25 18:23 Dose: 10 mg Documented By: JABARI Melatonin (Melatonin 3 Mg Tab) 3 mg PO HS PRN PRN Reason: Sleep Stop: 02/14/25 10:57 Last Admin: 01/26/25 23:17 Dose: 3 mg Documented By: Admin: 01/25/25 20:18 Dose: 3 mg Documented By: Admin: 01/21/25 19:59 Dose: 3 mg Documented By: aris Admin: 01/17/25 19:56 Dose: 3 mg Documented By: Admin: 01/16/25 20:58 Dose: 3 mg Documented By: Admin: 01/15/25 20:09 Dose: 3 mg Documented By: MICHAEL Methadone HCl (Methadone Oral Soln 2 Mg/Ml) 60 mg PO DAILYBB COLEMAN Stop: 01/28/25 08:59 Last Admin: 01/27/25 05:19 Dose: 60 mg Documented By: Admin: 01/26/25 06:22 Dose: 60 mg Documented By: Admin: 01/25/25 06:11 Dose: 60 mg Documented By: Admin: 01/24/25 06:25 Dose: 60 mg Documented By: Admin: 01/23/25 05:35 Dose: 60 mg Documented By: Admin: 01/22/25 05:44 Dose: 60 mg Documented By: aris Admin: 01/21/25 05:36 Dose: 60 mg Documented By: Admin: 01/20/25 05:37 Dose: 60 mg Documented By: Admin: 01/19/25 05:35 Dose: 60 mg Documented By: [id number] Admin: 01/18/25 05:51 Dose: 60 mg Documented By: Admin: 01/17/25 06:14 Dose: 60 mg Documented By: Admin: 01/16/25 06:15 Dose: 60 mg Documented By: Admin: 01/15/25 05:50 Dose: 60 mg Documented By: Admin: 01/14/25 06:07 Dose: 60 mg Documented By: Admin: 01/13/25 06:01 Dose: 60 mg Documented By: Admin: 01/12/25 06:00 Dose: 60 mg Documented By: Admin: 01/11/25 06:01 Dose: 60 mg Documented By: aris Admin: 01/10/25 05:46 Dose: 60 mg Documented By: gabriele Admin: 01/09/25 06:03 Dose: 60 mg Documented By: gabriele Admin: 01/08/25 07:09 Dose: 60 mg Documented By: gabriele Admin: 01/07/25 08:49 Dose: 60 mg Documented By: nya Metoprolol Succinate (Metoprolol Succ 25mg Ext Rel Tab) 25 mg PO DAILY COLEMAN Stop: 02/06/25 08:59 Last Admin: 01/27/25 09:39 Dose: 25 mg Documented By: cnm Admin: 01/26/25 11:31 Dose: Not Given Documented By: katie Admin: 01/25/25 07:54 Dose: 25 mg Documented By: Admin: 01/24/25 07:53 Dose: Not Given Documented By: Admin: 01/23/25 07:53 Dose: 25 mg Documented By: Admin: 01/22/25 08:49 Dose: 25 mg Documented By: Admin: 01/21/25 08:48 Dose: Not Given Documented By: Admin: 01/20/25 07:28 Dose: Not Given Documented By: Admin: 01/19/25 07:57 Dose: 25 mg Documented By: Admin: 01/18/25 08:00 Dose: Not Given Documented By: Admin: 01/17/25 09:22 Dose: 25 mg Documented By: CSC(2) Admin: 01/16/25 08:35 Dose: Not Given Documented By: CSC(2) Admin: 01/15/25 08:40 Dose: 25 mg Documented By: Admin: 01/14/25 09:04 Dose: 25 mg Documented By: Admin: 01/13/25 09:07 Dose: Not Given Documented By: Admin: 01/12/25 09:07 Dose: 25 mg Documented By: CSC(2) Admin: 01/11/25 08:48 Dose: Not Given Documented By: CSC(2) Admin: 01/10/25 08:24 Dose: 25 mg Documented By: Admin: 01/09/25 08:29 Dose: 25 mg Documented By: Admin: 01/08/25 08:35 Dose: 25 mg Documented By: pse Admin: 01/07/25 07:53 Dose: 25 mg Documented By: cak Non-Formulary Medication (Patient's Own Controlled Med 1) 1 each PO DAILYBB COLEMAN Stop: 01/28/25 08:59 Last Admin: 01/27/25 05:19 Dose: 60 mg Documented By: Admin: 01/26/25 06:22 Dose: 60 mg Documented By: Admin: 01/25/25 06:12 Dose: Not Given Documented By: Admin: 01/24/25 06:29 Dose: Not Given Documented By: Admin: 01/23/25 05:37 Dose: Not Given Documented By: Admin: 01/22/25 05:45 Dose: Not Given Documented By: bnannette Admin: 01/21/25 05:36 Dose: 60 mg Documented By: Admin: 01/20/25 05:38 Dose: 60 mg Documented By: Admin: 01/19/25 05:37 Dose: 1 ea Documented By: [id number] Admin: 01/18/25 05:51 Dose: 1 ea Documented By: Admin: 01/17/25 06:15 Dose: 1 ea Documented By: Admin: 01/16/25 06:15 Dose: 1 ea Documented By: Admin: 01/15/25 05:50 Dose: 1 ea Documented By: Admin: 01/14/25 06:07 Dose: 1 ea Documented By: Admin: 01/13/25 06:01 Dose: 1 ea Documented By: Admin: 01/12/25 06:00 Dose: Not Given Documented By: HFAnabelle Admin: 01/11/25 06:01 Dose: Not Given Documented By: aris Admin: 01/10/25 05:46 Dose: Not Given Documented By: gabriele Admin: 01/09/25 06:34 Dose: Not Given Documented By: gabriele Admin: 01/08/25 07:39 Dose: Not Given Documented By: Admin: 01/07/25 08:50 Dose: Not Given Documented By: nya Ondansetron HCl (Ondansetron Inj 2 Mg/Ml 2 Ml Vial) 4 mg IV Q6H PRN PRN Reason: Nausea And Vomiting Stop: 02/18/25 06:48 Last Admin: 01/19/25 06:58 Dose: 4 mg Documented By: [id number] Quetiapine Fumarate (Quetiapine Fumarate 25 Mg Tablet) 12.5 mg PO HS PRN PRN Reason: Agitation Stop: 02/14/25 20:59 Last Admin: 01/25/25 20:19 Dose: 12.5 mg Documented By: Admin: 01/17/25 19:56 Dose: 12.5 mg Documented By: Admin: 01/16/25 20:51 Dose: 12.5 mg Documented By: Admin: 01/15/25 23:24 Dose: 12.5 mg Documented By: jjg Senna/Docusate Sodium (Docusate Sodium/Senna 50/8.6mg Tab) 1 tab PO BID COLEMAN Stop: 02/14/25 21:14 Last Admin: 01/27/25 09:45 Dose: 1 tab Documented By: bowen Admin: 01/26/25 23:17 Dose: 1 tab Documented By: Admin: 01/26/25 11:44 Dose: 1 tab Documented By: katie Admin: 01/25/25 20:18 Dose: 1 tab Documented By: Admin: 01/25/25 07:56 Dose: 1 tab Documented By: Admin: 01/24/25 21:17 Dose: 1 tab Documented By: Admin: 01/24/25 07:53 Dose: 1 tab Documented By: Admin: 01/23/25 19:53 Dose: 1 tab Documented By: Admin: 01/23/25 07:53 Dose: 1 tab Documented By: Admin: 01/22/25 20:59 Dose: 1 tab Documented By: Admin: 01/22/25 08:49 Dose: 1 tab Documented By: Admin: 01/21/25 20:00 Dose: 1 tab Documented By: aris Admin: 01/21/25 08:48 Dose: 1 tab Documented By: Admin: 01/20/25 20:51 Dose: 1 tab Documented By: Admin: 01/20/25 07:32 Dose: 1 tab Documented By: Admin: 01/19/25 20:15 Dose: 1 tab Documented By: Admin: 01/19/25 08:00 Dose: 1 tab Documented By: Admin: 01/18/25 23:06 Dose: 1 tab Documented By: Kaila Admin: 01/18/25 08:01 Dose: 1 tab Documented By: Admin: 01/17/25 19:56 Dose: 1 tab Documented By: Admin: 01/17/25 09:22 Dose: 1 tab Documented By: KOSTAS(2) Admin: 01/16/25 20:58 Dose: 1 tab Documented By: Admin: 01/16/25 08:38 Dose: 1 tab Documented By: KOSTAS(2) Admin: 01/15/25 23:10 Dose: Not Given Documented By: MICHAEL Sodium Biphosphate/Sodium Phosphate (Sod Phosphate/Sod Biphosphate Enema 132 Ml Btl) 132 ml OR DAILY PRN PRN Reason: Constipation Stop: 02/14/25 09:10 Last Admin: 01/23/25 10:42 Dose: 132 ml Documented By: Admin: 01/21/25 09:48 Dose: 132 ml Documented By: Admin: 01/18/25 13:21 Dose: 132 ml Documented By: Admin: 01/17/25 09:15 Dose: 132 ml Documented By: KOSTAS(2) Coding Level of Care Code 15108 IN/OBS CONSULT LVL 4,60M Diagnoses Encounter for assessment of decision-making capacity Z00.8 Parkinsons disease G20.A1 Physical debility R53.81
--- NOTE | 2025-01-27 16:46 | Hospitalist Progress Note ---
Date of Service January 27, 2025 Assessment & Plan (1) Normocytic normochromic anemia: (2) Physical debility: (3) Paroxysmal atrial fibrillation: (4) Patient on methadone maintenance therapy: (5) History of opioid abuse: (6) Toxic encephalopathy: Plan 69-year-old male who presents with progressive weakness and fatigue from recent hospitalizations, unable to care for himself at home. He is s/p right hip replacement with approximation of 12/26/[address] Hemphill. #Physical debility / Recent right hip fracture s/p operative fixation Recurrent emergency department presentations due to inability to care for themselves at home; pending referrals and insurance authorization -PT/OT consulted with rec not to return home -confirmation of right PINO on 12/[address] Hemphill at [facility], 18 edin removed per nursing on 01/14, right anterior hip incision with slight erythema, no drainage, dehiscence-->well healed #Normocytic normochromic anemia At admission hemoglobin measure of 8.5 with normocytic MCV, MCHC, and RDW; baseline values are normal; trends 7.6, 8.9, 9.4, 9.1 -Completed Venofer 200 mg IV daily for 2 doses -Continue FeSO4 325 mg p.o. on / -H/H baseline with trend this am #Hospital acquired hyperactive delirium // Sundowning//toxic encephalopathy In the late afternoon on 01/07 the patient was acutely confused, unable to answer orientation questions appropriately, and aggressive with staff; suspect this was consequence of recent recurrent hospitalizations, adjustments to methadone and psychiatric medication doses, and shared room resulting in acute hyperactive delirium; the patient has been much improved after transfer to a private room; continue with minimizing patient disturbances, keeping lights on, window blind open, and door open during daylight hours and drawing curtains, closing door, and turning off monitors at night time to facilitate normal circadian rhythm -suspect hypoactive delirium and with Ativan use-->Ativan discontinued, correspondence with Dr. Gilliam regarding antipsychotic with less dopamine blockade in setting of patient on Sinemet with Parkinsons with suggestion of quetiapine -low dose Seroquel at hs prn for agitation. -hydroxyzine prn for anxiety #Established on methadone maintenance therapy // opioid use disorder in sustained remission on methadone therapy Seen at their methadone clinic on the day of presentation; continue during current hospitalization; patient's care discussed with Samantha, his medical case manager, to confirm dosing and adherence; there should not be additional titration of the patient's methadone during his acute hospitalization unless absolutely medically necessary; he has remained stable on his maintenance therapy for quite some time, and at this time weaning or adjustment of MAT therapy is not advisable given his acute status -Continue established methadone therapy 60 mg p.o. daily DVT prophylaxis: On Eliquis for hx of atrial fibrillation Diet: Regular diet Disposition: At this time patient has done exceptionally well with PT. Patient may be able to go home at this time with PT and caregivers with continuance of discharge orchestration with CM. Spoke with Dr. Sabillon in regards to psychiatric evaluation with appreciation of intact decision-making capacity. MOCA pending. Admission and Anticipated Discharge Date Admission Date: January 07, 2025 Subjective No complaints today. Doing well with PT. Eager to go home. Reports he takes the bus to his Methadone clinic when at home for transportation. Seen by psychiatrist this am to evaluate patient for medical decision-making capacity. Review of Systems Review of Systems: All systems reviewed & are unremarkable except as noted in Subjective Physical Exam Physical Exam: GENERAL APPEARANCE: A&O. NAD. SKIN: Normal color without rashes or lesions. Normal turgor. HEENT: Head AT/NC. Buccal mucosa is moist and pink. NECK: No jugular venous distention. No thyroid enlargement. There is no lymphadenopathy. HEART: RRR without m/g/r. LUNGS: Normal inspiratory effort. CTA without w/r/r ABDOMEN: No guarding or rigidity. Normoactive BS in all four quadrants. Abdomen soft and NT. MSK: No bony gross/deformities throughout. ROM intact. EXTREMITIES: No edema, No peripheral cyanosis. Right anterior hip with well- approximated, well-healed incision. Neuro: CN 2-12 grossly intact. No focal neuro deficits. PSYCHIATRIC: Normal affect. Eye contact is good. Speech is normal rate and content. Responses are appropriate. Results & Data Results & Data Vital Signs (Past 12 Hours) Vital Signs Temp Pulse Pulse Resp BP BP Pulse Ox 01/27/25 15:06 36.8 C 57 L 16 113/67 99 01/27/25 11:51 36.6 C 59 L 16 122/68 96 01/27/25 08:56 36.3 C L 64 16 122/68 97 01/27/25 07:50 01/27/25 07:35 36.6 C 45 L 16 123/71 96 O2 Del Method 01/27/25 15:06 Room Air 01/27/25 11:51 Room Air 01/27/25 08:56 Room Air 01/27/25 07:50 Room Air 01/27/25 07:35 Room Air Laboratory Results Labs reviewed: CBC, BMP PG Care Time/CCT Total # of Minutes Spent Total Time Spent with Patient: Total time spent is greater than 50% in coordination of care (as documented) at patient's floor/unit and/or counseling patient: Coding Level of Care Code 53858 SUB INP/OBS CARE 2/35MIN Diagnoses Normocytic normochromic anemia D64.9 Physical debility R53.81 Paroxysmal atrial fibrillation I48.0 Patient on methadone maintenance therapy F11.20 History of opioid abuse F11.11 Toxic encephalopathy G92.9
--- NOTE | 2025-01-28 11:37 | Hospitalist Progress Note ---
Date of Service January 28, 2025 Assessment & Plan (1) Normocytic normochromic anemia: (2) Physical debility: (3) Paroxysmal atrial fibrillation: (4) Patient on methadone maintenance therapy: (5) History of opioid abuse: (6) Toxic encephalopathy: Plan 69-year-old male who presents with progressive weakness and fatigue from recent hospitalizations, unable to care for himself at home. He is s/p right hip replacement with approximation of 12/26/[address] Hemphill. #Physical debility / Recent right hip fracture s/p operative fixation Recurrent emergency department presentations due to inability to care for themselves at home; pending referrals and insurance authorization -PT/OT consulted with rec not to return home -confirmation of right PINO on 12/[address] Hemphill at [facility], 18 edin removed per nursing on 01/14, right anterior hip incision with slight erythema, no drainage, dehiscence-->well healed #Normocytic normochromic anemia At admission hemoglobin measure of 8.5 with normocytic MCV, MCHC, and RDW; baseline values are normal; trends 7.6, 8.9, 9.4, 9.1 -Completed Venofer 200 mg IV daily for 2 doses -Continue FeSO4 325 mg p.o. on / -H/H baseline with trend this am #Hospital acquired hyperactive delirium // Sundowning//toxic encephalopathy In the late afternoon on 01/07 the patient was acutely confused, unable to answer orientation questions appropriately, and aggressive with staff; suspect this was consequence of recent recurrent hospitalizations, adjustments to methadone and psychiatric medication doses, and shared room resulting in acute hyperactive delirium; the patient has been much improved after transfer to a private room; continue with minimizing patient disturbances, keeping lights on, window blind open, and door open during daylight hours and drawing curtains, closing door, and turning off monitors at night time to facilitate normal circadian rhythm -suspect hypoactive delirium and with Ativan use-->Ativan discontinued, correspondence with Dr. Gilliam regarding antipsychotic with less dopamine blockade in setting of patient on Sinemet with Parkinsons with suggestion of quetiapine -low dose Seroquel at hs prn for agitation. -hydroxyzine prn for anxiety #Established on methadone maintenance therapy // opioid use disorder in sustained remission on methadone therapy Seen at their methadone clinic on the day of presentation; continue during current hospitalization; patient's care discussed with Samantha, his medical case worker, to confirm dosing and adherence; there should not be additional titration of the patient's methadone during his acute hospitalization unless absolutely medically necessary; he has remained stable on his maintenance therapy for quite some time, and at this time weaning or adjustment of MAT therapy is not advisable given his acute status -Continue established methadone therapy 60 mg p.o. daily DVT prophylaxis: On Eliquis for hx of atrial fibrillation Diet: Regular diet Disposition: At this time patient has done exceptionally well with PT. D/C disposition uncertain at this time. Psychiatry recommends possible bridge to Suboxone from Methadone if he still meets criteria for SNF upon discharge~uncertain as he is making progress with PT. Patient unsure if he wants to trial Suboxone-if amendable will need to reach out to [facility] to inquire about process of bridging. Can also discuss with pharmacy. Again, CM will then need to determine what facilities will accept patient on Suboxone if this treatment plan in pursued. Psychiatric evaluation with appreciation of intact decision-making capacity. MOCA unable to be completed as patient does not have glasses. He scored 1/5 on the minicog and was able to name 5 animals in one minute of time, therefore outside of the appreciation he does seem to have decision making capacity his cognitive state is concerning potentially interfering with his ability to understand information and the risks of refusing treatment. Spoke with sister, [place] who lives in same apartment building as patient~she lives on the 5th floor and patient lives on the first. She verbalizes she is unable to provide closer monitoring if patient were to go back home. Admission and Anticipated Discharge Date Admission Date: January 07, 2025 Subjective Enoc has no complaints today. Observed walking independently in room and walking approximately 50 feet in hallway with no assistive device. Gait cautious and with wide stance. Eating and drinking well. Review of Systems Review of Systems: All systems reviewed & are unremarkable except as noted in Subjective Physical Exam Physical Exam: GENERAL APPEARANCE: A&O. NAD. SKIN: Normal color without rashes or lesions. Normal turgor. HEENT: Head AT/NC. Buccal mucosa is moist and pink. NECK: No jugular venous distention. No thyroid enlargement. There is no lymphadenopathy. HEART: RRR without m/g/r. LUNGS: Normal inspiratory effort. CTA without w/r/r ABDOMEN: No guarding or rigidity. Normoactive BS in all four quadrants. Abdomen soft and NT. MSK: No bony gross/deformities throughout. ROM intact. EXTREMITIES: No edema, No peripheral cyanosis. Right anterior hip with well- approximated, well-healed incision. Neuro: CN 2-12 grossly intact. No focal neuro deficits. PSYCHIATRIC: Normal affect. Eye contact is good. Speech is normal rate and content. Responses are appropriate. Results & Data Results & Data Vital Signs (Past 12 Hours) Vital Signs Temp Pulse Resp BP Pulse Ox O2 Del Method 01/28/25 08:17 Room Air 01/28/25 08:00 36.6 C 52 L 16 111/71 96 Room Air Laboratory Results No labs reviewed PG Care Time/CCT Total # of Minutes Spent Total Time Spent with Patient: Total time spent is greater than 50% in coordination of care (as documented) at patient's floor/unit and/or counseling patient: Coding Level of Care Code 83499 SUB INP/OBS CARE 2/35MIN Diagnoses Normocytic normochromic anemia D64.9 Physical debility R53.81 Paroxysmal atrial fibrillation I48.0 Patient on methadone maintenance therapy F11.20 History of opioid abuse F11.11 Toxic encephalopathy G92.9
--- NOTE | 2025-01-29 09:26 | Hospitalist Progress Note ---
Date of Service January 29, 2025 Assessment & Plan (1) Normocytic normochromic anemia: (2) Physical debility: (3) Paroxysmal atrial fibrillation: (4) Patient on methadone maintenance therapy: (5) History of opioid abuse: (6) Toxic encephalopathy: Plan 69-year-old male who presents with progressive weakness and fatigue from recent hospitalizations, unable to care for himself at home. He is s/p right hip replacement with approximation of 12/26/[address] Hemphill. #Physical debility / Recent right hip fracture s/p operative fixation Recurrent emergency department presentations due to inability to care for themselves at home; pending referrals and insurance authorization -PT/OT consulted with rec not to return home -confirmation of right PINO on 12/[address] Hemphill at [facility], 18 edin removed per nursing on 01/14, right anterior hip incision with slight erythema, no drainage, dehiscence-->well healed #Normocytic normochromic anemia At admission hemoglobin measure of 8.5 with normocytic MCV, MCHC, and RDW; baseline values are normal -Completed Venofer 200 mg IV daily for 2 doses -Continue FeSO4 325 mg p.o. on -H/H has been flat 10s with most recent 11.0 on 01/27 #Hospital acquired hyperactive delirium // Sundowning//toxic encephalopathy In the late afternoon on 01/07 the patient was acutely confused, unable to answer orientation questions appropriately, and aggressive with staff; suspect this was consequence of recent recurrent hospitalizations, adjustments to methadone and psychiatric medication doses, and shared room resulting in acute hyperactive delirium; the patient has been much improved after transfer to a private room; continue with minimizing patient disturbances, keeping lights on, window blind open, and door open during daylight hours and drawing curtains, closing door, and turning off monitors at night time to facilitate normal circadian rhythm -suspect hypoactive delirium and with Ativan use-->Ativan discontinued, correspondence with Dr. Gilliam regarding antipsychotic with less dopamine blockade in setting of patient on Sinemet with Parkinsons with suggestion of quetiapine -low dose Seroquel at hs prn for agitation. -hydroxyzine prn for anxiety #Established on methadone maintenance therapy // opioid use disorder in sustained remission on methadone therapy Seen at their methadone clinic on the day of presentation; continue during current hospitalization; patient's care discussed with Samantha, his case aide, to confirm dosing and adherence; there should not be additional titration of the patient's methadone during his acute hospitalization unless absolutely medically necessary; he has remained stable on his maintenance therapy for quite some time, and at this time weaning or adjustment of MAT therapy is not advisable given his acute status -Continue established methadone therapy 60 mg p.o. daily DVT prophylaxis: On Eliquis for hx of atrial fibrillation Diet: Regular diet Disposition: Plan to d/c home with more caregiver support. At this time, [employer] not able to return to help patient in the home. CM working to coordinate with his waiver food services manager to arrange another caregiver agency as it appears patient will be discharged home with PT home health. Psychiatric evaluation with appreciation of intact decision-making capacity. MOCA unable to be completed as patient does not have glasses. He scored 1/5 on the minicog and was able to name 5 animals in one minute of time, therefore outside of the appreciation he does seem to have decision making capacity his cognitive state is concerning potentially interfering with his ability to understand information and the risks of refusing treatment. Spoke with sister, [place] who lives in same apartment building as patient~she lives on the 5th floor and patient lives on the first. She verbalizes she is unable to provide closer monitoring if patient were to go back home. Admission and Anticipated Discharge Date Admission Date: January 07, 2025 Subjective Enoc has no complaints today. Discussed patient possibly going to [facility]. He has no acute complaints. Eating and drinking well. Review of Systems Review of Systems: All systems reviewed & are unremarkable except as noted in Subjective Physical Exam Physical Exam: GENERAL APPEARANCE: A&O. NAD. SKIN: Normal color without rashes or lesions. Normal turgor. HEENT: Head AT/NC. Buccal mucosa is moist and pink. NECK: No jugular venous distention. No thyroid enlargement. There is no lymphadenopathy. HEART: RRR without m/g/r. LUNGS: Normal inspiratory effort. CTA without w/r/r ABDOMEN: No guarding or rigidity. Normoactive BS in all four quadrants. Abdomen soft and NT. MSK: No bony gross/deformities throughout. ROM intact. EXTREMITIES: No edema, No peripheral cyanosis. Right anterior hip with well- approximated, well-healed incision. Neuro: CN 2-12 grossly intact. No focal neuro deficits. PSYCHIATRIC: Normal affect. Eye contact is good. Speech is normal rate and content. Responses are appropriate. Results & Data Results & Data Vital Signs (Past 12 Hours) Vital Signs Temp Pulse Pulse Resp BP Pulse Ox O2 Del Method 01/29/25 07:23 36.7 C 50 L 16 120/76 97 Room Air 01/28/25 22:29 36.6 C 51 L 18 119/70 96 Room Air 01/28/25 21:55 Room Air PG Care Time/CCT Total # of Minutes Spent Total Time Spent with Patient: Total time spent is greater than 50% in coordination of care (as documented) at patient's floor/unit and/or counseling patient: Coding Level of Care Code 98093 SUB INP/OBS CARE 2/35MIN Diagnoses Normocytic normochromic anemia D64.9 Physical debility R53.81 Paroxysmal atrial fibrillation I48.0 Patient on methadone maintenance therapy F11.20 History of opioid abuse F11.11 Toxic encephalopathy G92.9
--- NOTE | 2025-01-30 11:32 | Hospitalist Progress Note ---
Date of Service January 30, 2025 Assessment & Plan (1) Normocytic normochromic anemia: (2) Physical debility: (3) Paroxysmal atrial fibrillation: (4) Patient on methadone maintenance therapy: (5) History of opioid abuse: (6) Toxic encephalopathy: Plan 69-year-old male who presents with progressive weakness and fatigue from recent hospitalizations, unable to care for himself at home. He is s/p right hip replacement with approximation of 12/26/[address] Hemphill. #Physical debility / Recent right hip fracture s/p operative fixation Recurrent emergency department presentations due to inability to care for themselves at home; pending referrals and insurance authorization -PT/OT consulted with rec not to return home -confirmation of right PINO on 12/[address] Hemphill at [facility], 18 edin removed per nursing on 01/14, right anterior hip incision with slight erythema, no drainage, dehiscence-->well healed #Normocytic normochromic anemia At admission hemoglobin measure of 8.5 with normocytic MCV, MCHC, and RDW; baseline values are normal -Completed Venofer 200 mg IV daily for 2 doses -Continue FeSO4 325 mg p.o. on -H/H has been flat 10s with most recent 11.0 on 01/27 #Hospital acquired hyperactive delirium // Sundowning//toxic encephalopathy In the late afternoon on 01/07 the patient was acutely confused, unable to answer orientation questions appropriately, and aggressive with staff; suspect this was consequence of recent recurrent hospitalizations, adjustments to methadone and psychiatric medication doses, and shared room resulting in acute hyperactive delirium; the patient has been much improved after transfer to a private room; continue with minimizing patient disturbances, keeping lights on, window blind open, and door open during daylight hours and drawing curtains, closing door, and turning off monitors at night time to facilitate normal circadian rhythm -suspect hypoactive delirium and with Ativan use-->Ativan discontinued, correspondence with Dr. Gilliam regarding antipsychotic with less dopamine blockade in setting of patient on Sinemet with Parkinsons with suggestion of quetiapine -low dose Seroquel at hs prn for agitation. -hydroxyzine prn for anxiety #Established on methadone maintenance therapy // opioid use disorder in sustained remission on methadone therapy Seen at their methadone clinic on the day of presentation; continue during current hospitalization; patient's care discussed with Samantha, his telephonic case manager, to confirm dosing and adherence; there should not be additional titration of the patient's methadone during his acute hospitalization unless absolutely medically necessary; he has remained stable on his maintenance therapy for quite some time, and at this time weaning or adjustment of MAT therapy is not advisable given his acute status -Continue established methadone therapy 60 mg p.o. daily DVT prophylaxis: On Eliquis for hx of atrial fibrillation Diet: Regular diet Disposition: Plan to d/c home with more caregiver support. At this time, [employer] not able to return to help patient in the home. CM working on seeking out [facility] that will accept patients SSI. If [facility] not an option, will need to secure another caregiver agency to help patient at home for discharge. Psychiatric evaluation with appreciation of intact decision-making capacity. MOCA unable to be completed as patient does not have glasses. He scored 1/5 on the minicog and was able to name 5 animals in one minute of time, therefore outside of the appreciation he does seem to have decision making capacity his cognitive state is concerning potentially interfering with his ability to understand information and the risks of refusing treatment. Spoke with sister, [place] who lives in same apartment building as patient~she lives on the 5th floor and patient lives on the first. She verbalizes she is unable to provide closer monitoring if patient were to go back home. Admission and Anticipated Discharge Date Admission Date: January 07, 2025 Subjective Doing well. Had to take take hydroxyzine this am due to anxiety~verbalized relief. States he is willing to go to [facility]-CM working to determine if there is a facility that will accept his SSI. Review of Systems Review of Systems: All systems reviewed & are unremarkable except as noted in Subjective Physical Exam Physical Exam: GENERAL APPEARANCE: A&O. NAD. SKIN: Normal color without rashes or lesions. Normal turgor. HEENT: Head AT/NC. Buccal mucosa is moist and pink. NECK: No jugular venous distention. No thyroid enlargement. There is no lymphadenopathy. HEART: RRR without m/g/r. LUNGS: Normal inspiratory effort. CTA without w/r/r ABDOMEN: No guarding or rigidity. Normoactive BS in all four quadrants. Abdomen soft and NT. MSK: No bony gross/deformities throughout. ROM intact. EXTREMITIES: No edema, No peripheral cyanosis. Right anterior hip with well- approximated, well-healed incision. Neuro: CN 2-12 grossly intact. No focal neuro deficits. PSYCHIATRIC: Normal affect. Eye contact is good. Speech is normal rate and content. Responses are appropriate. Results & Data Results & Data Vital Signs (Past 12 Hours) Vital Signs Temp Pulse Resp BP Pulse Ox O2 Del Method 01/30/25 07:21 36.4 C L 57 L 16 113/74 97 Room Air PG Care Time/CCT Total # of Minutes Spent Total Time Spent with Patient: Total time spent is greater than 50% in coordination of care (as documented) at patient's floor/unit and/or counseling patient: Coding Level of Care Code 90885 SUB INP/OBS CARE 2/35MIN Diagnoses Normocytic normochromic anemia D64.9 Physical debility R53.81 Paroxysmal atrial fibrillation I48.0 Patient on methadone maintenance therapy F11.20 History of opioid abuse F11.11 Toxic encephalopathy G92.9
--- NOTE | 2025-01-31 08:54 | Hospitalist Progress Note ---
Date of Service January 31, 2025 Assessment & Plan (1) Normocytic normochromic anemia: (2) Physical debility: (3) Paroxysmal atrial fibrillation: (4) Patient on methadone maintenance therapy: (5) History of opioid abuse: (6) Toxic encephalopathy: Plan 69-year-old male who presents with progressive weakness and fatigue from recent hospitalizations, unable to care for himself at home. He is s/p right hip replacement with approximation of 12/26/[address] Hemphill. #Physical debility / Recent right hip fracture s/p operative fixation Recurrent emergency department presentations due to inability to care for themselves at home; pending referrals and insurance authorization -PT/OT consulted with rec not to return home -confirmation of right PINO on 12/[address] Hemphill at [facility], 18 edin removed per nursing on 01/14, right anterior hip incision with slight erythema, no drainage, dehiscence-->well healed #Normocytic normochromic anemia At admission hemoglobin measure of 8.5 with normocytic MCV, MCHC, and RDW; baseline values are normal -Completed Venofer 200 mg IV daily for 2 doses -Continue FeSO4 325 mg p.o. on -H/H has been flat 10s with most recent 11.0 on 01/27 #Hospital acquired hyperactive delirium // Sundowning//toxic encephalopathy In the late afternoon on 01/07 the patient was acutely confused, unable to answer orientation questions appropriately, and aggressive with staff; suspect this was consequence of recent recurrent hospitalizations, adjustments to methadone and psychiatric medication doses, and shared room resulting in acute hyperactive delirium; the patient has been much improved after transfer to a private room; continue with minimizing patient disturbances, keeping lights on, window blind open, and door open during daylight hours and drawing curtains, closing door, and turning off monitors at night time to facilitate normal circadian rhythm -suspect hypoactive delirium and with Ativan use-->Ativan discontinued, correspondence with Dr. Gilliam regarding antipsychotic with less dopamine blockade in setting of patient on Sinemet with Parkinsons with suggestion of quetiapine -low dose Seroquel at hs prn for agitation. -hydroxyzine prn for anxiety #Established on methadone maintenance therapy // opioid use disorder in sustained remission on methadone therapy Seen at their methadone clinic on the day of presentation; continue during current hospitalization; patient's care discussed with Samantha, his lead case manager, to confirm dosing and adherence; there should not be additional titration of the patient's methadone during his acute hospitalization unless absolutely medically necessary; he has remained stable on his maintenance therapy for quite some time, and at this time weaning or adjustment of MAT therapy is not advisable given his acute status -Continue established methadone therapy 60 mg p.o. daily DVT prophylaxis: On Eliquis for hx of atrial fibrillation Diet: Regular diet Disposition: Plan to d/c home with more caregiver support. At this time, [employer] not able to return to help patient in the home. CM working on seeking out PCHs that will accept patients SSI. If PCH not an option, will need to secure another caregiver agency to help patient at home for discharge. Psychiatric evaluation with appreciation of intact decision-making capacity. MOCA unable to be completed as patient does not have glasses. He scored 1/5 on the minicog and was able to name 5 animals in one minute of time, therefore outside of the appreciation he does seem to have decision making capacity his cognitive state is concerning potentially interfering with his ability to understand information and the risks of refusing treatment. Spoke with sister, [place] who lives in same apartment building as patient~she lives on the 5th floor and patient lives on the first. She verbalizes she is unable to provide closer monitoring if patient were to go back home. Admission and Anticipated Discharge Date Admission Date: January 07, 2025 Review of Systems Review of Systems: All systems reviewed & are unremarkable except as noted in Subjective Physical Exam 2 Physical Exam: GENERAL APPEARANCE: A&O. NAD. SKIN: Normal color without rashes or lesions. Normal turgor. HEENT: Head AT/NC. Buccal mucosa is moist and pink. NECK: No jugular venous distention. No thyroid enlargement. There is no lymphadenopathy. HEART: RRR without m/g/r. LUNGS: Normal inspiratory effort. CTA without w/r/r ABDOMEN: No guarding or rigidity. Normoactive BS in all four quadrants. Abdomen soft and NT. MSK: No bony gross/deformities throughout. ROM intact. EXTREMITIES: No edema, No peripheral cyanosis. Right anterior hip with well-approximated, well-healed incision. Neuro: CN 2-12 grossly intact. No focal neuro deficits. PSYCHIATRIC: Normal affect. Eye contact is good. Speech is normal rate and content. Responses are appropriate. Results & Data Results & Data Vital Signs (Past 12 Hours) Vital Signs Temp Pulse Resp BP Pulse Ox O2 Del Method 01/31/25 07:20 36.6 C 53 L 16 117/69 96 Room Air 01/30/25 23:04 36.6 C 54 L 16 107/63 95 Room Air 01/30/25 21:11 Room Air PG Care Time/CCT Total # of Minutes Spent Total Time Spent with Patient: Total time spent is greater than 50% in coordination of care (as documented) at patient's floor/unit and/or counseling patient: Coding Diagnoses Normocytic normochromic anemia D64.9 Physical debility R53.81 Paroxysmal atrial fibrillation I48.0 Patient on methadone maintenance therapy F11.20 History of opioid abuse F11.11 Toxic encephalopathy G92.9
--- NOTE | 2025-02-01 14:03 | Hospitalist Progress Note ---
"Date of Service February 01, 2025 Assessment & Plan (1) Normocytic normochromic anemia: (2) Physical debility: (3) Paroxysmal atrial fibrillation: (4) Patient on methadone maintenance therapy: (5) History of opioid abuse: (6) Toxic encephalopathy: (7) Hematochezia: Plan 69-year-old male who presents with progressive weakness and fatigue from recent hospitalizations, unable to care for himself at home. He is s/p right hip replacement with approximation of 12/26/[address] Hemphill. #Physical debility / Recent right hip fracture s/p operative fixation Recurrent emergency department presentations due to inability to care for themselves at home; pending referrals and insurance authorization PT/OT consulted with rec not to return home Confirmation of right PINO on 12/[address] Hemphill at [facility], 18 edin removed per nursing on 01/14, right anterior hip incision with slight erythema, no drainage, dehiscence-->well healed #Normocytic normochromic anemia At admission hemoglobin measure of 8.5 with normocytic MCV, MCHC, and RDW; baseline values are normal Completed Venofer 200 mg IV daily for 2 doses Continue FeSO4 325 mg p.o. on H/H has been flat 10s with most recent 11.0 on 01/27 Repeat H&H the morning of 02/02 #Hospital acquired hyperactive delirium // Sundowning // toxic encephalopathy In the late afternoon on 01/07 the patient was acutely confused, unable to answer orientation questions appropriately, and aggressive with staff; suspect this was consequence of recent recurrent hospitalizations, adjustments to methadone and psychiatric medication doses, and shared room resulting in acute hyperactive delirium; the patient has been much improved after transfer to a private room; continue with minimizing patient disturbances, keeping lights on, window blind open, and door open during daylight hours and drawing curtains, closing door, and turning off monitors at night time to facilitate normal circadian rhythm Suspect hypoactive delirium and with Ativan use-->Ativan discontinued, correspondence with Dr. Gilliam regarding antipsychotic with less dopamine blockade in setting of patient on Sinemet with Parkinsons with suggestion of quetiapine Low dose Seroquel at HS PRN for agitation Hydroxyzine prn for anxiety #Established on methadone maintenance therapy // opioid use disorder in sustained remission on methadone therapy Seen at their methadone clinic on the day of presentation; continue during current hospitalization; patient's care discussed with Samantha, his employment case manager, to confirm dosing and adherence; there should not be additional titration of the patient's methadone during his acute hospitalization unless absolutely medically necessary; he has remained stable on his maintenance therapy for quite some time, and at this time weaning or adjustment of MAT therapy is not advisable given his acute status Continue established methadone therapy 60 mg p.o. daily Touch base with [place] [facility] on 02/01, who did not prescribe methadone as an outpatient However, there may be other places in the area that could potentially prescribe methadone; ? [facility] #Hematochezia | h/o hemorrhoids Reported by nursing staff on 02/01 Patient reports he had 2-3 episodes of BRB in stool since being in the hospital Not new for him, he attributes it to hemorrhoids Patient reports this most recent colonoscopy was canceled 5 months ago due to incomplete bowel prep; no history of colon cancer, UC, or Crohn's to his knowledge Hgb so far in the hospital has been stable (around 11.0); repeat a.m. H&H Will need to schedule repeat colonoscopy on an outpatient basis Disposition: Plan to d/c home with more caregiver support. At this time, [employer] not able to return to help patient in the home. CM working on seeking out PCHs that will accept patients SSI. If PCH not an option, will need to secure another caregiver agency to help patient at home for discharge. VTE PPx: On Eliquis for history of atrial fibrillation Psychiatric evaluation with appreciation of intact decision-making capacity. MOCA unable to be completed as patient does not have glasses. He scored 1/5 on the minicog and was able to name 5 animals in one minute of time, therefore outside of the appreciation he does seem to have decision making capacity his cognitive state is concerning potentially interfering with his ability to understand information and the risks of refusing treatment. Previous provider spoke with sister, [place] who lives in same apartment building as patient~she lives on the 5th floor and patient lives on the first. She verbalizes she is unable to provide closer monitoring if patient were to go back home. Admission and Anticipated Discharge Date Admission Date: January 07, 2025 Supervising Physician Co-Signing Physician Notes I did not see or examine the patient. I verified all yusuf points and agree with Tor Quintero PA-C with the following exceptions and/or additions: None Subjective Mr. Carlos is in good spirits this afternoon. He reports that he was up ambulating with physical therapy earlier today. He is having increased right sided hip pain after working with PT; however, he is happy to report he did some stairs today. No lightheadedness on his feet. No numbness or tingling going down the right leg. Patient reports he had some nausea this morning, but is otherwise asymptomatic at this time while sitting upright in his chair watching TV. Additionally, patient did have an episode of bright red blood in his stool earlier today, but reports this is not new for him. He has a history of hemorrhoids, and reports he has had 2-3 episodes while in the hospital of bright red blood in his stool. No melena. Patient was post to have a colonoscopy done 5 months ago, but did not complete the full bowel prep correctly. He reports he has had colonoscopies in the past without acute findings. No history of colon cancer to his knowledge. No prior history of Crohn's or ulcerative colitis. ROS: Patient endorses nausea (tends to be in the morning), BRB in stool, and right hip pain/soreness. Patient denies fevers overnight, chills, night sweats, chest pain, chest palpitations, SOB, cough, abdominal pain, vomiting, diarrhea, melena, or changes in urinary habits. Review of Systems Review of Systems: See HPI above Physical Exam Physical Exam: General: no acute distress; pleasant affect; sitting upright in his chair watching TV; non-toxic appearing; cooperative; SpO2 99% on RA HEENT: normocephalic, atraumatic; PERRLA; vision and hearing intact Neck: supple; trachea midline Skin: warm, dry without signs of tenting; no cyanosis; no rashes, bruising, lesions, or erythema noted CV: chest wall NTP; RR, mildly bradycardic around 50-55 bpm; S1/S2 normal; no murmurs/rubs/gallops; pulses intact and symmetric at radial, DP, and PT Lungs: no acute respiratory distress; symmetrical chest wall expansion; clear breath sounds across all lung willis w/o adventitious sounds; no wheezing ABD: Soft, NTP; BS present; no rebound/guarding; no distention LEs: 5/5 plantar/dorsiflexion bilaterally; right anterior hip incision site is mildly TTP (surgical incision site is well-healed over; no drainage, erythema, or signs of acute infection) MSK: no tics or fasciculations; no edema noted in the LEs b/l, nonerythematous Neuro: A&Ox3; normal mood and affect; fluent speech; sensation intact and symmetric in the LEs b/l Results & Data Results & Data Vital Signs (Past 12 Hours) Vital Signs Temp Pulse Resp BP Pulse Ox O2 Del Method 02/01/25 07:15 36.6 C 49 L 18 131/70 99 Room Air PG Care Time/CCT Total # of Minutes Spent Total Time Spent with Patient: Total time spent is greater than 50% in coordination of care (as documented) at patient's floor/unit and/or counseling patient: Coding [place] [address] SUB INP/OBS CARE 2/35MIN Patient Type Established Medical Decision Making Moderate Complexity Diagnoses Normocytic normochromic anemia D64.9 Physical debility R53.81 Paroxysmal atrial fibrillation I48.0 Patient on methadone maintenance therapy F11.20 History of opioid abuse F11.11 Toxic encephalopathy G92.9 Hematochezia K92.1"
[2025-02-02 06:03] LABS: Hematocrit (blood only) 33.0 % (42.0-52.0); Hemoglobin 10.8 g/dL (14.0-18.0); Immature Granulocytes # (auto) 0.00 K/uL (0.01-0.20); Immature Granulocytes % (auto) 0.0 %; Mean Corpuscular Hemoglobin 29.3 pg (25.0-34.0); Mean Corpuscular Volume 89.4 fL (80.0-100.0); Platelet Count 184 K/uL (130-400); RDW Standard Deviation 51.8 fL (36.4-46.3); Red Blood Count 3.69 M/uL (4.70-6.10); White Blood Count 3.27 K/ul (4.8-10.8)
[2025-02-02 06:18] LABS: Anion Gap 6.0 (3-11); Blood Urea Nitrogen 12.0 mg/dl (6-23); Calcium 9.0 mg/dl (8.6-10.3); Carbon Dioxide 31.0 mmol/L (21-32); Chloride 102.0 mmol/L (98-107); Creatinine Clr Calc Pharmacy 115.2 ml/min; Glucose 89.0 mg/dl (70-99(Fasting)); Potassium 4.0 mmol/L (3.5-5.1); Sodium 139.0 mmol/L (136-145)
--- NOTE | 2025-02-02 10:49 | Hospitalist Progress Note ---
Date of Service February 02, 2025 Assessment & Plan (1) Physical debility: (2) Patient on methadone maintenance therapy: (3) Normocytic normochromic anemia: (4) Paroxysmal atrial fibrillation: (5) History of opioid abuse: (6) Toxic encephalopathy: (7) Hematochezia: Plan 69-year-old male who presents with progressive weakness and fatigue from recent hospitalizations, unable to care for himself at home. He is s/p right hip replacement with approximation of 12/26/[address] Hemphill. #Physical debility | ambulatory dysfunction | recent right hip fracture s/p operative fixation Recurrent emergency department presentations due to inability to care for themselves at home; pending referrals and insurance authorization PT/OT consulted with rec not to return home Confirmation of right PINO on 12/[address] Hemphill at [facility], 18 edin removed per nursing on 01/14, right anterior hip incision with slight erythema, no drainage, dehiscence-->well healed #Established on methadone maintenance therapy | opioid use disorder in sustained remission on methadone therapy Continue methadone during current hospitalization Patient's care discussed with Samantha, his community case manager, on admission to confirm dosing and adherence There should not be additional titration of the patient's methadone during his acute hospitalization unless absolutely medically necessary He has remained stable on his maintenance therapy for quite some time, and at this time weaning or adjustment of MAT therapy is not advisable given his acute status Continue established methadone therapy 60 mg p.o. daily Did discuss switching to Sublocade/Suboxone, however patient reports he mainly takes methadone at this time for pain control Touched base with case management; given patient mainly takes methadone for pain control, may be possible to have pain management follows an outpatient Touched base with [facility] on 02/01: they do not regularly follow/prescribe methadone as an OP However, there may be other places in the area that could potentially prescribe methadone; ? [facility] #Normocytic normochromic anemia At admission, Hgb 8.5 with normocytic MCV Completed Venofer 200 mg IV daily for 2 doses Continue FeSO4 325 mg p.o. on // H/H has been flat 10s with most recent 10.8 on 02/02 #Hospital acquired hyperactive delirium // Sundowning // toxic encephalopathy (resolved) In the late afternoon on 01/07 the patient was acutely confused, unable to answer orientation questions appropriately, and aggressive with staff; suspect this was consequence of recent recurrent hospitalizations, adjustments to methadone and psychiatric medication doses, and shared room resulting in acute hyperactive delirium; the patient has been much improved after transfer to a private room; continue with minimizing patient disturbances, keeping lights on, window blind open, and door open during daylight hours and drawing curtains, closing door, and turning off monitors at night time to facilitate normal circadian rhythm Suspect hypoactive delirium and with Ativan use-->Ativan discontinued, correspondence with Dr. Gilliam regarding antipsychotic with less dopamine blockade in setting of patient on Sinemet with Parkinsons with suggestion of quetiapine Low dose Seroquel at HS PRN for agitation Hydroxyzine prn for anxiety #Hematochezia | h/o hemorrhoids Reported by nursing staff on 02/01 Patient reports he had 2-3 episodes of BRB in stool since being in the hospital Not new for him, he attributes it to hemorrhoids Patient reports this most recent colonoscopy was canceled 5 months ago due to incomplete bowel prep; no history of colon cancer, UC, or Crohn's to his knowledge Hgb so far in the hospital has been stable (around 11.0; as above) #Arthritic pain Voltaren gel PRN VTE PPx: On Eliquis for history of atrial fibrillation Discharge disposition: Insurance denied acute rehab at [facility] (P2P denied on 01/09) Difficult SNF placement due to methadone use Prior personal caregivers "[employer]" unable to staff caregivers (per CM note on 01/29) [facility] in [place] would be a personal banker option, but will not be able to provide support for 2-3 weeks CM currently looking into personal-assisted ([facility] excepts SSI, but would be expensive; awaiting to hear back from [facility]) Currently looking into alternative options for methadone Given patient takes methadone primarily for pain control, may be able to follow with pain management as an OP for Rx Will plan to d/c home with more caregiver support if possible. At this time, [employer] not able to return to help patient in the home. VTE PPx: On Eliquis for history of atrial fibrillation Psychiatric evaluation with appreciation of intact decision-making capacity. [place] CA unable to be completed as patient does not have glasses. He scored 1/5 on the minicog and was able to name 5 animals in one minute of time, therefore outside of the appreciation he does seem to have decision making capacity his cognitive state is concerning potentially interfering with his ability to understand information and the risks of refusing treatment. Patient's sister ([place]) has intermittently been updated throughout patient's hospital stay. Sister lives in same apartment building as patient~she lives on the 5th floor and patient lives on the first. She verbalizes she is unable to provide closer monitoring if patient were to go back home. Admission and Anticipated Discharge Date Admission Date: January 07, 2025 Supervising Physician Co-Signing Physician Notes I did not see or examine the patient. I verified all yusuf points and agree with Tor Quintero PA-C with the following exceptions and/or additions: None Subjective Mr. Carlos is experiencing bilateral shoulder pain this morning (right greater than left). He attributed it to his arthritis, and rates the pain as an 8 out of 10 at present in his right shoulder. He is also having soreness in his right hip, that he feels was exacerbated by working with PT yesterday and walking up stairs. Patient has not been up to walk today. No BMs yet today to assess for blood in stool. Patient has been eating plenty of food, and reports he slept okay last night, but was having soreness in his right hip that kept him up. In regard to methadone, he reports that he originally was started on this for narcotic addiction, but then continued on it for pain control after he "broke [his] kneecap". He also takes it for arthritic pain. He does not want to try any other medications such as Suboxone or Sublocade, as he is unsure if switching to these medications would work. ROS: Patient endorses right hip pain, right shoulder pain, and intermittent nausea. Patient denies fevers, chest pain, SOB, vomiting, diarrhea, or numbness or tingling going down the right leg. Physical Exam Physical Exam: General: no acute distress; pleasant affect; sitting upright in his chair watching TV; non-toxic appearing; cooperative; SpO2 95% on RA HEENT: normocephalic, atraumatic; PERRLA; vision and hearing intact Neck: supple; trachea midline RUE: Anterior surface is mildly TTP; no rashes or bruises appreciated; 5/5 manager strategic sourcing strength bilaterally Skin: warm, dry without signs of tenting; no cyanosis; no rashes, bruising, lesions, or erythema noted CV: chest wall NTP; RR, mildly bradycardic around 55-60 bpm; S1/S2 normal; no murmurs/rubs/gallops; pulses intact and symmetric at radial, DP, and PT Lungs: no acute respiratory distress; symmetrical chest wall expansion; clear breath sounds across all lung willis w/o adventitious sounds; no wheezing ABD: Soft, NTP; BS present; no rebound/guarding; no distention LEs: 5/5 plantar/dorsiflexion bilaterally; right anterior hip incision site is mildly TTP (surgical incision site is well-healed over; no drainage, erythema, or signs of acute infection) MSK: no tics or fasciculations; no edema noted in the LEs b/l, nonerythematous Neuro: A&Ox3; normal mood and affect; fluent speech; sensation intact and symmetric in the LEs b/l VSS Results & Data Results & Data Vital Signs (Past 12 Hours) Vital Signs Temp Pulse Resp BP Pulse Ox O2 Del Method 02/02/25 07:00 36.4 C L 57 L 18 118/74 95 Room Air PG Care Time/CCT Total # of Minutes Spent Total Time Spent with Patient: Total time spent is greater than 50% in coordination of care (as documented) at patient's floor/unit and/or counseling patient: Coding [place] [address] SUB INP/OBS CARE 2/35MIN Patient Type Established Medical Decision Making Moderate Complexity Diagnoses Physical debility R53.81 Patient on methadone maintenance therapy F11.20 Normocytic normochromic anemia D64.9 Paroxysmal atrial fibrillation I48.0 History of opioid abuse F11.11 Toxic encephalopathy G92.9 Hematochezia K92.1
[2025-02-02] MEDS: DICLOFENAC SOD 1% GEL 100 GM TUBE EXT PRN (13:26)
--- NOTE | 2025-02-03 08:02 | Hospitalist Progress Note ---
Date of Service February 03, 2025 Assessment & Plan (1) Physical debility: (2) Patient on methadone maintenance therapy: (3) Normocytic normochromic anemia: (4) Paroxysmal atrial fibrillation: (5) History of opioid abuse: (6) Toxic encephalopathy: (7) Hematochezia: Plan 69-year-old male who presents with progressive weakness and fatigue from recent hospitalizations, unable to care for himself at home. He is s/p right hip replacement with approximation of 12/26/[address] Hemphill. #Physical debility | ambulatory dysfunction | recent right hip fracture s/p operative fixation Recurrent emergency department presentations due to inability to care for themselves at home; pending referrals and insurance authorization PT/OT consulted with rec not to return home Confirmation of right PINO on 12/[address] Hemphill at [facility], 18 edin removed per nursing on 01/14, right anterior hip incision with slight erythema, no drainage, dehiscence-->well healed #Established on methadone maintenance therapy | opioid use disorder in sustained remission on methadone therapy Continue methadone during current hospitalization Patient's care discussed with Samantha, his case assistant, on admission to confirm dosing and adherence There should not be additional titration of the patient's methadone during his acute hospitalization unless absolutely medically necessary He has remained stable on his maintenance therapy for quite some time, and at this time weaning or adjustment of MAT therapy is not advisable given his acute status Continue established methadone therapy 60 mg p.o. daily Did discuss switching to Sublocade/Suboxone, however patient reports he mainly takes methadone at this time for pain control Touched base with case management; given patient mainly takes methadone for pain control, may be possible to have pain management follows an outpatient [place] with [place] [facility] management on 02/01: they do not regularly follow/prescribe methadone as an OP CM reached out to "[facility] of [place], who also do not work with methadone However, there may be other places in the area that could potentially prescribe methadone; will continue looking #Normocytic normochromic anemia At admission, Hgb 8.5 with normocytic MCV Completed Venofer 200 mg IV daily for 2 doses Continue FeSO4 325 mg p.o. on // H/H has been flat 10s with most recent 10.8 on 02/02 #Hospital acquired hyperactive delirium // Sundowning // toxic encephalopathy (resolved) In the late afternoon on 01/07 the patient was acutely confused, unable to answer orientation questions appropriately, and aggressive with staff; suspect this was consequence of recent recurrent hospitalizations, adjustments to methadone and psychiatric medication doses, and shared room resulting in acute hyperactive delirium; the patient has been much improved after transfer to a private room; continue with minimizing patient disturbances, keeping lights on, window blind open, and door open during daylight hours and drawing curtains, closing door, and turning off monitors at night time to facilitate normal circadian rhythm Suspect hypoactive delirium and with Ativan use-->Ativan discontinued, correspondence with Dr. Gilliam regarding antipsychotic with less dopamine blockade in setting of patient on Sinemet with Parkinsons with suggestion of quetiapine Low dose Seroquel at HS PRN for agitation Hydroxyzine prn for anxiety #Hematochezia | h/o hemorrhoids Reported by nursing staff on 02/01 Patient reports he had 2-3 episodes of BRB in stool since being in the hospital Not new for him, he attributes it to hemorrhoids Patient reports this most recent colonoscopy was canceled 5 months ago due to incomplete bowel prep; no history of colon cancer, UC, or Crohn's to his knowledge Hgb so far in the hospital has been stable (around 11.0; as above) #Arthritic pain Voltaren gel PRN VTE PPx: On Eliquis for history of atrial fibrillation Discharge disposition: Insurance denied acute rehab at [facility] (P2P denied on 01/09) Difficult SNF placement due to methadone use Prior personal caregivers "[employer]" unable to staff caregivers (per CM note on 01/29) [facility] in [place] would be a personal shopper option, but will not be able to provide support for 2-3 weeks CM currently looking into personal-assisted ([facility] excepts SSI, but would be expensive; awaiting to hear back from [facility]) Currently looking into alternative options for methadone Given patient takes methadone primarily for pain control, may be able to follow with pain management as an OP for Rx Will plan to d/c home with more caregiver support if possible. At this time, [employer] not able to return to help patient in the home. VTE PPx: On Eliquis for history of atrial fibrillation Psychiatric evaluation with appreciation of intact decision-making capacity. MOCA unable to be completed as patient does not have glasses. He scored 1/5 on the minicog and was able to name 5 animals in one minute of time, therefore outside of the appreciation he does seem to have decision making capacity his cognitive state is concerning potentially interfering with his ability to understand information and the risks of refusing treatment. Patient's sister ([place]) has intermittently been updated throughout patient's hospital stay. Sister lives in same apartment building as patient~she lives on the 5th floor and patient lives on the first. She verbalizes she is unable to provide closer monitoring if patient were to go back home. Admission and Anticipated Discharge Date Admission Date: January 07, 2025 Supervising Physician Co-Signing Physician Notes The patient was not seen by me. The chart was reviewed. Case discussed with FER Ram. Agree with assessment and plan Subjective Mr. Carlos is not doing well this morning. Apparently he received a call from his landlord, who went into his apartment due to complaints of bad smell. She called saying that all the food/meat in his refrigerator had become rancid, and that he needed to clean it out as it had spoiled. Patient expresses concern that he may lose his apartment. When asked if he has anyone available to help clean out the refrigerator at home, he reports says no. Patient reports he is still having significant right shoulder pain that feels like "someone sticking a knife" in his right shoulder. He rates the pain a 10 out of 10. He does report that the Voltaren gel helped a bit yesterday. While the pain in his right hip was bugging him last night, he feels like it is well-controlled at this time after taking methadone. No BM yet today, but has been passing gas this morning. ROS: Patient endorses significant right shoulder pain, mild right hip pain, and nausea with eating. Patient denies fever, chest pain, SOB, cough, abdominal pain, vomiting, diarrhea, pain shooting down the legs, or change in urinary/bowel habits. 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 Skin: warm, dry without signs of tenting; no cyanosis; no rashes, bruising, lesions, or erythema noted CV: chest wall NTP; RR, mildly bradycardic around 55-60 bpm; S1/S2 normal; no murmurs/rubs/gallops; pulses intact and symmetric at radial, DP, and PT Lungs: no acute respiratory distress; symmetrical chest wall expansion; clear breath sounds across all lung willis w/o adventitious sounds; no wheezing ABD: Soft, NTP; BS present; no rebound/guarding; no distention Right hip: Right anterior hip incision site is mildly TTP (surgical incision site is well-healed over; no drainage, erythema, or signs of acute infection) MSK: no tics or fasciculations; no edema noted in the LEs b/l, nonerythematous Neuro: A&Ox3; normal mood and affect; fluent speech; sensation intact and symmetric in the LEs b/l Gait: Patient exhibits extreme difficulty/max assist when attempting sit to stand from a seated position (after several attempts, patient was able to get up on his own); once on his feet, patient exhibited short, shuffling steps, but was able to ambulate with a walker a few steps onto the hallway and back Results & Data Results & Data Vital Signs (Past 12 Hours) Vital Signs Temp Pulse Resp BP Pulse Ox O2 Del Method 02/02/25 23:44 36.6 C 56 L 16 115/76 94 Room Air 02/02/25 21:18 Room Air PG Care Time/CCT Total # of Minutes Spent Total Time Spent with Patient: Total time spent is greater than 50% in coordination of care (as documented) at patient's floor/unit and/or counseling patient: Coding [place] [address] SUB INP/OBS CARE 2/35MIN Patient Type Established Medical Decision Making Moderate Complexity Diagnoses Physical debility R53.81 Patient on methadone maintenance therapy F11.20 Normocytic normochromic anemia D64.9 Paroxysmal atrial fibrillation I48.0 History of opioid abuse F11.11 Toxic encephalopathy G92.9 Hematochezia K92.1
[2025-02-03] MEDS: LIDOCAINE 5% 1 PATCH TD STA (13:22)
[2025-02-03] MEDS: REMOVE LIDODERM PATCH SCH (21:17)
--- NOTE | 2025-02-04 13:23 | Hospitalist Progress Note ---
Date of Service February 04, 2025 Assessment & Plan (1) Physical debility: (2) Patient on methadone maintenance therapy: (3) Normocytic normochromic anemia: (4) Paroxysmal atrial fibrillation: (5) History of opioid abuse: (6) Toxic encephalopathy: (7) Hematochezia: Plan 69-year-old male who presents with progressive weakness and fatigue from recent hospitalizations, unable to care for himself at home. He is s/p right hip replacement with approximation of 12/26/[address] Hemphill. #Physical debility | ambulatory dysfunction | recent right hip fracture s/p operative fixation Recurrent emergency department presentations due to inability to care for themselves at home; pending referrals and insurance authorization PT/OT consulted with rec not to return home Confirmation of right PINO on 12/[address] Hemphill at [facility], 18 edin removed per nursing on 01/14, right anterior hip incision with slight erythema, no drainage, dehiscence-->well healed #Established on methadone maintenance therapy | opioid use disorder in sustained remission on methadone therapy Continue methadone during current hospitalization Patient's care discussed with Samantha, his top case assembler, on admission to confirm dosing and adherence There should not be additional titration of the patient's methadone during his acute hospitalization unless absolutely medically necessary He has remained stable on his maintenance therapy for quite some time, and at this time weaning or adjustment of MAT therapy is not advisable given his acute status Continue established methadone therapy 60 mg p.o. daily Did discuss switching to Sublocade/Suboxone, however patient reports he mainly takes methadone at this time for pain control Touched base with case management; given patient mainly takes methadone for pain control, may be possible to have pain management follows an outpatient [place] with [place] pain management on 02/01: they do not regularly follow/prescribe methadone as an OP CM reached out to "[facility] of [place], who also do not work with methadone However, there may be other places in the area that could potentially prescribe methadone; will continue looking #Normocytic normochromic anemia At admission, Hgb 8.5 with normocytic MCV Completed Venofer 200 mg IV daily for 2 doses Continue FeSO4 325 mg p.o. on // H/H has been flat 10s with most recent 10.8 on 02/02 #Hospital acquired hyperactive delirium // Sundowning // toxic encephalopathy (resolved) In the late afternoon on 01/07 the patient was acutely confused, unable to answer orientation questions appropriately, and aggressive with staff; suspect this was consequence of recent recurrent hospitalizations, adjustments to methadone and psychiatric medication doses, and shared room resulting in acute hyperactive delirium; the patient has been much improved after transfer to a private room; continue with minimizing patient disturbances, keeping lights on, window blind open, and door open during daylight hours and drawing curtains, closing door, and turning off monitors at night time to facilitate normal circadian rhythm Suspect hypoactive delirium and with Ativan use-->Ativan discontinued, correspondence with Dr. Gilliam regarding antipsychotic with less dopamine blockade in setting of patient on Sinemet with Parkinsons with suggestion of quetiapine Low dose Seroquel at HS PRN for agitation Hydroxyzine prn for anxiety #Hematochezia | h/o hemorrhoids Reported by nursing staff on 02/01 Patient reports he had 2-3 episodes of BRB in stool since being in the hospital Not new for him, he attributes it to hemorrhoids Patient reports this most recent colonoscopy was canceled 5 months ago due to incomplete bowel prep; no history of colon cancer, UC, or Crohn's to his knowledge Hgb so far in the hospital has been stable (around 11.0; as above) #Arthritic pain Voltaren gel PRN #Constipation Docusate sodium/senna Fleet enema PRN VTE PPx: On Eliquis for history of atrial fibrillation Discharge disposition: Insurance denied acute rehab at [facility] (P2P denied on 01/09) Difficult SNF placement due to methadone use Prior personal caregivers "[employer]" unable to staff caregivers (per CM note on 01/29) [facility] in [place] would be a personal security specialist option, but will not be able to provide support for 2-3 weeks currently looking into personal-skilled nursing ([facility] excepts SSI, but would be expensive; [facility] not able to offer a bed) Currently looking into alternative options for methadone Given patient takes methadone primarily for pain control, may be able to follow with pain management as an OP for Rx (no luck thus far) Will plan to d/c home with more caregiver support if possible. At this time, [employer] not able to return to help patient in the home. VTE PPx: On Eliquis for history of atrial fibrillation Psychiatric evaluation with appreciation of intact decision-making capacity. MOCA unable to be completed as patient does not have glasses. He scored 1/5 on the minicog and was able to name 5 animals in one minute of time, therefore outside of the appreciation he does seem to have decision making capacity his c ognitive state is concerning potentially interfering with his ability to understand information and the risks of refusing treatment. Patient's sister ([place]) has intermittently been updated throughout patient's hospital stay. Sister lives in same apartment building as patient~she lives on the 5th floor and patient lives on the [address]. She verbalizes she is unable to provide closer monitoring if patient were to go back home. Admission and Anticipated Discharge Date Admission Date: January 07, 2025 Subjective Mr. Carlos's main complaint this morning is constipation. He reports his last bowel movement was on 02/01. When offered of milk of magnesium enema, he reports that this does not work for him, and that Fleet enemas worked best for him patient reports that he worked with PT yesterday, and had a "rough time" with the stairs; that said, he feels like he is improving each day. He again expresses frustration about thing in the hospital long-term, but voices understanding that he wants to return home the right way as he still exhibits significant difficulty with movements/physical debility. When asked how he would obtain groceries at home, he reports that he would have to go across the street to [facility]; patient recently got his driving license back, but had it originally revoked due to to driving erratically. He rates his right shoulder pain as a 7 out of 10 this morning and reports that the Voltaren gel has been helping. He has been eating and drinking well no other complaints at this time. ROS: Patient endorses ambulatory dysfunction, generalized weakness, constipation, and right shoulder/hip pain. Patient denies fever, chest pain, SOB, pleuritic CP, cough, abdominal pain, N/V/D, or changes in urinary habits. Review of Systems Review of Systems: See HPI above Physical Exam Physical Exam: General: no acute distress; pleasant affect; sitting upright in his chair watching TV; non-toxic appearing; cachectic; cooperative; SpO2 97% on RA HEENT: normocephalic, atraumatic; PERRLA; vision and hearing intact Neck: supple; trachea midline Right shoulder: Anterior surface is mildly TTP; no rashes or bruises appreciated; 5/5 director of enterprise applications strength bilaterally Skin: warm, dry without signs of tenting; no cyanosis; no rashes, bruising, lesions, or erythema noted CV: chest wall NTP; RR, mildly bradycardic around 55-60 bpm; S1/S2 normal; no murmurs/rubs/gallops; pulses intact and symmetric at radial, DP, and PT Lungs: no acute respiratory distress; symmetrical chest wall expansion; clear breath sounds across all lung willis w/o adventitious sounds; no wheezing ABD: Soft, NTP; BS present; no rebound/guarding; no distention Right hip: Right anterior hip incision site is mildly TTP (surgical incision site is well-healed over; no drainage, erythema, or signs of acute infection) MSK: no tics or fasciculations; no edema noted in the LEs b/l, nonerythematous Neuro: A&Ox3; normal mood and affect; fluent speech; sensation intact and symmetric in the LEs b/l Gait: Patient exhibits extreme difficulty/max assist when attempting sit to stand from a seated position (after several attempts, patient was able to get up on his own); once on his feet, patient exhibited short, shuffling steps, but was able to ambulate with a walker a few steps onto the hallway and back Results & Data Results & Data Vital Signs (Past 12 Hours) Vital Signs Temp Pulse Resp BP Pulse Ox O2 Del Method 02/04/25 08:57 Room Air 02/04/25 08:44 36.2 C L 62 18 125/74 100 Room Air PG Care Time/CCT Total # of Minutes Spent Total Time Spent with Patient: Total time spent is greater than 50% in coordination of care (as documented) at patient's floor/unit and/or counseling patient: C[place] [address] SUB INP/OBS CARE 03/14MIN Patient Type Established History Detailed Exam Detailed Medical Decision Making Low Complexity Diagnoses Physical debility R53.81 Patient on methadone maintenance therapy F11.20 Normocytic normochromic anemia D64.9 Paroxysmal atrial fibrillation I48.0 History of opioid abuse F11.11 Toxic encephalopathy G92.9 Hematochezia K92.1
--- NOTE | 2025-02-05 12:50 | Hospitalist Progress Note ---
Date of Service February 05, 2025 Assessment & Plan (1) Physical debility: (2) Patient on methadone maintenance therapy: (3) Normocytic normochromic anemia: (4) Paroxysmal atrial fibrillation: (5) History of opioid abuse: (6) Toxic encephalopathy: (7) Hematochezia: Plan 69-year-old male who presents with progressive weakness and fatigue from recent hospitalizations, unable to care for himself at home. He is s/p right hip replacement with approximation of 12/26/[address] Hemphill. #Physical debility | ambulatory dysfunction | recent right hip fracture s/p operative fixation Recurrent emergency department presentations due to inability to care for themselves at home; pending referrals and insurance authorization PT/OT consulted with rec not to return home Confirmation of right PINO on 12/[address] Hemphill at [facility], 18 edin removed per nursing on 01/14, right anterior hip incision with slight erythema, no drainage, dehiscence-->well healed #Established on methadone maintenance therapy | opioid use disorder in sustained remission on methadone therapy Continue methadone during current hospitalization Patient's care discussed with Samantha, his bilingual patient support caseworker, on admission to confirm dosing and adherence There should not be additional titration of the patient's methadone during his acute hospitalization unless absolutely medically necessary He has remained stable on his maintenance therapy for quite some time, and at this time weaning or adjustment of MAT therapy is not advisable given his acute status Continue established methadone therapy 60 mg p.o. daily Did discuss switching to Sublocade/Suboxone, however patient reports he mainly takes methadone at this time for pain control [place] with case management; given patient mainly takes methadone for pain control, may be possible to have pain management follows an outpatient [place] with [place] [facility] on 02/01: they do not regularly follow/prescribe methadone as an OP However, there may be other places in the area that could potentially prescribe methadone; ? [facility] #Normocytic normochromic anemia At admission, Hgb 8.5 with normocytic MCV Completed Venofer 200 mg IV daily for 2 doses Continue FeSO4 325 mg p.o. on // H/H has been flat 10s with most recent 10.8 on 02/02 #Hospital acquired hyperactive delirium // Sundowning // toxic encephalopathy (resolved) In the late afternoon on 01/07 the patient was acutely confused, unable to answer orientation questions appropriately, and aggressive with staff; suspect this was consequence of recent recurrent hospitalizations, adjustments to methadone and psychiatric medication doses, and shared room resulting in acute hyperactive delirium; the patient has been much improved after transfer to a private room; continue with minimizing patient disturbances, keeping lights on, window blind open, and door open during daylight hours and drawing curtains, closing door, and turning off monitors at night time to facilitate normal circadian rhythm Suspect hypoactive delirium and with Ativan use-->Ativan discontinued, correspondence with Dr. Gilliam regarding antipsychotic with less dopamine blockade in setting of patient on Sinemet with Parkinsons with suggestion of quetiapine Low dose Seroquel at HS PRN for agitation Hydroxyzine prn for anxiety #Hematochezia | h/o hemorrhoids Reported by nursing staff on 02/01 Patient reports he had 2-3 episodes of BRB in stool since being in the hospital Not new for him, he attributes it to hemorrhoids Patient reports this most recent colonoscopy was canceled 5 months ago due to incomplete bowel prep; no history of colon cancer, UC, or Crohn's to his knowledge Hgb so far in the hospital has been stable (around 11.0; as above) #Arthritic pain Voltaren gel PRN VTE PPx: On Eliquis for history of atrial fibrillation Discharge disposition: Insurance denied acute rehab at [facility] (P2P denied on 01/09) Difficult SNF placement due to methadone His prior personal caregivers "[employer]" are no longer able to staff (per CM note on 01/29) [facility] in [place] would be a radio personality option, but will not be able to provide caretakers until the week after [facility] [place] currently looking into personal-custodial ([facility] excepts SSI, but would be expensive; awaiting to hear back from [facility]) Currently looking into alternative options for methadone Given patient takes methadone primarily for pain control, may be able to follow with pain management as an OP for Rx Will plan to d/c home with more caregiver support if possible. At this time, [employer] not able to return to help patient in the home We discussed two different timelines for discharge: #1. We could aim for discharge on Thursday 02/08. Regardless of improved ambulatory status, he is unab le to be discharged over the weekend, as the methadone clinic is closed. However, if we give him a dose of methadone on Saturday and plan for discharge, we can set him up with a county van / transport to methadone clinic on Saturday. However, if he is discharged on 02/08, his new caretakers will not be available until the week after [place]. #2. I explained that the safer option would be to wait until discharge on Thursday 02/15. This way he would have scaffolding in place, and caretakers at home ([facility] in [place]) to assist with tasks if needed. Patient appreciated this conversation, and is amenable to staying the weekend thinking about it. Meds extended through the end of the month. Psychiatric evaluation with appreciation of intact decision-making capacity. MOCA unable to be completed as patient does not have glasses. He scored 1/5 on the minicog and was able to name 5 animals in one minute of time, therefore outside of the appreciation he does seem to have decision making capacity his cognitive state is concerning potentially interfering with his ability to understand information and the risks of refusing treatment. Patient's sister ([place]) has intermittently been updated throughout patient's hospital stay. Sister lives in same apartment building as patient~she lives on the 5th floor and patient lives on the first. She verbalizes she is unable to provide closer monitoring if patient were to go back home. Admission and Anticipated Discharge Date Admission Date: January 07, 2025 Subjective Mr. Carlos again expresses frustration with remaining in the hospital. Every day upon entering the room, he reports that he wants to go home, and that he has been in the hospital for "53 days". He reports he has been living at home for the last 3 years, and would feel safe going home at this time. However, he also expresses that, if he were to go home, he would want to "do it the right way". When asked what the patient would do if he fell at home by himself, and patient reports that he would need to call someone. He reports that he has people that hang out in the lobby, and he would give out/exchange his phone number with several neighbors. He also reports he has a friend who was in the [employer] who can help get him food, and that he can use food delivery services, such as [employer] eats. When asked what he would do if he fell and he did not have his phone, he reports that he always has his phone with him. He also reports he has a lift chair at home, and has a much easier time getting up using the lift chair. Patient denies feeling unsteady on his feet. While he has chronic pain in his right shoulder and right hip, he otherwise feels well. He denies any lightheadedness or dyspnea on exertion when ambulating throughout the hallways today. He also reports that he had 3 bowel movements yesterday after taking a Fleet enema; constipation is resolved. ROS: Patient endorses pain behind the right knee, and pain in the right shoulder Patient denies fever, chest pain with walking, SOB at rest, GALLOWAY, lightheadedness, feeling off balance on his feet, abdominal pain, nausea, vomiting, constipation, or pain shooting down the legs with walking. Review of Systems Review of Systems: See HPI above Physical Exam Physical Exam: General: no acute distress; pleasant affect; sitting upright in his chair watching TV; non-toxic appearing; cachectic; cooperative; SpO2 97% on RA HEENT: normocephalic, atraumatic; PERRLA; vision and hearing intact Neck: supple; trachea midline Right shoulder: Anterior surface is mildly TTP; no rashes or bruises appreciated; 5/5 salt miner strength bilaterally Skin: warm, dry without signs of tenting; no cyanosis; no rashes, bruising, lesions, or erythema noted CV: chest wall NTP; RR, mildly bradycardic around 55-60 bpm; S1/S2 normal; no murmurs/rubs/gallops; pulses intact and symmetric at radial, DP, and PT Lungs: no acute respiratory distress; symmetrical chest wall expansion; clear breath sounds across all lung willis w/o adventitious sounds; no wheezing ABD: Soft, NTP; BS present; no rebound/guarding; no distention Right hip: Right anterior hip incision site is mildly TTP (surgical incision site is well-healed over; no drainage, erythema, or signs of acute infection) MSK: no tics or fasciculations; no edema noted in the LEs b/l, nonerythematous Neuro: A&Ox3; normal mood and affect; fluent speech; sensation intact and symmetric in the LEs b/l Gait: Patient is able to stand independently pushing off of from his chair; once on his feet, patient exhibited short, shuffling steps, but exhibits the ability to ambulate up and down the hallway ~150 feet without assistance Results & Data Results & Data Vital Signs (Past 12 Hours) Vital Signs Temp Pulse Resp BP Pulse Ox O2 Del Method 02/05/25 12:01 36.6 C 60 20 118/60 97 Room Air 02/05/25 08:05 36.4 C L 54 L 21 110/58 L 97 Room Air 02/05/25 07:09 Room Air PG Care Time/CCT Total # of Minutes Spent Total Time Spent with Patient: Total time spent is greater than 50% in coordination of care (as documented) at patient's floor/unit and/or counseling patient: Coding [place] [address] SUB INP/OBS CARE 2/35MIN Patient Type Established Medical Decision Making Moderate Complexity Diagnoses Physical debility R53.81 Patient on methadone maintenance therapy F11.20 Normocytic normochromic anemia D64.9 Paroxysmal atrial fibrillation I48.0 History of opioid abuse F11.11 Toxic encephalopathy G92.9 Hematochezia K92.1
[2025-02-06] MEDS: METHADONE ORAL SOLN 2 MG/ML PO SCH (06:02)
--- NOTE | 2025-02-06 08:47 | Hospitalist Progress Note ---
Date of Service February 06, 2025 Assessment & Plan (1) Physical debility: (2) Patient on methadone maintenance therapy: (3) Normocytic normochromic anemia: (4) Paroxysmal atrial fibrillation: (5) History of opioid abuse: (6) Toxic encephalopathy: (7) Hematochezia: Plan 69-year-old male who presents with progressive weakness and fatigue from recent hospitalizations, unable to care for himself at home. He is s/p right hip replacement with approximation of 12/26/[address] Hemphill. #Physical debility | ambulatory dysfunction | recent right hip fracture s/p operative fixation Recurrent emergency department presentations due to inability to care for themselves at home; pending referrals and insurance authorization PT/OT consulted with rec not to return home Confirmation of right PINO on 12/[address] Hemphill at [facility], 18 edin removed per nursing on 01/14, right anterior hip incision with slight erythema, no drainage, dehiscence-->well healed #Established on methadone maintenance therapy | opioid use disorder in sustained remission on methadone therapy Continue methadone during current hospitalization Patient's care discussed with Samantha, his complex case manager, on admission to confirm dosing and adherence There should not be additional titration of the patient's methadone during his acute hospitalization unless absolutely medically necessary He has remained stable on his maintenance therapy for quite some time, and at this time weaning or adjustment of MAT therapy is not advisable given his acute status Continue established methadone therapy 60 mg p.o. daily Did discuss switching to Sublocade/Suboxone, however patient reports he mainly takes methadone at this time for pain control [place] with case management; given patient mainly takes methadone for pain control, may be possible to have pain management follows an outpatient [place] with [place] [facility] on 02/01: they do not regularly follow/prescribe methadone as an OP However, there may be other places in the area that could potentially prescribe methadone; ? [facility] #Normocytic normochromic anemia At admission, Hgb 8.5 with normocytic MCV Completed Venofer 200 mg IV daily for 2 doses Continue FeSO4 325 mg p.o. on // H/H has been flat 10s with most recent 10.8 on 02/02 #Hospital acquired hyperactive delirium // Sundowning // toxic encephalopathy (resolved) In the late afternoon on 01/07 the patient was acutely confused, unable to answer orientation questions appropriately, and aggressive with staff; suspect this was consequence of recent recurrent hospitalizations, adjustments to methadone and psychiatric medication doses, and shared room resulting in acute hyperactive delirium; the patient has been much improved after transfer to a private room; continue with minimizing patient disturbances, keeping lights on, window blind open, and door open during daylight hours and drawing curtains, closing door, and turning off monitors at night time to facilitate normal circadian rhythm Suspect hypoactive delirium and with Ativan use-->Ativan discontinued, correspondence with Dr. Gilliam regarding antipsychotic with less dopamine blockade in setting of patient on Sinemet with Parkinsons with suggestion of quetiapine Low dose Seroquel at HS PRN for agitation Hydroxyzine prn for anxiety #Hematochezia | h/o hemorrhoids Reported by nursing staff on 02/01 Patient reports he had 2-3 episodes of BRB in stool since being in the hospital Not new for him, he attributes it to hemorrhoids Patient reports this most recent colonoscopy was canceled 5 months ago due to incomplete bowel prep; no history of colon cancer, UC, or Crohn's to his knowledge Hgb so far in the hospital has been stable (around 11.0; as above) #Arthritic pain Voltaren gel PRN VTE PPx: On Eliquis for history of atrial fibrillation Discharge disposition: Insurance denied acute rehab at [facility] (P2P denied on 01/09) Difficult SNF placement due to methadone His prior personal caregivers "[employer]" are no longer able to staff (per CM note on 01/29) [facility] in [place] would be a personal financial representative option, but will not be able to provide caretakers until the week after [facility] currently looking into personal-custodial ([facility] excepts SSI, but would be expensive; awaiting to hear back from [facility]) Currently looking into alternative options for methadone Given patient takes methadone primarily for pain control, may be able to follow with pain management as an OP for Rx Will plan to d/c home with more caregiver support if possible. At this time, [employer] not able to return to help patient in the home We discussed two different timelines for discharge: #1. We could aim for discharge on Thursday 02/08. Regardless of improved ambulatory status, he is unab le to be discharged over the weekend, as the methadone clinic is closed. However, if we give him a dose of methadone on Saturday and plan for discharge, we can set him up with a county van / transport to methadone clinic on Saturday. However, if he is discharged on 02/08, his new caretakers will not be available until the week after [place]. #2. I explained that the safer option would be to wait until discharge on Thursday 02/15. This way he would have scaffolding in place, and caretakers at home ([facility] in [place]) to assist with tasks if needed. Patient appreciated this conversation, and is amenable to staying the weekend thinking about it. Meds extended through 03/08/25. Psychiatric evaluation with appreciation of intact decision-making capacity. MOCA unable to be completed as patient does not have glasses. He scored 1/5 on the minicog and was able to name 5 animals in one minute of time, therefore outside of the appreciation he does seem to have decision making capacity his cognitive state is concerning potentially interfering with his ability to understand information and the risks of refusing treatment. Patient's sister ([place]) has intermittently been updated throughout patient's hospital stay. Sister lives in same apartment building as patient~she lives on the 5th floor and patient lives on the first. She verbalizes she is unable to provide closer monitoring if patient were to go back home. Admission and Anticipated Discharge Date Admission Date: January 07, 2025 Subjective Mr. Carlos is in good spirits today. No new complaints at this time. He has been eating and drinking well, and slept well last night. His right shoulder pain is constant, but bearable at this time. No BMs since he had the Fleet enema, but reports he was passing gas earlier today. We again discussed discharge on 02/08 versus waiting until better scaffolding is in place at home. Patient reaffirms that he has lived on his own for 3 years at his current apartment, and expresses a strong desire to return home even if he does not have caretakers in place. He verbalizes that he remains a high fall risk. ROS: Patient endorses right shoulder pain Patient denies right hip pain, fever, chest pain with walking, SOB at rest, GALLOWAY, lightheadedness, feeling off balance on his feet, abdominal pain, nausea, vomiting, constipation, or pain shooting down the legs with walking. Review of Systems Review of Systems: See HPI above Physical Exam Physical Exam: General: no acute distress; pleasant affect; sitting upright in his chair watching TV; non-toxic appearing; cachectic; cooperative; SpO2 97% on RA HEENT: normocephalic, atraumatic; PERRLA; vision and hearing intact Neck: supple; trachea midline Right shoulder: Anterior surface is mildly TTP; no rashes or bruises appreciated; 5/5 decontaminator strength bilaterally Skin: warm, dry without signs of tenting; no cyanosis; no rashes, bruising, lesions, or erythema noted CV: chest wall NTP; RR, mildly bradycardic around 55-60 bpm; S1/S2 normal; no murmurs/rubs/gallops; pulses intact and symmetric at radial, DP, and PT Lungs: no acute respiratory distress; symmetrical chest wall expansion; clear breath sounds across all lung willis w/o adventitious sounds; no wheezing ABD: Soft, NTP; BS present; no rebound/guarding; no distention MSK: Resting tremor noted in extremities (most often the right hand); no edema noted in the LEs b/l, nonerythematous Neuro: A&Ox3; normal mood and affect; fluent speech; sensation intact and symmetric in the LEs b/l Gait: Patient is able to stand independently pushing off of from his chair; once on his feet, patient exhibited short, shuffling steps, but exhibits the ability to ambulate up and down the hallway ~150 feet without assistance Results & Data Results & Data Vital Signs (Past 12 Hours) Vital Signs Temp Pulse Pulse Pulse Resp BP Pulse Ox 02/06/25 08:35 65 02/06/25 07:24 36.7 C 52 L 16 102/65 99 02/05/25 23:05 36.6 C 53 L 18 129/72 100 O2 Del Method 02/06/25 08:35 02/06/25 07:24 Room Air 02/05/25 23:05 Room Air PG Care Time/CCT Total # of Minutes Spent Total Time Spent with Patient: Total time spent is greater than 50% in coordination of care (as documented) at patient's floor/unit and/or counseling patient: Coding [place] [address] SUB INP/OBS CARE 03/14MIN Patient Type Established Medical Decision Making Low Complexity Diagnoses Physical debility R53.81 Patient on methadone maintenance therapy F11.20 Normocytic normochromic anemia D64.9 Paroxysmal atrial fibrillation I48.0 History of opioid abuse F11.11 Toxic encephalopathy G92.9 Hematochezia K92.1
--- NOTE | 2025-02-07 10:57 | Hospitalist Progress Note ---
"Date of Service February 07, 2025 Assessment & Plan (1) Physical debility: (2) Patient on methadone maintenance therapy: (3) Normocytic normochromic anemia: (4) Paroxysmal atrial fibrillation: (5) History of opioid abuse: (6) Toxic encephalopathy: (7) Hematochezia: Plan 69-year-old male who presents with progressive weakness and fatigue from recent hospitalizations, unable to care for himself at home on 01/06/2025. Hospitalization has been prolonged secondary to placement issues. #Physical debility | ambulatory dysfunction | recent right hip fracture s/p operative fixation Recurrent emergency department presentations due to inability to care for themselves at home; pending referrals and insurance authorization s/p right hip replacement with approximation of 12/26/[address] Hemphill. 18 edin removed per nursing on 01/14. Right anterior hip incision appears well healed. PT/OT following, patient able to ambulate ~ 275 ft on 02/05. Leroy consulted 01/27 - patient does have decision making capacity. CM following for placement issues. Possible caregivers able to start 02/15. #Established on methadone maintenance therapy | opioid use disorder in sustained remission on methadone therapy Continue methadone 60mg daily during current hospitalization Patient's care discussed with Samantha, his child welfare caseworker, on admission to confirm dosing and adherence Did discuss switching to Sublocade/Suboxone, however patient reports he mainly takes methadone at this time for pain control CM following to see if there is a facility that will prescribe patient his methadone aside from the methadone clinic as he has to use [facility] service daily to obtain his methadone from clinic. #Normocytic normochromic anemia At admission, Hgb 8.5 with normocytic MCV Completed Venofer 200 mg IV daily for 2 doses Continue FeSO4 325 mg p.o. on // H/H has been flat 10s with most recent 10.8 on 02/02 #Hospital acquired hyperactive delirium | Sundowning | toxic encephalopathy (resolved) 01/07 the patient was acutely confused, unable to answer orientation questions appropriately, and aggressive with staff. Improved after transfer to private room. continue to facilitate normal circadian rhythm Suspect hypoactive delirium and Ativan use-->Ativan discontinued Discussed w/ psych, rec quetiapine HS prn for agitation. Hydroxyzine prn for anxiety #Hematochezia | h/o hemorrhoids Reported by nursing staff on 02/01; hx of BRB in outpatient setting. Unable to get CN 5 months ago secondary to inadequate bowel prep. Hgb stable. Rec further workup outpatient on discharge. #Arthritic pain- Voltaren gel PRN VTE PPx: On Eliquis for history of atrial fibrillation Code: full Discharge disposition: insurance denied [facility] 01/09. Current personal caregivers unable to staff. Does have another personal driver option but unable to provide until the week after Cecilia. Plan for d/c home w/ more caregiver support when deemed safe to do so. Meds extended through 03/08/25. Admission and Anticipated Discharge Date Admission Date: January 07, 2025 Supervising Physician Co-Signing Physician Notes PA Supervision Note: I did not personally see or examine the patient today, but I verified all yusuf points of FER Castrejon's assessment and plan with the following exceptions/additions: None Subjective Dann was seen & examined this morning. He complains of bilateral shoulder pain today which he is attributing to his arthritis. Reports he would prefer to return home prior to the holidays so that he can see his family. Physical Exam Physical Exam: General: NAD, VS: BP 105/64; P66; R16; T36.5C Resp: normal respiratory effort Extremities: Moves all extremities, no edema Neuro: A&O x3 Skin: intact, no lesions noted Results & Data Results & Data Vital Signs (Past 12 Hours) Vital Signs Temp Pulse Pulse Pulse Resp BP BP 02/07/25 08:20 66 02/07/25 07:17 36.5 C 49 L 16 105/64 02/07/25 07:10 02/07/25 00:28 36.6 C 54 L 18 101/61 Pulse Ox O2 Del Method 02/07/25 08:20 02/07/25 07:17 96 Room Air 02/07/25 07:10 Room Air 02/07/25 00:28 96 Room Air PG Care Time/CCT Total # of Minutes Spent Total Time Spent with Patient: Total time spent is greater than 50% in coordination of care (as documented) at patient's floor/unit and/or counseling patient: Coding Level of Care Code 43018 SUB INP/OBS CARE 03/14MIN Diagnoses Physical debility R53.81 Patient on methadone maintenance therapy F11.20 Normocytic normochromic anemia D64.9 Paroxysmal atrial fibrillation I48.0 History of opioid abuse F11.11 Toxic encephalopathy G92.9 Hematochezia K92.1"
--- NOTE | 2025-02-08 14:55 | Discharge Summary ---
"Discharge Summary Date of Service February 08, 2025 Principal Dx & Hospital Course #1 = Principal Diagnosis (1) Physical debility: (2) Patient on methadone maintenance therapy: (3) Normocytic normochromic anemia: (4) Paroxysmal atrial fibrillation: (5) History of opioid abuse: (6) Toxic encephalopathy: (7) Hematochezia: Plan 69-year-old male who presents with progressive weakness and fatigue from recent hospitalizations, unable to care for himself at home on 01/06/2025. Hospitalization has been prolonged secondary to placement issues. #Physical debility | ambulatory dysfunction | recent right hip fracture s/p operative fixation Recurrent emergency department presentations due to inability to care for themselves at home; pending referrals and insurance authorization s/p right hip replacement with approximation of 12/26/[address] Hemphill. 18 edin removed per nursing on 01/14. Right anterior hip incision appears well healed. PT/OT following, patient able to ambulate ~ 275 ft on 02/05. Pysch consulted 01/27 - patient does have decision making capacity. CM following for placement issues. Waiver program found caregivers to begin sooner. arranged for patient prior to discharge. #Established on methadone maintenance therapy | opioid use disorder in sustained remission on methadone therapy Continue methadone 60mg daily during current hospitalization Patient's care discussed with Samantha, his counseling case manager, on admission to confirm dosing and adherence Did discuss switching to Sublocade/Suboxone, however patient reports he mainly takes methadone at this time for pain control Patient arranged transportation for methadone clinic prior to discharge. #Normocytic normochromic anemia At admission, Hgb 8.5 with normocytic MCV Completed Venofer 200 mg IV daily for 2 doses Continue FeSO4 325 mg p.o. on // H/H has been flat 10s with most recent 10.8 on 02/02 Continue to monitor outpatient. #Hospital acquired hyperactive delirium | Sundowning | toxic encephalopathy (resolved) 01/07 the patient was acutely confused, unable to answer orientation questions appropriately, and aggressive with staff. Improved after transfer to private room. continue to facilitate normal circadian rhythm Suspect hypoactive delirium and Ativan use-->Ativan discontinued Discussed w/ psych, rec quetiapine HS prn for agitation. #Hematochezia | h/o hemorrhoids Reported by nursing staff on 02/01; hx of BRB in outpatient setting. Unable to get CN 5 months ago secondary to inadequate bowel prep. Hgb stable. Rec further workup outpatient on discharge. #Arthritic pain- Voltaren gel PRN Discussed w/ CM on 02/08 - patient medically stable for discharge & feels comfortable returning home in his current state. Transportation to methadone clinic has been arranged by patient & CM to follow up w/ dee program regarding caregivers. Home health has been arranged prior to discharge. Admission HPI Per Admitting Provider Mr. Carlos is a 69-year-old male whose active medical conditions include essential hypertension, paroxysmal atrial fibrillation, Parkinson's disease, opioid use disorder in sustained remission with methadone assisted therapy among other chronic medical conditions who presented to the [facility] on 01/06 due to progressive fatigue and weakness. The patient was recently hospitalized at this facility for similar complaints in association wi th right leg pain after a recent right hip fracture repair performed at an outside hospital. The patient had a ground-level fall sustained at home resulting in a right femoral fracture requiring surgical intervention at outside hospital; at that time he was discharged to a snf facility. On the same day of arrival he left that facility against medical advice. The patient subsequently presented to this hospital facility for progressive pain and difficulty with ambulation; at the time of discharge he was again recommended to be discharged to a snf facility which he declined and returned home. The patient now returns, 48 hours later, with similar complaints and no new findings in review of systems. He is amenable to placement to a snf facility at this time, understanding his progressive physical debility and inability to safely care for himself at home. The patient denies any new or progressive pain related to his recent surgery. They deny any alteration in bowel movements, hematochezia, melanotic stool, abdominal pain, chest pain, palpitations. They were last at their methadone clinic on the day of presentation, 01/06. Discharge Exam General: NAD, VS: BP 113/70; P61; R18; T36.4C Resp: normal respiratory effort Extremities: Moves all extremities, no edema Neuro: A&O x3 Skin: intact, no lesions noted Discharge Plan Discharge Items Patient Disposition: Home - Home Health Services Reason For Visit: PHYSICAL DEBILITY Discharge Diagnosis: Physical disability, Recent hip fracture,blood in stool, delirium, anxiety Condition on Discharge: Good Activity: As commented below Non-emergency contact: Primary Care Provider, Surgeon, Specialist, Psychiatrist, Therapist and Talent Acquisition Program Manager Call non-emergency contact if: you have any medication questions, your symptoms worsen, your pain is not controlled, your pain is worsening and you have a fever Follow-up/Referrals: Ursula Nunez DO [Primary Care Provider] - Diet: Regular Addtl Attending Provider Instructions: Mr. Carlos, You were recently hospitalized due to difficulty ambulating following her hip surgery. You have worked with our physical and occupational therapy teams with improvement in your ambulation. Your waiver program is arranging caregivers for you to have at home and our hospital set up home health services for you on discharge. Medications: Your medication list has been reviewed and reconciled upon discharge to ensure accuracy and continuity of care. An updated list of all your medications is included with your hospital discharge paperwork. Please review this list closely, and make note of any changes. New medications to your pharmacy include Melatonin and Seroquel. You have been taking these once daily prior to bed while hospitalized to help with sleep. They can be used on an as needed basis upon discharge once daily prior to bed. Senna tabs have also been sent to your pharmacy. You have been taking these twice daily to help with constipation. Your first dose at home will be this evening, 02/08. Take your medications as instructed; do not skip a dose of your medicines. Make sure all of your doctors know every medicine you are taking (including htkg-nia-lpcpdob medicines, vitamins, and supplements). Call your primary care provider before taking any new medicines (including over- the-counter medicines, vitamins, and supplements), because some of these may interact with your current medications, or may make your symptoms worse. Tell your primary care provider if you cannot afford your medications. Activity: You can do normal everyday activities as your body allows. Take rest breaks if you feel tired. Do not overexert. Stop activity if you have pain, shortness of b reath or feel dizzy. Follow-up appointments: Make an appointment with your primary care physician within one week of discharge. A copy of this summary will be sent to them. Every time you see your primary care physician, or any other doctor, bring your medication list, and a list of questions. CONTACT YOUR PRIMARY CARE PROVIDER if you experience any of the following: Shortness of breath or difficulty breathing Fevers or chills Feeling tired with normal activity or experiencing dizziness or fainting Difficulty following your treatment plan, or difficulty taking medications CALL 911 OR GO TO THE EMERGENCY DEPARTMENT if you experience any of the following: Severe abdominal pain or nausea/vomiting Severe chest pain, or chest pain that radiates (moves) to your jaw or arm Sudden, severe shortness of breath or difficulty breathing Thank you for allowing us to participate in your care. Pending Studies at Discharge: No Stand-Alone Forms: My [facility], Smoking Cessation Medications and DC Order Prescriptions: New sennosides-docusate sodium [Senokot-S] 8.6-50 mg Tablet 1 tab PO BID 30 Days Qty: 60 0RF melatonin 3 mg Tablet 3 mg PO HS PRN (Reason: sleep) 30 Days Qty: 30 0RF quetiapine 25 mg Tablet 12.5 mg PO HS PRN (Reason: withdrawal symptoms/agitation/anxiety) 30 Days Qty: 30 0RF Continued metoprolol succinate 25 mg tablet extended release 24 hr 25 mg PO DAILY Qty: 2 0RF Rx Instructions: PREFERS IMMEDIATE RELEASE DUE TO CO-PAY AMOUNT hydroxyzine HCl 25 mg tablet 25 mg PO HS methadone 10 mg/mL concentrate 81 mg PO DAILY Patient Comments: 01/06- unable to verify. Rx Instructions: PATIENT HAS BEEN WITHOUT METHADONE FOR 10 DAYS OF 12/30/2024 Eliquis 5 mg tablet 5 mg PO BID carbidopa-levodopa 25-100 mg tablet 2 tab PO QID Discharge Orders: Discharge Order (Routine); Ordered 02/08/25 Ordered By: Lauren Grant/Other Patient Handouts: Slips Trips Falls Prevention, Chronic Pain Therapies Admission Data Admit Date/Time: 01/07/25 19:08 Attending Provider: Len Garcia Admit Provider: Klaus Mckinley Primary Care Provider: Ursula Nunez Other Providers: Klaus Mckinley; Sowmya Sabillon; Dustin Reyes; Dolores Rivas; Radha Romero; Manny Gilliam; Beatrice lebron; Elen Huerta; Ashly Blankenship; [facility],Home Healthcare Other Interventions: Discharge Summary Assessment (RN) Last Done: 02/08/25 16:16 Hospital Stay Data Consultations 01/06/25 14:48 ED Decision to Admit Stat 01/26/25 15:14 Consult Psychiatry Routine Diagnostic Imagining Performed 01/06/25 12:28 CT head/brain wo con Stat 01/06/25 13:22 CTA abdomen pelvis w con [CT angio abdomen pelvis w con] Stat 01/14/25 22:43 CT head/brain wo con Stat Pending Results Patient Have Any Pending Studies at Discharge: No Discharge Instructions Given to Patient (Per Discharging Provider) Arturo Rao were recently hospitalized due to difficulty ambulating following her hip surgery. You have worked with our physical and occupational therapy teams with improvement in your ambulation. Your waiver program is arranging caregivers for you to have at home and our hospital set up home health services for you on discharge. Medications: Your medication list has been reviewed and reconciled upon discharge to ensure accuracy and continuity of care. An updated list of all your medications is included with your hospital discharge paperwork. Please review this list closely, and make note of any changes. New medications to your pharmacy include Melatonin and Seroquel. You have been taking these once daily prior to bed while hospitalized to help with sleep. They can be used on an as needed basis upon discharge once daily prior to bed. Senna tabs have also been sent to your pharmacy. You have been taking these twice daily to help with constipation. Your first dose at home will be this evening, 02/08. Take your medications as instructed; do not skip a dose of your medicines. Make sure all of your doctors know every medicine you are taking (including feuf-udy-khuzjlo medicines, vitamins, and supplements). Call your primary care provider before taking any new medicines (including over- the-counter medicines, vitamins, and supplements), because some of these may interact with your current medications, or may make your symptoms worse. Tell your primary care provider if you cannot afford your medications. Activity: You can do normal everyday activities as your body allows. Take rest breaks if you feel tired. Do not overexert. Stop activity if you have pain, shortness of breath or feel dizzy. Follow-up appointments: Make an appointment with your primary care physician within one week of discharge. A copy of this summary will be sent to them. Every time you see your primary care physician, or any other doctor, bring your medication list, and a list of questions. CONTACT YOUR PRIMARY CARE PROVIDER if you experience any of the following: Shortness of breath or difficulty breathing Fevers or chills Feeling tired with normal activity or experiencing dizziness or fainting Difficulty following your treatment plan, or difficulty taking medications CALL 911 OR GO TO THE EMERGENCY DEPARTMENT if you experience any of the following: Severe abdominal pain or nausea/vomiting Severe chest pain, or chest pain that radiates (moves) to your jaw or arm Sudden, severe shortness of breath or difficulty breathing Thank you for allowing us to participate in your care. Total Time Total Time Spent Total Time Spent (In Minutes): 55 Total Time Includes: Examination of the Patient, Discharge Planning, Medication Reconciliation and Communication With Other Providers Coding Level of Care Code 43742 INP/OBS DISCH >30 MIN Diagnoses Physical debility R53.81 Patient on methadone maintenance therapy F11.20 Normocytic normochromic anemia D64.9 Paroxysmal atrial fibrillation I48.0 History of opioid abuse F11.11 Toxic encephalopathy G92.9 Hematochezia K92.1"
[2025-02-08 15:34] VITALS: BP 113/70; PULSE 61; RESP 18; TEMP 97.5; O2SAT 97
== END 2025-02-08 17:25 | disposition home health service (06) | DRG 533 ==
LOC: EDINP 11:20 → ED 11:20 → 3N 17:44 → 3E 01-07 18:51 → SUATTDRO 01-07 19:08